=== PATIENT | male | born 1940 | race Caucasian/White ===

== ENCOUNTER 2018-01-04 17:25 | Inpatient (IN) ==
--- NOTE | 2018-01-04 18:41 | ED ---
HPI General Chief complaint: Weakness Stated complaint: failure to thrive Time Seen by Provider: 01/04/18 18:01 Source: patient, EMS and RN notes reviewed Mode of arrival: EMS Limitations: no limitations History of Present Illness HPI Narrative: Patient is a 77-year-old male that presents for the evaluation of progressive leg weakness over the past 2 months. The patient states that over the past 2 months his left leg feels like it gets weak after standing and walking. The patient reports that he wakes up in the morning and can walk as usual but as the day progresses his left leg in particular begins to feel weak and he can no longer walk. The patient denies any past medical history at this time. He denies any pain. He denies fever, chill, chest pain, nausea, or vomiting. He does report shortness of breath that he states is normal for him. Upon further evaluation the patient also states that for the past couple days his left eye has had purulent discharge that has caused his eyelid to swell and causes it to stay shut. Related Data Home Medications Medication Instructions Recorded Confirmed aspirin 325 mg PO DAILY 01/04/18 01/04/18 Allergies Allergy/AdvReac Type Severity Reaction Status Date / Time Penicillins Allergy Unknown unknown Verified 01/04/18 18:45 Review of Systems ROS: all other systems reviewed are negative PMFSH History History Provided By: Patient and Unit Control Clerk / EMT Medical History Medical History Medical history unknown (Acute) Surgical History Surgical History No history of previous surgery (Acute) Social History Social History Substance History: No History of Abuse Second Hand Smoke Exposure: Yes Smoking Status: Current every day smoker Tobacco Type: Cigarettes How Often Do You Have a Drink Containing Alcohol: Never Recent Travel in [facility] within the Last 8 Weeks: No Recent Out of Country Travel within the Last 8 Weeks: No Exam Narrative Exam Narrative: GENERAL: Dishoveled. Not well groomed SKIN: Focused skin assessment warm/dry. Has hardening of the skin on the lower legs noted. Hard to assess for pulses with palpation but able to hear them with a Doppler. 2+. HEAD: Atraumatic. Normocephalic. EYES: Pupils equal and round. No scleral icterus. No injection or drainage. ENT: No nasal bleeding or discharge. Mucous membranes pink and moist. Tongue is midline. No blood deviation. EOM intact bilaterally. Patient does have swelling of the eyelids bilaterally on the left eye. Patient does have discharge coming from the eye itself. Patient has erythema on the left upper eyelid as well. NECK: Trachea midline. No JVD. CARDIOVASCULAR: Regular rate and rhythm. No murmur appreciated. RESPIRATORY: No accessory muscle use. Clear to auscultation. Breath sounds equal bilaterally. GASTROINTESTINAL: Abdomen soft, non-tender, nondistended. Hepatic and splenic margins not palpable. MUSCULOSKELETAL: No obvious deformities. No clubbing. No cyanosis. No edema. Full range of motion of the upper and lower extremities bilaterally. 2+ pulses bilaterally. NEUROLOGICAL: Awake and alert. No obvious cranial nerve deficits. Motor grossly within normal limits. Normal speech. PSYCHIATRIC: Appropriate mood and affect; insight and judgment normal. Course Initial Documented Vital Signs Temperature 97.5 F L 01/04/18 18:15 Pulse Rate 102 H 01/04/18 18:15 Respiratory Rate 29 H 01/04/18 18:15 Blood Pressure 127/58 L 01/04/18 18:15 Pulse Oximetry 56 L 01/04/18 18:15 Last Documented Vital Signs Temperature 98.2 F 01/05/18 16:00 Pulse Rate 90 01/05/18 19:00 Respiratory Rate 23 01/05/18 19:00 Blood Pressure 97/66 L 01/05/18 19:00 Pulse Oximetry 100 01/05/18 19:00 Medical Decision Making MARCUS Attestation MARCUS supervised visit: Yes Attestation: I, Dr. Sheets, have reviewed the advance practice practitioner's documentation and am in agreement, met with the patient face to face, made the diagnosis, and the medical decision making was done by me. The patient was initially evaluated by Ebenezer, the MARCUS. Please see their complete history and physical. *My assessment and Findings: The patient presents with history of being found disheveled appearing after his neighbors went to check on him earlier today. The patient denies having any acute complaints, however the patient has been frequently falling recently according to the history obtained from the nurse. The patient on arrival has a sallow appearing complexion. The patient's examination is remarkable for abrasions on his toes. The patient is also noted to have swelling most prominent in the left upper extremity. He also has some swelling that is periorbital. Patient was noted upon ambulance services arrival to have O2 saturations reportedly on room air of the 50s. The patient was placed on nasal cannula O2 and O2 saturations improved. During the course of the patient's emergency department visit, the patient's history, examination, and differential diagnosis were reviewed with the patient. The patient was placed on a radiographer cardiac catheterization with oximetry and frequent blood pressure monitoring. The patient had IV access obtained and blood work sent for analysis. The patient's studies were reviewed and remarkable for A white count of 6.9, hemoglobin 6.6, the patient was typed and crossmatched for blood administration. MCV is 72.9 suggestive of iron deficiency anemia, rectal examination was done that revealed Hemoccult positive stools. Platelet count 201, neutrophils 71.3 PT 16.4, INR is 1.6, PTT 32.4 suggestive of a coagulopathy of undetermined cause. Chemistry is remarkable for a BUN of 23, creatinine 2.00, calcium 7.5, total bilirubin 2.3, AST 46, possibly related to an alcohol related hepatitis, CPK 466, MB percent 2.0, troponin I elevated at 0.68 which could be related to his renal insufficiency, versus demand related ischemia from anemia as the patient denies having any chest pain. Albumin 2.6, TSH 4.19 urinalysis shows large occult blood and 100 protein hazy urine 2 urobilinogen, 51 RBCs, few sediment, rare bacteria. Chest x-ray shows pleural effusions, CT scan of the head and facial bones shows no acute abnormality, CT scan of the lumbar spine shows degenerative changes, no other acute abnormality , ultrasound of bilateral lower extremities reveals no DVT, however there is superficial venous thrombosis involving bilateral greater saphenous veins. The patient will be admitted to the hospital under the care of the cae engineer. The patient's results were discussed with the patient, including the plan of care. I explained that further testing and/ or monitoring is indicated based on the patient's history, examination, and/ or laboratory findings. Therefore, I recommended admission for additional evaluation. The patient expressed understanding and was agreeable with this plan. The patient was admitted to the hospital in critical condition and sent to a bed under the care of the cae engineer's service. MDM Narrative Medical decision making narrative: 77-year-old male the presents to the ED for evaluation of weakness. Patient was properly examined and was found to have signs and symptoms of unclear etiology with deafly concerning for weakness. Patient does not really follow up with and takes no medications. He seems like he does not really take good care of himself. Per nurse report apparently patient has fallen multiple times today and was on the floor for some time and they continue to call 911 and apparently the EVAC stated that he did not want to come until the last time when they told him that he needed to come. Labs and imaging will be ordered. Labs and imaging showed what appears to be anemia with GI bleed, pleural effusions bilaterally with left worse than right, what appears to be CHF exacerbation with a very high BNP, elevated troponin, tachycardia on EKG as well as injury and lactic acidosis. Unclear etiology of the symptoms at this time but likely from patient not taking care of himself. At this time blood was ordered. Patient was started on vancomycin IV, given a 500 bolus of fluid as well as Lasix given. Case discussed with my attending Dr. Sheets who evaluated the patient herself and recommends admission to the cae engineer. Patient was admitted to Dr. Carpenter who agreed to admission to his service. Medical Screen Exam Complete: Yes Emergency Medical Condition: Yes Differential Diagnosis Differential Diagnosis: Failure to thrive versus weakness versus peripheral artery disease versus DVT versus cellulitis versus orbital cellulitis versus weakness versus altered mental status Medical Records Medical records reviewed: Yes I reviewed the patient's medical records. Lab Data Lab results reviewed: Yes I reviewed the patient's lab results. Lab results narrative: lactic acid elevated Troponin elevated BNP in the 3000 Result diagrams: 01/05/18 13:03 01/05/18 04:07 Lab Results 01/04/18 01/04/18 01/04/18 Range/Units 18:59 19:00 19:00 WBC 6.9 (4.0-11.0) th/mm3 RBC 3.37 L (4.50-5.90) mil/mm3 Hgb 6.6 L* (13.0-17.0) gm/dL Hct 24.6 L (39.0-51.0) % MCV 72.9 L (80.0-100.0) fL MCH 19.7 L (27.0-34.0) pg MCHC 27.0 L (32.0-36.0) % RDW 25.6 H (11.6-17.2) % Plt Count 201 (150-450) th/mm3 MPV 8.4 (7.0-11.0) fL Prelim Diff (Auto) Slide review pending Neut % (Auto) 71.3 H (16.0-70.0) % Lymph % (Auto) 17.3 (9.0-44.0) % [place] % (Auto) 10.6 H (0.0-8.0) % Eos % (Auto) 0.1 (0.0-4.0) % Baso % (Auto) 0.7 (0.0-2.0) % Neut # (Auto) 4.9 (1.8-7.7) th/mm3 Lymph # (Auto) 1.2 (1.0-4.8) th/mm3 [place] # (Auto) 0.7 (0.0-0.9) th/mm3 Eos # (Auto) 0.0 (0.0-0.4) th/mm3 Baso # (Auto) 0.0 (0.0-0.2) th/mm3 WBC Differential . Diff Scan Auto diff confirmed Differential Comment . Dimorphic RBCs Present H (None) PT (9.8-11.6) sec INR Ratio APTT (24.3-30.1) sec Puncture Site Patient Temperature O2 Saturation (90-100) % ABG pH (7.380-7.420) ABG pCO2 (38-42) mmHg ABG pO2 (61-120) mmHG ABG HCO3 (22-26) mmol/L ABG O2 Content (12.0-20.0) Vol % ABG Base Excess (-2-2) mmol/L ABG Methemoglobin (0-2) % Eh Test Hemoglobin (12.0-16.0) G/DL Carboxyhemoglobin (0-4) % O2 Delivery Device Liter Flow L/M Vent Setting Inspired O2 % Critical Value Sodium 143 (136-145) meq/L Potassium 3.9 (3.5-5.1) meq/L Chloride 106 (98-107) meq/L Carbon Dioxide 21.8 (21.0-32.0) meq/L Anion Gap 15 (5-15) meq/L BUN 22 H (7-18) mg/dL Creatinine 2.04 H (0.60-1.30) mg/dL Estimated GFR 32 L (>89) mL/min POC Glucose 95 (68-110) mg/dl Random Glucose 81 (74-106) mg/dL Lactic Acid (0.4-2.0) mmol/L Calcium 8.1 L (8.5-10.1) mg/dL Magnesium 1.9 (1.5-2.5) mg/dL Total Bilirubin 1.8 H (0.2-1.0) mg/dL AST 43 H (15-37) U/L ALT 19 (12-78) U/L Alkaline Phosphatase 68 (45-117) U/L Total Creatine Kinase 561 H (39-308) U/L CK-MB (CK-2) 9.8 H (0.5-3.6) ng/mL CK-MB (CK-2) % 1.7 (0.0-4.0) % Troponin I 0.64 H* (0.02-0.05) ng/mL B-Natriuretic Peptide (0-100) pg/mL Total Protein 6.9 (6.4-8.2) g/dL Albumin 2.4 L (3.4-5.0) g/dL TSH 4.250 H (0.358-3.740) uIU/mL Free T4 (0.76-1.46) ng/dL Free T3 (2.18-3.98) pg/mL Urine Color (Yellw/Straw) Urine Clarity (Clear) Urine pH (5.0-8.5) Ur Specific [place] (1.002-1.035) Urine Protein (Neg-Trace) mg/dL Urine Glucose (UA) (Negative) mg/dL Urine Ketones (Negative) mg/dL Urine Occult Blood (Negative) Urine Nitrate (Negative) Urine Bilirubin (Negative) Urine Urobilinogen (Less than 2) mg/dL Ur Leukocyte Esterase (Negative) Urine RBC (0-3) /hpf Urine WBC (0-5) /hpf Amorphous Sediment (None) /hpf Urine Bacteria (None) /hpf Micro UA Comment Ur Microscopic Review Urine Culture Comments Pleural pH Pleural RBC (0-0) /mm3 Pleural Nuc Cells (0-10) /mm3 Pleural Neutrophils % Pleural Lymphocytes % Pleural Monocytes % Pleural Plasma Cells % Pleural Histocytes % Pleural Mesothelial % Pleural Total Protein gm/dL Pleural Albumin g/dL Pleural LDH U/L Pleural Glucose mg/dL Pleural Amylase U/L Nasal Screen MRSA (PCR) (Negative) Blood Type Antibody Screen MTS Gel Crossmatch 01/04/18 01/04/18 01/04/18 Range/Units 19:00 19:05 20:45 WBC (4.0-11.0) th/mm3 RBC (4.50-5.90) mil/mm3 Hgb (13.0-17.0) gm/dL Hct (39.0-51.0) % MCV (80.0-100.0) fL MCH (27.0-34.0) pg MCHC (32.0-36.0) % RDW (11.6-17.2) % Plt Count (150-450) th/mm3 MPV (7.0-11.0) fL Prelim Diff (Auto) Neut % (Auto) (16.0-70.0) % Lymph % (Auto) (9.0-44.0) % [place] % (Auto) (0.0-8.0) % Eos % (Auto) (0.0-4.0) % Baso % (Auto) (0.0-2.0) % Neut # (Auto) (1.8-7.7) th/mm3 Lymph # (Auto) (1.0-4.8) th/mm3 [place] # (Auto) (0.0-0.9) th/mm3 Eos # (Auto) (0.0-0.4) th/mm3 Baso # (Auto) (0.0-0.2) th/mm3 WBC Differential Diff Scan Differential Comment Dimorphic RBCs (None) PT (9.8-11.6) sec INR Ratio APTT (24.3-30.1) sec Puncture Site Patient Temperature O2 Saturation (90-100) % ABG pH (7.380-7.420) ABG pCO2 (38-42) mmHg ABG pO2 (61-120) mmHG ABG HCO3 (22-26) mmol/L ABG O2 Content (12.0-20.0) Vol % ABG Base Excess (-2-2) mmol/L ABG Methemoglobin (0-2) % Eh Test Hemoglobin (12.0-16.0) G/DL Carboxyhemoglobin (0-4) % O2 Delivery Device Liter Flow L/M Vent Setting Inspired O2 % Critical Value Sodium (136-145) meq/L Potassium (3.5-5.1) meq/L Chloride (98-107) meq/L Carbon Dioxide (21.0-32.0) meq/L Anion Gap (5-15) meq/L BUN (7-18) mg/dL Creatinine (0.60-1.30) mg/dL Estimated GFR (>89) mL/min POC Glucose (68-110) mg/dl Random Glucose (74-106) mg/dL Lactic Acid 6.8 H* (0.4-2.0) mmol/L Calcium (8.5-10.1) mg/dL Magnesium (1.5-2.5) mg/dL Total Bilirubin (0.2-1.0) mg/dL AST (15-37) U/L ALT (12-78) U/L Alkaline Phosphatase (45-117) U/L Total Creatine Kinase (39-308) U/L CK-MB (CK-2) (0.5-3.6) ng/mL CK-MB (CK-2) % (0.0-4.0) % Troponin I (0.02-0.05) ng/mL B-Natriuretic Peptide 3405 H (0-100) pg/mL Total Protein (6.4-8.2) g/dL Albumin (3.4-5.0) g/dL TSH (0.358-3.740) uIU/mL Free T4 (0.76-1.46) ng/dL Free T3 (2.18-3.98) pg/mL Urine Color (Yellw/Straw) Urine Clarity (Clear) Urine pH (5.0-8.5) Ur Specific [place] (1.002-1.035) Urine Protein (Neg-Trace) mg/dL Urine Glucose (UA) (Negative) mg/dL Urine Ketones (Negative) mg/dL Urine Occult Blood (Negative) Urine Nitrate (Negative) Urine Bilirubin (Negative) Urine Urobilinogen (Less than 2) mg/dL Ur Leukocyte Esterase (Negative) Urine RBC (0-3) /hpf Urine WBC (0-5) /hpf Amorphous Sediment (None) /hpf Urine Bacteria (None) /hpf Micro UA Comment Ur Microscopic Review Urine Culture Comments Pleural pH Pleural RBC (0-0) /mm3 Pleural Nuc Cells (0-10) /mm3 Pleural Neutrophils % Pleural Lymphocytes % Pleural Monocytes % Pleural Plasma Cells % Pleural Histocytes % Pleural Mesothelial % Pleural Total Protein gm/dL Pleural Albumin g/dL Pleural LDH U/L Pleural Glucose mg/dL Pleural Amylase U/L Nasal Screen MRSA (PCR) (Negative) Blood Type O Positive Antibody Screen Negative MTS Gel Crossmatch 01/04/18 01/04/18 01/04/18 Range/Units 20:45 20:45 21:55 WBC (4.0-11.0) th/mm3 RBC (4.50-5.90) mil/mm3 Hgb (13.0-17.0) gm/dL Hct (39.0-51.0) % MCV (80.0-100.0) fL MCH (27.0-34.0) pg MCHC (32.0-36.0) % RDW (11.6-17.2) % Plt Count (150-450) th/mm3 MPV (7.0-11.0) fL Prelim Diff (Auto) Neut % (Auto) (16.0-70.0) % Lymph % (Auto) (9.0-44.0) % [place] % (Auto) (0.0-8.0) % Eos % (Auto) (0.0-4.0) % Baso % (Auto) (0.0-2.0) % Neut # (Auto) (1.8-7.7) th/mm3 Lymph # (Auto) (1.0-4.8) th/mm3 [place] # (Auto) (0.0-0.9) th/mm3 Eos # (Auto) (0.0-0.4) th/mm3 Baso # (Auto) (0.0-0.2) th/mm3 WBC Differential Diff Scan Differential Comment Dimorphic RBCs (None) PT 16.4 H (9.8-11.6) sec INR 1.6 Ratio APTT 32.4 H (24.3-30.1) sec Puncture Site Patient Temperature O2 Saturation (90-100) % ABG pH (7.380-7.420) ABG pCO2 (38-42) mmHg ABG pO2 (61-120) mmHG ABG HCO3 (22-26) mmol/L ABG O2 Content (12.0-20.0) Vol % ABG Base Excess (-2-2) mmol/L ABG Methemoglobin (0-2) % Eh Test Hemoglobin (12.0-16.0) G/DL Carboxyhemoglobin (0-4) % O2 Delivery Device Liter Flow L/M Vent Setting Inspired O2 % Critical Value Sodium (136-145) meq/L Potassium (3.5-5.1) meq/L Chloride (98-107) meq/L Carbon Dioxide (21.0-32.0) meq/L Anion Gap (5-15) meq/L BUN (7-18) mg/dL Creatinine (0.60-1.30) mg/dL Estimated GFR (>89) mL/min POC Glucose (68-110) mg/dl Random Glucose (74-106) mg/dL Lactic Acid 4.9 H* (0.4-2.0) mmol/L Calcium (8.5-10.1) mg/dL Magnesium (1.5-2.5) mg/dL Total Bilirubin (0.2-1.0) mg/dL AST (15-37) U/L ALT (12-78) U/L Alkaline Phosphatase (45-117) U/L Total Creatine Kinase (39-308) U/L CK-MB (CK-2) (0.5-3.6) ng/mL CK-MB (CK-2) % (0.0-4.0) % Troponin I (0.02-0.05) ng/mL B-Natriuretic Peptide (0-100) pg/mL Total Protein (6.4-8.2) g/dL Albumin (3.4-5.0) g/dL TSH (0.358-3.740) uIU/mL Free T4 (0.76-1.46) ng/dL Free T3 (2.18-3.98) pg/mL Urine Color (Yellw/Straw) Urine Clarity (Clear) Urine pH (5.0-8.5) Ur Specific [place] (1.002-1.035) Urine Protein (Neg-Trace) mg/dL Urine Glucose (UA) (Negative) mg/dL Urine Ketones (Negative) mg/dL Urine Occult Blood (Negative) Urine Nitrate (Negative) Urine Bilirubin (Negative) Urine Urobilinogen (Less than 2) mg/dL Ur Leukocyte Esterase (Negative) Urine RBC (0-3) /hpf Urine WBC (0-5) /hpf Amorphous Sediment (None) /hpf Urine Bacteria (None) /hpf Micro UA Comment Ur Microscopic Review Urine Culture Comments Pleural pH Pleural RBC (0-0) /mm3 Pleural Nuc Cells (0-10) /mm3 Pleural Neutrophils % Pleural Lymphocytes % Pleural Monocytes % Pleural Plasma Cells % Pleural Histocytes % Pleural Mesothelial % Pleural Total Protein gm/dL Pleural Albumin g/dL Pleural LDH U/L Pleural Glucose mg/dL Pleural Amylase U/L Nasal Screen MRSA (PCR) (Negative) Blood Type Antibody Screen MTS Gel Crossmatch See Detail 01/04/18 01/04/18 01/05/18 Range/Units 22:15 22:20 00:30 WBC (4.0-11.0) th/mm3 RBC (4.50-5.90) mil/mm3 Hgb 6.1 L* (13.0-17.0) gm/dL Hct 23.1 L (39.0-51.0) % MCV (80.0-100.0) fL MCH (27.0-34.0) pg MCHC (32.0-36.0) % RDW (11.6-17.2) % Plt Count (150-450) th/mm3 MPV (7.0-11.0) fL Prelim Diff (Auto) Neut % (Auto) (16.0-70.0) % Lymph % (Auto) (9.0-44.0) % [place] % (Auto) (0.0-8.0) % Eos % (Auto) (0.0-4.0) % Baso % (Auto) (0.0-2.0) % Neut # (Auto) (1.8-7.7) th/mm3 Lymph # (Auto) (1.0-4.8) th/mm3 [place] # (Auto) (0.0-0.9) th/mm3 Eos # (Auto) (0.0-0.4) th/mm3 Baso # (Auto) (0.0-0.2) th/mm3 WBC Differential Diff Scan Differential Comment Dimorphic RBCs (None) PT (9.8-11.6) sec INR Ratio APTT (24.3-30.1) sec Puncture Site Patient Temperature O2 Saturation (90-100) % ABG pH (7.380-7.420) ABG pCO2 (38-42) mmHg ABG pO2 (61-120) mmHG ABG HCO3 (22-26) mmol/L ABG O2 Content (12.0-20.0) Vol % ABG Base Excess (-2-2) mmol/L ABG Methemoglobin (0-2) % Eh Test Hemoglobin (12.0-16.0) G/DL Carboxyhemoglobin (0-4) % O2 Delivery Device Liter Flow L/M Vent Setting Inspired O2 % Critical Value Sodium (136-145) meq/L Potassium (3.5-5.1) meq/L Chloride (98-107) meq/L Carbon Dioxide (21.0-32.0) meq/L Anion Gap (5-15) meq/L BUN (7-18) mg/dL Creatinine (0.60-1.30) mg/dL Estimated GFR (>89) mL/min POC Glucose (68-110) mg/dl Random Glucose (74-106) mg/dL Lactic Acid (0.4-2.0) mmol/L Calcium (8.5-10.1) mg/dL Magnesium (1.5-2.5) mg/dL Total Bilirubin (0.2-1.0) mg/dL AST (15-37) U/L ALT (12-78) U/L Alkaline Phosphatase (45-117) U/L Total Creatine Kinase (39-308) U/L CK-MB (CK-2) (0.5-3.6) ng/mL CK-MB (CK-2) % (0.0-4.0) % Troponin I (0.02-0.05) ng/mL B-Natriuretic Peptide (0-100) pg/mL Total Protein (6.4-8.2) g/dL Albumin (3.4-5.0) g/dL TSH (0.358-3.740) uIU/mL Free T4 (0.76-1.46) ng/dL Free T3 (2.18-3.98) pg/mL Urine Color [place] (Yellw/Straw) Urine Clarity Hazy H (Clear) Urine pH 5.0 (5.0-8.5) Ur Specific [place] 1.014 (1.002-1.035) Urine Protein 100 H (Neg-Trace) mg/dL Urine Glucose (UA) Negative (Negative) mg/dL Urine Ketones Negative (Negative) mg/dL Urine Occult Blood Large H (Negative) Urine Nitrate Negative (Negative) Urine Bilirubin Negative (Negative) Urine Urobilinogen 2.0 H (Less than 2) mg/dL Ur Leukocyte Esterase Negative (Negative) Urine RBC 51 H (0-3) /hpf Urine WBC 5 (0-5) /hpf Amorphous Sediment Few H (None) /hpf Urine Bacteria Rare H (None) /hpf Micro UA Comment Cath-culture ind Ur Microscopic Review Not Reportable Urine Culture Comments Cath-cult indicated Pleural pH Pleural RBC (0-0) /mm3 Pleural Nuc Cells (0-10) /mm3 Pleural Neutrophils % Pleural Lymphocytes % Pleural Monocytes % Pleural Plasma Cells % Pleural Histocytes % Pleural Mesothelial % Pleural Total Protein gm/dL Pleural Albumin g/dL Pleural LDH U/L Pleural Glucose mg/dL Pleural Amylase U/L Nasal Screen MRSA (PCR) Not detected (Negative) Blood Type Antibody Screen MTS Gel Crossmatch 01/05/18 01/05/18 01/05/18 Range/Units 01:27 01:36 03:39 WBC (4.0-11.0) th/mm3 RBC (4.50-5.90) mil/mm3 Hgb (13.0-17.0) gm/dL Hct (39.0-51.0) % MCV (80.0-100.0) fL MCH (27.0-34.0) pg MCHC (32.0-36.0) % RDW (11.6-17.2) % Plt Count (150-450) th/mm3 MPV (7.0-11.0) fL Prelim Diff (Auto) Neut % (Auto) (16.0-70.0) % Lymph % (Auto) (9.0-44.0) % [place] % (Auto) (0.0-8.0) % Eos % (Auto) (0.0-4.0) % Baso % (Auto) (0.0-2.0) % Neut # (Auto) (1.8-7.7) th/mm3 Lymph # (Auto) (1.0-4.8) th/mm3 [place] # (Auto) (0.0-0.9) th/mm3 Eos # (Auto) (0.0-0.4) th/mm3 Baso # (Auto) (0.0-0.2) th/mm3 WBC Differential Diff Scan Differential Comment Dimorphic RBCs (None) PT (9.8-11.6) sec INR Ratio APTT (24.3-30.1) sec Puncture Site Right radial Patient Temperature 98.6 O2 Saturation 85 L* (90-100) % ABG pH 7.27 L* (7.380-7.420) ABG pCO2 58 H* (38-42) mmHg ABG pO2 65 (61-120) mmHG ABG HCO3 26 (22-26) mmol/L ABG O2 Content 8.8 L (12.0-20.0) Vol % ABG Base Excess -0.1 (-2-2) mmol/L ABG Methemoglobin 1.7 (0-2) % Eh Test Present Hemoglobin 7.3 L* (12.0-16.0) G/DL Carboxyhemoglobin 2.3 (0-4) % O2 Delivery Device Nasal cannula Liter Flow 4.00 L/M Vent Setting Inspired O2 36 % Critical Value Yes Sodium (136-145) meq/L Potassium (3.5-5.1) meq/L Chloride (98-107) meq/L Carbon Dioxide (21.0-32.0) meq/L Anion Gap (5-15) meq/L BUN (7-18) mg/dL Creatinine (0.60-1.30) mg/dL Estimated GFR (>89) mL/min POC Glucose 126 H 96 (68-110) mg/dl Random Glucose (74-106) mg/dL Lactic Acid (0.4-2.0) mmol/L Calcium (8.5-10.1) mg/dL Magnesium (1.5-2.5) mg/dL Total Bilirubin (0.2-1.0) mg/dL AST (15-37) U/L ALT (12-78) U/L Alkaline Phosphatase (45-117) U/L Total Creatine Kinase (39-308) U/L CK-MB (CK-2) (0.5-3.6) ng/mL CK-MB (CK-2) % (0.0-4.0) % Troponin I (0.02-0.05) ng/mL B-Natriuretic Peptide (0-100) pg/mL Total Protein (6.4-8.2) g/dL Albumin (3.4-5.0) g/dL TSH (0.358-3.740) uIU/mL Free T4 (0.76-1.46) ng/dL Free T3 (2.18-3.98) pg/mL Urine Color (Yellw/Straw) Urine Clarity (Clear) Urine pH (5.0-8.5) Ur Specific [place] (1.002-1.035) Urine Protein (Neg-Trace) mg/dL Urine Glucose (UA) (Negative) mg/dL Urine Ketones (Negative) mg/dL Urine Occult Blood (Negative) Urine Nitrate (Negative) Urine Bilirubin (Negative) Urine Urobilinogen (Less than 2) mg/dL Ur Leukocyte Esterase (Negative) Urine RBC (0-3) /hpf Urine WBC (0-5) /hpf Amorphous Sediment (None) /hpf Urine Bacteria (None) /hpf Micro UA Comment Ur Microscopic Review Urine Culture Comments Pleural pH Pleural RBC (0-0) /mm3 Pleural Nuc Cells (0-10) /mm3 Pleural Neutrophils % Pleural Lymphocytes % Pleural Monocytes % Pleural Plasma Cells % Pleural Histocytes % Pleural Mesothelial % Pleural Total Protein gm/dL Pleural Albumin g/dL Pleural LDH U/L Pleural Glucose mg/dL Pleural Amylase U/L Nasal Screen MRSA (PCR) (Negative) Blood Type Antibody Screen MTS Gel Crossmatch 01/05/18 01/05/18 01/05/18 Range/Units 04:07 04:07 05:55 WBC (4.0-11.0) th/mm3 RBC (4.50-5.90) mil/mm3 Hgb (13.0-17.0) gm/dL Hct (39.0-51.0) % MCV (80.0-100.0) fL MCH (27.0-34.0) pg MCHC (32.0-36.0) % RDW (11.6-17.2) % Plt Count (150-450) th/mm3 MPV (7.0-11.0) fL Prelim Diff (Auto) Neut % (Auto) (16.0-70.0) % Lymph % (Auto) (9.0-44.0) % [place] % (Auto) (0.0-8.0) % Eos % (Auto) (0.0-4.0) % Baso % (Auto) (0.0-2.0) % Neut # (Auto) (1.8-7.7) th/mm3 Lymph # (Auto) (1.0-4.8) th/mm3 [place] # (Auto) (0.0-0.9) th/mm3 Eos # (Auto) (0.0-0.4) th/mm3 Baso # (Auto) (0.0-0.2) th/mm3 WBC Differential Diff Scan Differential Comment Dimorphic RBCs (None) PT (9.8-11.6) sec INR Ratio APTT (24.3-30.1) sec Puncture Site Right radial Patient Temperature 98.6 O2 Saturation 94 (90-100) % ABG pH 7.27 L* (7.380-7.420) ABG pCO2 61 H* (38-42) mmHg ABG pO2 99 (61-120) mmHG ABG HCO3 27 H (22-26) mmol/L ABG O2 Content 10.9 L (12.0-20.0) Vol % ABG Base Excess 1.0 (-2-2) mmol/L ABG Methemoglobin 1.6 (0-2) % Eh Test Present Hemoglobin 8.2 L (12.0-16.0) G/DL Carboxyhemoglobin 2.4 (0-4) % O2 Delivery Device Bipap 10/+5 Liter Flow L/M Vent Setting Inspired O2 40 % Critical Value Yes Sodium 145 (136-145) meq/L Potassium 4.1 (3.5-5.1) meq/L Chloride 106 (98-107) meq/L Carbon Dioxide 28.7 (21.0-32.0) meq/L Anion Gap 10 (5-15) meq/L BUN 23 H (7-18) mg/dL Creatinine 2.00 H (0.60-1.30) mg/dL Estimated GFR 33 L (>89) mL/min POC Glucose (68-110) mg/dl Random Glucose 97 (74-106) mg/dL Lactic Acid 2.6 H (0.4-2.0) mmol/L Calcium 7.5 L (8.5-10.1) mg/dL Magnesium (1.5-2.5) mg/dL Total Bilirubin 2.3 H (0.2-1.0) mg/dL AST 46 H (15-37) U/L ALT 23 (12-78) U/L Alkaline Phosphatase 72 (45-117) U/L Total Creatine Kinase 466 H (39-308) U/L CK-MB (CK-2) 9.2 H (0.5-3.6) ng/mL CK-MB (CK-2) % 2.0 (0.0-4.0) % Troponin I 0.68 H* (0.02-0.05) ng/mL B-Natriuretic Peptide (0-100) pg/mL Total Protein 7.0 (6.4-8.2) g/dL Albumin 2.6 L (3.4-5.0) g/dL TSH 4.190 H (0.358-3.740) uIU/mL Free T4 0.83 (0.76-1.46) ng/dL Free T3 0.97 L (2.18-3.98) pg/mL Urine Color (Yellw/Straw) Urine Clarity (Clear) Urine pH (5.0-8.5) Ur Specific [place] (1.002-1.035) Urine Protein (Neg-Trace) mg/dL Urine Glucose (UA) (Negative) mg/dL Urine Ketones (Negative) mg/dL Urine Occult Blood (Negative) Urine Nitrate (Negative) Urine Bilirubin (Negative) Urine Urobilinogen (Less than 2) mg/dL Ur Leukocyte Esterase (Negative) Urine RBC (0-3) /hpf Urine WBC (0-5) /hpf Amorphous Sediment (None) /hpf Urine Bacteria (None) /hpf Micro UA Comment Ur Microscopic Review Urine Culture Comments Pleural pH Pleural RBC (0-0) /mm3 Pleural Nuc Cells (0-10) /mm3 Pleural Neutrophils % Pleural Lymphocytes % Pleural Monocytes % Pleural Plasma Cells % Pleural Histocytes % Pleural Mesothelial % Pleural Total Protein gm/dL Pleural Albumin g/dL Pleural LDH U/L Pleural Glucose mg/dL Pleural Amylase U/L Nasal Screen MRSA (PCR) (Negative) Blood Type Antibody Screen MTS Gel Crossmatch 10/03/18 10/03/18 10/03/18 Range/Units 07:28 08:00 08:00 WBC (4.0-11.0) th/mm3 RBC (4.50-5.90) mil/mm3 Hgb (13.0-17.0) gm/dL Hct (39.0-51.0) % MCV (80.0-100.0) fL MCH (27.0-34.0) pg MCHC (32.0-36.0) % RDW (11.6-17.2) % Plt Count (150-450) th/mm3 MPV (7.0-11.0) fL Prelim Diff (Auto) Neut % (Auto) (16.0-70.0) % Lymph % (Auto) (9.0-44.0) % [place] % (Auto) (0.0-8.0) % Eos % (Auto) (0.0-4.0) % Baso % (Auto) (0.0-2.0) % Neut # (Auto) (1.8-7.7) th/mm3 Lymph # (Auto) (1.0-4.8) th/mm3 [place] # (Auto) (0.0-0.9) th/mm3 Eos # (Auto) (0.0-0.4) th/mm3 Baso # (Auto) (0.0-0.2) th/mm3 WBC Differential Diff Scan Differential Comment Dimorphic RBCs (None) PT (9.8-11.6) sec INR Ratio APTT (24.3-30.1) sec Puncture Site Patient Temperature O2 Saturation (90-100) % ABG pH (7.380-7.420) ABG pCO2 (38-42) mmHg ABG pO2 (61-120) mmHG ABG HCO3 (22-26) mmol/L ABG O2 Content (12.0-20.0) Vol % ABG Base Excess (-2-2) mmol/L ABG Methemoglobin (0-2) % Eh Test Hemoglobin (12.0-16.0) G/DL Carboxyhemoglobin (0-4) % O2 Delivery Device Liter Flow L/M Vent Setting Inspired O2 % Critical Value Sodium (136-145) meq/L Potassium (3.5-5.1) meq/L Chloride (98-107) meq/L Carbon Dioxide (21.0-32.0) meq/L Anion Gap (5-15) meq/L BUN (7-18) mg/dL Creatinine (0.60-1.30) mg/dL Estimated GFR (>89) mL/min POC Glucose (68-110) mg/dl Random Glucose (74-106) mg/dL Lactic Acid (0.4-2.0) mmol/L Calcium (8.5-10.1) mg/dL Magnesium (1.5-2.5) mg/dL Total Bilirubin (0.2-1.0) mg/dL AST (15-37) U/L ALT (12-78) U/L Alkaline Phosphatase (45-117) U/L Total Creatine Kinase (39-308) U/L CK-MB (CK-2) (0.5-3.6) ng/mL CK-MB (CK-2) % (0.0-4.0) % Troponin I 0.46 H (0.02-0.05) ng/mL B-Natriuretic Peptide (0-100) pg/mL Total Protein (6.4-8.2) g/dL Albumin (3.4-5.0) g/dL TSH (0.358-3.740) uIU/mL Free T4 (0.76-1.46) ng/dL Free T3 (2.18-3.98) pg/mL Urine Color (Yellw/Straw) Urine Clarity (Clear) Urine pH (5.0-8.5) Ur Specific [place] (1.002-1.035) Urine Protein (Neg-Trace) mg/dL Urine Glucose (UA) (Negative) mg/dL Urine Ketones (Negative) mg/dL Urine Occult Blood (Negative) Urine Nitrate (Negative) Urine Bilirubin (Negative) Urine Urobilinogen (Less than 2) mg/dL Ur Leukocyte Esterase (Negative) Urine RBC (0-3) /hpf Urine WBC (0-5) /hpf Amorphous Sediment (None) /hpf Urine Bacteria (None) /hpf Micro UA Comment Ur Microscopic Review Urine Culture Comments Pleural pH 8.5 Pleural RBC 267 H (0-0) /mm3 Pleural Nuc Cells 74 H (0-10) /mm3 Pleural Neutrophils 21 % Pleural Lymphocytes 47 % Pleural Monocytes 17 % Pleural Plasma Cells 1 % Pleural Histocytes 9 % Pleural Mesothelial 5 % Pleural Total Protein 1.7 gm/dL Pleural Albumin g/dL Pleural LDH 57 U/L Pleural Glucose 96 mg/dL Pleural Amylase 14 U/L Nasal Screen MRSA (PCR) (Negative) Blood Type Antibody Screen MTS Gel Crossmatch 01/05/18 01/05/18 01/05/18 Range/Units 08:50 08:50 09:56 WBC 7.7 (4.0-11.0) th/mm3 RBC 3.55 L (4.50-5.90) mil/mm3 Hgb 7.8 L (13.0-17.0) gm/dL Hct 26.2 L (39.0-51.0) % MCV 73.9 L (80.0-100.0) fL MCH 21.9 L (27.0-34.0) pg MCHC 29.6 L (32.0-36.0) % RDW 23.4 H (11.6-17.2) % Plt Count 137 L D (150-450) th/mm3 MPV 8.4 (7.0-11.0) fL Prelim Diff (Auto) Neut % (Auto) 88.8 H (16.0-70.0) % Lymph % (Auto) 7.1 L (9.0-44.0) % [place] % (Auto) 3.3 (0.0-8.0) % Eos % (Auto) 0.5 (0.0-4.0) % Baso % (Auto) 0.3 (0.0-2.0) % Neut # (Auto) 6.8 (1.8-7.7) th/mm3 Lymph # (Auto) 0.5 L (1.0-4.8) th/mm3 [place] # (Auto) 0.3 (0.0-0.9) th/mm3 Eos # (Auto) 0.0 (0.0-0.4) th/mm3 Baso # (Auto) 0.0 (0.0-0.2) th/mm3 WBC Differential . Diff Scan Differential Comment Auto diff final Dimorphic RBCs (None) PT (9.8-11.6) sec INR Ratio APTT (24.3-30.1) sec Puncture Site Patient Temperature O2 Saturation (90-100) % ABG pH (7.380-7.420) ABG pCO2 (38-42) mmHg ABG pO2 (61-120) mmHG ABG HCO3 (22-26) mmol/L ABG O2 Content (12.0-20.0) Vol % ABG Base Excess (-2-2) mmol/L ABG Methemoglobin (0-2) % Eh Test Hemoglobin (12.0-16.0) G/DL Carboxyhemoglobin (0-4) % O2 Delivery Device Liter Flow L/M Vent Setting Inspired O2 % Critical Value Sodium (136-145) meq/L Potassium (3.5-5.1) meq/L Chloride (98-107) meq/L Carbon Dioxide (21.0-32.0) meq/L Anion Gap (5-15) meq/L BUN (7-18) mg/dL Creatinine (0.60-1.30) mg/dL Estimated GFR (>89) mL/min POC Glucose 77 (68-110) mg/dl Random Glucose (74-106) mg/dL Lactic Acid 1.1 (0.4-2.0) mmol/L Calcium (8.5-10.1) mg/dL Magnesium (1.5-2.5) mg/dL Total Bilirubin (0.2-1.0) mg/dL AST (15-37) U/L ALT (12-78) U/L Alkaline Phosphatase (45-117) U/L Total Creatine Kinase (39-308) U/L CK-MB (CK-2) (0.5-3.6) ng/mL CK-MB (CK-2) % (0.0-4.0) % Troponin I (0.02-0.05) ng/mL B-Natriuretic Peptide (0-100) pg/mL Total Protein (6.4-8.2) g/dL Albumin (3.4-5.0) g/dL TSH (0.358-3.740) uIU/mL Free T4 (0.76-1.46) ng/dL Free T3 (2.18-3.98) pg/mL Urine Color (Yellw/Straw) Urine Clarity (Clear) Urine pH (5.0-8.5) Ur Specific [place] (1.002-1.035) Urine Protein (Neg-Trace) mg/dL Urine Glucose (UA) (Negative) mg/dL Urine Ketones (Negative) mg/dL Urine Occult Blood (Negative) Urine Nitrate (Negative) Urine Bilirubin (Negative) Urine Urobilinogen (Less than 2) mg/dL Ur Leukocyte Esterase (Negative) Urine RBC (0-3) /hpf Urine WBC (0-5) /hpf Amorphous Sediment (None) /hpf Urine Bacteria (None) /hpf Micro UA Comment Ur Microscopic Review Urine Culture Comments Pleural pH Pleural RBC (0-0) /mm3 Pleural Nuc Cells (0-10) /mm3 Pleural Neutrophils % Pleural Lymphocytes % Pleural Monocytes % Pleural Plasma Cells % Pleural Histocytes % Pleural Mesothelial % Pleural Total Protein gm/dL Pleural Albumin g/dL Pleural LDH U/L Pleural Glucose mg/dL Pleural Amylase U/L Nasal Screen MRSA (PCR) (Negative) Blood Type Antibody Screen MTS Gel Crossmatch 01/05/18 01/05/18 01/05/18 Range/Units 11:52 12:50 13:03 WBC (4.0-11.0) th/mm3 RBC (4.50-5.90) mil/mm3 Hgb (13.0-17.0) gm/dL Hct (39.0-51.0) % MCV (80.0-100.0) fL MCH (27.0-34.0) pg MCHC (32.0-36.0) % RDW (11.6-17.2) % Plt Count (150-450) th/mm3 MPV (7.0-11.0) fL Prelim Diff (Auto) Neut % (Auto) (16.0-70.0) % Lymph % (Auto) (9.0-44.0) % [place] % (Auto) (0.0-8.0) % Eos % (Auto) (0.0-4.0) % Baso % (Auto) (0.0-2.0) % Neut # (Auto) (1.8-7.7) th/mm3 Lymph # (Auto) (1.0-4.8) th/mm3 [place] # (Auto) (0.0-0.9) th/mm3 Eos # (Auto) (0.0-0.4) th/mm3 Baso # (Auto) (0.0-0.2) th/mm3 WBC Differential Diff Scan Differential Comment Dimorphic RBCs (None) PT (9.8-11.6) sec INR Ratio APTT (24.3-30.1) sec Puncture Site Right radial Patient Temperature 98.6 O2 Saturation 96 (90-100) % ABG pH 7.41 (7.380-7.420) ABG pCO2 42 (38-42) mmHg ABG pO2 132 H (61-120) mmHG ABG HCO3 26 (22-26) mmol/L ABG O2 Content 11.4 L (12.0-20.0) Vol % ABG Base Excess 2.2 H (-2-2) mmol/L ABG Methemoglobin 1.4 (0-2) % Eh Test Present Hemoglobin 8.2 L (12.0-16.0) G/DL Carboxyhemoglobin 2.4 (0-4) % O2 Delivery Device Ventilator Liter Flow L/M Vent Setting Inspired O2 40 % Critical Value No Sodium (136-145) meq/L Potassium (3.5-5.1) meq/L Chloride (98-107) meq/L Carbon Dioxide (21.0-32.0) meq/L Anion Gap (5-15) meq/L BUN (7-18) mg/dL Creatinine (0.60-1.30) mg/dL Estimated GFR (>89) mL/min POC Glucose (68-110) mg/dl Random Glucose (74-106) mg/dL Lactic Acid (0.4-2.0) mmol/L Calcium (8.5-10.1) mg/dL Magnesium (1.5-2.5) mg/dL Total Bilirubin (0.2-1.0) mg/dL AST (15-37) U/L ALT (12-78) U/L Alkaline Phosphatase (45-117) U/L Total Creatine Kinase (39-308) U/L CK-MB (CK-2) (0.5-3.6) ng/mL CK-MB (CK-2) % (0.0-4.0) % Troponin I 0.53 H (0.02-0.05) ng/mL B-Natriuretic Peptide (0-100) pg/mL Total Protein (6.4-8.2) g/dL Albumin (3.4-5.0) g/dL TSH (0.358-3.740) uIU/mL Free T4 (0.76-1.46) ng/dL Free T3 (2.18-3.98) pg/mL Urine Color (Yellw/Straw) Urine Clarity (Clear) Urine pH (5.0-8.5) Ur Specific [place] (1.002-1.035) Urine Protein (Neg-Trace) mg/dL Urine Glucose (UA) (Negative) mg/dL Urine Ketones (Negative) mg/dL Urine Occult Blood (Negative) Urine Nitrate (Negative) Urine Bilirubin (Negative) Urine Urobilinogen (Less than 2) mg/dL Ur Leukocyte Esterase (Negative) Urine RBC (0-3) /hpf Urine WBC (0-5) /hpf Amorphous Sediment (None) /hpf Urine Bacteria (None) /hpf Micro UA Comment Ur Microscopic Review Urine Culture Comments Pleural pH Pleural RBC (0-0) /mm3 Pleural Nuc Cells (0-10) /mm3 Pleural Neutrophils % Pleural Lymphocytes % Pleural Monocytes % Pleural Plasma Cells % Pleural Histocytes % Pleural Mesothelial % Pleural Total Protein gm/dL Pleural Albumin 0.8 g/dL Pleural LDH U/L Pleural Glucose mg/dL Pleural Amylase U/L Nasal Screen MRSA (PCR) (Negative) Blood Type Antibody Screen MTS Gel Crossmatch 01/05/18 01/05/18 01/05/18 Range/Units 13:03 13:04 13:40 WBC 8.9 (4.0-11.0) th/mm3 RBC 3.76 L (4.50-5.90) mil/mm3 Hgb 8.2 L (13.0-17.0) gm/dL Hct 27.4 L (39.0-51.0) % MCV 72.8 L (80.0-100.0) fL MCH 21.8 L (27.0-34.0) pg MCHC 29.9 L (32.0-36.0) % RDW 23.6 H (11.6-17.2) % Plt Count 141 L (150-450) th/mm3 MPV 8.4 (7.0-11.0) fL Prelim Diff (Auto) Neut % (Auto) 85.7 H (16.0-70.0) % Lymph % (Auto) 9.1 (9.0-44.0) % [place] % (Auto) 4.2 (0.0-8.0) % Eos % (Auto) 0.7 (0.0-4.0) % Baso % (Auto) 0.3 (0.0-2.0) % Neut # (Auto) 7.6 (1.8-7.7) th/mm3 Lymph # (Auto) 0.8 L (1.0-4.8) th/mm3 [place] # (Auto) 0.4 (0.0-0.9) th/mm3 Eos # (Auto) 0.1 (0.0-0.4) th/mm3 Baso # (Auto) 0.0 (0.0-0.2) th/mm3 WBC Differential . Diff Scan Differential Comment Auto diff final Dimorphic RBCs (None) PT (9.8-11.6) sec INR Ratio APTT (24.3-30.1) sec Puncture Site Patient Temperature O2 Saturation (90-100) % ABG pH (7.380-7.420) ABG pCO2 (38-42) mmHg ABG pO2 (61-120) mmHG ABG HCO3 (22-26) mmol/L ABG O2 Content (12.0-20.0) Vol % ABG Base Excess (-2-2) mmol/L ABG Methemoglobin (0-2) % Eh Test Hemoglobin (12.0-16.0) G/DL Carboxyhemoglobin (0-4) % O2 Delivery Device Liter Flow L/M Vent Setting Inspired O2 % Critical Value Sodium (136-145) meq/L Potassium (3.5-5.1) meq/L Chloride (98-107) meq/L Carbon Dioxide (21.0-32.0) meq/L Anion Gap (5-15) meq/L BUN (7-18) mg/dL Creatinine (0.60-1.30) mg/dL Estimated GFR (>89) mL/min POC Glucose 64 L 98 (68-110) mg/dl Random Glucose (74-106) mg/dL Lactic Acid (0.4-2.0) mmol/L Calcium (8.5-10.1) mg/dL Magnesium (1.5-2.5) mg/dL Total Bilirubin (0.2-1.0) mg/dL AST (15-37) U/L ALT (12-78) U/L Alkaline Phosphatase (45-117) U/L Total Creatine Kinase (39-308) U/L CK-MB (CK-2) (0.5-3.6) ng/mL CK-MB (CK-2) % (0.0-4.0) % Troponin I (0.02-0.05) ng/mL B-Natriuretic Peptide (0-100) pg/mL Total Protein (6.4-8.2) g/dL Albumin (3.4-5.0) g/dL TSH (0.358-3.740) uIU/mL Free T4 (0.76-1.46) ng/dL Free T3 (2.18-3.98) pg/mL Urine Color (Yellw/Straw) Urine Clarity (Clear) Urine pH (5.0-8.5) Ur Specific [place] (1.002-1.035) Urine Protein (Neg-Trace) mg/dL Urine Glucose (UA) (Negative) mg/dL Urine Ketones (Negative) mg/dL Urine Occult Blood (Negative) Urine Nitrate (Negative) Urine Bilirubin (Negative) Urine Urobilinogen (Less than 2) mg/dL Ur Leukocyte Esterase (Negative) Urine RBC (0-3) /hpf Urine WBC (0-5) /hpf Amorphous Sediment (None) /hpf Urine Bacteria (None) /hpf Micro UA Comment Ur Microscopic Review Urine Culture Comments Pleural pH Pleural RBC (0-0) /mm3 Pleural Nuc Cells (0-10) /mm3 Pleural Neutrophils % Pleural Lymphocytes % Pleural Monocytes % Pleural Plasma Cells % Pleural Histocytes % Pleural Mesothelial % Pleural Total Protein gm/dL Pleural Albumin g/dL Pleural LDH U/L Pleural Glucose mg/dL Pleural Amylase U/L Nasal Screen MRSA (PCR) (Negative) Blood Type Antibody Screen MTS Gel Crossmatch 01/05/18 01/05/18 Range/Units 14:29 16:22 WBC (4.0-11.0) th/mm3 RBC (4.50-5.90) mil/mm3 Hgb (13.0-17.0) gm/dL Hct (39.0-51.0) % MCV (80.0-100.0) fL MCH (27.0-34.0) pg MCHC (32.0-36.0) % RDW (11.6-17.2) % Plt Count (150-450) th/mm3 MPV (7.0-11.0) fL Prelim Diff (Auto) Neut % (Auto) (16.0-70.0) % Lymph % (Auto) (9.0-44.0) % [place] % (Auto) (0.0-8.0) % Eos % (Auto) (0.0-4.0) % Baso % (Auto) (0.0-2.0) % Neut # (Auto) (1.8-7.7) th/mm3 Lymph # (Auto) (1.0-4.8) th/mm3 [place] # (Auto) (0.0-0.9) th/mm3 Eos # (Auto) (0.0-0.4) th/mm3 Baso # (Auto) (0.0-0.2) th/mm3 WBC Differential Diff Scan Differential Comment Dimorphic RBCs (None) PT (9.8-11.6) sec INR Ratio APTT (24.3-30.1) sec Puncture Site Patient Temperature O2 Saturation (90-100) % ABG pH (7.380-7.420) ABG pCO2 (38-42) mmHg ABG pO2 (61-120) mmHG ABG HCO3 (22-26) mmol/L ABG O2 Content (12.0-20.0) Vol % ABG Base Excess (-2-2) mmol/L ABG Methemoglobin (0-2) % Eh Test Hemoglobin (12.0-16.0) G/DL Carboxyhemoglobin (0-4) % O2 Delivery Device Liter Flow L/M Vent Setting Inspired O2 % Critical Value Sodium (136-145) meq/L Potassium (3.5-5.1) meq/L Chloride (98-107) meq/L Carbon Dioxide (21.0-32.0) meq/L Anion Gap (5-15) meq/L BUN (7-18) mg/dL Creatinine (0.60-1.30) mg/dL Estimated GFR (>89) mL/min POC Glucose 137 H 145 H (68-110) mg/dl Random Glucose (74-106) mg/dL Lactic Acid (0.4-2.0) mmol/L Calcium (8.5-10.1) mg/dL Magnesium (1.5-2.5) mg/dL Total Bilirubin (0.2-1.0) mg/dL AST (15-37) U/L ALT (12-78) U/L Alkaline Phosphatase (45-117) U/L Total Creatine Kinase (39-308) U/L CK-MB (CK-2) (0.5-3.6) ng/mL CK-MB (CK-2) % (0.0-4.0) % Troponin I (0.02-0.05) ng/mL B-Natriuretic Peptide (0-100) pg/mL Total Protein (6.4-8.2) g/dL Albumin (3.4-5.0) g/dL TSH (0.358-3.740) uIU/mL Free T4 (0.76-1.46) ng/dL Free T3 (2.18-3.98) pg/mL Urine Color (Yellw/Straw) Urine Clarity (Clear) Urine pH (5.0-8.5) Ur Specific [place] (1.002-1.035) Urine Protein (Neg-Trace) mg/dL Urine Glucose (UA) (Negative) mg/dL Urine Ketones (Negative) mg/dL Urine Occult Blood (Negative) Urine Nitrate (Negative) Urine Bilirubin (Negative) Urine Urobilinogen (Less than 2) mg/dL Ur Leukocyte Esterase (Negative) Urine RBC (0-3) /hpf Urine WBC (0-5) /hpf Amorphous Sediment (None) /hpf Urine Bacteria (None) /hpf Micro UA Comment Ur Microscopic Review Urine Culture Comments Pleural pH Pleural RBC (0-0) /mm3 Pleural Nuc Cells (0-10) /mm3 Pleural Neutrophils % Pleural Lymphocytes % Pleural Monocytes % Pleural Plasma Cells % Pleural Histocytes % Pleural Mesothelial % Pleural Total Protein gm/dL Pleural Albumin g/dL Pleural LDH U/L Pleural Glucose mg/dL Pleural Amylase U/L Nasal Screen MRSA (PCR) (Negative) Blood Type Antibody Screen MTS Gel Crossmatch Imaging Data Attestation: I personally reviewed and interpreted this imaging study as follows : Radiologist's impression: Abdomen/Bladder Ultrasound 01/04/18 00:00 CONCLUSION: 1. Chronic parenchymal disease. 2. Bilateral cysts, left more so than right. 3. No obstructive uropathy or other acute abnormality. Chest X-Ray 01/04/18 18:15 CONCLUSION: Left greater than right pleural effusions with basilar consolidation. Head CT 01/04/18 18:15 CONCLUSION: Motion degraded study without evidence of bleed or other acute intracranial abnormality. . Venous Doppler Study 01/04/18 18:15 CONCLUSION: No deep venous thrombosis of either lower extremity but there is superficial venous thrombosis involving the bilateral greater saphenous veins as described. Lumbar Spine CT 01/04/18 18:18 CONCLUSION: 1. No subluxation or acute fracture of the lumbar spine. 2. There is an old, mild compression deformity of L3. 3. Multilevel degenerative changes and diffuse idiopathic skeletal hyperostosis. 4. Pleural effusions and parenchymal consolidation partly seen of the visualized lung bases. 5. Atrophy and apparent hydronephrosis of the left knee. Face CT 01/04/18 20:14 CONCLUSION: 1. Focal minimally displaced fracture of the tip of the nasion. 2. Preseptal soft tissue contusion of the left orbit. 3. Acute on chronic appearing left maxillary sinusitis. Abdomen/Pelvis CT 01/05/18 00:00 CONCLUSION: 1. Bilateral moderate to large pleural effusions, left greater than right with associated lower lobe airspace disease. 2. Abnormal appearance of the left kidney with numerous cortical cysts. Apparent prominence of the renal collecting system does not have a corresponding finding on today's ultrasound exam. However, it remains concerning for mild to moderate hydronephrosis. 3. 7 mm calyceal calculus in the inferior pole of the left kidney. 4. Diffuse anasarca with small amount ascites. 5. Mild sigmoid diverticulosis. 6. Normal appendix. Chest X-Ray 01/05/18 00:00 CONCLUSION: Interval improvement following small bore chest tube on the left. Persistent effusion and consolidation on the right. Chest X-Ray 01/05/18 00:00 CONCLUSION: 1. Bibasilar small chest tubes are in good positions. 2. Left basilar consolidation consistent with atelectasis and/or infiltrate. 3. No evidence of pleural effusion. ECG Data Attestation: I personally reviewed and interpreted this ECG as follows: Interpretation: EKG shows sinus tachycardia but no sign of acute ischemia and arrhythmia read by me and attending. Ventricular rate of 100 bpm, AL interval of 211 ms Discharge Plan Discharge Disposition Patient Disposition: 30 Still Patient Discharge Condition Condition: Serious Discharge Details Diagnosis: Acute GI bleeding, Sepsis, Symptomatic anemia, Pleural effusion, Acute exacerbation of congestive heart failure, RICHARD (acute kidney injury), Conjunctivitis Physicians Team ED Provider: Thais Sheets ED Midlevel Provider: Ebenezer Tobin Primary Care Provider: UNKNOWN, Attending Provider: Eleno Gray Other Providers: Fantasma Ball ; Feliciano Gabriel Discharge Interventions Interventions: ED Discharge Assessment Last Done: 01/05/18 00:03 Status ED Status: Left Department Discharge Information Discharge Date/Time: 01/05/18 00:03
--- NOTE | 2018-01-04 18:44 | XR ---
EXAM DATE: 01/04/2018 6:15 PM EDT AGE/SEX: 77 years / Male INDICATIONS: Failure to thrive. CLINICAL DATA: This is the patient's initial encounter. Patient reports that signs and symptoms have been present for 1 day and indicates a pain score of 5/10. MEDICAL/SURGICAL HISTORY: None. None. COMPARISON: No prior exams available for comparison. FINDINGS: There are small right and moderate left pleural effusion associated basilar consolidation. No pneumot horax demonstrated. Obscured cardiac silhouette, probably normal size. Thoracic aorta appears mildly tortuous. CONCLUSION: Left greater than right pleural effusions with basilar consolidation. Electronically signed by: Edgar Hardy MD 01/04/2018 6:43 PM EDT
[2018-01-04] MEDS ORDERED: Sodium Chlor 0.9% Inj 500 ML IV.SIG SCH ×2 (19:00→21:00)
[2018-01-04 19:41] LABS: Baso % (Auto) 0.7 % (0.0-2.0); Eos % (Auto) 0.1 % (0.0-4.0); Hematocrit 24.6 % (39.0-51.0); Lymph # (Auto) 1.2 th/mm3 (1.0-4.8); Lymph % (Auto) 17.3 % (9.0-44.0); Mean Corpuscular Hemoglobin 19.7 pg (27.0-34.0); Mean Corpuscular Volume 72.9 fL (80.0-100.0); Mean Platelet Volume 8.4 fL (7.0-11.0); Mono # (Auto) 0.7 th/mm3 (0.0-0.9); Mono % (Auto) 10.6 % (0.0-8.0); Neut # (Auto) 4.9 th/mm3 (1.8-7.7); Neut % (Auto) 71.3 % (16.0-70.0); Platelet Count 201 th/mm3 (150-450); Red Blood Count 3.37 mil/mm3 (4.50-5.90); Red Cell Distribution Width 25.6 % (11.6-17.2); White Blood Count 6.9 th/mm3 (4.0-11.0)
[2018-01-04 19:46] LABS: Hemoglobin 6.6 gm/dL (13.0-17.0)
--- NOTE | 2018-01-04 19:46 | US ---
EXAM DATE: 01/04/2018 6:15 PM EDT AGE/SEX: 77 years / Male INDICATIONS: Bilateral leg swelling. CLINICAL DATA: This is the patient's initial encounter. Patient reports that signs and symptoms have been present for 7 - 11 months and indicates a pain score of 0/10. MEDICAL/SURGICAL HISTORY: . Bilateral leg swelling. None. COMPARISON: No prior exams available for comparison. TECHNIQUE: Venous ultrasound of both lower extremities was performed from the inguinal ligament to t he proximal calf. Real-time, color Doppler and spectral tracing, compression and augmentation techni ques were used. FINDINGS: Right Leg: There is thrombus in the greater saphenous vein at the level of the mid thigh. Deep venou s tributaries of the right lower extremity are patent. Left Leg: There is thrombus in the greater saphenous vein at the level of the calf. Deep venous trib utaries of the left lower extremity are patent. Other: None. CONCLUSION: No deep venous thrombosis of either lower extremity but there is superficial venous throm bosis involving the bilateral greater saphenous veins as described. Electronically signed by: Edgar Hardy MD 01/04/2018 7:45 PM EDT
[2018-01-04 19:51] LABS: Albumin 2.4 g/dL (3.4-5.0); Anion Gap 15 meq/L (5-15); Aspartate Aminotransferase 43 U/L (15-37); Blood Urea Nitrogen 22 mg/dL (7-18); Calcium 8.1 mg/dL (8.5-10.1); Carbon Dioxide 21.8 meq/L (21.0-32.0); Chloride 106 meq/L (98-107); Glomerular Filtration Rate 32 mL/min (>89); Glucose,Random 81 mg/dL (74-106); Magnesium 1.9 mg/dL (1.5-2.5); Potassium 3.9 meq/L (3.5-5.1); Sodium 143 meq/L (136-145)
[2018-01-04 19:53] LABS: Alanine Aminotransferase 19 U/L (12-78)
[2018-01-04] MEDS ORDERED: Pantoprazole Inj 80 MG in Sodium Chlor 0.9% Inj 100 ML IV.CONT SCH (20:00)
[2018-01-04] MEDS ORDERED: Pantoprazole Inj 80 MG in Sodium Chlor 0.9% Inj 35 ML IV.SIG ONE (20:00)
[2018-01-04 20:03] LABS: Alkaline Phosphatase 68 U/L (45-117); Creatine Kinase 561 U/L (39-308); Total Protein 6.9 g/dL (6.4-8.2)
[2018-01-04] MEDS ORDERED: Vancomycin Inj 1 GM/200 ML PIGGYBACK IV.SIG ONE (20:12)
[2018-01-04 20:13] LABS: Troponin I 0.64 ng/mL (0.02-0.05)
[2018-01-04 20:22] LABS: Dimorphic RBC Present
[2018-01-04 20:25] LABS: CKMB Percent 1.7 % (0.0-4.0); Creatine Kinase MB 9.8 ng/mL (0.5-3.6)
[2018-01-04] MEDS ORDERED: Vancomycin Inj 1,000 MG in Sodium Chlor 0.9% Inj 250 ML IV.SIG ONE (20:30)
--- NOTE | 2018-01-04 20:48 | CT ---
EXAM DATE: 01/04/2018 8:15 PM EDT AGE/SEX: 77 years / Male INDICATIONS: Trauma; multiple falls. CLINICAL DATA: This is the patient's initial encounter. Patient reports that signs and symptoms have been present for 1 day and indicates a pain score of Nonresponsive. MEDICAL/SURGICAL HISTORY: Non-responsive. Non-responsive. RADIATION DOSE: 52.13 CTDI (mGy) COMPARISON: [facility], CHEST 1V SINGLE AP, 01/04/2018. . TECHNIQUE: Contiguous axial images were acquired with a multirow detector CT scanner without contras t. Multiplanar reconstructions in the sagittal and coronal plane were also performed. Using automate d exposure control and adjustment of the mA and/or kV according to patient size, radiation dose was k ept as low as reasonably achievable to obtain optimal diagnostic quality images. DICOM format image data is available electronically for review and comparison. FINDINGS: Mild loss of height with superior endplate and cavity seen of the L3 vertebral body that appears [facility]. Other lumbar vertebral bodies have normal height. No acute cortical break or trabecular disrupti on demonstrated. There is moderate to severe bilateral facet osteoarthritis at essentially throughout. There is modera te disc space narrowing and ankylosis at L4/L5 and L5/S1. Mild disc space narrowing at the other leve ls. There is anterior and lateral osseous ridging throughout the visualized lower thoracic spinal gle noid to L1/L2 with features most typical of diffuse idiopathic skeletal hyperostosis. There are no subluxations. Pleural effusions and consolidation seen of the visualized lung bases. Thoracic aorta is tortuous and atherosclerotic. No aneurysm. Apparent hydronephrosis and atrophy of the left kidney partly seen as well. CONCLUSION: 1. No subluxation or acute fracture of the lumbar spine. 2. There is an old, mild compression deformity of L3. 3. Multilevel degenerative changes and diffuse idiopathic skeletal hyperostosis. 4. Pleural effusions and parenchymal consolidation partly seen of the visualized lung bases. 5. Atrophy and apparent hydronephrosis of the left knee. Electronically signed by: Edgar Hardy MD 01/04/2018 8:47 PM EDT
[2018-01-04] MEDS ORDERED: Bisacodyl 10 MG Supp RECTAL PRN (21:42)
--- NOTE | 2018-01-04 21:50 | ECG ---
Date Performed: 01/04/2018 Time Performed: 18:49:27 PTAGE: 77 years EKG: SINUS TACHYCARDIA WITH FIRST DEGREE AV BLOCK LOW QRS VOLTAGE POSSIBLE INFERIOR MYOCARDIAL I NFARCTION ABNORMAL ECG NO PREVIOUS TRACING DOCTOR: Yonatan Jaime Interpretating Date/Time 01/04/2018 21:48:48
[2018-01-04] MEDS ORDERED: Diatrizoate Meglum/Diatrizoate Sod Liq 9 ML UDC PO ONE (21:53)
--- NOTE | 2018-01-04 21:56 | CT ---
EXAM DATE: 01/04/2018 8:18 PM EDT AGE/SEX: 77 years / Male INDICATIONS: Trauma; left facial injury. CLINICAL DATA: This is the patient's initial encounter. Patient reports that signs and symptoms have been present for 1 day and indicates a pain score of Nonresponsive. MEDICAL/SURGICAL HISTORY: Non-responsive. Non-responsive. RADIATION DOSE: 24.16 CTDI (mGy) COMPARISON: No prior exams available for comparison. TECHNIQUE: Contiguous images in the axial and coronal planes were obtained using helical multirow de tector technique. Using automated exposure control and adjustment of the mA and/or kV according to p atient size, radiation dose was kept as low as reasonably achievable to obtain optimal diagnostic abhay lity images. DICOM format image data is available electronically for review and comparison. FINDINGS: Orbits: The orbital and infraorbital osseous structures are intact. The retroconal structures have a normal configuration. No radiopaque foreign bodies are seen. Nasal Bone: Minimally displaced fracture of the tip of the nasion, left of midline. Zygomatic Arches: Symmetric without evidence of fracture. Sinuses: No blood seen. There is mucoperiosteal thickening and small low-attenuation fluid of the le ft maxillary air cell. Nasal Cavity: The nasal septum is intact and midline. The lacrimal ducts are intact. Soft Tissues: There is left periorbital preseptal soft tissue swelling. Post septal soft tissues are normal. Intracranial: No intracranial air seen. Cribriform Plate: Grossly intact. CONCLUSION: 1. Focal minimally displaced fracture of the tip of the nasion. 2. Preseptal soft tissue contusion of the left orbit. 3. Acute on chronic appearing left maxillary sinusitis. Electronically signed by: Edgar Hardy MD 01/04/2018 9:55 PM EDT
--- NOTE | 2018-01-04 21:57 | CT ---
EXAM DATE: 01/04/2018 8:14 PM EDT AGE/SEX: 77 years / Male INDICATIONS: Trauma; head injury, altered mental status. CLINICAL DATA: This is the patient's initial encounter. Patient reports that signs and symptoms have been present for 1 day and indicates a pain score of Nonresponsive. MEDICAL/SURGICAL HISTORY: Non-responsive. Non-responsive. RADIATION DOSE: 45.79 CTDI (mGy) COMPARISON: No prior exams available for comparison. TECHNIQUE: CT of the head without contrast. Using automated exposure control and adjustment of the mA and/or kV according to patient size, radiation dose was kept as low as reasonably achievable to ob tain optimal diagnostic quality images. DICOM format image data is available electronically for revi ew and comparison. FINDINGS: Motion degraded study. Cerebrum: The ventricles are normal for age. No evidence of midline shift, mass lesion, hemorrhage or acute infarction. No extraaxial fluid collections are seen. Posterior Fossa: The cerebellum and brainstem are intact. The 4th ventricle is midline. The cerebe llopontine angle is unremarkable. Extracranial: The visualized portion of the orbits is intact. Skull: The calvaria is intact. No evidence of skull fracture. CONCLUSION: Motion degraded study without evidence of bleed or other acute intracranial abnormality. . Electronically signed by: Edgar Hardy MD 01/04/2018 9:56 PM EDT
[2018-01-04 22:02] LABS: Activated Partial Thrombo Time 32.4 sec (24.3-30.1); INR 1.6 Ratio; Prothrombin Time 16.4 sec (9.8-11.6)
[2018-01-04] MEDS ORDERED: Vancomycin Consult Pharmacy OTHER PRN (22:13)
--- NOTE | 2018-01-04 22:28 | US ---
EXAM DATE: 01/04/2018 12:00 AM EDT AGE/SEX: 77 years / Male INDICATIONS: Elevated lab values. CLINICAL DATA: This is the patient's initial encounter. Patient reports that signs and symptoms have been present for 1 day and indicates a pain score of 0/10. MEDICAL/SURGICAL HISTORY: . Bilateral leg swelling. None. COMPARISON: No prior exams available for comparison. MEASUREMENTS: Right Kidney:__10.2 x 4.1 x 4.0 cm Left Kidney:__14.5 x 7.2 x 8.3 cm FINDINGS: Right Kidney: Echogenic parenchyma and a few scattered cysts measuring up to 2.8 cm in size. No hydro nephrosis. Left Kidney: Echogenic parenchyma and numerous cortical cysts measuring up to 3.6 cm in size. No hydr onephrosis. Bladder: Within normal limits given the degree of distension. Other: None. CONCLUSION: 1. Chronic parenchymal disease. 2. Bilateral cysts, left more so than right. 3. No obstructive uropathy or other acute abnormality. Electronically signed by: Edgar Hardy MD 01/04/2018 10:26 PM EDT
[2018-01-04 22:43] LABS: Hematocrit 23.1 % (39.0-51.0)
[2018-01-04 23:04] LABS: Hemoglobin 6.1 gm/dL (13.0-17.0)
[2018-01-04 23:09] LABS: Amorphous Sediment,Urine Few /hpf; Bacteria,Urine Rare /hpf; Bilirubin,Urine Negative (Negative); Clarity,Urine Hazy (Clear); Color,Urine Amber (Yellw/Straw); Glucose,Urine (UA) Negative (Negative); Leukocyte Esterase,Urine Negative (Negative); Nitrite,Urine Negative (Negative); Specific Gravity,Urine 1.014 (1.002-1.035)
--- NOTE | 2018-01-04 23:18 | MH ---
cc: Eleno Gray MD DATE OF ADMISSION: 01/04/2018 HISTORY OF PRESENT ILLNESS: The patient is a 77-year-old male with an unknown past medical history, who presented to [facility] ED for generalized weakness. The patient does not really follow up with a physician and takes no medications at home. Per ED nurse, he had fallen multiple times today and was on the floor for some time. Paramedics called 911 and apparently the evac stated that he did not want to come however, he was told that he needed to come in for further evaluation and management. On arrival, he was tachycardic with heart rate of 102 and a blood pressure of 127/58. His initial laboratory data showed anemia with hemoglobin 6.6 and acute renal failure with a creatinine level of 2.0. Also, he was found to have elevated lactic acid level at 6.8 and elevated troponin at 0.64. His BNP was 3405. The patient underwent a CT scan of the brain in EGD, which showed no acute intracranial abnormalities. He also had a lumbar spine CT, which showed no subluxation or acute fracture of the lumbar spine. CT of the facial bones showed preseptal soft tissue contusion of the left orbit and a chest x-ray showed bilateral pleural effusions with basilar consolidation, left greater than the right. Most of the history was obtained from reviewing medical records as the patient is a poor historian. In the ED, he was given normal saline 250, Lasix 40 mg IV push, and placed on a Protonix drip. He also received 1 dose of vancomycin. Per records, he also had purulent discharge from his left eye that caused his eyelid to swell. The patient also had a venous Doppler ultrasound, which showed no deep vein thrombosis; however, there is superficial venous thrombosis involving the bilateral great saphenous veins. PAST MEDICAL HISTORY: Unknown. PAST SURGICAL HISTORY: Unobtainable. SOCIAL HISTORY: Smoker. Nondrinker. MEDICATIONS AT HOME: None. FAMILY HISTORY: Noncontributing to present illness. REVIEW OF SYSTEMS: As per HPI. The rest of review of systems is limited as the patient is a poor historian. PHYSICAL EXAMINATION: GENERAL: A 77-year-old male lying in bed, in no acute distress. VITAL SIGNS: Temperature 97.5, pulse of 97-100, respiratory rate of 24, blood pressure 134/58, saturation of 95% on 4 liter oxygen. HEENT: Atraumatic, normocephalic. Pupils are equal, round, and reactive to light and accommodation. Nonicteric sclerae. Swelling of the eyelids bilaterally, mainly on the left eye with some discharge and erythema of the left upper eyelid. Mucous membranes dry. NECK: Supple. No JVD, adenopathy, or thyromegaly. Trachea midline. CARDIOVASCULAR: Regular rate and rhythm. Normal S1, S2. No murmurs, rubs or gallops. PULMONARY: Bilateral equal air entry. Diminished breath sounds at the bases. ABDOMEN: Soft, nontender. No distention. Positive bowel sounds. EXTREMITIES: No cyanosis or clubbing, 1-2+ edema. NEUROLOGIC: Awake. No focal sensory deficit. LABORATORY DATA: WBC 6.9, hemoglobin 6.6, hematocrit 24, platelet count of 201. PT 16.4, INR 1.6, PTT 32.4. Sodium 143, potassium 3.9, chloride 106, CO2 21, BUN 22, creatinine 2, glucose of 81. Lactic acid 6.8. AST 43, total bilirubin 1.8, ALT 19. Total CK 561, troponin 0.64, BNP 3405. TSH 4.25. RADIOGRAPHIC STUDIES: CT scan of the brain showed no acute intracranial findings. CT of the lumbar spine showed no acute fracture or subluxation. Chest x-ray showed bilateral pleural effusions, left greater than right, with bibasilar consolidation. A venous Doppler ultrasound showed superficial venous thrombosis involving the bilateral greater saphenous vein, no DVT of either lower extremity. EKG showed sinus tachycardia with a rate of 100 beats per minute. IMPRESSION: 1. Respiratory insufficiency. 2. Altered mental status. 3. Severe anemia. 4. Acute renal failure. 5. Lactic acidemia. 6. Elevated troponin, multifactorial. 7. Bilateral pleural effusions, left greater than right, with bibasilar consolidation. 8. Superficial venous thrombosis bilaterally, great saphenous vein. 9. Conjunctivitis of the left eye. RECOMMENDATIONS: 1. Monitor neuro status closely and avoid any sedatives. CT scan of the brain in the ED showed no acute intracranial findings. 2. Continue with oxygen and maintain sats above 92%. 3. Bronchodilators in the form of DuoNeb every 4 hours plus every 2 hours p.r.n. for shortness of breath. 4. Will need ultrasound-guided left thoracentesis when stable and will send the pleural fluid for analysis and culture. 5. Monitor heart rate and blood pressure closely and maintain MAP greater than 65 mmHg. 6. Serial lactic acid monitoring until clear. 7. Monitor cardiac enzymes with troponins 6 hours and will obtain a 2-D echo to evaluate LV function. 8. The patient was given Lasix 40 mg IV push x1 in the ED. 9. The patient is not a candidate for any aspirin or anticoagulation due to underlying severe anemia. 10. Monitor renal function, I's and O's and avoid nephrotoxins. Will obtain a renal ultrasound to rule out hydronephrosis. 11. Keep n.p.o. for now and continue with Protonix drip. 12. The patient is for transfusion 2 units of packed red blood cells. Will monitor H and H every 6 hours and will consult GI service. 13. Will proceed with CT abdomen and pelvis without contrast. 14. Will place on vancomycin and aztreonam and monitor for signs of infection, which include fever and WBC. Of note, the patient is ALLERGIC TO PENICILLINS. Follow up blood cultures. In addition, will obtain a sputum culture, strep pneumonia, Legionella urinary antigen, and a urinalysis with culture if indicated. 15. Monitor CBC and coags. 16. Sliding scale insulin with Accu-Cheks to maintain euglycemia. His TSH measured at 4.2 this evening. Will repeat TSH level in the morning along with free T4 and free T3 level. 17. GI prophylaxis with Protonix drip and DVT prophylaxis with SCDs. Chemical anticoagulation prophylaxis contraindicated in the setting of anemia and probable GI bleed. Critical care time 50 minutes, excluding procedures. MD YUMI Diaz/giulia , 10:36 PM , 10:50 PM
--- NOTE | 2018-01-05 00:30 | CT ---
EXAM DATE: 01/05/2018 12:00 AM EDT AGE/SEX: 77 years / Male INDICATIONS: Abdominal pain, anemia. CLINICAL DATA: This is the patient's initial encounter. Patient reports that signs and symptoms have been present for 1 day and indicates a pain score of 4/10. MEDICAL/SURGICAL HISTORY: Anemia. Congestive heart failure. Sepsis. None. RADIATION DOSE: 16.07 CTDI (mGy) COMPARISON: [facility] [place]RENAL/BLADDER, 01/04/2018. . TECHNIQUE: Multiple contiguous axial images were obtained through the abdomen. Images were obtained using multiple row detector helical technique. Using automated exposure control and adjustment of the mA and/or kV according to patient size, radiation dose was kept as low as reasonably achievable to o btain optimal diagnostic quality images. DICOM format image data is available electronically for rev iew and comparison. FINDINGS: LOWER LUNGS: Moderate to large bilateral pleural effusions, left greater than right. Associated airs pace disease in the lower lobes. LIVER: Diffusely homogeneous density without intrahepatic ductal dilatation or volume loss. SPLEEN: Numerous splenic calcifications. PANCREAS: Grossly unremarkable. KIDNEYS: Diffuse cortical thinning with numerous cortical cysts as described on ultrasound exam. Jean arent prominence of the central collecting system does not have a corresponding finding on ultrasound exam. 7 mm calyceal calculus in the inferior pole the left kidney. 2.3 cm cyst in the superior pole the right kidney which otherwise appears unremarkable. ADRENAL GLANDS: Unremarkable. AORTA: Juliana-aneurysmal. BOWEL/MESENTERY: The bowel loops are grossly unremarkable. The cecum and sigmoid colon have a madina l configuration. Mild sigmoid diverticulosis. Appendix is visualized and normal in appearance. Small amount of ascites. No free air. ABDOMINAL WALL: Diffuse anasarca. BLADDER: Decompressed secondary to Mcfarland catheter. REPRODUCTIVE: Grossly unremarkable. BONY STRUCTURES: Degenerative spondylosis of the lower lumbar spine. CONCLUSION: 1. Bilateral moderate to large pleural effusions, left greater than right with associated lower lobe airspace disease. 2. Abnormal appearance of the left kidney with numerous cortical cysts. Apparent prominence of the r enal collecting system does not have a corresponding finding on today's ultrasound exam. However, it remains concerning for mild to moderate hydronephrosis. 3. 7 mm calyceal calculus in the inferior pole of the left kidney. 4. Diffuse anasarca with small amount ascites. 5. Mild sigmoid diverticulosis. 6. Normal appendix. Electronically signed by: Yovanny Martinez MD 01/05/2018 12:29 AM EDT
[2018-01-05] MEDS: Insulin NovoLIN Regular Correctional Sugar Inj SQ SCH ×7 (01:37→23:43)
[2018-01-05 01:43] LABS: ABG Base Excess -0.1 mmol/L (-2-2); ABG PCO2 58 mmHg (38-42); ABG PO2 65 mmHG (61-120)
[2018-01-05] MEDS: Chlorhexidine Gluconate 2% 1 Pack (2 Cloths) TOPICAL SCH (03:27)
[2018-01-05] MEDS ORDERED: Chlorhexidine Gluconate 2% 1 Pack (2 Cloths) TOPICAL PRN (04:00)
[2018-01-05 04:40] LABS: Albumin 2.6 g/dL (3.4-5.0); Anion Gap 10 meq/L (5-15); Aspartate Aminotransferase 46 U/L (15-37); Blood Urea Nitrogen 23 mg/dL (7-18); Calcium 7.5 mg/dL (8.5-10.1); Carbon Dioxide 28.7 meq/L (21.0-32.0); Chloride 106 meq/L (98-107); Glomerular Filtration Rate 33 mL/min (>89); Glucose,Random 97 mg/dL (74-106); Potassium 4.1 meq/L (3.5-5.1); Sodium 145 meq/L (136-145)
[2018-01-05 04:49] LABS: Alanine Aminotransferase 23 U/L (12-78); Alkaline Phosphatase 72 U/L (45-117); Creatine Kinase 466 U/L (39-308); Free T4 (Free Thyroxine) 0.83 ng/dL (0.76-1.46); Triiodothyronine (T3) Free 0.97 pg/mL (2.18-3.98)
[2018-01-05 04:51] LABS: Troponin I 0.68 ng/mL (0.02-0.05)
[2018-01-05 05:04] LABS: Creatine Kinase MB 9.2 ng/mL (0.5-3.6)
[2018-01-05 06:11] LABS: ABG PCO2 61 mmHg (38-42); ABG PO2 99 mmHG (61-120)
[2018-01-05] MEDS: Pantoprazole Inj 80 MG in Sodium Chlor 0.9% Inj 100 ML IV.CONT SCH ×2 (06:28→17:24)
[2018-01-05] MEDS ORDERED: Midazolam Inj 5 MG/ML 1 ML Vial ONE (06:56)
[2018-01-05] MEDS ORDERED: Midazolam Inj 5 MG/ML 1 ML Vial IV.PUSH ONE (06:56)
[2018-01-05] MEDS ORDERED: Etomidate Inj 40 MG/20 ML Vial IV.PUSH ONE (06:56)
[2018-01-05] MEDS ORDERED: Etomidate Inj 40 MG/20 ML Vial IV.PUSH SCH (06:56)
--- NOTE | 2018-01-05 08:02 | P.PCN ---
Date of procedure: 01/05/18 Pre-op diagnosis: Acute hypercapniec resp failure Post-op diagnosis: same Procedure: PROCEDURE: Endotracheal intubation DETAILS OF PROCEDURE: The patient was appropriately positioned, hypoxemic, on BiPAP. RSI with 5 mg IV Versed, 20 mg IV Etomidate, 50 mg IV Rocuronium. Direct laryngoscopy was performed with a 4 Mckenzie laryngoscope blade and a grade I Cormack-Lehane view was obtained. On single attempt a size 8.0 endotracheal tube was visualized passing through the cords. Correct placement was confirmed with direct visualization of ET tube passing through the vocal cords, and CO2 detector. Breath sounds were equal bilaterally. No sounds auscultated over the stomach. The endotracheal tube was secured at 24 cm at the lips. CXR is pending Anesthesia: RAKESH Surgeon: Mary Hernández Estimated blood loss (mL): 0 Pathology: other (sputum culture) Condition: critical Disposition: ICU
--- NOTE | 2018-01-05 08:09 | P.PCN ---
Date of procedure: 01/05/18 Pre-op diagnosis: Resp failure, large L pleural effusion Post-op diagnosis: same Procedure: Ultrasound-guided left pigtail chest tube placement A time-out was completed verifying correct patient, procedure, site, positioning , and special equipment if applicable. The patient was positioned appropriately for chest tube placement. The patients left chest was prepped and draped in sterile fashion. 1% Lidocaine was used to anesthetize the surrounding skin area. A 0.25 CM skin incision was made posterolateral let thorax, at the site marked with ultrasound. 18-gauge introducer needle was inserted into the pleural space and clear straw-colored pleural fluid was removed. Syringe was removed and a guidewire was placed followed by removal of the needle. Track dilated and using Seldinger technique a 10 Bengali pigtail catheter was advanced in the pleural space and connected to Pleur-evac. Pigtail was secured with a suture and stay fix. Initial output was 2 L (2000 ml) of straw-colored pleural fluid pleural fluid. Await further fluid studies. Chest x-ray is pending at this time. Anesthesia: local Surgeon: Mary Hernández Estimated blood loss (mL): 1 Pathology: other (fluid studies sent) Condition: critical Disposition: ICU
[2018-01-05] MEDS ORDERED: Albumin Human 25% Inj 100 ML IV.SIG ONE ×2 (08:12)
--- NOTE | 2018-01-05 08:16 | P.CONCA ---
History of Present Illness Primary Care Provider: UNKNOWN Family Provider: UNKNOWN History of Present Illness: 77-year-old male who presented with generalized weakness. The patient had worsening mental status and labored breathing on BiPAP and has been intubated. History obtained from the medical record and staff communication. Reportedly the patient does not follow with any doctors and does not take any medications at home. Past medical history is unknown. Reportedly the patient has been having weakness in his legs for the past 2 months and has been having frequent falls which is what prompted his presentation to the ED. he was found to have several gross lab abnormalities including hemoglobin 6, creatinine 2, BNP 3500, lactic acid 6.8, troponin 0.6 x 2, bilirubin 2.3, CPK 500. Chest imaging did show large left-sided pleural effusion, and a chest tube has been placed. EKG with low voltage, lateral T wave inversion noted; no prior EKG for comparison. Review of Systems unobtainable due to endotracheal tube PMFSH - History History Provided By: Patient, Medical Record - Medical / Surgical Hx Neg / Unobtainable Medical Problems Denied: Unable to Obtain Surgical History: Unable to Obtain - Medical History Medical History: Medical History (Last Updated 01/04/18 @ 18:44 by [employer]) Medical history unknown - Surgical History Surgical History: Surgical History (Last Updated 01/04/18 @ 18:44 by [employer]) No history of previous surgery - Tobacco History Second Hand Smoke Exposure: Yes Tobacco Use In Past 30 Days: Yes Smoking Status: Current every day smoker Tobacco Type: Cigarettes - Alcohol History How Often Do You Have a Drink Containing Alcohol: Never - Substance Use History Substance History: No History of Abuse - Travel History Recent Travel in the [facility] Within the Last 8 Weeks: No Recent Travel Out of the Country Within the Last 8 Weeks: No - Immunization History Tetanus Immunization: Unsure Hx Influenza Vaccine This Season: Unable to Assess Medications and Allergies Allergies Allergy/AdvReac Type Severity Reaction Status Date / Time Penicillins Allergy Unknown unknown Verified 01/04/18 18:45 Home Medications Medication Instructions Recorded Confirmed Type aspirin 325 mg PO DAILY 01/04/18 01/04/18 History Active Medications: Active Medications Albuterol (Duoneb Neb (Prn)) 1 ampul NEB Q2HR NEB PRN PRN Reason: DYSPNEA Albuterol (Duoneb Neb (Nakia)) 1 ampul NEB Q4HR NEB NAKIA Last Admin: 10/03/18 03:57 Dose: 1 ampul Bisacodyl (Dulcolax Supp) 10 mg RECTAL DAILY PRN PRN Reason: SEVERE CONSITIPATION Chlorhexidine Gluconate (Chlorhexidine 2% Cloth) 3 pack TOPICAL DAILY@0400 NAKIA Stop: 01/10/18 03:59 Last Admin: 01/05/18 03:27 Dose: 3 pack Chlorhexidine Gluconate (Chlorhexidine 2% Cloth) 3 pack TOPICAL DAILY@0400 PRN PRN Reason: Extra cloth needed Stop: 01/10/18 03:59 Dextrose (D50w Vial) 50 ml IV.PUSH UNSCH PRN PRN Reason: PER HYPOGLYCEMIA PROTOCOL Glucagon (Glucagon Inj) 1 mg OTHER PRN PRN PRN Reason: for Hypoglycemia Protocol Sodium Chloride (Ns Inj) 500 mls @ 0 mls/hr IV.SIG BOLUS [facility] Last Admin: 01/04/18 21:22 Dose: 50 mls/hr Pantoprazole Sodium 80 mg/ (Sodium Chloride) 100 mls @ 10 mls/hr IV.CONT Q10H [facility] Last Admin: 01/05/18 06:28 Dose: 10 mls/hr Aztreonam 1,000 mg/ Sodium (Chloride) 100 mls @ 200 mls/hr IV.SIG Q8H NAKIA Last Admin: 01/05/18 06:28 Dose: 200 mls/hr Vancomycin HCl 1,000 mg/ (Sodium Chloride) 250 mls @ 250 mls/hr IV.SIG Q24H NAKIA Insulin Human Regular (Novolin R Correctional Sugar Inj) 0 units SQ Q4HR NAKIA; Protocol Last Admin: 01/05/18 04:21 Dose: Not Given Lactulose (Lactulose Liq) 30 ml PO DAILY PRN PRN Reason: SEVERE CONSITIPATION Miscellaneous Information ([facility] Ordered Lab Info) 0 each OTHER ONCE ONE Stop: 01/07/18 20:46 Pharmacy Profile Note (Vancomycin Consult Pharmacy) 1 each OTHER UNSCH PRN PRN Reason: Pharmacy to dose Senna/Docusate Sodium (Jessica-Colace) 1 tab PO BID NAKIA Sennosides (Senokot) 17.2 mg PO Q12H PRN PRN Reason: Moderate Constipation Exam Vital signs: Vital Signs 01/04/18 18:15 01/04/18 18:40 01/04/18 18:45 Temperature 97.5 F L Pulse Rate 102 H 104 H Respiratory Rate 29 H 18 Blood Pressure 127/58 L 127/58 L Pulse Oximetry 56 L 98 95 01/04/18 18:54 01/04/18 19:40 01/04/18 20:55 Temperature Pulse Rate 104 H 97 H Respiratory Rate 24 24 Blood Pressure 148/64 H 139/76 Pulse Oximetry 98 97 91 L 01/04/18 21:00 01/04/18 22:36 01/04/18 22:51 Temperature 97.7 F 97.5 F L Pulse Rate 100 H 97 H 96 H Respiratory Rate 24 24 22 Blood Pressure 134/58 L 142/62 H 155/68 H Pulse Oximetry 95 97 99 01/05/18 00:30 01/05/18 00:37 01/05/18 02:00 Temperature 98.2 F Pulse Rate 96 H 97 H 99 H Respiratory Rate 24 24 18 Blood Pressure 120/59 L 120/58 L Pulse Oximetry 98 99 01/05/18 02:08 01/05/18 02:25 01/05/18 03:00 Temperature 98.2 F 98.4 F Pulse Rate 97 H 93 H 92 H Respiratory Rate 18 19 20 Blood Pressure 120/58 L 118/58 L 109/55 L Pulse Oximetry 96 100 95 01/05/18 03:57 01/05/18 04:00 01/05/18 05:00 Temperature 98.7 F Pulse Rate 94 H 64 89 Respiratory Rate 19 16 21 Blood Pressure 108/72 115/56 L Pulse Oximetry 99 98 01/05/18 06:00 Temperature Pulse Rate 91 H Respiratory Rate 17 Blood Pressure 124/58 L Pulse Oximetry 100 Intake & Output 01/04/18 01/05/18 01/05/18 18:59 06:59 18:59 Intake Total 1185 / 1185 Output Total 1075 / 1075 Balance 110 / 110 Weight 180 lb 209 lb 7.026 oz Intake: IV 385 / 385 Azactam Inj 1,000 MG In NS Inj 100 / 100 100 ML @ 200 mls/hr IV.SIG Q8H NAKIA Rx#:[id number] Protonix Inj 80 MG In NS Inj 35 35 / 35 ML @ 420 mls/hr IV.SIG BOLUS ONE Rx#:[id number] Vancomycin Inj 1,000 MG In NS 250 / 250 Inj 250 ML @ 250 mls/hr IV.SIG ONCE ONE Rx#:[id number] Oral 0 / 0 Intake (Blood Product) Amt 800 / 800 Rbc As-3 Leukoreduced Unit 400 / 400 [id number] Rbc As-3 Leukoreduced Unit 400 / 400 [id number] Output: Urine 700 / 700 Urine Amount (Catheter) 375 / 375 Indwelling Urethral Catheter 375 / 375 Other: # Bowel Movements 0 Weight On Admission 209 lb 7.026 oz Narrative: GENERAL: Well-developed well-nourished. Poor hygiene. NECK: No carotid bruits. No JVD. CARDIOVASCULAR: Regular rate and rhythm. No murmur appreciated. RESPIRATORY: Intubated and mechanically ventilated. Chest tube in place on left chest wall. MUSCULOSKELETAL: No clubbing or cyanosis. No edema. NEUROLOGICAL: Sedated. Results 01/04/18 22:15 01/05/18 04:07 Cardiac Enzymes 01/04/18 01/04/18 01/05/18 Range/Units 19:00 19:00 04:07 AST 43 H 46 H (15-37) U/L CK-MB (CK-2) 9.8 H 9.2 H (0.5-3.6) ng/mL Troponin I 0.64 H* 0.68 H* (0.02-0.05) ng/mL B-Natriuretic Peptide 3405 H (0-100) pg/mL Coagulation 01/04/18 01/04/18 Range/Units 19:00 20:45 PT 16.4 H (9.8-11.6) sec APTT 32.4 H (24.3-30.1) sec B-Natriuretic Peptide 3405 H (0-100) pg/mL CBC 01/04/18 01/04/18 Range/Units 19:00 22:15 WBC 6.9 (4.0-11.0) th/mm3 RBC 3.37 L (4.50-5.90) mil/mm3 Hgb 6.6 L* 6.1 L* (13.0-17.0) gm/dL Hct 24.6 L 23.1 L (39.0-51.0) % Plt Count 201 (150-450) th/mm3 Neut # (Auto) 4.9 (1.8-7.7) th/mm3 Lymph # (Auto) 1.2 (1.0-4.8) th/mm3 Ripley # (Auto) 0.7 (0.0-0.9) th/mm3 Eos # (Auto) 0.0 (0.0-0.4) th/mm3 Baso # (Auto) 0.0 (0.0-0.2) th/mm3 Comprehensive Metabolic Panel 01/04/18 01/05/18 Range/Units 19:00 04:07 Sodium 143 145 (136-145) meq/L Potassium 3.9 4.1 (3.5-5.1) meq/L Chloride 106 106 (98-107) meq/L Carbon Dioxide 21.8 28.7 (21.0-32.0) meq/L BUN 22 H 23 H (7-18) mg/dL Creatinine 2.04 H 2.00 H (0.60-1.30) mg/dL Calcium 8.1 L 7.5 L (8.5-10.1) mg/dL AST 43 H 46 H (15-37) U/L ALT 19 23 (12-78) U/L Alkaline Phosphatase 68 72 (45-117) U/L Total Protein 6.9 7.0 (6.4-8.2) g/dL Albumin 2.4 L 2.6 L (3.4-5.0) g/dL Intake and Output 01/04/18 01/05/18 01/05/18 22:59 06:59 14:59 Intake Total 285 / 285 900 / 900 Output Total 700 / 700 375 / 375 Balance -415 / -415 525 / 525 Intake: IV 285 / 285 100 / 100 Azactam Inj 1,000 MG In NS Inj 100 / 100 100 ML @ 200 mls/hr IV.SIG Q8H NAKIA Rx#:[id number] Protonix Inj 80 MG In NS Inj 35 35 / 35 ML @ 420 mls/hr IV.SIG BOLUS ONE Rx#:[id number] Vancomycin Inj 1,000 MG In NS 250 / 250 Inj 250 ML @ 250 mls/hr IV.SIG ONCE ONE Rx#:[id number] Oral 0 / 0 Intake (Blood Product) Amt 0 / 0 800 / 800 Rbc As-3 Leukoreduced Unit 0 / 0 400 / 400 [id number] Rbc As-3 Leukoreduced Unit 400 / 400 [id number] Output: Urine 700 / 700 Urine Amount (Catheter) 375 / 375 Indwelling Urethral Catheter 375 / 375 Other: # Bowel Movements 0 Weight 180 lb 209 lb 7.026 oz Weight On Admission 209 lb 7.026 oz - Imaging and Cardiology Imaging: Impressions Abdomen/Bladder Ultrasound 01/04/18 00:00 CONCLUSION: 1. Chronic parenchymal disease. 2. Bilateral cysts, left more so than right. 3. No obstructive uropathy or other acute abnormality. Chest X-Ray 01/04/18 18:15 CONCLUSION: Left greater than right pleural effusions with basilar consolidation. Head CT 01/04/18 18:15 CONCLUSION: Motion degraded study without evidence of bleed or other acute intracranial abnormality. . Venous Doppler Study 01/04/18 18:15 CONCLUSION: No deep venous thrombosis of either lower extremity but there is superficial venous thrombosis involving the bilateral greater saphenous veins as described. Lumbar Spine CT 01/04/18 18:18 CONCLUSION: 1. No subluxation or acute fracture of the lumbar spine. 2. There is an old, mild compression deformity of L3. 3. Multilevel degenerative changes and diffuse idiopathic skeletal hyperostosis. 4. Pleural effusions and parenchymal consolidation partly seen of the visualized lung bases. 5. Atrophy and apparent hydronephrosis of the left knee. Face CT 01/04/18 20:14 CONCLUSION: 1. Focal minimally displaced fracture of the tip of the nasion. 2. Preseptal soft tissue contusion of the left orbit. 3. Acute on chronic appearing left maxillary sinusitis. Abdomen/Pelvis CT 01/05/18 00:00 CONCLUSION: 1. Bilateral moderate to large pleural effusions, left greater than right with associated lower lobe airspace disease. 2. Abnormal appearance of the left kidney with numerous cortical cysts. Apparent prominence of the renal collecting system does not have a corresponding finding on today's ultrasound exam. However, it remains concerning for mild to moderate hydronephrosis. 3. 7 mm calyceal calculus in the inferior pole of the left kidney. 4. Diffuse anasarca with small amount ascites. 5. Mild sigmoid diverticulosis. 6. Normal appendix. Assessment and Plan - Plan 77-year-old male with no known past medical history who presented with generalized weakness. Troponin elevation: In setting of symptomatic anemia. Could consider ischemic evaluation upon recovery, call when improved. Volume overload: Chest tube for pleural effusion. Echo ordered. Renal function appears chronic, would give IV Lasix 40 mg twice a day and reassess volume status tomorrow. Discussed Condition With: RNDr. Ball - Attending Attestation patient seen and examined. Agree with above.
--- NOTE | 2018-01-05 08:18 | P.PNCC ---
Subjective Subjective Remarks/Hospital Course: The patient is a 77-year-old male with an unknown past medical history, who presented to [facility] ED for generalized weakness. The patient does not really follow up with a physician and takes no medications at home. Per ED nurse, he had fallen multiple times today and was on the floor for some time. Apparently the evac stated that he did not want to come however, he was told that he needed to come in for further evaluation and management. On arrival, he was tachycardic with heart rate of 102 and a blood pressure of 127/ 58. His initial laboratory data showed anemia with hemoglobin 6.6 and acute renal failure with a creatinine level of 2.0. Also, he was found to have elevated lactic acid level at 6.8 and elevated troponin at 0.64. His BNP was 3405. The patient underwent a CT scan of the brain in EGD, which showed no acute intracranial abnormalities. He also had a lumbar spine CT, which showed no subluxation or acute fracture of the lumbar spine. CT of the facial bones showed preseptal soft tissue contusion of the left orbit and a chest x-ray showed bilateral pleural effusions with basilar consolidation, left greater than the right. Most of the history was obtained from reviewing medical records as the patient is a poor historian. In the ED, he was given normal saline 250, Lasix 40 mg IV push, and placed on a Protonix drip. He also received 1 dose of vancomycin. Per records, he also had purulent discharge from his left eye that caused his eyelid to swell. The patient also had a venous Doppler ultrasound, which showed no deep vein thrombosis; however, there is superficial venous thrombosis involving the bilateral great saphenous veins. SUBJ 01/05/18: Patient currently on BiPAP remains very lethargic not following commands not opening eyes to command. PH remains at 7.27 despite several hours on BiPAP PCO2 60. Ultrasound shows large bilateral effusions left larger than right. Because of respiratory acidosis, altered mental status and large pleural effusion patient was intubated and placed on mechanical ventilation. Following this I placed a left pigtail chest tube, initial output was 2 L clear straw colored fluid Objective Vital Signs / I&O: Vital Signs 01/04/18 18:15 01/04/18 18:40 01/04/18 18:45 Temperature 97.5 F L Pulse Rate 102 H 104 H Respiratory Rate 29 H 18 Blood Pressure 127/58 L 127/58 L Pulse Oximetry 56 L 98 95 01/04/18 18:54 01/04/18 19:40 01/04/18 20:55 Temperature Pulse Rate 104 H 97 H Respiratory Rate 24 24 Blood Pressure 148/64 H 139/76 Pulse Oximetry 98 97 91 L 01/04/18 21:00 01/04/18 22:36 01/04/18 22:51 Temperature 97.7 F 97.5 F L Pulse Rate 100 H 97 H 96 H Respiratory Rate 24 24 22 Blood Pressure 134/58 L 142/62 H 155/68 H Pulse Oximetry 95 97 99 01/05/18 00:30 01/05/18 00:37 01/05/18 02:00 Temperature 98.2 F Pulse Rate 96 H 97 H 99 H Respiratory Rate 24 24 18 Blood Pressure 120/59 L 120/58 L Pulse Oximetry 98 99 01/05/18 02:08 01/05/18 02:25 01/05/18 03:00 Temperature 98.2 F 98.4 F Pulse Rate 97 H 93 H 92 H Respiratory Rate 18 19 20 Blood Pressure 120/58 L 118/58 L 109/55 L Pulse Oximetry 96 100 95 01/05/18 03:57 01/05/18 04:00 01/05/18 05:00 Temperature 98.7 F Pulse Rate 94 H 64 89 Respiratory Rate 19 16 21 Blood Pressure 108/72 115/56 L Pulse Oximetry 99 98 01/05/18 06:00 Temperature Pulse Rate 91 H Respiratory Rate 17 Blood Pressure 124/58 L Pulse Oximetry 100 Intake & Output 01/04/18 01/05/18 01/05/18 18:59 06:59 18:59 Intake Total 1185 / 1185 Output Total 1075 / 1075 Balance 110 / 110 Weight 81.647 kg 95 kg Intake: IV 385 / 385 Azactam Inj 1,000 MG In NS Inj 100 / 100 100 ML @ 200 mls/hr IV.SIG Q8H RENA Rx#:[id number] Protonix Inj 80 MG In NS Inj 35 35 / 35 ML @ 420 mls/hr IV.SIG BOLUS ONE Rx#:[id number] Vancomycin Inj 1,000 MG In NS 250 / 250 Inj 250 ML @ 250 mls/hr IV.SIG ONCE ONE Rx#:[id number] Oral 0 / 0 Intake (Blood Product) Amt 800 / 800 Rbc As-3 Leukoreduced Unit 400 / 400 [id number] Rbc As-3 Leukoreduced Unit 400 / 400 [id number] Output: Urine 700 / 700 Urine Amount (Catheter) 375 / 375 Indwelling Urethral Catheter 375 / 375 Other: # Bowel Movements 0 Weight On Admission 95 kg Result Diagrams: 01/04/18 22:15 01/05/18 04:07 Objective Remarks: GENERAL: Patient is on BiPAP currently lethargic hardly responsive. HEENT: Atraumatic, normocephalic. Pupils are equal, round. Swelling of the eyelids bilaterally, mainly on the left eye with some discharge and erythema of the left upper eyelid. Mucous membranes dry. NECK: Supple. No JVD, adenopathy, or thyromegaly. Trachea midline. CARDIOVASCULAR: Regular rate and rhythm. Normal S1, S2. No murmurs, rubs or gallops. PULMONARY: Bilateral equal air entry. Diminished breath sounds at the bases. Large pleural effusions on ultrasound ABDOMEN: Soft, nontender. No distention. Positive bowel sounds. EXTREMITIES: No cyanosis or clubbing, 1-2+ edema. NEUROLOGIC: Patient is lethargic on the BiPAP. No spontaneous eye opening, moves extremities not following commands for me Assessment and Plan - Assessment and Plan Plan: IMPRESSION: Acute hypercapnic respiratory failure Altered mental status/metabolic encephalopathy Severe anemia. Acute renal failure. Lactic acidemia. Severe sepsis Probable pneumonia Elevated troponin, multifactorial. Bilateral pleural effusions, left greater than right, with bibasilar consolidation. Superficial venous thrombosis bilaterally, great saphenous vein. Conjunctivitis of the left eye. RECOMMENDATIONS: 1. Encephalopathy worsening patient intubated for airway protection.. CT scan of the brain in the ED showed no acute intracranial findings. Encephalopathy most likely CO2 narcosis and sepsis 2. Patient was intubated and placed on mechanical ventilation for worsening CO2 narcosis encephalopathy and hypercapnic respiratory failure 3. Bronchodilators in the form of DuoNeb every 4 hours plus every 2 hours p.r.n. for shortness of breath. 4. Left pigtail chest tube placed with 2.1 L initial output. Fluid studies pending 5. Monitor heart rate and blood pressure closely and maintain MAP greater than 65 mmHg. 6. Serial lactic acid monitoring until clear. 7. Monitor cardiac enzymes with troponins 6 hours and will obtain a 2-D echo to evaluate LV function. Not a candidate for invasive procedures or anticoagulation/antiplatelet therapy at this time due to severe anemia from probable GI bleed 8. The patient was given Lasix 40 mg IV push x1 in the ED. hold further diuresis at this time 9. The patient is not a candidate for any aspirin or anticoagulation due to underlying severe anemia. Cardiology consulted 10. Monitor renal function, I's and O's and avoid nephrotoxins. Will obtain a renal ultrasound to rule out hydronephrosis. 11. Keep n.p.o. for now and continue with Protonix drip. GI consulted 12. s/p transfusion 2 units of packed red blood cells. Will monitor H and H every 6 hours and consulted GI service. 13. CT abdomen and pelvis without contrast-no acute findings 14. Continue vancomycin and aztreonam. Follow up blood cultures sputum and urine culture, follow-up strep pneumonia, Legionella urinary antigen, 15. Monitor CBC and coags. 16. Sliding scale insulin with Accu-Cheks to maintain euglycemia. His TSH measured at 4.2 17. GI prophylaxis with Protonix drip and DVT prophylaxis with SCDs. Chemical anticoagulation prophylaxis contraindicated in the setting of anemia and probable GI bleed. CCT 45 min excluding procedures Code Status: Full
--- NOTE | 2018-01-05 08:49 | XR ---
EXAM DATE: 01/05/2018 12:00 AM EDT AGE/SEX: 77 years / Male INDICATIONS: Endotracheal tube placement. Left chest tube placement. CLINICAL DATA: This is the patient's subsequent encounter. Patient reports that signs and symptoms h ave been present for 2 days and indicates a pain score of Nonresponsive. MEDICAL/SURGICAL HISTORY: Non-responsive. Non-responsive. COMPARISON: [facility], CHEST 1V SINGLE AP, 01/04/2018. . FINDINGS: Support apparatus in good position. Small bore chest tube in place on the left. The left lung is now clear. Persistent moderate effusion and consolidative changes on the right. The heart and pulmonary vascularity are normal. The portion of the bony skeleton visualized is unremarkable. CONCLUSION: Interval improvement following small bore chest tube on the left. Persistent effusion and consolidati on on the right. Electronically signed by: Keagan Schilling MD 01/05/2018 8:48 AM EDT
[2018-01-05 09:15] LABS: Baso % (Auto) 0.3 % (0.0-2.0); Eos % (Auto) 0.5 % (0.0-4.0); Hematocrit 26.2 % (39.0-51.0); Hemoglobin 7.8 gm/dL (13.0-17.0); Lymph # (Auto) 0.5 th/mm3 (1.0-4.8); Lymph % (Auto) 7.1 % (9.0-44.0); Mean Corpuscular HGB Conc 29.6 % (32.0-36.0); Mean Corpuscular Hemoglobin 21.9 pg (27.0-34.0); Mean Corpuscular Volume 73.9 fL (80.0-100.0); Mean Platelet Volume 8.4 fL (7.0-11.0); Mono # (Auto) 0.3 th/mm3 (0.0-0.9); Mono % (Auto) 3.3 % (0.0-8.0); Neut # (Auto) 6.8 th/mm3 (1.8-7.7); Neut % (Auto) 88.8 % (16.0-70.0); Platelet Count 137 th/mm3 (150-450); Red Blood Count 3.55 mil/mm3 (4.50-5.90); Red Cell Distribution Width 23.4 % (11.6-17.2); White Blood Count 7.7 th/mm3 (4.0-11.0)
[2018-01-05] MEDS: Senna/Docusate Sodium 8.6/50 MG Tablet PO SCH ×2 (09:57→20:02)
[2018-01-05] MEDS ORDERED: Vancomycin Inj 1,000 MG in Sodium Chlor 0.9% Inj 250 ML IV.SIG ONE (10:00)
--- NOTE | 2018-01-05 11:37 | P.PCN ---
Date of procedure: 01/05/18 Pre-op diagnosis: resp failure, right peural effusion Post-op diagnosis: same Procedure: Ultrasound-guided right pigtail chest tube placement A time-out was completed verifying correct patient, procedure, site, positioning , and special equipment if applicable. The patient was positioned appropriately for chest tube placement. The patients right chest was prepped and draped in sterile fashion. 1% Lidocaine was used to anesthetize the surrounding skin area. A 0.25 CM skin incision was made lateral right thorax, at the site marked with ultrasound. 18-gauge introducer needle was inserted into the pleural space and clear straw-colored pleural fluid was removed. Syringe was removed and a guidewire was placed followed by removal of the needle. Track dilated and using Seldinger technique a 10 Malay pigtail catheter was advanced in the pleural space and connected to Pleur-evac. Pigtail was secured with a suture and stay fix. Initial output was 1.6 L (1600 ml) of straw-colored pleural fluid pleural fluid. Await further fluid studies. Chest x-ray is pending at this time. Anesthesia: local Surgeon: Mary Hernández Estimated blood loss (mL): 1 Pathology: other Condition: critical Disposition: ICU (fluid studies sent)
[2018-01-05 12:11] LABS: Total Protein,Pleural Fluid 1.7 gm/dL
--- NOTE | 2018-01-05 12:28 | XR ---
EXAM DATE: 01/05/2018 12:00 AM EDT AGE/SEX: 77 years / Male INDICATIONS: Right chest tube placement. CLINICAL DATA: This is the patient's subsequent encounter. Patient reports that signs and symptoms h ave been present for 4 - 6 days and indicates a pain score of Nonresponsive. MEDICAL/SURGICAL HISTORY: . Anemia. Congestive heart failure. Sepsis. None. [place] [facility] [place]. . FINDINGS: Small left-sided chest tube is stable in appearance within the left lateral lung base. Small right ch est tube is noted in good position within the right lateral lung base. No pneumothorax is noted. Left basilar patchiness is noted consistent with atelectasis and/or infiltrate. No significant pleural ef fusion is noted. The endotracheal tube has its tip approximately 1 cm above the karla. A nasogastric tube has tip below diaphragm. CONCLUSION: 1. Bibasilar small chest tubes are in good positions. 2. Left basilar consolidation consistent with atelectasis and/or infiltrate. 3. No evidence of pleural effusion. Electronically signed by: Kurtis Croft MD 01/05/2018 12:27 PM EDT
--- NOTE | 2018-01-05 12:49 | P.CONGI ---
History of Present Illness Consult date: 01/05/18 Consult reason: Anemia, possible GI bleed Chief complaint: GI Bleed/Sympt Anemia/CHF Exac w Effusions/Sepsis History of Present Illness: This is a obese unfortunate male who was found down per his landlady according to the nursing staff and has no family present. Patient had initial symptoms of generalized weakness and multiple falls. Patient had positive troponin per labs and cardiology has been consulted initial lowest hemoglobin was 6.1 and patient was transfused with 2 units follow-up hemoglobin 7.8. Patient's current INR is 1.6, bilirubin 2.3, AST 46 ALT 23, noted positive Hemoccult in the emergency room patient was admitted to the intensive care setting and was intubated within 24 hours of admission also has received right chest tube and left chest tube is pending for large pleural effusions seen on CT scan. Patient also has diffuse anasarca small amount of ascites and mild sigmoid diverticulosis per CT. Patient has been placed on Protonix drip and is currently unavailable to give any symptoms most of the information is being gathered from the record. Patient does have generalized edema as well as some abdominal distention and tautness, soft minimal bowel sounds. During exam patient's eyes are closed but he does have some vague movement to tactile and/ or painful stimuli. Gastroenterology has been consulted to assist with his care anemia, possible GI bleed. <Sejal Felipe - Last Filed: 01/05/18 12:34> Review of Systems All other systems reviewed negative except as stated in HPI, unobtainable due to endotracheal tube Gastrointestinal: Reports other (Mild abdominal distention and tautness soft minimal bowel sounds) <Sejal Felipe - Last Filed: 01/05/18 12:34> [facility] - History History Provided By: Patient, Medical Record - Medical / Surgical Hx Neg / Unobtainable Medical Problems Denied: Unable to Obtain - Medical History Medical History: Medical History (Last Updated 01/04/18 @ 18:44 by JumpLinc) Medical history unknown - Surgical History Surgical History: Surgical History (Last Updated 01/04/18 @ 18:44 by JumpLinc) No history of previous surgery - Tobacco History Second Hand Smoke Exposure: Yes Tobacco Use In Past 30 Days: Yes Smoking Status: Current every day smoker Tobacco Type: Cigarettes - Alcohol History How Often Do You Have a Drink Containing Alcohol: Never - Substance Use History Substance History: No History of Abuse - Travel History Recent Travel in the [place] Within the Last 8 Weeks: No Recent Travel Out of the Country Within the Last 8 Weeks: No - Immunization History Tetanus Immunization: Unsure Hx Influenza Vaccine This Season: Unable to Assess <Sejal Felipe - Last Filed: 01/05/18 12:34> - Medical History Medical History: Medical History (Last Updated 01/04/18 @ 18:44 by JumpLinc) Medical history unknown - Surgical History Surgical History: Surgical History (Last Updated 01/04/18 @ 18:44 by JumpLinc) No history of previous surgery <Feliciano Gabriel - Last Filed: 01/05/18 14:36> Medications and Allergies Active Medications: Active Medications Albuterol (Duoneb Neb (Prn)) 1 ampul NEB Q2HR NEB PRN PRN Reason: DYSPNEA Albuterol (Duoneb Neb (Nakia)) 1 ampul NEB Q4HR NEB NAKIA Last Admin: 01/05/18 08:37 Dose: 1 ampul Bisacodyl (Dulcolax Supp) 10 mg RECTAL DAILY PRN PRN Reason: SEVERE CONSITIPATION Chlorhexidine Gluconate (Chlorhexidine 2% Cloth) 3 pack TOPICAL DAILY@0400 NAKIA Stop: 01/10/18 03:59 Last Admin: 01/05/18 03:27 Dose: 3 pack Chlorhexidine Gluconate (Chlorhexidine 2% Cloth) 3 pack TOPICAL DAILY@0400 PRN PRN Reason: Extra cloth needed Stop: 01/10/18 03:59 Dextrose (D50w Vial) 50 ml IV.PUSH UNSCH PRN PRN Reason: PER HYPOGLYCEMIA PROTOCOL Erythromycin (Erythromycin 0.5% Opth Oint) 1 gm EACH EYE Q4H [facility] Last Admin: 01/05/18 09:57 Dose: 1 gm Furosemide (Lasix Inj) 40 mg IV.PUSH BID@0900,1800 [facility] Stop: 01/05/18 23:59 Last Admin: 01/05/18 09:57 Dose: 40 mg Glucagon (Glucagon Inj) 1 mg OTHER PRN PRN PRN Reason: for Hypoglycemia Protocol Sodium Chloride (Ns Inj) 500 mls @ 0 mls/hr IV.SIG BOLUS [facility] Last Admin: 01/04/18 21:22 Dose: 50 mls/hr Pantoprazole Sodium 80 mg/ (Sodium Chloride) 100 mls @ 10 mls/hr IV.CONT Q10H [facility] Last Admin: 01/05/18 06:28 Dose: 10 mls/hr Aztreonam 1,000 mg/ Sodium (Chloride) 100 mls @ 200 mls/hr IV.SIG Q8H [facility] Last Infusion: 01/05/18 09:43 Dose: Infused Insulin Human Regular (Novolin R Correctional Sugar Inj) 0 units SQ Q4HR [facility]; Protocol Last Admin: 01/05/18 09:56 Dose: Not Given Lactulose (Lactulose Liq) 30 ml PO DAILY PRN PRN Reason: SEVERE CONSITIPATION Pharmacy Profile Note (Vancomycin Consult Pharmacy) 1 each OTHER UNSCH PRN PRN Reason: Pharmacy to dose Senna/Docusate Sodium (Jessica-Colace) 1 tab PO BID [facility] Last Admin: 01/05/18 09:57 Dose: 1 tab Sennosides (Senokot) 17.2 mg PO Q12H PRN PRN Reason: Moderate Constipation <Sejal Felipe M - Last Filed: 01/05/18 12:34> Active Medications: Active Medications Albuterol (Duoneb Neb (Prn)) 1 ampul NEB Q2HR NEB PRN PRN Reason: DYSPNEA Albuterol (Duoneb Neb (Nakia)) 1 ampul NEB Q4HR NEB [facility] Last Admin: 01/05/18 12:46 Dose: 1 ampul Bisacodyl (Dulcolax Supp) 10 mg RECTAL DAILY PRN PRN Reason: SEVERE CONSITIPATION Chlorhexidine Gluconate (Chlorhexidine 2% Cloth) 3 pack TOPICAL DAILY@0400 [facility] Stop: 01/10/18 03:59 Last Admin: 01/05/18 03:27 Dose: 3 pack Chlorhexidine Gluconate (Chlorhexidine 2% Cloth) 3 pack TOPICAL DAILY@0400 PRN PRN Reason: Extra cloth needed Stop: 01/10/18 03:59 Dextrose (D50w Vial) 50 ml IV.PUSH UNSCH PRN PRN Reason: PER HYPOGLYCEMIA PROTOCOL Last Admin: 01/05/18 13:48 Dose: 50 ml Erythromycin (Erythromycin 0.5% Opth Oint) 1 gm EACH EYE Q4H [facility] Last Admin: 01/05/18 09:57 Dose: 1 gm Furosemide (Lasix Inj) 40 mg IV.PUSH BID@0900,1800 [facility] Stop: 01/05/18 23:59 Last Admin: 01/05/18 09:57 Dose: 40 mg Glucagon (Glucagon Inj) 1 mg OTHER PRN PRN PRN Reason: for Hypoglycemia Protocol Sodium Chloride (Ns Inj) 500 mls @ 0 mls/hr IV.SIG BOLUS [place]AK[place] Last Admin: 01/04/18 21:22 Dose: 50 mls/hr Pantoprazole Sodium 80 mg/ (Sodium Chloride) 100 mls @ 10 mls/hr IV.CONT Q10H [facility] Last Admin: 01/05/18 06:28 Dose: 10 mls/hr Aztreonam 1,000 mg/ Sodium (Chloride) 100 mls @ 200 mls/hr IV.SIG Q8H [facility] Last Infusion: 01/05/18 09:43 Dose: Infused Insulin Human Regular (Novolin R Correctional Sugar Inj) 0 units SQ Q4HR [facility]; Protocol Last Admin: 01/05/18 13:09 Dose: Not Given Lactulose (Lactulose Liq) 30 ml PO DAILY PRN PRN Reason: SEVERE CONSITIPATION Pharmacy Profile Note (Vancomycin Consult Pharmacy) 1 each OTHER UNSCH PRN PRN Reason: Pharmacy to dose Senna/Docusate Sodium (Jessica-Colace) 1 tab PO BID [facility] Last Admin: 01/05/18 09:57 Dose: 1 tab Sennosides (Senokot) 17.2 mg PO Q12H PRN PRN Reason: Moderate Constipation <Feliciano Gabriel E - Last Filed: 01/05/18 14:36> Allergies Allergy/AdvReac Type Severity Reaction Status Date / Time Penicillins Allergy Unknown unknown Verified 01/04/18 18:45 Home Medications Medication Instructions Recorded Confirmed Type aspirin 325 mg PO DAILY 01/04/18 01/04/18 History Exam Vital signs: Vital Signs 01/04/18 18:15 01/04/18 18:40 01/04/18 18:45 Temperature 97.5 F L Pulse Rate 102 H 104 H Respiratory Rate 29 H 18 Blood Pressure 127/58 L 127/58 L Pulse Oximetry 56 L 98 95 01/04/18 18:54 01/04/18 19:40 01/04/18 20:55 Temperature Pulse Rate 104 H 97 H Respiratory Rate 24 24 Blood Pressure 148/64 H 139/76 Pulse Oximetry 98 97 91 L 01/04/18 21:00 01/04/18 22:36 01/04/18 22:51 Temperature 97.7 F 97.5 F L Pulse Rate 100 H 97 H 96 H Respiratory Rate 24 24 22 Blood Pressure 134/58 L 142/62 H 155/68 H Pulse Oximetry 95 97 99 01/05/18 00:30 01/05/18 00:37 01/05/18 02:00 Temperature 98.2 F Pulse Rate 96 H 97 H 99 H Respiratory Rate 24 24 18 Blood Pressure 120/59 L 120/58 L Pulse Oximetry 98 99 01/05/18 02:08 01/05/18 02:25 01/05/18 03:00 Temperature 98.2 F 98.4 F Pulse Rate 97 H 93 H 92 H Respiratory Rate 18 19 20 Blood Pressure 120/58 L 118/58 L 109/55 L Pulse Oximetry 96 100 95 01/05/18 03:57 01/05/18 04:00 01/05/18 05:00 Temperature 98.7 F Pulse Rate 94 H 64 89 Respiratory Rate 19 16 21 Blood Pressure 108/72 115/56 L Pulse Oximetry 99 98 01/05/18 05:45 01/05/18 06:00 01/05/18 06:15 Temperature Pulse Rate 91 H 91 H 92 H Respiratory Rate 19 17 15 Blood Pressure 117/58 L 124/58 L 128/60 Pulse Oximetry 99 100 100 01/05/18 06:30 01/05/18 06:45 01/05/18 07:00 Temperature Pulse Rate 91 H 89 89 Respiratory Rate 15 14 19 Blood Pressure 129/63 124/58 L 125/58 L Pulse Oximetry 100 97 93 L 01/05/18 07:15 01/05/18 07:30 01/05/18 07:40 Temperature Pulse Rate 91 H 89 Respiratory Rate 17 18 16 Blood Pressure 123/60 126/60 Pulse Oximetry 96 98 100 01/05/18 07:45 01/05/18 07:49 01/05/18 08:00 Temperature 98 F Pulse Rate 90 82 87 Respiratory Rate 16 17 16 Blood Pressure 98/53 L 84/47 L 80/49 L Pulse Oximetry 100 100 100 01/05/18 08:05 01/05/18 08:08 10/03/18 08:12 Temperature Pulse Rate 84 84 83 Respiratory Rate 16 15 13 Blood Pressure 63/33 L 70/36 L 102/45 L Pulse Oximetry 100 100 100 01/05/18 08:16 01/05/18 08:20 01/05/18 08:24 Temperature Pulse Rate 87 91 H 86 Respiratory Rate 17 19 14 Blood Pressure 98/47 L 106/52 L 110/57 L Pulse Oximetry 100 100 100 01/05/18 08:30 01/05/18 09:00 01/05/18 09:15 Temperature Pulse Rate 90 92 H 91 H Respiratory Rate 16 22 19 Blood Pressure 116/56 L 122/90 121/86 Pulse Oximetry 100 100 100 01/05/18 09:30 01/05/18 09:45 01/05/18 10:00 Temperature Pulse Rate 90 90 90 Respiratory Rate 16 10 L 12 Blood Pressure 128/61 136/68 140/63 Pulse Oximetry 100 100 100 01/05/18 10:15 01/05/18 10:31 01/05/18 10:45 Temperature Pulse Rate 88 86 86 Respiratory Rate 9 L 10 L 8 L Blood Pressure 144/63 H 132/65 124/61 Pulse Oximetry 100 100 100 01/05/18 11:00 01/05/18 11:15 01/05/18 11:20 Temperature Pulse Rate 87 83 84 Respiratory Rate 13 16 16 Blood Pressure 122/57 L 128/58 L 112/55 L Pulse Oximetry 100 100 100 01/05/18 11:25 01/05/18 11:31 01/05/18 11:35 Temperature Pulse Rate 81 81 81 Respiratory Rate 16 11 L 12 Blood Pressure 113/59 L 136/88 95/53 L Pulse Oximetry 100 100 100 01/05/18 11:40 01/05/18 11:45 01/05/18 11:50 Temperature Pulse Rate 82 82 83 Respiratory Rate 6 L 9 L 8 L Blood Pressure 96/53 L 100/55 L 102/52 L Pulse Oximetry 100 100 100 Intake & Output 01/04/18 01/05/18 01/05/18 18:59 06:59 18:59 Intake Total 1185 / 1185 100 / 100 Output Total 1075 / 1075 Balance 110 / 110 100 / 100 Weight 81.647 kg 95 kg Intake: IV 385 / 385 100 / 100 Azactam Inj 1,000 MG In NS Inj 100 / 100 100 / 100 100 ML @ 200 mls/hr IV.SIG Q8H NAKIA Rx#:[id number] Protonix Inj 80 MG In NS Inj 35 35 / 35 ML @ 420 mls/hr IV.SIG BOLUS ONE Rx#:[id number] Vancomycin Inj 1,000 MG In NS 250 / 250 Inj 250 ML @ 250 mls/hr IV.SIG ONCE ONE Rx#:[id number] Oral 0 / 0 Intake (Blood Product) Amt 800 / 800 Rbc As-3 Leukoreduced Unit 400 / 400 [id number] Rbc As-3 Leukoreduced Unit 400 / 400 [id number] Output: Urine 700 / 700 Urine Amount (Catheter) 375 / 375 Indwelling Urethral Catheter 375 / 375 Other: # Bowel Movements 0 Weight On Admission 95 kg - Constitutional mild distress, obese, obtunded - Routine HEENT Exam ENT: Present: mucous membranes dry (Generalized facial edema, pale, ET tube in place with ventilator management) - Routine Respiratory Exam Present: patient mechanically ventilated, decreased breath sounds (Rub) - Routine Cardiovascular Exam Present: S1, S2, murmur, rubs - Routine Abdominal Exam Present: distended, firm (Semifirm with tautness, soft minimal bowel sounds with distention) - Routine Skin Exam Present: pallor (Generalized extremity edema, pale) <Sejal Felipe - Last Filed: 01/05/18 12:34> Vital signs: Vital Signs 01/04/18 18:15 01/04/18 18:40 01/04/18 18:45 Temperature 97.5 F L Pulse Rate 102 H 104 H Respiratory Rate 29 H 18 Blood Pressure 127/58 L 127/58 L Pulse Oximetry 56 L 98 95 01/04/18 18:54 01/04/18 19:40 01/04/18 20:55 Temperature Pulse Rate 104 H 97 H Respiratory Rate 24 24 Blood Pressure 148/64 H 139/76 Pulse Oximetry 98 97 91 L 01/04/18 21:00 01/04/18 22:36 01/04/18 22:51 Temperature 97.7 F 97.5 F L Pulse Rate 100 H 97 H 96 H Respiratory Rate 24 24 22 Blood Pressure 134/58 L 142/62 H 155/68 H Pulse Oximetry 95 97 99 01/05/18 00:30 01/05/18 00:37 01/05/18 02:00 Temperature 98.2 F Pulse Rate 96 H 97 H 99 H Respiratory Rate 24 24 18 Blood Pressure 120/59 L 120/58 L Pulse Oximetry 98 99 01/05/18 02:08 01/05/18 02:25 01/05/18 03:00 Temperature 98.2 F 98.4 F Pulse Rate 97 H 93 H 92 H Respiratory Rate 18 19 20 Blood Pressure 120/58 L 118/58 L 109/55 L Pulse Oximetry 96 100 95 01/05/18 03:57 01/05/18 04:00 01/05/18 05:00 Temperature 98.7 F Pulse Rate 94 H 64 89 Respiratory Rate 19 16 21 Blood Pressure 108/72 115/56 L Pulse Oximetry 99 98 01/05/18 05:45 01/05/18 06:00 01/05/18 06:15 Temperature Pulse Rate 91 H 91 H 92 H Respiratory Rate 19 17 15 Blood Pressure 117/58 L 124/58 L 128/60 Pulse Oximetry 99 100 100 01/05/18 06:30 01/05/18 06:45 01/05/18 07:00 Temperature Pulse Rate 91 H 89 89 Respiratory Rate 15 14 19 Blood Pressure 129/63 124/58 L 125/58 L Pulse Oximetry 100 97 93 L 01/05/18 07:15 01/05/18 07:30 01/05/18 07:40 Temperature Pulse Rate 91 H 89 Respiratory Rate 17 18 16 Blood Pressure 123/60 126/60 Pulse Oximetry 96 98 100 01/05/18 07:45 01/05/18 07:49 01/05/18 08:00 Temperature 98 F Pulse Rate 90 82 87 Respiratory Rate 16 17 16 Blood Pressure 98/53 L 84/47 L 80/49 L Pulse Oximetry 100 100 100 01/05/18 08:05 01/05/18 08:08 01/05/18 08:12 Temperature Pulse Rate 84 84 83 Respiratory Rate 16 15 13 Blood Pressure 63/33 L 70/36 L 102/45 L Pulse Oximetry 100 100 100 01/05/18 08:16 01/05/18 08:20 01/05/18 08:24 Temperature Pulse Rate 87 91 H 86 Respiratory Rate 17 19 14 Blood Pressure 98/47 L 106/52 L 110/57 L Pulse Oximetry 100 100 100 01/05/18 08:30 01/05/18 09:00 01/05/18 09:15 Temperature Pulse Rate 90 92 H 91 H Respiratory Rate 16 22 19 Blood Pressure 116/56 L 122/90 121/86 Pulse Oximetry 100 100 100 01/05/18 09:30 01/05/18 09:45 01/05/18 10:00 Temperature Pulse Rate 90 90 90 Respiratory Rate 16 10 L 12 Blood Pressure 128/61 136/68 140/63 Pulse Oximetry 100 100 100 01/05/18 10:15 01/05/18 10:31 01/05/18 10:45 Temperature Pulse Rate 88 86 86 Respiratory Rate 9 L 10 L 8 L Blood Pressure 144/63 H 132/65 124/61 Pulse Oximetry 100 100 100 01/05/18 11:00 01/05/18 11:15 01/05/18 11:20 Temperature Pulse Rate 83 83 84 Respiratory Rate 16 16 16 Blood Pressure 122/57 L 128/58 L 112/55 L Pulse Oximetry 100 100 100 01/05/18 11:25 01/05/18 11:31 01/05/18 11:35 Temperature Pulse Rate 81 81 81 Respiratory Rate 16 11 L 12 Blood Pressure 113/59 L 136/88 95/53 L Pulse Oximetry 100 100 100 01/05/18 11:40 01/05/18 11:45 01/05/18 11:50 Temperature Pulse Rate 82 82 83 Respiratory Rate 6 L 9 L 8 L Blood Pressure 96/53 L 100/55 L 102/52 L Pulse Oximetry 100 100 100 01/05/18 11:55 01/05/18 12:00 01/05/18 12:05 Temperature 98.3 F Pulse Rate 85 82 82 Respiratory Rate 17 16 16 Blood Pressure 110/53 L 116/54 L 124/59 L Pulse Oximetry 100 100 100 01/05/18 12:10 01/05/18 12:15 01/05/18 12:20 Temperature Pulse Rate 82 83 83 Respiratory Rate 17 16 16 Blood Pressure 123/57 L 96/52 L 113/56 L Pulse Oximetry 100 100 100 01/05/18 12:25 01/05/18 12:30 01/05/18 12:35 Temperature Pulse Rate 81 82 82 Respiratory Rate 16 17 16 Blood Pressure 123/58 L 123/61 126/58 L Pulse Oximetry 100 100 100 01/05/18 12:40 01/05/18 12:45 01/05/18 12:47 Temperature Pulse Rate 82 82 Respiratory Rate 16 16 17 Blood Pressure 130/60 128/59 L Pulse Oximetry 100 100 01/05/18 12:50 01/05/18 12:55 01/05/18 13:00 Temperature Pulse Rate 81 90 82 Respiratory Rate 16 17 16 Blood Pressure 129/58 L 135/51 L 113/56 L Pulse Oximetry 100 100 100 01/05/18 13:05 01/05/18 13:10 01/05/18 13:15 Temperature Pulse Rate 83 85 87 Respiratory Rate 17 17 16 Blood Pressure 114/58 L 121/58 L 125/59 L Pulse Oximetry 100 100 100 01/05/18 13:20 01/05/18 13:25 01/05/18 13:30 Temperature Pulse Rate 87 85 85 Respiratory Rate 18 16 17 Blood Pressure 119/57 L 116/61 120/58 L Pulse Oximetry 100 100 100 01/05/18 13:35 01/05/18 13:40 01/05/18 13:45 Temperature Pulse Rate 83 84 86 Respiratory Rate 16 16 17 Blood Pressure 116/59 L 119/56 L 130/60 Pulse Oximetry 100 100 100 01/05/18 13:50 01/05/18 13:55 01/05/18 14:00 Temperature Pulse Rate 90 88 88 Respiratory Rate 19 16 16 Blood Pressure 131/60 125/59 L 123/59 L Pulse Oximetry 100 100 100 01/05/18 14:05 01/05/18 14:10 01/05/18 14:15 Temperature Pulse Rate 86 86 87 Respiratory Rate 16 16 17 Blood Pressure 129/60 136/63 119/59 L Pulse Oximetry 100 100 100 01/05/18 14:20 01/05/18 14:25 01/05/18 14:30 Temperature Pulse Rate 88 85 90 Respiratory Rate 17 16 17 Blood Pressure 129/58 L 125/60 118/53 L Pulse Oximetry 100 100 100 Intake & Output 01/04/18 01/05/18 01/05/18 18:59 06:59 18:59 Intake Total 1185 / 1185 100 / 100 Output Total 1075 / 1075 Balance 110 / 110 100 / 100 Weight 81.647 kg 95 kg Intake: IV 385 / 385 100 / 100 Azactam Inj 1,000 MG In NS Inj 100 / 100 100 / 100 100 ML @ 200 mls/hr IV.SIG Q8H [facility]AK[facility] Rx#:[id number] Protonix Inj 80 MG In NS Inj 35 35 / 35 ML @ 420 mls/hr IV.SIG BOLUS ONE Rx#:[id number] Vancomycin Inj 1,000 MG In NS 250 / 250 Inj 250 ML @ 250 mls/hr IV.SIG ONCE ONE Rx#:[id number] Oral 0 / 0 Intake (Blood Product) Amt 800 / 800 Rbc As-3 Leukoreduced Unit 400 / 400 [id number] Rbc As-3 Leukoreduced Unit 400 / 400 [id number] Output: Urine 700 / 700 Urine Amount (Catheter) 375 / 375 Indwelling Urethral Catheter 375 / 375 Other: # Bowel Movements 0 Weight On Admission 95 kg <Feliciano Gabriel E - Last Filed: 01/05/18 14:36> Results - Labs CBC & Chem 7: 01/05/18 08:50 01/05/18 04:07 Labs: Laboratory Results - last 24 hr 01/04/18 01/04/18 01/04/18 18:59 19:00 19:00 WBC 6.9 RBC 3.37 L Hgb 6.6 L* Hct 24.6 L MCV 72.9 L MCH 19.7 L MCHC 27.0 L RDW 25.6 H Plt Count 201 MPV 8.4 Prelim Diff (Auto) Slide review pending Neut % (Auto) 71.3 H Lymph % (Auto) 17.3 Gregory % (Auto) 10.6 H Eos % (Auto) 0.1 Baso % (Auto) 0.7 Neut # (Auto) 4.9 Lymph # (Auto) 1.2 Gregory # (Auto) 0.7 Eos # (Auto) 0.0 Baso # (Auto) 0.0 WBC Differential . Diff Scan Auto diff confirmed Differential Comment . Dimorphic RBCs Present H PT INR APTT Puncture Site Patient Temperature O2 Saturation ABG pH ABG pCO2 ABG pO2 ABG HCO3 ABG O2 Content ABG Base Excess ABG Methemoglobin Eh Test Hemoglobin Carboxyhemoglobin O2 Delivery Device Liter Flow Inspired O2 Critical Value Sodium 143 Potassium 3.9 Chloride 106 Carbon Dioxide 21.8 Anion Gap 15 BUN 22 H Creatinine 2.04 H Estimated GFR 32 L POC Glucose 95 Random Glucose 81 Lactic Acid Calcium 8.1 L Magnesium 1.9 Total Bilirubin 1.8 H AST 43 H ALT 19 Alkaline Phosphatase 68 Total Creatine Kinase 561 H CK-MB (CK-2) 9.8 H CK-MB (CK-2) % 1.7 Troponin I 0.64 H* B-Natriuretic Peptide Total Protein 6.9 Albumin 2.4 L TSH 4.250 H Free T4 Free T3 Urine Color Urine Clarity Urine pH Ur Specific [place] Urine Protein Urine Glucose (UA) Urine Ketones Urine Occult Blood Urine Nitrate Urine Bilirubin Urine Urobilinogen Ur Leukocyte Esterase Urine RBC Urine WBC Amorphous Sediment Urine Bacteria Micro UA Comment Ur Microscopic Review Urine Culture Comments Pleural pH Pleural Total Protein Pleural LDH Pleural Glucose Pleural Amylase Nasal Screen MRSA (PCR) Blood Type Antibody Screen MTS Gel Crossmatch 01/04/18 01/04/18 01/04/18 19:00 19:05 20:45 WBC RBC Hgb Hct MCV MCH MCHC RDW Plt Count MPV Prelim Diff (Auto) Neut % (Auto) Lymph % (Auto) Gregory % (Auto) Eos % (Auto) Baso % (Auto) Neut # (Auto) Lymph # (Auto) Gregory # (Auto) Eos # (Auto) Baso # (Auto) WBC Differential Diff Scan Differential Comment Dimorphic RBCs PT INR APTT Puncture Site Patient Temperature O2 Saturation ABG pH ABG pCO2 ABG pO2 ABG HCO3 ABG O2 Content ABG Base Excess ABG Methemoglobin Eh Test Hemoglobin Carboxyhemoglobin O2 Delivery Device Liter Flow Inspired O2 Critical Value Sodium Potassium Chloride Carbon Dioxide Anion Gap BUN Creatinine Estimated GFR POC Glucose Random Glucose Lactic Acid 6.8 H* Calcium Magnesium Total Bilirubin AST ALT Alkaline Phosphatase Total Creatine Kinase CK-MB (CK-2) CK-MB (CK-2) % Troponin I B-Natriuretic Peptide 3405 H Total Protein Albumin TSH Free T4 Free T3 Urine Color Urine Clarity Urine pH Ur Specific [place] Urine Protein Urine Glucose (UA) Urine Ketones Urine Occult Blood Urine Nitrate Urine Bilirubin Urine Urobilinogen Ur Leukocyte Esterase Urine RBC Urine WBC Amorphous Sediment Urine Bacteria Micro UA Comment Ur Microscopic Review Urine Culture Comments Pleural pH Pleural Total Protein Pleural LDH Pleural Glucose Pleural Amylase Nasal Screen MRSA (PCR) Blood Type O Positive Antibody Screen Negative MTS Gel Crossmatch 01/04/18 01/04/18 01/04/18 20:45 20:45 21:55 WBC RBC Hgb Hct MCV MCH MCHC RDW Plt Count MPV Prelim Diff (Auto) Neut % (Auto) Lymph % (Auto) Gregory % (Auto) Eos % (Auto) Baso % (Auto) Neut # (Auto) Lymph # (Auto) Gregory # (Auto) Eos # (Auto) Baso # (Auto) WBC Differential Diff Scan Differential Comment Dimorphic RBCs PT 16.4 H INR 1.6 APTT 32.4 H Puncture Site Patient Temperature O2 Saturation ABG pH ABG pCO2 ABG pO2 ABG HCO3 ABG O2 Content ABG Base Excess ABG Methemoglobin Eh Test Hemoglobin Carboxyhemoglobin O2 Delivery Device Liter Flow Inspired O2 Critical Value Sodium Potassium Chloride Carbon Dioxide Anion Gap BUN Creatinine Estimated GFR POC Glucose Random Glucose Lactic Acid 4.9 H* Calcium Magnesium Total Bilirubin AST ALT Alkaline Phosphatase Total Creatine Kinase CK-MB (CK-2) CK-MB (CK-2) % Troponin I B-Natriuretic Peptide Total Protein Albumin TSH Free T4 Free T3 Urine Color Urine Clarity Urine pH Ur Specific [place] Urine Protein Urine Glucose (UA) Urine Ketones Urine Occult Blood Urine Nitrate Urine Bilirubin Urine Urobilinogen Ur Leukocyte Esterase Urine RBC Urine WBC Amorphous Sediment Urine Bacteria Micro UA Comment Ur Microscopic Review Urine Culture Comments Pleural pH Pleural Total Protein Pleural LDH Pleural Glucose Pleural Amylase Nasal Screen MRSA (PCR) Blood Type Antibody Screen MTS Gel Crossmatch See Detail 01/04/18 01/04/18 01/05/18 22:15 22:20 00:30 WBC RBC Hgb 6.1 L* Hct 23.1 L MCV MCH MCHC RDW Plt Count MPV Prelim Diff (Auto) Neut % (Auto) Lymph % (Auto) Gregory % (Auto) Eos % (Auto) Baso % (Auto) Neut # (Auto) Lymph # (Auto) Gregory # (Auto) Eos # (Auto) Baso # (Auto) WBC Differential Diff Scan Differential Comment Dimorphic RBCs PT INR APTT Puncture Site Patient Temperature O2 Saturation ABG pH ABG pCO2 ABG pO2 ABG HCO3 ABG O2 Content ABG Base Excess ABG Methemoglobin Eh Test Hemoglobin Carboxyhemoglobin O2 Delivery Device Liter Flow Inspired O2 Critical Value Sodium Potassium Chloride Carbon Dioxide Anion Gap BUN Creatinine Estimated GFR POC Glucose Random Glucose Lactic Acid Calcium Magnesium Total Bilirubin AST ALT Alkaline Phosphatase Total Creatine Kinase CK-MB (CK-2) CK-MB (CK-2) % Troponin I B-Natriuretic Peptide Total Protein Albumin TSH Free T4 Free T3 Urine Color Roxanne Urine Clarity Hazy H Urine pH 5.0 Ur Specific [place] 1.014 Urine Protein 100 H Urine Glucose (UA) Negative Urine Ketones Negative Urine Occult Blood Large H Urine Nitrate Negative Urine Bilirubin Negative Urine Urobilinogen 2.0 H Ur Leukocyte Esterase Negative Urine RBC 51 H Urine WBC 5 Amorphous Sediment Few H Urine Bacteria Rare H Micro UA Comment Cath-culture ind Ur Microscopic Review Not Reportable Urine Culture Comments Cath-cult indicated Pleural pH Pleural Total Protein Pleural LDH Pleural Glucose Pleural Amylase Nasal Screen MRSA (PCR) Not detected Blood Type Antibody Screen MTS Gel Crossmatch 01/05/18 01/05/18 01/05/18 01:27 01:36 03:39 WBC RBC Hgb Hct MCV MCH MCHC RDW Plt Count MPV Prelim Diff (Auto) Neut % (Auto) Lymph % (Auto) Gregory % (Auto) Eos % (Auto) Baso % (Auto) Neut # (Auto) Lymph # (Auto) Gregory # (Auto) Eos # (Auto) Baso # (Auto) WBC Differential Diff Scan Differential Comment Dimorphic RBCs PT INR APTT Puncture Site Right radial Patient Temperature 98.6 O2 Saturation 85 L* ABG pH 7.27 L* ABG pCO2 58 H* ABG pO2 65 ABG HCO3 26 ABG O2 Content 8.8 L ABG Base Excess -0.1 ABG Methemoglobin 1.7 Eh Test Present Hemoglobin 7.3 L* Carboxyhemoglobin 2.3 O2 Delivery Device Nasal cannula Liter Flow 4.00 Inspired O2 36 Critical Value Yes Sodium Potassium Chloride Carbon Dioxide Anion Gap BUN Creatinine Estimated GFR POC Glucose 126 H 96 Random Glucose Lactic Acid Calcium Magnesium Total Bilirubin AST ALT Alkaline Phosphatase Total Creatine Kinase CK-MB (CK-2) CK-MB (CK-2) % Troponin I B-Natriuretic Peptide Total Protein Albumin TSH Free T4 Free T3 Urine Color Urine Clarity Urine pH Ur Specific [place] Urine Protein Urine Glucose (UA) Urine Ketones Urine Occult Blood Urine Nitrate Urine Bilirubin Urine Urobilinogen Ur Leukocyte Esterase Urine RBC Urine WBC Amorphous Sediment Urine Bacteria Micro UA Comment Ur Microscopic Review Urine Culture Comments Pleural pH Pleural Total Protein Pleural LDH Pleural Glucose Pleural Amylase Nasal Screen MRSA (PCR) Blood Type Antibody Screen MTS Gel Crossmatch 01/05/18 01/05/18 01/05/18 04:07 04:07 05:55 WBC RBC Hgb Hct MCV MCH MCHC RDW Plt Count MPV Prelim Diff (Auto) Neut % (Auto) Lymph % (Auto) Gregory % (Auto) Eos % (Auto) Baso % (Auto) Neut # (Auto) Lymph # (Auto) Gregory # (Auto) Eos # (Auto) Baso # (Auto) WBC Differential Diff Scan Differential Comment Dimorphic RBCs PT INR APTT Puncture Site Right radial Patient Temperature 98.6 O2 Saturation 94 ABG pH 7.27 L* ABG pCO2 61 H* ABG pO2 99 ABG HCO3 27 H ABG O2 Content 10.9 L ABG Base Excess 1.0 ABG Methemoglobin 1.6 Eh Test Present Hemoglobin 8.2 L Carboxyhemoglobin 2.4 O2 Delivery Device Bipap 10/+5 Liter Flow Inspired O2 40 Critical Value Yes Sodium 145 Potassium 4.1 Chloride 106 Carbon Dioxide 28.7 Anion Gap 10 BUN 23 H Creatinine 2.00 H Estimated GFR 33 L POC Glucose Random Glucose 97 Lactic Acid 2.6 H Calcium 7.5 L Magnesium Total Bilirubin 2.3 H AST 46 H ALT 23 Alkaline Phosphatase 72 Total Creatine Kinase 466 H CK-MB (CK-2) 9.2 H CK-MB (CK-2) % 2.0 Troponin I 0.68 H* B-Natriuretic Peptide Total Protein 7.0 Albumin 2.6 L TSH 4.190 H Free T4 0.83 Free T3 0.97 L Urine Color Urine Clarity Urine pH Ur Specific [place] Urine Protein Urine Glucose (UA) Urine Ketones Urine Occult Blood Urine Nitrate Urine Bilirubin Urine Urobilinogen Ur Leukocyte Esterase Urine RBC Urine WBC Amorphous Sediment Urine Bacteria Micro UA Comment Ur Microscopic Review Urine Culture Comments Pleural pH Pleural Total Protein Pleural LDH Pleural Glucose Pleural Amylase Nasal Screen MRSA (PCR) Blood Type Antibody Screen MTS Gel Crossmatch 01/05/18 01/05/18 01/05/18 07:28 08:00 08:50 WBC 7.7 RBC 3.55 L Hgb 7.8 L Hct 26.2 L MCV 73.9 L MCH 21.9 L MCHC 29.6 L RDW 23.4 H Plt Count 137 L D MPV 8.4 Prelim Diff (Auto) Neut % (Auto) 88.8 H Lymph % (Auto) 7.1 L Gregory % (Auto) 3.3 Eos % (Auto) 0.5 Baso % (Auto) 0.3 Neut # (Auto) 6.8 Lymph # (Auto) 0.5 L Gregory # (Auto) 0.3 Eos # (Auto) 0.0 Baso # (Auto) 0.0 WBC Differential . Diff Scan Differential Comment Auto diff final Dimorphic RBCs PT INR APTT Puncture Site Patient Temperature O2 Saturation ABG pH ABG pCO2 ABG pO2 ABG HCO3 ABG O2 Content ABG Base Excess ABG Methemoglobin Eh Test Hemoglobin Carboxyhemoglobin O2 Delivery Device Liter Flow Inspired O2 Critical Value Sodium Potassium Chloride Carbon Dioxide Anion Gap BUN Creatinine Estimated GFR POC Glucose Random Glucose Lactic Acid Calcium Magnesium Total Bilirubin AST ALT Alkaline Phosphatase Total Creatine Kinase CK-MB (CK-2) CK-MB (CK-2) % Troponin I 0.46 H B-Natriuretic Peptide Total Protein Albumin TSH Free T4 Free T3 Urine Color Urine Clarity Urine pH Ur Specific [place] Urine Protein Urine Glucose (UA) Urine Ketones Urine Occult Blood Urine Nitrate Urine Bilirubin Urine Urobilinogen Ur Leukocyte Esterase Urine RBC Urine WBC Amorphous Sediment Urine Bacteria Micro UA Comment Ur Microscopic Review Urine Culture Comments Pleural pH 8.5 Pleural Total Protein 1.7 Pleural LDH 57 Pleural Glucose 96 Pleural Amylase 14 Nasal Screen MRSA (PCR) Blood Type Antibody Screen MTS Gel Crossmatch 01/05/18 01/05/18 08:50 09:56 WBC RBC Hgb Hct MCV MCH MCHC RDW Plt Count MPV Prelim Diff (Auto) Neut % (Auto) Lymph % (Auto) Gregory % (Auto) Eos % (Auto) Baso % (Auto) Neut # (Auto) Lymph # (Auto) Gregory # (Auto) Eos # (Auto) Baso # (Auto) WBC Differential Diff Scan Differential Comment Dimorphic RBCs PT INR APTT Puncture Site Patient Temperature O2 Saturation ABG pH ABG pCO2 ABG pO2 ABG HCO3 ABG O2 Content ABG Base Excess ABG Methemoglobin Eh Test Hemoglobin Carboxyhemoglobin O2 Delivery Device Liter Flow Inspired O2 Critical Value Sodium Potassium Chloride Carbon Dioxide Anion Gap BUN Creatinine Estimated GFR POC Glucose 77 Random Glucose Lactic Acid 1.1 Calcium Magnesium Total Bilirubin AST ALT Alkaline Phosphatase Total Creatine Kinase CK-MB (CK-2) CK-MB (CK-2) % Troponin I B-Natriuretic Peptide Total Protein Albumin TSH Free T4 Free T3 Urine Color Urine Clarity Urine pH Ur Specific [place] Urine Protein Urine Glucose (UA) Urine Ketones Urine Occult Blood Urine Nitrate Urine Bilirubin Urine Urobilinogen Ur Leukocyte Esterase Urine RBC Urine WBC Amorphous Sediment Urine Bacteria Micro UA Comment Ur Microscopic Review Urine Culture Comments Pleural pH Pleural Total Protein Pleural LDH Pleural Glucose Pleural Amylase Nasal Screen MRSA (PCR) Blood Type Antibody Screen MTS Gel Crossmatch - Imaging Impressions Abdomen/Bladder Ultrasound 01/04/18 00:00 CONCLUSION: 1. Chronic parenchymal disease. 2. Bilateral cysts, left more so than right. 3. No obstructive uropathy or other acute abnormality. Chest X-Ray 01/04/18 18:15 CONCLUSION: Left greater than right pleural effusions with basilar consolidation. Head CT 01/04/18 18:15 CONCLUSION: Motion degraded study without evidence of bleed or other acute intracranial abnormality. . Venous Doppler Study 01/04/18 18:15 CONCLUSION: No deep venous thrombosis of either lower extremity but there is superficial venous thrombosis involving the bilateral greater saphenous veins as described. Lumbar Spine CT 01/04/18 18:18 CONCLUSION: 1. No subluxation or acute fracture of the lumbar spine. 2. There is an old, mild compression deformity of L3. 3. Multilevel degenerative changes and diffuse idiopathic skeletal hyperostosis. 4. Pleural effusions and parenchymal consolidation partly seen of the visualized lung bases. 5. Atrophy and apparent hydronephrosis of the left knee. Face CT 01/04/18 20:14 CONCLUSION: 1. Focal minimally displaced fracture of the tip of the nasion. 2. Preseptal soft tissue contusion of the left orbit. 3. Acute on chronic appearing left maxillary sinusitis. Abdomen/Pelvis CT 01/05/18 00:00 CONCLUSION: 1. Bilateral moderate to large pleural effusions, left greater than right with associated lower lobe airspace disease. 2. Abnormal appearance of the left kidney with numerous cortical cysts. Apparent prominence of the renal collecting system does not have a corresponding finding on today's ultrasound exam. However, it remains concerning for mild to moderate hydronephrosis. 3. 7 mm calyceal calculus in the inferior pole of the left kidney. 4. Diffuse anasarca with small amount ascites. 5. Mild sigmoid diverticulosis. 6. Normal appendix. Chest X-Ray 01/05/18 00:00 CONCLUSION: Interval improvement following small bore chest tube on the left. Persistent effusion and consolidation on the right. Chest X-Ray 01/05/18 00:00 CONCLUSION: 1. Bibasilar small chest tubes are in good positions. 2. Left basilar consolidation consistent with atelectasis and/or infiltrate. 3. No evidence of pleural effusion. <Sejal Felipe - Last Filed: 01/05/18 12:34> - Labs CBC & Chem 7: 01/05/18 13:03 01/05/18 04:07 Labs: Laboratory Results - last 24 hr 01/04/18 01/04/18 01/04/18 18:59 19:00 19:00 WBC 6.9 RBC 3.37 L Hgb 6.6 L* Hct 24.6 L MCV 72.9 L MCH 19.7 L MCHC 27.0 L RDW 25.6 H Plt Count 201 MPV 8.4 Prelim Diff (Auto) Slide review pending Neut % (Auto) 71.3 H Lymph % (Auto) 17.3 Gregory % (Auto) 10.6 H Eos % (Auto) 0.1 Baso % (Auto) 0.7 Neut # (Auto) 4.9 Lymph # (Auto) 1.2 Gregory # (Auto) 0.7 Eos # (Auto) 0.0 Baso # (Auto) 0.0 WBC Differential . Diff Scan Auto diff confirmed Differential Comment . Dimorphic RBCs Present H PT INR APTT Puncture Site Patient Temperature O2 Saturation ABG pH ABG pCO2 ABG pO2 ABG HCO3 ABG O2 Content ABG Base Excess ABG Methemoglobin Eh Test Hemoglobin Carboxyhemoglobin O2 Delivery Device Liter Flow Vent Setting Inspired O2 Critical Value Sodium 143 Potassium 3.9 Chloride 106 Carbon Dioxide 21.8 Anion Gap 15 BUN 22 H Creatinine 2.04 H Estimated GFR 32 L POC Glucose 95 Random Glucose 81 Lactic Acid Calcium 8.1 L Magnesium 1.9 Total Bilirubin 1.8 H AST 43 H ALT 19 Alkaline Phosphatase 68 Total Creatine Kinase 561 H CK-MB (CK-2) 9.8 H CK-MB (CK-2) % 1.7 Troponin I 0.64 H* B-Natriuretic Peptide Total Protein 6.9 Albumin 2.4 L TSH 4.250 H Free T4 Free T3 Urine Color Urine Clarity Urine pH Ur Specific [place] Urine Protein Urine Glucose (UA) Urine Ketones Urine Occult Blood Urine Nitrate Urine Bilirubin Urine Urobilinogen Ur Leukocyte Esterase Urine RBC Urine WBC Amorphous Sediment Urine Bacteria Micro UA Comment Ur Microscopic Review Urine Culture Comments Pleural pH Pleural RBC Pleural Nuc Cells Pleural Neutrophils Pleural Lymphocytes Pleural Monocytes Pleural Plasma Cells Pleural Histocytes Pleural Mesothelial Pleural Total Protein Pleural LDH Pleural Glucose Pleural Amylase Nasal Screen MRSA (PCR) Blood Type Antibody Screen MTS Gel Crossmatch 01/04/18 01/04/18 01/04/18 19:00 19:05 20:45 WBC RBC Hgb Hct MCV MCH MCHC RDW Plt Count MPV Prelim Diff (Auto) Neut % (Auto) Lymph % (Auto) Gregory % (Auto) Eos % (Auto) Baso % (Auto) Neut # (Auto) Lymph # (Auto) Gregory # (Auto) Eos # (Auto) Baso # (Auto) WBC Differential Diff Scan Differential Comment Dimorphic RBCs PT INR APTT Puncture Site Patient Temperature O2 Saturation ABG pH ABG pCO2 ABG pO2 ABG HCO3 ABG O2 Content ABG Base Excess ABG Methemoglobin Eh Test Hemoglobin Carboxyhemoglobin O2 Delivery Device Liter Flow Vent Setting Inspired O2 Critical Value Sodium Potassium Chloride Carbon Dioxide Anion Gap BUN Creatinine Estimated GFR POC Glucose Random Glucose Lactic Acid 6.8 H* Calcium Magnesium Total Bilirubin AST ALT Alkaline Phosphatase Total Creatine Kinase CK-MB (CK-2) CK-MB (CK-2) % Troponin I B-Natriuretic Peptide 3405 H Total Protein Albumin TSH Free T4 Free T3 Urine Color Urine Clarity Urine pH Ur Specific [place] Urine Protein Urine Glucose (UA) Urine Ketones Urine Occult Blood Urine Nitrate Urine Bilirubin Urine Urobilinogen Ur Leukocyte Esterase Urine RBC Urine WBC Amorphous Sediment Urine Bacteria Micro UA Comment Ur Microscopic Review Urine Culture Comments Pleural pH Pleural RBC Pleural Nuc Cells Pleural Neutrophils Pleural Lymphocytes Pleural Monocytes Pleural Plasma Cells Pleural Histocytes Pleural Mesothelial Pleural Total Protein Pleural LDH Pleural Glucose Pleural Amylase Nasal Screen MRSA (PCR) Blood Type O Positive Antibody Screen Negative MTS Gel Crossmatch 01/04/18 01/04/18 01/04/18 20:45 20:45 21:55 WBC RBC Hgb Hct MCV MCH MCHC RDW Plt Count MPV Prelim Diff (Auto) Neut % (Auto) Lymph % (Auto) Gregory % (Auto) Eos % (Auto) Baso % (Auto) Neut # (Auto) Lymph # (Auto) Gregory # (Auto) Eos # (Auto) Baso # (Auto) WBC Differential Diff Scan Differential Comment Dimorphic RBCs PT 16.4 H INR 1.6 APTT 32.4 H Puncture Site Patient Temperature O2 Saturation ABG pH ABG pCO2 ABG pO2 ABG HCO3 ABG O2 Content ABG Base Excess ABG Methemoglobin Eh Test Hemoglobin Carboxyhemoglobin O2 Delivery Device Liter Flow Vent Setting Inspired O2 Critical Value Sodium Potassium Chloride Carbon Dioxide Anion Gap BUN Creatinine Estimated GFR POC Glucose Random Glucose Lactic Acid 4.9 H* Calcium Magnesium Total Bilirubin AST ALT Alkaline Phosphatase Total Creatine Kinase CK-MB (CK-2) CK-MB (CK-2) % Troponin I B-Natriuretic Peptide Total Protein Albumin TSH Free T4 Free T3 Urine Color Urine Clarity Urine pH Ur Specific [place] Urine Protein Urine Glucose (UA) Urine Ketones Urine Occult Blood Urine Nitrate Urine Bilirubin Urine Urobilinogen Ur Leukocyte Esterase Urine RBC Urine WBC Amorphous Sediment Urine Bacteria Micro UA Comment Ur Microscopic Review Urine Culture Comments Pleural pH Pleural RBC Pleural Nuc Cells Pleural Neutrophils Pleural Lymphocytes Pleural Monocytes Pleural Plasma Cells Pleural Histocytes Pleural Mesothelial Pleural Total Protein Pleural LDH Pleural Glucose Pleural Amylase Nasal Screen MRSA (PCR) Blood Type Antibody Screen MTS Gel Crossmatch See Detail 01/04/18 01/04/18 01/05/18 22:15 22:20 00:30 WBC RBC Hgb 6.1 L* Hct 23.1 L MCV MCH MCHC RDW Plt Count MPV Prelim Diff (Auto) Neut % (Auto) Lymph % (Auto) Gregory % (Auto) Eos % (Auto) Baso % (Auto) Neut # (Auto) Lymph # (Auto) Gregory # (Auto) Eos # (Auto) Baso # (Auto) WBC Differential Diff Scan Differential Comment Dimorphic RBCs PT INR APTT Puncture Site Patient Temperature O2 Saturation ABG pH ABG pCO2 ABG pO2 ABG HCO3 ABG O2 Content ABG Base Excess ABG Methemoglobin Eh Test Hemoglobin Carboxyhemoglobin O2 Delivery Device Liter Flow Vent Setting Inspired O2 Critical Value Sodium Potassium Chloride Carbon Dioxide Anion Gap BUN Creatinine Estimated GFR POC Glucose Random Glucose Lactic Acid Calcium Magnesium Total Bilirubin AST ALT Alkaline Phosphatase Total Creatine Kinase CK-MB (CK-2) CK-MB (CK-2) % Troponin I B-Natriuretic Peptide Total Protein Albumin TSH Free T4 Free T3 Urine Color Rox[place] Urine Clarity Hazy H Urine pH 5.0 Ur Specific [place] 1.014 Urine Protein 100 H Urine Glucose (UA) Negative Urine Ketones Negative Urine Occult Blood Large H Urine Nitrate Negative Urine Bilirubin Negative Urine Urobilinogen 2.0 H Ur Leukocyte Esterase Negative Urine RBC 51 H Urine WBC 5 Amorphous Sediment Few H Urine Bacteria Rare H Micro UA Comment Cath-culture ind Ur Microscopic Review Not Reportable Urine Culture Comments Cath-cult indicated Pleural pH Pleural RBC Pleural Nuc Cells Pleural Neutrophils Pleural Lymphocytes Pleural Monocytes Pleural Plasma Cells Pleural Histocytes Pleural Mesothelial Pleural Total Protein Pleural LDH Pleural Glucose Pleural Amylase Nasal Screen MRSA (PCR) Not detected Blood Type Antibody Screen MTS Gel Crossmatch 01/05/18 01/05/18 01/05/18 01:27 01:36 03:39 WBC RBC Hgb Hct MCV MCH MCHC RDW Plt Count MPV Prelim Diff (Auto) Neut % (Auto) Lymph % (Auto) Gregory % (Auto) Eos % (Auto) Baso % (Auto) Neut # (Auto) Lymph # (Auto) Gregory # (Auto) Eos # (Auto) Baso # (Auto) WBC Differential Diff Scan Differential Comment Dimorphic RBCs PT INR APTT Puncture Site Right radial Patient Temperature 98.6 O2 Saturation 85 L* ABG pH 7.27 L* ABG pCO2 58 H* ABG pO2 65 ABG HCO3 26 ABG O2 Content 8.8 L ABG Base Excess -0.1 ABG Methemoglobin 1.7 Eh Test Present Hemoglobin 7.3 L* Carboxyhemoglobin 2.3 O2 Delivery Device Nasal cannula Liter Flow 4.00 Vent Setting Inspired O2 36 Critical Value Yes Sodium Potassium Chloride Carbon Dioxide Anion Gap BUN Creatinine Estimated GFR POC Glucose 126 H 96 Random Glucose Lactic Acid Calcium Magnesium Total Bilirubin AST ALT Alkaline Phosphatase Total Creatine Kinase CK-MB (CK-2) CK-MB (CK-2) % Troponin I B-Natriuretic Peptide Total Protein Albumin TSH Free T4 Free T3 Urine Color Urine Clarity Urine pH Ur Specific [place] Urine Protein Urine Glucose (UA) Urine Ketones Urine Occult Blood Urine Nitrate Urine Bilirubin Urine Urobilinogen Ur Leukocyte Esterase Urine RBC Urine WBC Amorphous Sediment Urine Bacteria Micro UA Comment Ur Microscopic Review Urine Culture Comments Pleural pH Pleural RBC Pleural Nuc Cells Pleural Neutrophils Pleural Lymphocytes Pleural Monocytes Pleural Plasma Cells Pleural Histocytes Pleural Mesothelial Pleural Total Protein Pleural LDH Pleural Glucose Pleural Amylase Nasal Screen MRSA (PCR) Blood Type Antibody Screen MTS Gel Crossmatch 01/05/18 01/05/18 01/05/18 04:07 04:07 05:55 WBC RBC Hgb Hct MCV MCH MCHC RDW Plt Count MPV Prelim Diff (Auto) Neut % (Auto) Lymph % (Auto) Gregory % (Auto) Eos % (Auto) Baso % (Auto) Neut # (Auto) Lymph # (Auto) Gregory # (Auto) Eos # (Auto) Baso # (Auto) WBC Differential Diff Scan Differential Comment Dimorphic RBCs PT INR APTT Puncture Site Right radial Patient Temperature 98.6 O2 Saturation 94 ABG pH 7.27 L* ABG pCO2 61 H* ABG pO2 99 ABG HCO3 27 H ABG O2 Content 10.9 L ABG Base Excess 1.0 ABG Methemoglobin 1.6 Eh Test Present Hemoglobin 8.2 L Carboxyhemoglobin 2.4 O2 Delivery Device Bipap 10/+5 Liter Flow Vent Setting Inspired O2 40 Critical Value Yes Sodium 145 Potassium 4.1 Chloride 106 Carbon Dioxide 28.7 Anion Gap 10 BUN 23 H Creatinine 2.00 H Estimated GFR 33 L POC Glucose Random Glucose 97 Lactic Acid 2.6 H Calcium 7.5 L Magnesium Total Bilirubin 2.3 H AST 46 H ALT 23 Alkaline Phosphatase 72 Total Creatine Kinase 466 H CK-MB (CK-2) 9.2 H CK-MB (CK-2) % 2.0 Troponin I 0.68 H* B-Natriuretic Peptide Total Protein 7.0 Albumin 2.6 L TSH 4.190 H Free T4 0.83 Free T3 0.97 L Urine Color Urine Clarity Urine pH Ur Specific [place] Urine Protein Urine Glucose (UA) Urine Ketones Urine Occult Blood Urine Nitrate Urine Bilirubin Urine Urobilinogen Ur Leukocyte Esterase Urine RBC Urine WBC Amorphous Sediment Urine Bacteria Micro UA Comment Ur Microscopic Review Urine Culture Comments Pleural pH Pleural RBC Pleural Nuc Cells Pleural Neutrophils Pleural Lymphocytes Pleural Monocytes Pleural Plasma Cells Pleural Histocytes Pleural Mesothelial Pleural Total Protein Pleural LDH Pleural Glucose Pleural Amylase Nasal Screen MRSA (PCR) Blood Type Antibody Screen MTS Gel Crossmatch 01/05/18 01/05/18 01/05/18 07:28 08:00 08:00 WBC RBC Hgb Hct MCV MCH MCHC RDW Plt Count MPV Prelim Diff (Auto) Neut % (Auto) Lymph % (Auto) Gregory % (Auto) Eos % (Auto) Baso % (Auto) Neut # (Auto) Lymph # (Auto) Gregory # (Auto) Eos # (Auto) Baso # (Auto) WBC Differential Diff Scan Differential Comment Dimorphic RBCs PT INR APTT Puncture Site Patient Temperature O2 Saturation ABG pH ABG pCO2 ABG pO2 ABG HCO3 ABG O2 Content ABG Base Excess ABG Methemoglobin Eh Test Hemoglobin Carboxyhemoglobin O2 Delivery Device Liter Flow Vent Setting Inspired O2 Critical Value Sodium Potassium Chloride Carbon Dioxide Anion Gap BUN Creatinine Estimated GFR POC Glucose Random Glucose Lactic Acid Calcium Magnesium Total Bilirubin AST ALT Alkaline Phosphatase Total Creatine Kinase CK-MB (CK-2) CK-MB (CK-2) % Troponin I 0.46 H B-Natriuretic Peptide Total Protein Albumin TSH Free T4 Free T3 Urine Color Urine Clarity Urine pH Ur Specific [place] Urine Protein Urine Glucose (UA) Urine Ketones Urine Occult Blood Urine Nitrate Urine Bilirubin Urine Urobilinogen Ur Leukocyte Esterase Urine RBC Urine WBC Amorphous Sediment Urine Bacteria Micro UA Comment Ur Microscopic Review Urine Culture Comments Pleural pH 8.5 Pleural RBC 267 H Pleural Nuc Cells 74 H Pleural Neutrophils 21 Pleural Lymphocytes 47 Pleural Monocytes 17 Pleural Plasma Cells 1 Pleural Histocytes 9 Pleural Mesothelial 5 Pleural Total Protein 1.7 Pleural LDH 57 Pleural Glucose 96 Pleural Amylase 14 Nasal Screen MRSA (PCR) Blood Type Antibody Screen MTS Gel Crossmatch 01/05/18 01/05/18 01/05/18 08:50 08:50 09:56 WBC 7.7 RBC 3.55 L Hgb 7.8 L Hct 26.2 L MCV 73.9 L MCH 21.9 L MCHC 29.6 L RDW 23.4 H Plt Count 137 L D MPV 8.4 Prelim Diff (Auto) Neut % (Auto) 88.8 H Lymph % (Auto) 7.1 L Gregory % (Auto) 3.3 Eos % (Auto) 0.5 Baso % (Auto) 0.3 Neut # (Auto) 6.8 Lymph # (Auto) 0.5 L Gregory # (Auto) 0.3 Eos # (Auto) 0.0 Baso # (Auto) 0.0 WBC Differential . Diff Scan Differential Comment Auto diff final Dimorphic RBCs PT INR APTT Puncture Site Patient Temperature O2 Saturation ABG pH ABG pCO2 ABG pO2 ABG HCO3 ABG O2 Content ABG Base Excess ABG Methemoglobin Eh Test Hemoglobin Carboxyhemoglobin O2 Delivery Device Liter Flow Vent Setting Inspired O2 Critical Value Sodium Potassium Chloride Carbon Dioxide Anion Gap BUN Creatinine Estimated GFR POC Glucose 77 Random Glucose Lactic Acid 1.1 Calcium Magnesium Total Bilirubin AST ALT Alkaline Phosphatase Total Creatine Kinase CK-MB (CK-2) CK-MB (CK-2) % Troponin I B-Natriuretic Peptide Total Protein Albumin TSH Free T4 Free T3 Urine Color Urine Clarity Urine pH Ur Specific [place] Urine Protein Urine Glucose (UA) Urine Ketones Urine Occult Blood Urine Nitrate Urine Bilirubin Urine Urobilinogen Ur Leukocyte Esterase Urine RBC Urine WBC Amorphous Sediment Urine Bacteria Micro UA Comment Ur Microscopic Review Urine Culture Comments Pleural pH Pleural RBC Pleural Nuc Cells Pleural Neutrophils Pleural Lymphocytes Pleural Monocytes Pleural Plasma Cells Pleural Histocytes Pleural Mesothelial Pleural Total Protein Pleural LDH Pleural Glucose Pleural Amylase Nasal Screen MRSA (PCR) Blood Type Antibody Screen MTS Gel Crossmatch 01/05/18 01/05/18 01/05/18 12:50 13:03 13:03 WBC 8.9 RBC 3.76 L Hgb 8.2 L Hct 27.4 L MCV 72.8 L MCH 21.8 L MCHC 29.9 L RDW 23.6 H Plt Count 141 L MPV 8.4 Prelim Diff (Auto) Neut % (Auto) 85.7 H Lymph % (Auto) 9.1 Gregory % (Auto) 4.2 Eos % (Auto) 0.7 Baso % (Auto) 0.3 Neut # (Auto) 7.6 Lymph # (Auto) 0.8 L Gregory # (Auto) 0.4 Eos # (Auto) 0.1 Baso # (Auto) 0.0 WBC Differential . Diff Scan Differential Comment Auto diff final Dimorphic RBCs PT INR APTT Puncture Site Right radial Patient Temperature 98.6 O2 Saturation 96 ABG pH 7.41 ABG pCO2 42 ABG pO2 132 H ABG HCO3 26 ABG O2 Content 11.4 L ABG Base Excess 2.2 H ABG Methemoglobin 1.4 Eh Test Present Hemoglobin 8.2 L Carboxyhemoglobin 2.4 O2 Delivery Device Ventilator Liter Flow Vent Setting Inspired O2 40 Critical Value No Sodium Potassium Chloride Carbon Dioxide Anion Gap BUN Creatinine Estimated GFR POC Glucose Random Glucose Lactic Acid Calcium Magnesium Total Bilirubin AST ALT Alkaline Phosphatase Total Creatine Kinase CK-MB (CK-2) CK-MB (CK-2) % Troponin I 0.53 H B-Natriuretic Peptide Total Protein Albumin TSH Free T4 Free T3 Urine Color Urine Clarity Urine pH Ur Specific [place] Urine Protein Urine Glucose (UA) Urine Ketones Urine Occult Blood Urine Nitrate Urine Bilirubin Urine Urobilinogen Ur Leukocyte Esterase Urine RBC Urine WBC Amorphous Sediment Urine Bacteria Micro UA Comment Ur Microscopic Review Urine Culture Comments Pleural pH Pleural RBC Pleural Nuc Cells Pleural Neutrophils Pleural Lymphocytes Pleural Monocytes Pleural Plasma Cells Pleural Histocytes Pleural Mesothelial Pleural Total Protein Pleural LDH Pleural Glucose Pleural Amylase Nasal Screen MRSA (PCR) Blood Type Antibody Screen MTS Gel Crossmatch 01/05/18 01/05/18 13:04 13:40 WBC RBC Hgb Hct MCV MCH MCHC RDW Plt Count MPV Prelim Diff (Auto) Neut % (Auto) Lymph % (Auto) Gregory % (Auto) Eos % (Auto) Baso % (Auto) Neut # (Auto) Lymph # (Auto) Gregory # (Auto) Eos # (Auto) Baso # (Auto) WBC Differential Diff Scan Differential Comment Dimorphic RBCs PT INR APTT Puncture Site Patient Temperature O2 Saturation ABG pH ABG pCO2 ABG pO2 ABG HCO3 ABG O2 Content ABG Base Excess ABG Methemoglobin Eh Test Hemoglobin Carboxyhemoglobin O2 Delivery Device Liter Flow Vent Setting Inspired O2 Critical Value Sodium Potassium Chloride Carbon Dioxide Anion Gap BUN Creatinine Estimated GFR POC Glucose 64 L 98 Random Glucose Lactic Acid Calcium Magnesium Total Bilirubin AST ALT Alkaline Phosphatase Total Creatine Kinase CK-MB (CK-2) CK-MB (CK-2) % Troponin I B-Natriuretic Peptide Total Protein Albumin TSH Free T4 Free T3 Urine Color Urine Clarity Urine pH Ur Specific [place] Urine Protein Urine Glucose (UA) Urine Ketones Urine Occult Blood Urine Nitrate Urine Bilirubin Urine Urobilinogen Ur Leukocyte Esterase Urine RBC Urine WBC Amorphous Sediment Urine Bacteria Micro UA Comment Ur Microscopic Review Urine Culture Comments Pleural pH Pleural RBC Pleural Nuc Cells Pleural Neutrophils Pleural Lymphocytes Pleural Monocytes Pleural Plasma Cells Pleural Histocytes Pleural Mesothelial Pleural Total Protein Pleural LDH Pleural Glucose Pleural Amylase Nasal Screen MRSA (PCR) Blood Type Antibody Screen MTS Gel Crossmatch - Imaging Impressions Abdomen/Bladder Ultrasound 01/04/18 00:00 CONCLUSION: 1. Chronic parenchymal disease. 2. Bilateral cysts, left more so than right. 3. No obstructive uropathy or other acute abnormality. Chest X-Ray 01/04/18 18:15 CONCLUSION: Left greater than right pleural effusions with basilar consolidation. Head CT 01/04/18 18:15 CONCLUSION: Motion degraded study without evidence of bleed or other acute intracranial abnormality. . Venous Doppler Study 01/04/18 18:15 CONCLUSION: No deep venous thrombosis of either lower extremity but there is superficial venous thrombosis involving the bilateral greater saphenous veins as described. Lumbar Spine CT 01/04/18 18:18 CONCLUSION: 1. No subluxation or acute fracture of the lumbar spine. 2. There is an old, mild compression deformity of L3. 3. Multilevel degenerative changes and diffuse idiopathic skeletal hyperostosis. 4. Pleural effusions and parenchymal consolidation partly seen of the visualized lung bases. 5. Atrophy and apparent hydronephrosis of the left knee. Face CT 01/04/18 20:14 CONCLUSION: 1. Focal minimally displaced fracture of the tip of the nasion. 2. Preseptal soft tissue contusion of the left orbit. 3. Acute on chronic appearing left maxillary sinusitis. Abdomen/Pelvis CT 01/05/18 00:00 CONCLUSION: 1. Bilateral moderate to large pleural effusions, left greater than right with associated lower lobe airspace disease. 2. Abnormal appearance of the left kidney with numerous cortical cysts. Apparent prominence of the renal collecting system does not have a corresponding finding on today's ultrasound exam. However, it remains concerning for mild to moderate hydronephrosis. 3. 7 mm calyceal calculus in the inferior pole of the left kidney. 4. Diffuse anasarca with small amount ascites. 5. Mild sigmoid diverticulosis. 6. Normal appendix. Chest X-Ray 01/05/18 00:00 CONCLUSION: Interval improvement following small bore chest tube on the left. Persistent effusion and consolidation on the right. Chest X-Ray 01/05/18 00:00 CONCLUSION: 1. Bibasilar small chest tubes are in good positions. 2. Left basilar consolidation consistent with atelectasis and/or infiltrate. 3. No evidence of pleural effusion. <Feliciano Gabriel E - Last Filed: 01/05/18 14:36> Assessment and Plan - Plan This is a obese unfortunate male who was found down per his landlady according to the nursing staff and has no family present. Patient had initial symptoms of generalized weakness and multiple falls. Patient had positive troponin per labs and cardiology has been consulted initial lowest hemoglobin was 6.1 and patient was transfused with 2 units follow-up hemoglobin 7.8. Patient's current INR is 1.6, bilirubin 2.3, AST 46 ALT 23, noted positive Hemoccult in the emergency room patient was admitted to the intensive care setting and was intubated within 24 hours of admission also has received right chest tube and left chest tube is pending for large pleural effusions seen on CT scan. Patient also has diffuse anasarca small amount of ascites and mild sigmoid diverticulosis per CT. Patient has been placed on Protonix drip and is currently unavailable to give any symptoms most of the information is being gathered from the record. Patient does have generalized edema as well as some abdominal distention and tautness, soft minimal bowel sounds. During exam patient's eyes are closed but he does have some vague movement to tactile and/ or painful stimuli. Gastroenterology has been consulted to assist with his care anemia, possible GI bleed. Possible GI bleed symptomatic anemia initial hemoglobin 6.1 with 2 units transfusion now 7.8. No obvious rectal bleeding or hematemesis Coagulopathy with PT/INR 1.6 , no known blood thinners, could be related to liver disease hyperbilirubinemia with elevated AST, this could be related to shock liver versus EtOH versus medications versus cirrhosis versus hepatocellular disease. Patient has diffuse anasarca and small amount of ascites. Sigmoid diverticulosis per CT scan Positive troponins that will be evaluated per cardiology, initially had tachycardic rhythm Large pleural effusions with right chest tube left tube chest tube pending Ventilator management with minimal response except for painful stimuli Plan Diet n.p.o., NG tube Monitor labs with special attention to hemoglobin and transfuse as needed We will monitor liver enzymes as well as bilirubin. Patient is critically ill and is not stable for any further GI procedures for now we will follow. Once patient is stable will probably need EGD and colonoscopy Further recommendations to follow Patient was seen per myself and Dr. Gabriel, note was written on his behalf <Sejal Felipe - Last Filed: 01/05/18 12:34> - Plan Patient seen and examined Agree with above Continue current supportive care Monitor labs Patient presenting after being found down by his landlady is found to have anemia and guaiac positive stools he has bilateral large pleural effusion of unclear etiology he is also coagulopathic his LFTs appear to be elevated specifically we see total bilirubin and AST elevation he is currently intubated and his troponins are positive No evidence of any active or acute GI bleed at this point We will monitor and transfuse as needed Patient will need an EGD and a colonoscopy once deemed clinically stable or if actively bleeding <Feliciano Gabriel - Last Filed: 01/05/18 14:36>
[2018-01-05 13:08] LABS: ABG Base Excess 2.2 mmol/L (-2-2); ABG PCO2 42 mmHg (38-42); ABG PO2 132 mmHG (61-120)
[2018-01-05] MEDS: Dextrose 50% in Water 50 ML Vial IV.PUSH PRN ×2 (13:09→13:48)
[2018-01-05 13:23] LABS: Lymphocytes,Pleural Fluid 47 %; Mesothelial,Pleural Fluid 5 %; Monocytes,Pleural Fluid 17 %; Neutrophils,Pleural Fluid 21 %; RBC,Pleural Fluid 267 /mm3 (0-0)
[2018-01-05 13:40] LABS: Baso % (Auto) 0.3 % (0.0-2.0); Eos # (Auto) 0.1 th/mm3 (0.0-0.4); Eos % (Auto) 0.7 % (0.0-4.0); Hematocrit 27.4 % (39.0-51.0); Hemoglobin 8.2 gm/dL (13.0-17.0); Lymph # (Auto) 0.8 th/mm3 (1.0-4.8); Lymph % (Auto) 9.1 % (9.0-44.0); Mean Corpuscular Hemoglobin 21.8 pg (27.0-34.0); Mean Corpuscular Volume 72.8 fL (80.0-100.0); Mean Platelet Volume 8.4 fL (7.0-11.0); Mono # (Auto) 0.4 th/mm3 (0.0-0.9); Mono % (Auto) 4.2 % (0.0-8.0); Neut # (Auto) 7.6 th/mm3 (1.8-7.7); Neut % (Auto) 85.7 % (16.0-70.0); Platelet Count 141 th/mm3 (150-450); Red Blood Count 3.76 mil/mm3 (4.50-5.90); Red Cell Distribution Width 23.6 % (11.6-17.2); White Blood Count 8.9 th/mm3 (4.0-11.0)
[2018-01-05 13:41] LABS: Mean Corpuscular HGB Conc 29.9 % (32.0-36.0)
--- NOTE | 2018-01-05 15:35 | ECHRPT ---
Indication: SHORTNESS OF BREATH CONCLUSIONS The left ventricular systolic function is low normal with an estimated ejection fraction in the rang e of 50- 55%. Normal left ventricular size. Wall thickness is normal. No regional wall motion abnormalities are present. Mild thickening of the mitral valve leaflets. Mild mitral valve regurgitation. Aortic valve sclerosis is present. Mild aortic valve regurgitation. There is mild tricuspid valve regurgitation. The estimated pulmonary arterial pressure is 51.2 mmHg. The inferior vena cava is dilated. BP: / HR: Rhythm: Sinus MEASUREMENTS (Male / Female) Normal Values Technical Quality:Excellent 2D ECHO LV Diastolic Diameter PLAX 5.5 cm 4.2 - 5.9 / 3.9 - 5.3 cm LV Systolic Diameter PLAX 4.3 cm IVS Diastolic Thickness 1.1 cm 0.6 - 1.0 / 0.6 - 0.9 cm LVPW Diastolic Thickness 1.1 cm 0.6 - 1.0 / 0.6 - 0.9 cm LV Relative Wall Thickness 0.4 RV Internal Dim ED PLAX 3.6 cm LVOT Diameter 1.9 cm LA Systolic Diameter LX 3.6 cm 3.0 - 4.0 / 2.7 - 3.8 cm LV Ejection Fraction MOD 4C 49.4 % LV Ejection Fraction 4C AL 49.4 % M-MODE Aortic Root Diameter MM 2.6 cm LA Systolic Diameter MM 3.2 cm LA Ao Ratio MM 1.2 AV Cusp Separation MM 1.7 cm DOPPLER AV Peak Velocity 147.0 cm/s AV Peak Gradient 8.6 mmHg AI Peak Velocity 312.5 cm/s AI Peak Gradient 39.1 mmHg AI Pressure Half Time 513.0 ms LVOT Peak Velocity 107.0 cm/s LVOT Peak Gradient 4.6 mmHg AV Area Cont Eq pk 2.1 cm MV Area PHT 6.5 cm Mitral E Point Velocity 106.0 cm/s Mitral A Point Velocity 92.8 cm/s Mitral E to A Ratio 1.1 LV E' Lateral Velocity 9.0 cm/s Mitral E to LV E' Lateral Ratio 11.8 LV E' Septal Velocity 7.5 cm/s Mitral E to LV E' Septal Ratio 14.1 TR Peak Velocity 321.0 cm/s TR Peak Gradient 41.2 mmHg Right Atrial Pressure 10.0 mmHg Pulmonary Artery Systolic Pressu 51.2 mmHg Right Ventricular Systolic Press 51.2 mmHg PV Peak Velocity 93.7 cm/s PV Peak Gradient 3.5 mmHg FINDINGS LEFT VENTRICLE The left ventricular systolic function is low normal with an estimated ejection fraction in the rang e of 50- 55%. Normal left ventricular size. Wall thickness is normal. No regional wall motion abnormalities are present. RIGHT VENTRICLE Normal right ventricular size and systolic function. LEFT ATRIUM The left atrial size is normal. RIGHT ATRIUM The right atrial size is normal. ATRIAL SEPTUM Normal atrial septal thickness without atrial level shunting by limited color doppler interrogation. AORTA The aortic root and proximal ascending aorta are normal in size on limited imaging. MITRAL VALVE Mild thickening of the mitral valve leaflets. Mild mitral valve regurgitation. AORTIC VALVE Trileaflet aortic valve. Aortic valve sclerosis is present. Mild aortic valve regurgitation. TRICUSPID VALVE Structurally normal tricuspid valve. There is mild tricuspid valve regurgitation. The estimated pulmonary arterial pressure is 51.2 mmHg. PULMONARY VALVE No pulmonary valve regurgitation or stenosis. VESSELS The inferior vena cava is dilated. PERICARDIUM No pericardial effusion. Julio Whitaker MD, FACC, [facility] [place] (Electronically Signed) Final Date:05 January 2018 15:34
[2018-01-05] MEDS ORDERED: Midazolam 50 MG/50 ML Inj 50 MG/50 ML BAG IV.CONT PRN (19:26)
[2018-01-05] MEDS ORDERED: Vancomycin Inj 1,000 MG in Sodium Chlor 0.9% Inj 250 ML IV.SIG SCH (21:00)
[2018-01-06] MEDS: Pantoprazole Inj 80 MG in Sodium Chlor 0.9% Inj 100 ML IV.CONT SCH ×3 (03:06→22:10)
[2018-01-06] MEDS: Insulin NovoLIN Regular Correctional Sugar Inj SQ SCH ×5 (03:50→20:24)
[2018-01-06] MEDS: Chlorhexidine Gluconate 2% 1 Pack (2 Cloths) TOPICAL SCH (03:50)
[2018-01-06] MEDS: Dextrose 50% in Water 50 ML Vial IV.PUSH PRN ×2 (03:50→12:24)
--- NOTE | 2018-01-06 04:40 | XR ---
EXAM DATE: 01/06/2018 6:00 AM EDT AGE/SEX: 77 years / Male INDICATIONS: Shortness of breath, possible pulmonary disease, CLINICAL DATA: This is the patient's subsequent encounter. Patient reports that signs and symptoms h ave been present for 4 - 6 days and indicates a pain score of Nonresponsive. MEDICAL/SURGICAL HISTORY: Anemia. Congestive heart failure. Sepsis. None. COMPARISON: C, CHEST 1V SINGLE AP, 01/05/2018. . FINDINGS: Stable ETT and NGT. Stable left sided chest tube with persistent patchy airspace disease. Stable righ t-sided chest tube in place. Mild right lung base airspace disease medially. Right paratracheal fulln ess. No pneumothorax. Cardiomediastinal contours are stable. Remainder of exam is unchanged. CONCLUSION: 1. Stable ETT and NGT. 2. Stable bilateral inferior chest tubes without pneumothorax. 3. Stable patchy airspace disease in the left lower lung zone. 4. Stable medial right lower lung zone airspace disease. 5. Persistent right paratracheal prominence. Electronically signed by: Yovanny Martinez MD 01/06/2018 4:38 AM EDT
[2018-01-06 06:33] LABS: Hematocrit 28.1 % (39.0-51.0); Hemoglobin 8.3 gm/dL (13.0-17.0); Mean Corpuscular Hemoglobin 21.8 pg (27.0-34.0); Mean Corpuscular Volume 73.3 fL (80.0-100.0); Mean Platelet Volume 8.6 fL (7.0-11.0); Platelet Count 124 th/mm3 (150-450); Red Blood Count 3.83 mil/mm3 (4.50-5.90); Red Cell Distribution Width 24.5 % (11.6-17.2); White Blood Count 5.2 th/mm3 (4.0-11.0)
[2018-01-06 06:34] LABS: Mean Corpuscular HGB Conc 29.8 % (32.0-36.0)
[2018-01-06 07:02] LABS: Albumin 1.7 g/dL (3.4-5.0); Calcium 7.2 mg/dL (8.5-10.1); Carbon Dioxide 28.1 meq/L (21.0-32.0); Magnesium 1.5 mg/dL (1.5-2.5); Potassium 3.1 meq/L (3.5-5.1); Total Protein 5.3 g/dL (6.4-8.2); Vancomycin,Random 12.4 Comment
--- NOTE | 2018-01-06 07:41 | P.PNCA ---
Subjective Interval history: RN at bedside. Breathing is improving, although patient remains mechanically ventilated. Currently awake, alert, and following commands. Chest tube outputs 3100 and 2,000. Urine output 2000 with diuresis, creatinine unchanged. Received transfusions yesterday with improvement in hemoglobin, GI plans for workup when patient more stable. Fevers noted overnight, on antibiotics per primary team. Medications and Allergies Allergies Allergy/AdvReac Type Severity Reaction Status Date / Time Penicillins Allergy Unknown unknown Verified 01/04/18 18:45 Home Medications Medication Instructions Recorded Confirmed Type aspirin 325 mg PO DAILY 01/04/18 01/04/18 History Active Medications: Active Medications Acetaminophen (Tylenol Liq) 650 mg PO Q4H PRN PRN Reason: temp >101 Last Admin: 01/06/18 00:48 Dose: 650 mg Albuterol (Duoneb Neb (Prn)) 1 ampul NEB Q2HR NEB PRN PRN Reason: DYSPNEA Albuterol (Duoneb Neb (Nakia)) 1 ampul NEB Q4HR NEB [facility] Last Admin: 01/06/18 04:01 Dose: 1 ampul Bisacodyl (Dulcolax Supp) 10 mg RECTAL DAILY PRN PRN Reason: SEVERE CONSITIPATION Chlorhexidine Gluconate (Chlorhexidine 2% Cloth) 3 pack TOPICAL DAILY@0400 [place] Stop: 01/10/18 03:59 Last Admin: 01/06/18 03:50 Dose: 3 pack Chlorhexidine Gluconate (Chlorhexidine 2% Cloth) 3 pack TOPICAL DAILY@0400 PRN PRN Reason: Extra cloth needed Stop: 01/10/18 03:59 Dextrose (D50w Vial) 50 ml IV.PUSH UNSCH PRN PRN Reason: PER HYPOGLYCEMIA PROTOCOL Last Admin: 01/06/18 03:50 Dose: 50 ml Erythromycin (Erythromycin 0.5% Opth Oint) 1 gm EACH EYE Q4H [facility] Last Admin: 01/06/18 06:05 Dose: 1 gm Glucagon (Glucagon Inj) 1 mg OTHER PRN PRN PRN Reason: for Hypoglycemia Protocol Sodium Chloride (Ns Inj) 500 mls @ 0 mls/hr IV.SIG BOLUS [facility] Last Infusion: 01/05/18 17:29 Dose: Infused Pantoprazole Sodium 80 mg/ (Sodium Chloride) 100 mls @ 10 mls/hr IV.CONT Q10H [facility] Last Admin: 01/06/18 03:06 Dose: 10 mls/hr Aztreonam 1,000 mg/ Sodium (Chloride) 100 mls @ 200 mls/hr IV.SIG Q8H [facility] Last Infusion: 01/06/18 06:43 Dose: Infused Midazolam HCl (Versed Inj) 50 mg in 50 mls @ 2 mls/hr IV.CONT TITRATE PRN; Protocol PRN Reason: Per Protocol Insulin Human Regular (Novolin R Correctional Sugar Inj) 0 units SQ Q4HR [facility]; Protocol Last Admin: 01/06/18 03:50 Dose: Not Given Lactulose (Lactulose Liq) 30 ml PO DAILY PRN PRN Reason: SEVERE CONSITIPATION Pharmacy Profile Note (Vancomycin Consult Pharmacy) 1 each OTHER UNSCH PRN PRN Reason: Pharmacy to dose Senna/Docusate Sodium (Jessica-Colace) 1 tab PO BID [facility] Last Admin: 01/05/18 20:02 Dose: 1 tab Sennosides (Senokot) 17.2 mg PO Q12H PRN PRN Reason: Moderate Constipation Physical Exam Vital signs: Vital Signs 01/05/18 07:40 01/05/18 07:45 01/05/18 07:49 Temperature Pulse Rate 90 82 Respiratory Rate 16 16 17 Blood Pressure 98/53 L 84/47 L Pulse Oximetry 100 100 100 01/05/18 08:00 01/05/18 08:05 01/05/18 08:08 Temperature 98 F Pulse Rate 87 84 84 Respiratory Rate 16 16 15 Blood Pressure 80/49 L 63/33 L 70/36 L Pulse Oximetry 100 100 100 01/05/18 08:12 01/05/18 08:16 01/05/18 08:20 Temperature Pulse Rate 83 87 91 H Respiratory Rate 13 17 19 Blood Pressure 102/45 L 98/47 L 106/52 L Pulse Oximetry 100 100 100 01/05/18 08:24 01/05/18 08:30 01/05/18 09:00 Temperature Pulse Rate 86 90 92 H Respiratory Rate 14 16 22 Blood Pressure 110/57 L 116/56 L 122/90 Pulse Oximetry 100 100 100 01/05/18 09:15 01/05/18 09:30 01/05/18 09:45 Temperature Pulse Rate 91 H 90 90 Respiratory Rate 19 16 10 L Blood Pressure 121/86 128/61 136/68 Pulse Oximetry 100 100 100 01/05/18 10:00 01/05/18 10:15 01/05/18 10:31 Temperature Pulse Rate 90 88 86 Respiratory Rate 12 9 L 10 L Blood Pressure 140/63 144/63 H 132/65 Pulse Oximetry 100 100 100 01/05/18 10:45 01/05/18 11:00 01/05/18 11:15 Temperature Pulse Rate 86 83 83 Respiratory Rate 8 L 16 16 Blood Pressure 124/61 122/57 L 128/58 L Pulse Oximetry 100 100 100 01/05/18 11:20 01/05/18 11:25 01/05/18 11:31 Temperature Pulse Rate 84 81 81 Respiratory Rate 16 16 11 L Blood Pressure 112/55 L 113/59 L 136/88 Pulse Oximetry 100 100 100 01/05/18 11:35 01/05/18 11:40 01/05/18 11:45 Temperature Pulse Rate 81 82 82 Respiratory Rate 12 6 L 9 L Blood Pressure 95/53 L 96/53 L 100/55 L Pulse Oximetry 100 100 100 01/05/18 11:50 01/05/18 11:55 01/05/18 12:00 Temperature 98.3 F Pulse Rate 83 85 82 Respiratory Rate 8 L 17 16 Blood Pressure 102/52 L 110/53 L 116/54 L Pulse Oximetry 100 100 100 01/05/18 12:05 01/05/18 12:10 01/05/18 12:15 Temperature Pulse Rate 82 82 83 Respiratory Rate 16 17 16 Blood Pressure 124/59 L 123/57 L 96/52 L Pulse Oximetry 100 100 100 01/05/18 12:20 01/05/18 12:25 01/05/18 12:30 Temperature Pulse Rate 83 81 82 Respiratory Rate 16 16 17 Blood Pressure 113/56 L 123/58 L 123/61 Pulse Oximetry 100 100 100 01/05/18 12:35 01/05/18 12:40 01/05/18 12:45 Temperature Pulse Rate 82 82 82 Respiratory Rate 16 16 16 Blood Pressure 126/58 L 130/60 128/59 L Pulse Oximetry 100 100 100 01/05/18 12:47 01/05/18 12:50 01/05/18 12:55 Temperature Pulse Rate 81 90 Respiratory Rate 17 16 17 Blood Pressure 129/58 L 135/51 L Pulse Oximetry 100 100 01/05/18 13:00 01/05/18 13:05 01/05/18 13:10 Temperature Pulse Rate 82 83 85 Respiratory Rate 16 17 17 Blood Pressure 113/56 L 114/58 L 121/58 L Pulse Oximetry 100 100 100 01/05/18 13:15 01/05/18 13:20 01/05/18 13:25 Temperature Pulse Rate 87 87 85 Respiratory Rate 16 18 16 Blood Pressure 125/59 L 119/57 L 116/61 Pulse Oximetry 100 100 100 01/05/18 13:30 01/05/18 13:35 01/05/18 13:40 Temperature Pulse Rate 85 83 84 Respiratory Rate 17 16 16 Blood Pressure 120/58 L 116/59 L 119/56 L Pulse Oximetry 100 100 100 01/05/18 13:45 01/05/18 13:50 01/05/18 13:55 Temperature Pulse Rate 86 90 88 Respiratory Rate 17 19 16 Blood Pressure 130/60 131/60 125/59 L Pulse Oximetry 100 100 100 01/05/18 14:00 01/05/18 14:05 01/05/18 14:10 Temperature Pulse Rate 88 86 86 Respiratory Rate 16 16 16 Blood Pressure 123/59 L 129/60 136/63 Pulse Oximetry 100 100 100 01/05/18 14:15 01/05/18 14:20 01/05/18 14:25 Temperature Pulse Rate 87 88 85 Respiratory Rate 17 17 16 Blood Pressure 119/59 L 129/58 L 125/60 Pulse Oximetry 100 100 100 01/05/18 14:30 01/05/18 15:00 01/05/18 15:23 Temperature Pulse Rate 90 89 Respiratory Rate 17 16 16 Blood Pressure 118/53 L 122/57 L Pulse Oximetry 100 100 01/05/18 15:30 01/05/18 16:00 01/05/18 16:30 Temperature 98.2 F Pulse Rate 85 91 H 90 Respiratory Rate 16 20 16 Blood Pressure 117/55 L 127/58 L 112/53 L Pulse Oximetry 100 98 100 01/05/18 17:00 01/05/18 17:30 01/05/18 18:00 Temperature Pulse Rate 87 88 92 H Respiratory Rate 16 17 18 Blood Pressure 116/56 L 107/55 L Pulse Oximetry 100 100 100 01/05/18 18:01 01/05/18 19:00 10/03/18 20:00 Temperature 99.0 F Pulse Rate 91 H 90 101 H Respiratory Rate 16 23 19 Blood Pressure 140/56 L 97/66 L 97/66 L Pulse Oximetry 100 100 100 01/05/18 20:35 01/05/18 21:00 01/05/18 22:00 Temperature Pulse Rate 102 H 108 H 111 H Respiratory Rate 16 18 19 Blood Pressure 97/55 L 113/56 L Pulse Oximetry 100 98 100 01/05/18 23:00 01/05/18 23:47 01/06/18 00:00 Temperature 101.7 F H Pulse Rate 113 H 112 H 113 H Respiratory Rate 19 17 19 Blood Pressure 106/53 L 110/50 L Pulse Oximetry 96 96 01/06/18 01:00 01/06/18 01:32 01/06/18 02:00 Temperature Pulse Rate 114 H 114 H Respiratory Rate 19 18 22 Blood Pressure 101/51 L 98/53 L Pulse Oximetry 99 98 99 01/06/18 04:00 01/06/18 04:01 Temperature 100.7 F H Pulse Rate 109 H 109 H Respiratory Rate 21 17 Blood Pressure 112/53 L Pulse Oximetry 99 98 Intake & Output 01/05/18 01/06/18 01/06/18 18:59 06:59 18:59 Intake Total 1320 / 1320 300 / 300 Output Total 5695 / 5695 1600 / 1600 Balance -4375 / -4375 -1300 / -1300 Weight 191 lb 12.835 oz Intake: IV 1200 / 1200 300 / 300 Protonix Inj 80 MG In NS Inj 200 / 200 100 / 100 100 ML @ 10 mls/hr IV.CONT Q10H [facility] Rx#:[id number] Flexbumin 25% Inj 100 ML @ 60 50 / 50 mls/hr IV.SIG ONCE ONE Rx#: [id number] Azactam Inj 1,000 MG In NS Inj 200 / 200 200 / 200 100 ML @ 200 mls/hr IV.SIG Q8H [facility] Rx#:[id number] NS Inj 500 ML @ Wide Open IV. 500 / 500 SIG BOLUS [facility] Rx#:[id number] Vancomycin Inj 1,000 MG In NS 250 / 250 Inj 250 ML @ 250 mls/hr IV.SIG ONCE ONE Rx#:[id number] Oral 0 / 0 Tube Irrigant 120 / 120 Output: Urine Amount (Catheter) 1075 / 1075 1000 / 1000 Indwelling Urethral Catheter 1075 / 1075 1000 / 1000 Chest Tube Drainage 4620 / 4620 600 / 600 Left Upper Pleural 2730 / 2730 400 / 400 Right Upper Pleural 1890 / 1890 200 / 200 Other: # Bowel Movements 0 0 Narrative: GENERAL: Well-developed well-nourished. NECK: No carotid bruits. No JVD. CARDIOVASCULAR: Regular rate and rhythm. No murmur appreciated. RESPIRATORY: Intubated and mechanically ventilated. Chest tube in place on left chest wall. Improved aeration. MUSCULOSKELETAL: No clubbing or cyanosis. No edema. NEUROLOGICAL: Awake, alert, following commands. - Urinary Catheter Management Indwelling Urethral Catheter Cath placed during this visit: yes Reason for continuing: Other continuation reason Insertion date: 01/04/18 Insertion time: 22:20 Results 01/06/18 05:18 01/06/18 05:18 Cardiac Enzymes 01/04/18 01/04/18 01/05/18 Range/Units 19:00 19:00 04:07 AST 43 H 46 H (15-37) U/L CK-MB (CK-2) 9.8 H 9.2 H (0.5-3.6) ng/mL Troponin I 0.64 H* 0.68 H* (0.02-0.05) ng/mL B-Natriuretic Peptide 3405 H (0-100) pg/mL 01/05/18 01/05/18 01/06/18 Range/Units 07:28 13:03 05:18 AST 34 (15-37) U/L CK-MB (CK-2) (0.5-3.6) ng/mL Troponin I 0.46 H 0.53 H (0.02-0.05) ng/mL B-Natriuretic Peptide (0-100) pg/mL Coagulation 01/04/18 01/04/18 Range/Units 19:00 20:45 PT 16.4 H (9.8-11.6) sec APTT 32.4 H (24.3-30.1) sec B-Natriuretic Peptide 3405 H (0-100) pg/mL CBC 01/04/18 01/04/18 01/05/18 Range/Units 19:00 22:15 08:50 WBC 6.9 7.7 (4.0-11.0) th/mm3 RBC 3.37 L 3.55 L (4.50-5.90) mil/mm3 Hgb 6.6 L* 6.1 L* 7.8 L (13.0-17.0) gm/dL Hct 24.6 L 23.1 L 26.2 L (39.0-51.0) % Plt Count 201 137 L D (150-450) th/mm3 Neut # (Auto) 4.9 6.8 (1.8-7.7) th/mm3 Lymph # (Auto) 1.2 0.5 L (1.0-4.8) th/mm3 [place] # (Auto) 0.7 0.3 (0.0-0.9) th/mm3 Eos # (Auto) 0.0 0.0 (0.0-0.4) th/mm3 Baso # (Auto) 0.0 0.0 (0.0-0.2) th/mm3 01/05/18 01/06/18 Range/Units 13:03 05:18 WBC 8.9 5.2 (4.0-11.0) th/mm3 RBC 3.76 L 3.83 L (4.50-5.90) mil/mm3 Hgb 8.2 L 8.3 L (13.0-17.0) gm/dL Hct 27.4 L 28.1 L (39.0-51.0) % Plt Count 141 L 124 L (150-450) th/mm3 Neut # (Auto) 7.6 (1.8-7.7) th/mm3 Lymph # (Auto) 0.8 L (1.0-4.8) th/mm3 [place] # (Auto) 0.4 (0.0-0.9) th/mm3 Eos # (Auto) 0.1 (0.0-0.4) th/mm3 Baso # (Auto) 0.0 (0.0-0.2) th/mm3 Comprehensive Metabolic Panel 01/04/18 01/05/18 01/06/18 Range/Units 19:00 04:07 05:18 Sodium 143 145 148 H (136-145) meq/L Potassium 3.9 4.1 3.1 L D (3.5-5.1) meq/L Chloride 106 106 110 H (98-107) meq/L Carbon Dioxide 21.8 28.7 28.1 (21.0-32.0) meq/L BUN 22 H 23 H 28 H (7-18) mg/dL Creatinine 2.04 H 2.00 H 2.09 H (0.60-1.30) mg/dL Calcium 8.1 L 7.5 L 7.2 L* (8.5-10.1) mg/dL AST 43 H 46 H 34 (15-37) U/L ALT 19 23 16 (12-78) U/L Alkaline Phosphatase 68 72 51 (45-117) U/L Total Protein 6.9 7.0 5.3 L D (6.4-8.2) g/dL Albumin 2.4 L 2.6 L 1.7 L D (3.4-5.0) g/dL Intake and Output 01/05/18 01/06/18 01/06/18 22:59 06:59 14:59 Intake Total 1220 / 1220 300 / 300 Output Total 5695 / 5695 1600 / 1600 Balance -4475 / -4475 -1300 / -1300 Intake: IV 1100 / 1100 300 / 300 Protonix Inj 80 MG In NS Inj 200 / 200 100 / 100 100 ML @ 10 mls/hr IV.CONT Q10H [facility] Rx#:[id number] Flexbumin 25% Inj 100 ML @ 60 50 / 50 mls/hr IV.SIG ONCE ONE Rx#: [id number] Azactam Inj 1,000 MG In NS Inj 100 / 100 200 / 200 100 ML @ 200 mls/hr IV.SIG Q8H [facility] Rx#:[id number] NS Inj 500 ML @ Wide Open IV. 500 / 500 SIG BOLUS [facility] Rx#:[id number] Vancomycin Inj 1,000 MG In NS 250 / 250 Inj 250 ML @ 250 mls/hr IV.SIG ONCE ONE Rx#:[id number] Oral 0 / 0 Tube Irrigant 120 / 120 Output: Urine Amount (Catheter) 1075 / 1075 1000 / 1000 Indwelling Urethral Catheter 1075 / 1075 1000 / 1000 Chest Tube Drainage 4620 / 4620 600 / 600 Left Upper Pleural 2730 / 2730 400 / 400 Right Upper Pleural 1890 / 1890 200 / 200 Other: # Bowel Movements 0 0 Weight 191 lb 12.835 oz - Imaging and Cardiology Imaging: Impressions Abdomen/Bladder Ultrasound 01/04/18 00:00 CONCLUSION: 1. Chronic parenchymal disease. 2. Bilateral cysts, left more so than right. 3. No obstructive uropathy or other acute abnormality. Chest X-Ray 01/04/18 18:15 CONCLUSION: Left greater than right pleural effusions with basilar consolidation. Head CT 01/04/18 18:15 CONCLUSION: Motion degraded study without evidence of bleed or other acute intracranial abnormality. . Venous Doppler Study 01/04/18 18:15 CONCLUSION: No deep venous thrombosis of either lower extremity but there is superficial venous thrombosis involving the bilateral greater saphenous veins as described. Lumbar Spine CT 01/04/18 18:18 CONCLUSION: 1. No subluxation or acute fracture of the lumbar spine. 2. There is an old, mild compression deformity of L3. 3. Multilevel degenerative changes and diffuse idiopathic skeletal hyperostosis. 4. Pleural effusions and parenchymal consolidation partly seen of the visualized lung bases. 5. Atrophy and apparent hydronephrosis of the left knee. Face CT 01/04/18 20:14 CONCLUSION: 1. Focal minimally displaced fracture of the tip of the nasion. 2. Preseptal soft tissue contusion of the left orbit. 3. Acute on chronic appearing left maxillary sinusitis. Abdomen/Pelvis CT 01/05/18 00:00 CONCLUSION: 1. Bilateral moderate to large pleural effusions, left greater than right with associated lower lobe airspace disease. 2. Abnormal appearance of the left kidney with numerous cortical cysts. Apparent prominence of the renal collecting system does not have a corresponding finding on today's ultrasound exam. However, it remains concerning for mild to moderate hydronephrosis. 3. 7 mm calyceal calculus in the inferior pole of the left kidney. 4. Diffuse anasarca with small amount ascites. 5. Mild sigmoid diverticulosis. 6. Normal appendix. Chest X-Ray 01/05/18 00:00 CONCLUSION: Interval improvement following small bore chest tube on the left. Persistent effusion and consolidation on the right. Chest X-Ray 01/05/18 00:00 CONCLUSION: 1. Bibasilar small chest tubes are in good positions. 2. Left basilar consolidation consistent with atelectasis and/or infiltrate. 3. No evidence of pleural effusion. Chest X-Ray 01/06/18 06:00 CONCLUSION: 1. Stable ETT and NGT. 2. Stable bilateral inferior chest tubes without pneumothorax. 3. Stable patchy airspace disease in the left lower lung zone. 4. Stable medial right lower lung zone airspace disease. 5. Persistent right paratracheal prominence. Assessment and Plan - Plan 77-year-old male with no known past medical history who presented with generalized weakness. Troponin elevation: In setting of symptomatic anemia. Would recommend Lexiscan prior to DC after recovery. Volume overload: Improving. Echo with normal EF. Chest tubes for pleural effusions. Renal function appears chronic and stable, would continue IV Lasix 40 mg twice a day until creatinine bumps and then transition to oral Lasix. Few short runs of SVT: start metoprolol tartrate 25mg bid with holding parameters. Nothing further to add at this time from a cardiovascular perspective. Please feel free to call with any questions. Discussed Condition With: Dr. Ball - Attending Attestation Patient seen and examined. Agree with above
[2018-01-06] MEDS: Senna/Docusate Sodium 8.6/50 MG Tablet PO SCH ×2 (08:40→20:25)
[2018-01-06] MEDS: Potassium Chloride 25 MEQ Effervescent Tablet PO SCH ×2 (10:20→20:24)
[2018-01-06] MEDS: Metoprolol Tartrate 25 MG Tablet PO SCH ×2 (10:27→20:25)
--- NOTE | 2018-01-06 10:56 | P.PNGI ---
Subjective Interval history: Pt is intubated, per nurse, plans for extubation today, no signs of active bleed , hh stable. <Jimenez Mata - Last Filed: 01/06/18 10:43> Physical Exam Vital signs: Vital Signs 01/05/18 10:45 01/05/18 11:00 01/05/18 11:15 Temperature Pulse Rate 86 83 83 Respiratory Rate 8 L 16 16 Blood Pressure 124/61 122/57 L 128/58 L Pulse Oximetry 100 100 100 01/05/18 11:20 01/05/18 11:25 01/05/18 11:31 Temperature Pulse Rate 84 81 81 Respiratory Rate 16 16 11 L Blood Pressure 112/55 L 113/59 L 136/88 Pulse Oximetry 100 100 100 01/05/18 11:35 01/05/18 11:40 01/05/18 11:45 Temperature Pulse Rate 81 82 82 Respiratory Rate 12 6 L 9 L Blood Pressure 95/53 L 96/53 L 100/55 L Pulse Oximetry 100 100 100 01/05/18 11:50 01/05/18 11:55 01/05/18 12:00 Temperature 98.3 F Pulse Rate 83 85 82 Respiratory Rate 8 L 17 16 Blood Pressure 102/52 L 110/53 L 116/54 L Pulse Oximetry 100 100 100 01/05/18 12:05 01/05/18 12:10 01/05/18 12:15 Temperature Pulse Rate 82 82 83 Respiratory Rate 16 17 16 Blood Pressure 124/59 L 123/57 L 96/52 L Pulse Oximetry 100 100 100 01/05/18 12:20 01/05/18 12:25 01/05/18 12:30 Temperature Pulse Rate 83 81 82 Respiratory Rate 16 16 17 Blood Pressure 113/56 L 123/58 L 123/61 Pulse Oximetry 100 100 100 01/05/18 12:35 01/05/18 12:40 01/05/18 12:45 Temperature Pulse Rate 82 82 82 Respiratory Rate 16 16 16 Blood Pressure 126/58 L 130/60 128/59 L Pulse Oximetry 100 100 100 01/05/18 12:47 01/05/18 12:50 01/05/18 12:55 Temperature Pulse Rate 81 90 Respiratory Rate 17 16 17 Blood Pressure 129/58 L 135/51 L Pulse Oximetry 100 100 01/05/18 13:00 01/05/18 13:05 01/05/18 13:10 Temperature Pulse Rate 82 83 85 Respiratory Rate 16 17 17 Blood Pressure 113/56 L 114/58 L 121/58 L Pulse Oximetry 100 100 100 01/05/18 13:15 01/05/18 13:20 01/05/18 13:25 Temperature Pulse Rate 87 87 85 Respiratory Rate 16 18 16 Blood Pressure 125/59 L 119/57 L 116/61 Pulse Oximetry 100 100 100 01/05/18 13:30 01/05/18 13:35 01/05/18 13:40 Temperature Pulse Rate 85 83 84 Respiratory Rate 17 16 16 Blood Pressure 120/58 L 116/59 L 119/56 L Pulse Oximetry 100 100 100 01/05/18 13:45 01/05/18 13:50 01/05/18 13:55 Temperature Pulse Rate 86 90 88 Respiratory Rate 17 19 16 Blood Pressure 130/60 131/60 125/59 L Pulse Oximetry 100 100 100 01/05/18 14:00 01/05/18 14:05 01/05/18 14:10 Temperature Pulse Rate 88 86 86 Respiratory Rate 16 16 16 Blood Pressure 123/59 L 129/60 136/63 Pulse Oximetry 100 100 100 01/05/18 14:15 01/05/18 14:20 01/05/18 14:25 Temperature Pulse Rate 87 88 85 Respiratory Rate 17 17 16 Blood Pressure 119/59 L 129/58 L 125/60 Pulse Oximetry 100 100 100 01/05/18 14:30 01/05/18 15:00 01/05/18 15:23 Temperature Pulse Rate 90 89 Respiratory Rate 17 16 16 Blood Pressure 118/53 L 122/57 L Pulse Oximetry 100 100 01/05/18 15:30 01/05/18 16:00 01/05/18 16:30 Temperature 98.2 F Pulse Rate 85 91 H 90 Respiratory Rate 16 20 16 Blood Pressure 117/55 L 127/58 L 112/53 L Pulse Oximetry 100 98 100 01/05/18 17:00 01/05/18 17:30 01/05/18 18:00 Temperature Pulse Rate 87 88 92 H Respiratory Rate 16 17 18 Blood Pressure 116/56 L 107/55 L Pulse Oximetry 100 100 100 01/05/18 18:01 01/05/18 19:00 10/03/18 20:00 Temperature 99.0 F Pulse Rate 91 H 90 101 H Respiratory Rate 16 23 19 Blood Pressure 140/56 L 97/66 L 97/66 L Pulse Oximetry 100 100 100 01/05/18 20:35 01/05/18 21:00 01/05/18 21:33 Temperature Pulse Rate 102 H 108 H 111 H Respiratory Rate 16 18 20 Blood Pressure 97/55 L 118/55 L Pulse Oximetry 100 98 100 01/05/18 22:00 01/05/18 22:30 01/05/18 23:00 Temperature Pulse Rate 113 H 111 H 113 H Respiratory Rate 23 19 19 Blood Pressure 113/56 L 106/51 L 106/53 L Pulse Oximetry 93 L 95 96 01/05/18 23:30 01/05/18 23:47 01/06/18 00:00 Temperature 101.7 F H Pulse Rate 113 H 112 H 113 H Respiratory Rate 18 17 19 Blood Pressure 109/51 L 110/50 L Pulse Oximetry 98 99 01/06/18 00:30 01/06/18 01:00 01/06/18 01:30 Temperature Pulse Rate 114 H 114 H 114 H Respiratory Rate 20 28 H 27 H Blood Pressure 101/54 L 101/51 L 99/53 L Pulse Oximetry 100 99 99 01/06/18 01:32 01/06/18 02:00 01/06/18 02:30 Temperature Pulse Rate 114 H 113 H Respiratory Rate 18 22 27 H Blood Pressure 98/53 L 91/52 L Pulse Oximetry 98 99 99 01/06/18 03:00 01/06/18 03:30 01/06/18 04:00 Temperature 100.7 F H Pulse Rate 111 H 109 H 109 H Respiratory Rate 21 25 H 31 H Blood Pressure 97/50 L 101/49 L 112/53 L Pulse Oximetry 98 99 99 01/06/18 04:01 01/06/18 04:30 01/06/18 05:00 Temperature Pulse Rate 109 H 106 H 108 H Respiratory Rate 17 24 26 H Blood Pressure 100/49 L 96/48 L Pulse Oximetry 98 97 97 01/06/18 05:30 01/06/18 06:00 01/06/18 06:30 Temperature Pulse Rate 108 H 106 H 103 H Respiratory Rate 26 H 24 24 Blood Pressure 89/52 L 87/61 L 96/46 L Pulse Oximetry 98 97 96 01/06/18 07:00 01/06/18 07:30 01/06/18 08:00 Temperature 99.8 F H Pulse Rate 104 H 104 H 103 H Respiratory Rate 24 30 H 27 H Blood Pressure 92/57 L 96/51 L 86/49 L Pulse Oximetry 97 98 97 01/06/18 08:31 01/06/18 09:00 01/06/18 09:31 Temperature Pulse Rate 102 H 101 H 101 H Respiratory Rate 29 H 26 H 31 H Blood Pressure 111/52 L 102/50 L 123/58 L Pulse Oximetry 98 100 100 Intake & Output 01/05/18 01/06/18 01/06/18 18:59 06:59 18:59 Intake Total 1320 / 1320 300 / 300 Output Total 5695 / 5695 1600 / 1600 Balance -4375 / -4375 -1300 / -1300 Weight 87 kg Intake: IV 1200 / 1200 300 / 300 Protonix Inj 80 MG In NS Inj 200 / 200 100 / 100 100 ML @ 10 mls/hr IV.CONT Q10H [facility] Rx#:[id number] Flexbumin 25% Inj 100 ML @ 60 50 / 50 mls/hr IV.SIG ONCE ONE Rx#: [id number] Azactam Inj 1,000 MG In NS Inj 200 / 200 200 / 200 100 ML @ 200 mls/hr IV.SIG Q8H [facility] Rx#:[id number] NS Inj 500 ML @ Wide Open IV. 500 / 500 SIG BOLUS [facility] Rx#:[id number] Vancomycin Inj 1,000 MG In NS 250 / 250 Inj 250 ML @ 250 mls/hr IV.SIG ONCE ONE Rx#:[id number] Oral 0 / 0 Tube Irrigant 120 / 120 Output: Urine Amount (Catheter) 1075 / 1075 1000 / 1000 Indwelling Urethral Catheter 1075 / 1075 1000 / 1000 Chest Tube Drainage 4620 / 4620 600 / 600 Left Upper Pleural 2730 / 2730 400 / 400 Right Upper Pleural 1890 / 1890 200 / 200 Other: # Bowel Movements 0 0 Narrative: GENERAL: Well-developed well-nourished. CARDIOVASCULAR: Regular rate and rhythm. No murmur appreciated. RESPIRATORY: Intubated and mechanically ventilated. Chest tubes in place Abdomen: soft, nondistended, normo bowel sounds MUSCULOSKELETAL: No clubbing or cyanosis. No edema. NEUROLOGICAL: Awake, intubated - Urinary Catheter Management Indwelling Urethral Catheter Cath placed during this visit: yes Reason for continuing: Other continuation reason Insertion date: 01/04/18 Insertion time: 22:20 <Jimenez Mata - Last Filed: 01/06/18 10:43> Vital signs: Vital Signs 01/05/18 17:00 01/05/18 17:30 01/05/18 18:00 Temperature Pulse Rate 87 88 92 H Respiratory Rate 16 17 18 Blood Pressure 116/56 L 107/55 L Pulse Oximetry 100 100 100 01/05/18 18:01 01/05/18 19:00 01/05/18 20:00 Temperature 99.0 F Pulse Rate 91 H 90 101 H Respiratory Rate 16 23 19 Blood Pressure 140/56 L 97/66 L 97/66 L Pulse Oximetry 100 100 100 01/05/18 20:35 01/05/18 21:00 01/05/18 21:33 Temperature Pulse Rate 102 H 108 H 111 H Respiratory Rate 16 18 20 Blood Pressure 97/55 L 118/55 L Pulse Oximetry 100 98 100 01/05/18 22:00 01/05/18 22:30 01/05/18 23:00 Temperature Pulse Rate 113 H 111 H 113 H Respiratory Rate 23 19 19 Blood Pressure 113/56 L 106/51 L 106/53 L Pulse Oximetry 93 L 95 96 01/05/18 23:30 01/05/18 23:47 01/06/18 00:00 Temperature 101.7 F H Pulse Rate 113 H 112 H 113 H Respiratory Rate 18 17 19 Blood Pressure 109/51 L 110/50 L Pulse Oximetry 98 99 01/06/18 00:30 01/06/18 01:00 01/06/18 01:30 Temperature Pulse Rate 114 H 114 H 114 H Respiratory Rate 20 28 H 27 H Blood Pressure 101/54 L 101/51 L 99/53 L Pulse Oximetry 100 99 99 01/06/18 01:32 01/06/18 02:00 01/06/18 02:30 Temperature Pulse Rate 114 H 113 H Respiratory Rate 18 22 27 H Blood Pressure 98/53 L 91/52 L Pulse Oximetry 98 99 99 01/06/18 03:00 01/06/18 03:30 01/06/18 04:00 Temperature 100.7 F H Pulse Rate 111 H 109 H 109 H Respiratory Rate 21 25 H 31 H Blood Pressure 97/50 L 101/49 L 112/53 L Pulse Oximetry 98 99 99 01/06/18 04:01 01/06/18 04:30 01/06/18 05:00 Temperature Pulse Rate 109 H 106 H 108 H Respiratory Rate 17 24 26 H Blood Pressure 100/49 L 96/48 L Pulse Oximetry 98 97 97 01/06/18 05:30 01/06/18 06:00 01/06/18 06:30 Temperature Pulse Rate 108 H 106 H 103 H Respiratory Rate 26 H 24 24 Blood Pressure 89/52 L 87/61 L 96/46 L Pulse Oximetry 98 97 96 01/06/18 07:00 01/06/18 07:30 01/06/18 08:00 Temperature 99.8 F H Pulse Rate 104 H 104 H 103 H Respiratory Rate 24 30 H 27 H Blood Pressure 92/57 L 96/51 L 86/49 L Pulse Oximetry 97 98 97 01/06/18 08:31 01/06/18 09:00 01/06/18 09:31 Temperature Pulse Rate 102 H 101 H 101 H Respiratory Rate 29 H 26 H 31 H Blood Pressure 111/52 L 102/50 L 123/58 L Pulse Oximetry 98 100 100 01/06/18 10:00 01/06/18 10:01 01/06/18 10:30 Temperature Pulse Rate 101 H 101 H 101 H Respiratory Rate 29 H 26 H 22 Blood Pressure 95/49 L 112/53 L Pulse Oximetry 99 99 99 01/06/18 11:00 01/06/18 11:30 01/06/18 12:00 Temperature 98.6 F Pulse Rate 84 77 79 Respiratory Rate 22 35 H 36 H Blood Pressure 93/54 L 91/50 L Pulse Oximetry 100 100 100 01/06/18 12:01 01/06/18 12:30 01/06/18 12:59 Temperature Pulse Rate 81 79 78 Respiratory Rate 42 H 41 H 24 Blood Pressure 105/46 L 99/50 L Pulse Oximetry 100 100 100 01/06/18 13:00 01/06/18 13:30 01/06/18 14:00 Temperature Pulse Rate 78 79 79 Respiratory Rate 40 H 30 H 29 H Blood Pressure 90/45 L 93/55 L Pulse Oximetry 100 100 100 01/06/18 14:01 01/06/18 14:30 01/06/18 15:00 Temperature Pulse Rate 80 80 107 H Respiratory Rate 25 H 27 H 42 H Blood Pressure 95/65 L 111/53 L Pulse Oximetry 100 100 98 01/06/18 15:01 01/06/18 15:30 01/06/18 16:00 Temperature 97.5 F L Pulse Rate 108 H 105 H 89 Respiratory Rate 40 H 27 H 50 H Blood Pressure 94/50 L 99/60 L Pulse Oximetry 98 100 99 01/06/18 16:01 01/06/18 16:30 Temperature Pulse Rate 85 83 Respiratory Rate 70 H 28 H Blood Pressure 90/47 L 98/49 L Pulse Oximetry 97 100 Intake & Output 01/05/18 01/06/18 01/06/18 18:59 06:59 18:59 Intake Total 1320 / 1320 300 / 300 350 / 350 Output Total 5695 / 5695 1600 / 1600 Balance -4375 / -4375 -1300 / -1300 350 / 350 Weight 87 kg Intake: IV 1200 / 1200 300 / 300 350 / 350 Protonix Inj 80 MG In NS Inj 200 / 200 100 / 100 100 / 100 100 ML @ 10 mls/hr IV.CONT Q10H [facility] Rx#:[id number] Flexbumin 25% Inj 100 ML @ 60 50 / 50 mls/hr IV.SIG ONCE ONE Rx#: [id number] Azactam Inj 1,000 MG In NS Inj 200 / 200 200 / 200 100 ML @ 200 mls/hr IV.SIG Q8H [facility] Rx#:[id number] NS Inj 500 ML @ Wide Open IV. 500 / 500 SIG BOLUS [facility] Rx#:[id number] Vancomycin Inj 1,000 MG In NS 250 / 250 250 / 250 Inj 250 ML @ 250 mls/hr IV.SIG ONCE ONE Rx#:[id number] Oral 0 / 0 Tube Irrigant 120 / 120 Output: Urine Amount (Catheter) 1075 / 1075 1000 / 1000 Indwelling Urethral Catheter 1075 / 1075 1000 / 1000 Chest Tube Drainage 4620 / 4620 600 / 600 Left Upper Pleural 2730 / 2730 400 / 400 Right Upper Pleural 1890 / 1890 200 / 200 Other: # Bowel Movements 0 0 - Urinary Catheter Management Indwelling Urethral Catheter Cath placed during this visit: no <Feliciano Gabriel E - Last Filed: 01/06/18 17:01> Results - Labs CBC & Chem 7: 01/06/18 05:18 01/06/18 05:18 Laboratory Results - last 24 hr 01/05/18 01/05/18 01/05/18 08:00 08:00 11:52 WBC RBC Hgb Hct MCV MCH MCHC RDW Plt Count MPV Neut % (Auto) Lymph % (Auto) [place] % (Auto) Eos % (Auto) Baso % (Auto) Neut # (Auto) Lymph # (Auto) [place] # (Auto) Eos # (Auto) Baso # (Auto) WBC Differential Differential Comment Puncture Site Patient Temperature O2 Saturation ABG pH ABG pCO2 ABG pO2 ABG HCO3 ABG O2 Content ABG Base Excess ABG Methemoglobin Eh Test Hemoglobin Carboxyhemoglobin O2 Delivery Device Vent Setting Inspired O2 Critical Value Sodium Potassium Chloride Carbon Dioxide Anion Gap BUN Creatinine Estimated GFR POC Glucose Random Glucose Calcium Prot Corrected Calcium Magnesium Total Bilirubin AST ALT Alkaline Phosphatase Troponin I Total Protein Albumin Pleural pH 8.5 Pleural RBC 267 H Pleural Nuc Cells 74 H Pleural Neutrophils 21 Pleural Lymphocytes 47 Pleural Monocytes 17 Pleural Plasma Cells 1 Pleural Histocytes 9 Pleural Mesothelial 5 Pleural Total Protein 1.7 Pleural Albumin 0.8 Pleural LDH 57 Pleural Glucose 96 Pleural Amylase 14 Random Vancomycin 01/05/18 01/05/18 01/05/18 12:50 13:03 13:03 WBC 8.9 RBC 3.76 L Hgb 8.2 L Hct 27.4 L MCV 72.8 L MCH 21.8 L MCHC 29.9 L RDW 23.6 H Plt Count 141 L MPV 8.4 Neut % (Auto) 85.7 H Lymph % (Auto) 9.1 [place] % (Auto) 4.2 Eos % (Auto) 0.7 Baso % (Auto) 0.3 Neut # (Auto) 7.6 Lymph # (Auto) 0.8 L [place] # (Auto) 0.4 Eos # (Auto) 0.1 Baso # (Auto) 0.0 WBC Differential . Differential Comment Auto diff final Puncture Site Right radial Patient Temperature 98.6 O2 Saturation 96 ABG pH 7.41 ABG pCO2 42 ABG pO2 132 H ABG HCO3 26 ABG O2 Content 11.4 L ABG Base Excess 2.2 H ABG Methemoglobin 1.4 Eh Test Present Hemoglobin 8.2 L Carboxyhemoglobin 2.4 O2 Delivery Device Ventilator Vent Setting Inspired O2 40 Critical Value No Sodium Potassium Chloride Carbon Dioxide Anion Gap BUN Creatinine Estimated GFR POC Glucose Random Glucose Calcium Prot Corrected Calcium Magnesium Total Bilirubin AST ALT Alkaline Phosphatase Troponin I 0.53 H Total Protein Albumin Pleural pH Pleural RBC Pleural Nuc Cells Pleural Neutrophils Pleural Lymphocytes Pleural Monocytes Pleural Plasma Cells Pleural Histocytes Pleural Mesothelial Pleural Total Protein Pleural Albumin Pleural LDH Pleural Glucose Pleural Amylase Random Vancomycin 01/05/18 01/05/18 01/05/18 13:04 13:40 14:29 WBC RBC Hgb Hct MCV MCH MCHC RDW Plt Count MPV Neut % (Auto) Lymph % (Auto) [place] % (Auto) Eos % (Auto) Baso % (Auto) Neut # (Auto) Lymph # (Auto) [place] # (Auto) Eos # (Auto) Baso # (Auto) WBC Differential Differential Comment Puncture Site Patient Temperature O2 Saturation ABG pH ABG pCO2 ABG pO2 ABG HCO3 ABG O2 Content ABG Base Excess ABG Methemoglobin Eh Test Hemoglobin Carboxyhemoglobin O2 Delivery Device Vent Setting Inspired O2 Critical Value Sodium Potassium Chloride Carbon Dioxide Anion Gap BUN Creatinine Estimated GFR POC Glucose 64 L 98 137 H Random Glucose Calcium Prot Corrected Calcium Magnesium Total Bilirubin AST ALT Alkaline Phosphatase Troponin I Total Protein Albumin Pleural pH Pleural RBC Pleural Nuc Cells Pleural Neutrophils Pleural Lymphocytes Pleural Monocytes Pleural Plasma Cells Pleural Histocytes Pleural Mesothelial Pleural Total Protein Pleural Albumin Pleural LDH Pleural Glucose Pleural Amylase Random Vancomycin 01/05/18 01/05/18 01/05/18 16:22 19:55 23:41 WBC RBC Hgb Hct MCV MCH MCHC RDW Plt Count MPV Neut % (Auto) Lymph % (Auto) [place] % (Auto) Eos % (Auto) Baso % (Auto) Neut # (Auto) Lymph # (Auto) [place] # (Auto) Eos # (Auto) Baso # (Auto) WBC Differential Differential Comment Puncture Site Patient Temperature O2 Saturation ABG pH ABG pCO2 ABG pO2 ABG HCO3 ABG O2 Content ABG Base Excess ABG Methemoglobin Eh Test Hemoglobin Carboxyhemoglobin O2 Delivery Device Vent Setting Inspired O2 Critical Value Sodium Potassium Chloride Carbon Dioxide Anion Gap BUN Creatinine Estimated GFR POC Glucose 145 H 94 81 Random Glucose Calcium Prot Corrected Calcium Magnesium Total Bilirubin AST ALT Alkaline Phosphatase Troponin I Total Protein Albumin Pleural pH Pleural RBC Pleural Nuc Cells Pleural Neutrophils Pleural Lymphocytes Pleural Monocytes Pleural Plasma Cells Pleural Histocytes Pleural Mesothelial Pleural Total Protein Pleural Albumin Pleural LDH Pleural Glucose Pleural Amylase Random Vancomycin 01/06/18 01/06/18 01/06/18 03:45 04:17 05:18 WBC RBC Hgb Hct MCV MCH MCHC RDW Plt Count MPV Neut % (Auto) Lymph % (Auto) [place] % (Auto) Eos % (Auto) Baso % (Auto) Neut # (Auto) Lymph # (Auto) [place] # (Auto) Eos # (Auto) Baso # (Auto) WBC Differential Differential Comment Puncture Site Patient Temperature O2 Saturation ABG pH ABG pCO2 ABG pO2 ABG HCO3 ABG O2 Content ABG Base Excess ABG Methemoglobin Eh Test Hemoglobin Carboxyhemoglobin O2 Delivery Device Vent Setting Inspired O2 Critical Value Sodium 148 H Potassium 3.1 L D Chloride 110 H Carbon Dioxide 28.1 Anion Gap 10 BUN 28 H Creatinine 2.09 H Estimated GFR 31 L POC Glucose 60 L 99 Random Glucose 74 Calcium 7.2 L* Prot Corrected Calcium 8.2 L Magnesium 1.5 Total Bilirubin 1.6 H AST 34 ALT 16 Alkaline Phosphatase 51 Troponin I Total Protein 5.3 L D Albumin 1.7 L D Pleural pH Pleural RBC Pleural Nuc Cells Pleural Neutrophils Pleural Lymphocytes Pleural Monocytes Pleural Plasma Cells Pleural Histocytes Pleural Mesothelial Pleural Total Protein Pleural Albumin Pleural LDH Pleural Glucose Pleural Amylase Random Vancomycin 12.4 01/06/18 01/06/18 05:18 08:39 WBC 5.2 RBC 3.83 L Hgb 8.3 L Hct 28.1 L MCV 73.3 L MCH 21.8 L MCHC 29.8 L RDW 24.5 H Plt Count 124 L MPV 8.6 Neut % (Auto) Lymph % (Auto) [place] % (Auto) Eos % (Auto) Baso % (Auto) Neut # (Auto) Lymph # (Auto) [place] # (Auto) Eos # (Auto) Baso # (Auto) WBC Differential Differential Comment Puncture Site Patient Temperature O2 Saturation ABG pH ABG pCO2 ABG pO2 ABG HCO3 ABG O2 Content ABG Base Excess ABG Methemoglobin Eh Test Hemoglobin Carboxyhemoglobin O2 Delivery Device Vent Setting Inspired O2 Critical Value Sodium Potassium Chloride Carbon Dioxide Anion Gap BUN Creatinine Estimated GFR POC Glucose 78 Random Glucose Calcium Prot Corrected Calcium Magnesium Total Bilirubin AST ALT Alkaline Phosphatase Troponin I Total Protein Albumin Pleural pH Pleural RBC Pleural Nuc Cells Pleural Neutrophils Pleural Lymphocytes Pleural Monocytes Pleural Plasma Cells Pleural Histocytes Pleural Mesothelial Pleural Total Protein Pleural Albumin Pleural LDH Pleural Glucose Pleural Amylase Random Vancomycin Microbiology 10/04/18 00:45 Blood - Peripheral Anaerobic Blood Culture - Final QNS - See aerobic report. 01/06/18 00:40 Blood - Peripheral Anaerobic Blood Culture - Final QNS - See aerobic report. 01/05/18 08:25 Sputum - Endotracheal Gram Stain - Final 01/05/18 08:00 Fluid - Pleural fluid Gram Stain - Final 01/04/18 22:20 Catheterized Urine Urine Culture - Preliminary No growth. 01/04/18 22:20 Urine - Catheterized Urine Streptococcus pneumoniae Antigen ( M - Final Presumptive negative for streptococcus pneumoniae antigen, suggesting no current or recent infection. Infection due to Streptococcus pneumoniae cannot be ruled out since the antigen present in the sample may be below the detection limit of the test. 01/04/18 22:20 Urine - Catheterized Urine Legionella Antigen - Final Presumptive negative for Legionella pneumophila serogroup 1 antigen in urine, suggesting no recent or recurrent infection. Infection due to Legionella cannot be ruled out since other serogroups and species may cause disease, antigen may not be present in urine in early infection, and the level of antigen present in the urine may be below the detection limit of the test. 01/04/18 18:55 Blood - Peripheral Aerobic Blood Culture - Preliminary No growth in 1 day 01/04/18 18:55 Blood - Peripheral Anaerobic Blood Culture - Preliminary No growth in 1 day 01/04/18 19:04 Blood - Peripheral Aerobic Blood Culture - Preliminary No growth in 1 day 01/04/18 19:04 Blood - Peripheral Anaerobic Blood Culture - Preliminary No growth in 1 day - Imaging Impressions Chest X-Ray 01/05/18 00:00 CONCLUSION: 1. Bibasilar small chest tubes are in good positions. 2. Left basilar consolidation consistent with atelectasis and/or infiltrate. 3. No evidence of pleural effusion. Chest X-Ray 01/06/18 06:00 CONCLUSION: 1. Stable ETT and NGT. 2. Stable bilateral inferior chest tubes without pneumothorax. 3. Stable patchy airspace disease in the left lower lung zone. 4. Stable medial right lower lung zone airspace disease. 5. Persistent right paratracheal prominence. Abdomen/Bladder Ultrasound 01/04/18 00:00 CONCLUSION: 1. Chronic parenchymal disease. 2. Bilateral cysts, left more so than right. 3. No obstructive uropathy or other acute abnormality. Chest X-Ray 01/04/18 18:15 CONCLUSION: Left greater than right pleural effusions with basilar consolidation. Head CT 01/04/18 18:15 CONCLUSION: Motion degraded study without evidence of bleed or other acute intracranial abnormality. . Venous Doppler Study 01/04/18 18:15 CONCLUSION: No deep venous thrombosis of either lower extremity but there is superficial venous thrombosis involving the bilateral greater saphenous veins as described. Lumbar Spine CT 01/04/18 18:18 CONCLUSION: 1. No subluxation or acute fracture of the lumbar spine. 2. There is an old, mild compression deformity of L3. 3. Multilevel degenerative changes and diffuse idiopathic skeletal hyperostosis. 4. Pleural effusions and parenchymal consolidation partly seen of the visualized lung bases. 5. Atrophy and apparent hydronephrosis of the left knee. Face CT 01/04/18 20:14 CONCLUSION: 1. Focal minimally displaced fracture of the tip of the nasion. 2. Preseptal soft tissue contusion of the left orbit. 3. Acute on chronic appearing left maxillary sinusitis. Abdomen/Pelvis CT 01/05/18 00:00 CONCLUSION: 1. Bilateral moderate to large pleural effusions, left greater than right with associated lower lobe airspace disease. 2. Abnormal appearance of the left kidney with numerous cortical cysts. Apparent prominence of the renal collecting system does not have a corresponding finding on today's ultrasound exam. However, it remains concerning for mild to moderate hydronephrosis. 3. 7 mm calyceal calculus in the inferior pole of the left kidney. 4. Diffuse anasarca with small amount ascites. 5. Mild sigmoid diverticulosis. 6. Normal appendix. Chest X-Ray 01/05/18 00:00 CONCLUSION: Interval improvement following small bore chest tube on the left. Persistent effusion and consolidation on the right. Chest X-Ray 01/05/18 00:00 CONCLUSION: 1. Bibasilar small chest tubes are in good positions. 2. Left basilar consolidation consistent with atelectasis and/or infiltrate. 3. No evidence of pleural effusion. Chest X-Ray 01/06/18 06:00 CONCLUSION: 1. Stable ETT and NGT. 2. Stable bilateral inferior chest tubes without pneumothorax. 3. Stable patchy airspace disease in the left lower lung zone. 4. Stable medial right lower lung zone airspace disease. 5. Persistent right paratracheal prominence. <Amawi,Khawla - Last Filed: 01/06/18 10:43> - Labs CBC & Chem 7: 01/06/18 05:18 01/06/18 05:18 Laboratory Results - last 24 hr 01/05/18 01/05/18 01/05/18 11:52 19:55 23:41 WBC RBC Hgb Hct MCV MCH MCHC RDW Plt Count MPV Puncture Site Patient Temperature O2 Saturation ABG pH ABG pCO2 ABG pO2 ABG HCO3 ABG O2 Content ABG Base Excess ABG Methemoglobin Eh Test Hemoglobin Carboxyhemoglobin O2 Delivery Device Vent Setting Inspired O2 Critical Value Sodium Potassium Chloride Carbon Dioxide Anion Gap BUN Creatinine Estimated GFR POC Glucose 94 81 Random Glucose Calcium Prot Corrected Calcium Magnesium Total Bilirubin AST ALT Alkaline Phosphatase Total Protein Albumin Pleural Albumin 0.8 Random Vancomycin 01/06/18 01/06/18 01/06/18 03:45 04:17 05:18 WBC RBC Hgb Hct MCV MCH MCHC RDW Plt Count MPV Puncture Site Patient Temperature O2 Saturation ABG pH ABG pCO2 ABG pO2 ABG HCO3 ABG O2 Content ABG Base Excess ABG Methemoglobin Eh Test Hemoglobin Carboxyhemoglobin O2 Delivery Device Vent Setting Inspired O2 Critical Value Sodium 148 H Potassium 3.1 L D Chloride 110 H Carbon Dioxide 28.1 Anion Gap 10 BUN 28 H Creatinine 2.09 H Estimated GFR 31 L POC Glucose 60 L 99 Random Glucose 74 Calcium 7.2 L* Prot Corrected Calcium 8.2 L Magnesium 1.5 Total Bilirubin 1.6 H AST 34 ALT 16 Alkaline Phosphatase 51 Total Protein 5.3 L D Albumin 1.7 L D Pleural Albumin Random Vancomycin 12.4 01/06/18 01/06/18 01/06/18 05:18 08:39 12:19 WBC 5.2 RBC 3.83 L Hgb 8.3 L Hct 28.1 L MCV 73.3 L MCH 21.8 L MCHC 29.8 L RDW 24.5 H Plt Count 124 L MPV 8.6 Puncture Site Patient Temperature O2 Saturation ABG pH ABG pCO2 ABG pO2 ABG HCO3 ABG O2 Content ABG Base Excess ABG Methemoglobin Eh Test Hemoglobin Carboxyhemoglobin O2 Delivery Device Vent Setting Inspired O2 Critical Value Sodium Potassium Chloride Carbon Dioxide Anion Gap BUN Creatinine Estimated GFR POC Glucose 78 66 L Random Glucose Calcium Prot Corrected Calcium Magnesium Total Bilirubin AST ALT Alkaline Phosphatase Total Protein Albumin Pleural Albumin Random Vancomycin 01/06/18 01/06/18 01/06/18 12:41 14:50 16:30 WBC RBC Hgb Hct MCV MCH MCHC RDW Plt Count MPV Puncture Site Right radial Patient Temperature 98.6 O2 Saturation 93 ABG pH 7.35 L ABG pCO2 50 H ABG pO2 88 ABG HCO3 27 H ABG O2 Content 10.7 L ABG Base Excess 1.7 ABG Methemoglobin 1.4 Eh Test Present Hemoglobin 8.1 L Carboxyhemoglobin 2.1 O2 Delivery Device Ventilator Vent Setting 5/+5 Inspired O2 35 Critical Value No Sodium Potassium Chloride Carbon Dioxide Anion Gap BUN Creatinine Estimated GFR POC Glucose 118 H 72 Random Glucose Calcium Prot Corrected Calcium Magnesium Total Bilirubin AST ALT Alkaline Phosphatase Total Protein Albumin Pleural Albumin Random Vancomycin Microbiology 01/05/18 08:25 Sputum - Endotracheal Gram Stain - Final 01/05/18 08:25 Sputum - Endotracheal Sputum Culture - Preliminary Rare growth normal respiratory mechelle at 24 hours 01/05/18 08:00 Other Acid Fast Bacilli Smear - Final No acid fast bacilli seen 01/05/18 08:00 Fluid - Pleural fluid Gram Stain - Final 01/05/18 08:00 Fluid - Pleural fluid Body Fluid Culture - Preliminary No growth in 24 hours 01/04/18 18:55 Blood - Peripheral Aerobic Blood Culture - Preliminary No growth in 2 days 01/04/18 18:55 Blood - Peripheral Anaerobic Blood Culture - Preliminary No growth in 2 days 01/04/18 19:04 Blood - Peripheral Aerobic Blood Culture - Preliminary No growth in 2 days 01/04/18 19:04 Blood - Peripheral Anaerobic Blood Culture - Preliminary No growth in 2 days 01/04/18 22:20 Catheterized Urine Urine Culture - Preliminary No growth in 24 hours 01/06/18 00:45 Blood - Peripheral Anaerobic Blood Culture - Final QNS - See aerobic report. 01/06/18 00:40 Blood - Peripheral Anaerobic Blood Culture - Final QNS - See aerobic report. - Imaging Impressions Chest X-Ray 01/06/18 06:00 CONCLUSION: 1. Stable ETT and NGT. 2. Stable bilateral inferior chest tubes without pneumothorax. 3. Stable patchy airspace disease in the left lower lung zone. 4. Stable medial right lower lung zone airspace disease. 5. Persistent right paratracheal prominence. <Feliciano Gabriel E - Last Filed: 01/06/18 17:01> Assessment and Plan - Plan - Anemia/heme (+) stools- NO signs of active bleed. initial hemoglobin 6.1 with 2 units transfusion with good response hh stable, hgb today 8.3 Abdomen/Pelvis CT 01/05/18 1. Bilateral moderate to large pleural effusions, left greater than right with associated lower lobe airspace disease. 2. Abnormal appearance of the left kidney with numerous cortical cysts. Apparent prominence of the renal collecting system does not have a corresponding finding on today's ultrasound exam. However, it remains concerning for mild to moderate hydronephrosis. 3. 7 mm calyceal calculus in the inferior pole of the left kidney. 4. Diffuse anasarca with small amount ascites. 5. Mild sigmoid diverticulosis. 6. Normal appendix. - Coagulopathy with PT/INR 1.6 , no known blood thinners, could be related to liver disease - hyperbilirubinemia with elevated AST, improving, could be secondary to EtOH versus medications versus cirrhosis versus hepatocellular disease. Patient has diffuse anasarca and small amount of ascites. - Positive troponin cardiology on the case - Large pleural effusions chest tubes in place - Respiratory failure, intubated per [facility], plans for extubation today Plan Diet per [facility] Monitor labs Transfuse as needed consider EGD and colonoscopy once medically stable Further recommendations to follow Patient was seen per myself and Dr. Gabriel, note was written on his behalf <Jimenez Mata - Last Filed: 01/06/18 10:43> - Plan Patient seen and examined Agree with above Continue with current supportive care Monitor labs Anemia probably multifactorial with underlying chronic kidney disease in addition to other issues Pleural effusion of unclear etiology but possibly portal hypertension is an underlying cause if confirmed. The SAAG> 1.1 suggestive of portal hypertension Consideration should be for diuretics such as furosemide 20-40 mg and spironolactone 100 mg but will defer to intensive care team Consideration should be made to give more albumin <Feliciano Gabriel - Last Filed: 01/06/18 17:01>
[2018-01-06] MEDS ORDERED: Vancomycin Inj 1,000 MG in Sodium Chlor 0.9% Inj 250 ML IV.SIG ONE (11:00)
--- NOTE | 2018-01-06 13:33 | P.PNCC ---
Subjective Subjective Remarks/Hospital Course: The patient is a 77-year-old male with an unknown past medical history, who presented to [facility] ED for generalized weakness. The patient does not really follow up with a physician and takes no medications at home. Per ED nurse, he had fallen multiple times today and was on the floor for some time. Apparently the evac stated that he did not want to come however, he was told that he needed to come in for further evaluation and management. On arrival, he was tachycardic with heart rate of 102 and a blood pressure of 127/ 58. His initial laboratory data showed anemia with hemoglobin 6.6 and acute renal failure with a creatinine level of 2.0. Also, he was found to have elevated lactic acid level at 6.8 and elevated troponin at 0.64. His BNP was 3405. The patient underwent a CT scan of the brain in EGD, which showed no acute intracranial abnormalities. He also had a lumbar spine CT, which showed no subluxation or acute fracture of the lumbar spine. CT of the facial bones showed preseptal soft tissue contusion of the left orbit and a chest x-ray showed bilateral pleural effusions with basilar consolidation, left greater than the right. Most of the history was obtained from reviewing medical records as the patient is a poor historian. In the ED, he was given normal saline 250, Lasix 40 mg IV push, and placed on a Protonix drip. He also received 1 dose of vancomycin. Per records, he also had purulent discharge from his left eye that caused his eyelid to swell. The patient also had a venous Doppler ultrasound, which showed no deep vein thrombosis; however, there is superficial venous thrombosis involving the bilateral great saphenous veins. SUBJ 01/05/18: Patient currently on BiPAP remains very lethargic not following commands not opening eyes to command. PH remains at 7.27 despite several hours on BiPAP PCO2 60. Ultrasound shows large bilateral effusions left larger than right. Because of respiratory acidosis, altered mental status and large pleural effusion patient was intubated and placed on mechanical ventilation. Following this I placed a left pigtail chest tube, initial output was 2 L clear straw colored fluid 01/06: Remains intubated sedated on sedation hold intermittently following commands. Bilateral large pleural effusions drained yesterday. Since placement yesterday left side has drained more than 3 L, right side has drained more than 2 L. Hemoglobin remained stable no obvious bleeding. Fluid studies consistent with transudative effusion. IV Lasix started by cardiology with urine output more than 2 L Objective Vital Signs / I&O: Vital Signs 01/05/18 13:35 01/05/18 13:40 01/05/18 13:45 Temperature Pulse Rate 83 84 86 Respiratory Rate 16 16 17 Blood Pressure 116/59 L 119/56 L 130/60 Pulse Oximetry 100 100 100 01/05/18 13:50 01/05/18 13:55 01/05/18 14:00 Temperature Pulse Rate 90 88 88 Respiratory Rate 19 16 16 Blood Pressure 131/60 125/59 L 123/59 L Pulse Oximetry 100 100 100 01/05/18 14:05 01/05/18 14:10 01/05/18 14:15 Temperature Pulse Rate 86 86 87 Respiratory Rate 16 16 17 Blood Pressure 129/60 136/63 119/59 L Pulse Oximetry 100 100 100 01/05/18 14:20 01/05/18 14:25 01/05/18 14:30 Temperature Pulse Rate 88 85 90 Respiratory Rate 17 16 17 Blood Pressure 129/58 L 125/60 118/53 L Pulse Oximetry 100 100 100 01/05/18 15:00 01/05/18 15:23 01/05/18 15:30 Temperature Pulse Rate 89 85 Respiratory Rate 16 16 16 Blood Pressure 122/57 L 117/55 L Pulse Oximetry 100 100 01/05/18 16:00 01/05/18 16:30 01/05/18 17:00 Temperature 98.2 F Pulse Rate 91 H 90 87 Respiratory Rate 20 16 16 Blood Pressure 127/58 L 112/53 L 116/56 L Pulse Oximetry 98 100 100 01/05/18 17:30 01/05/18 18:00 01/05/18 18:01 Temperature Pulse Rate 88 92 H 91 H Respiratory Rate 17 18 16 Blood Pressure 107/55 L 140/56 L Pulse Oximetry 100 100 100 01/05/18 19:00 01/05/18 20:00 01/05/18 20:35 Temperature 99.0 F Pulse Rate 90 101 H 102 H Respiratory Rate 23 19 16 Blood Pressure 97/66 L 97/66 L Pulse Oximetry 100 100 100 01/05/18 21:00 01/05/18 21:33 01/05/18 22:00 Temperature Pulse Rate 108 H 111 H 113 H Respiratory Rate 18 20 23 Blood Pressure 97/55 L 118/55 L 113/56 L Pulse Oximetry 98 100 93 L 01/05/18 22:30 01/05/18 23:00 01/05/18 23:30 Temperature Pulse Rate 111 H 113 H 113 H Respiratory Rate 19 19 18 Blood Pressure 106/51 L 106/53 L 109/51 L Pulse Oximetry 95 96 98 01/05/18 23:47 01/06/18 00:00 01/06/18 00:30 Temperature 101.7 F H Pulse Rate 112 H 113 H 114 H Respiratory Rate 17 19 20 Blood Pressure 110/50 L 101/54 L Pulse Oximetry 99 100 01/06/18 01:00 01/06/18 01:30 01/06/18 01:32 Temperature Pulse Rate 114 H 114 H Respiratory Rate 28 H 27 H 18 Blood Pressure 101/51 L 99/53 L Pulse Oximetry 99 99 98 01/06/18 02:00 01/06/18 02:30 01/06/18 03:00 Temperature Pulse Rate 114 H 113 H 111 H Respiratory Rate 22 27 H 21 Blood Pressure 98/53 L 91/52 L 97/50 L Pulse Oximetry 99 99 98 01/06/18 03:30 01/06/18 04:00 01/06/18 04:01 Temperature 100.7 F H Pulse Rate 109 H 109 H 109 H Respiratory Rate 25 H 31 H 17 Blood Pressure 101/49 L 112/53 L Pulse Oximetry 99 99 98 01/06/18 04:30 01/06/18 05:00 01/06/18 05:30 Temperature Pulse Rate 106 H 108 H 108 H Respiratory Rate 24 26 H 26 H Blood Pressure 100/49 L 96/48 L 89/52 L Pulse Oximetry 97 97 98 01/06/18 06:00 01/06/18 06:30 01/06/18 07:00 Temperature Pulse Rate 106 H 103 H 104 H Respiratory Rate 24 24 24 Blood Pressure 87/61 L 96/46 L 92/57 L Pulse Oximetry 97 96 97 01/06/18 07:30 01/06/18 08:00 01/06/18 08:31 Temperature 99.8 F H Pulse Rate 104 H 103 H 102 H Respiratory Rate 30 H 27 H 29 H Blood Pressure 96/51 L 86/49 L 111/52 L Pulse Oximetry 98 97 98 01/06/18 09:00 01/06/18 09:31 01/06/18 12:59 Temperature Pulse Rate 101 H 101 H 78 Respiratory Rate 26 H 31 H 24 Blood Pressure 102/50 L 123/58 L Pulse Oximetry 100 100 100 Intake & Output 01/05/18 01/06/18 01/06/18 18:59 06:59 18:59 Intake Total 1320 / 1320 300 / 300 Output Total 5695 / 5695 1600 / 1600 Balance -4375 / -4375 -1300 / -1300 Weight 87 kg Intake: IV 1200 / 1200 300 / 300 Protonix Inj 80 MG In NS Inj 200 / 200 100 / 100 100 ML @ 10 mls/hr IV.CONT Q10H RENA Rx#:[id number] Flexbumin 25% Inj 100 ML @ 60 50 / 50 mls/hr IV.SIG ONCE ONE Rx#: [id number] Azactam Inj 1,000 MG In NS Inj 200 / 200 200 / 200 100 ML @ 200 mls/hr IV.SIG Q8H RENA Rx#:[id number] NS Inj 500 ML @ Wide Open IV. 500 / 500 SIG BOLUS RENA Rx#:[id number] Vancomycin Inj 1,000 MG In NS 250 / 250 Inj 250 ML @ 250 mls/hr IV.SIG ONCE ONE Rx#:[id number] Oral 0 / 0 Tube Irrigant 120 / 120 Output: Urine Amount (Catheter) 1075 / 1075 1000 / 1000 Indwelling Urethral Catheter 1075 / 1075 1000 / 1000 Chest Tube Drainage 4620 / 4620 600 / 600 Left Upper Pleural 2730 / 2730 400 / 400 Right Upper Pleural 1890 / 1890 200 / 200 Other: # Bowel Movements 0 0 Result Diagrams: 01/06/18 05:18 01/06/18 05:18 Objective Remarks: GENERAL: Remains intubated not on sedation now HEENT: Atraumatic, normocephalic. Pupils are equal, round. Swelling of the eyelids bilaterally, mainly on the left eye with some discharge and erythema of the left upper eyelid. Mucous membranes dry. NECK: Supple. No JVD, adenopathy, or thyromegaly. Trachea midline. Orotracheally intubated CARDIOVASCULAR: Regular rate and rhythm. Normal S1, S2. No murmurs, rubs or gallops. PULMONARY: Bilateral equal air entry. Diminished breath sounds at the bases. Bilateral pigtail chest tubes in place with large amount of output ABDOMEN: Soft, nontender. No distention. Positive bowel sounds. EXTREMITIES: No cyanosis or clubbing, 1-2+ edema. NEUROLOGIC: Remains intubated not on sedation. Intermittently opens eyes follows commands. No obvious focal deficits Assessment and Plan - Assessment and Plan Plan: IMPRESSION: Acute hypercapnic respiratory failure Altered mental status/metabolic encephalopathy Severe anemia. Acute renal failure. Lactic acidemia. Severe sepsis Probable pneumonia Elevated troponin, multifactorial. Bilateral large pleural effusions, status post chest tube Superficial venous thrombosis bilaterally, great saphenous vein. Conjunctivitis of the left eye. RECOMMENDATIONS: 1. Patient intubated yesterday and not requiring any sedation. CT scan of the brain in the ED showed no acute intracranial findings. Encephalopathy most likely CO2 narcosis and sepsis. 2. Patient was intubated and placed on mechanical ventilation for worsening CO2 narcosis encephalopathy and hypercapnic respiratory failure. Attempt ventilator wean if mental status permits 3. Bronchodilators in the form of DuoNeb every 4 hours plus every 2 hours p.r.n. for shortness of breath. 4. Bilateral pigtail chest tubes placed 01/05/2018. Left chest tube with 3 L output in 24 hours, right chest tube with 2 L output in 24 hours 5. IV Lasix started by cardiology, 2 L urine output in 24 hours 6. Serial lactic acid monitoring until clear. 7. Monitor cardiac enzymes with troponins 6 hours and 2D echo with EF 50-55%. Not a candidate for invasive procedures or anticoagulation/antiplatelet therapy at this time due to severe anemia from probable GI bleed 8. Cardiology Dr. Ball following 9. The patient is not a candidate for any aspirin or anticoagulation due to underlying severe anemia. 10. Continue with Protonix drip. GI consulted 11. Patient may have chronic liver disease, further history is not obtainable due to altered mentation and intubation 12. s/p transfusion 2 units of packed red blood cells. Will monitor H and H every 6 hours and consulted GI service. 13. CT abdomen and pelvis without contrast-no acute findings 14. On vancomycin and aztreonam. Follow up blood cultures sputum and urine culture, follow-up strep pneumonia, Legionella urinary antigen, 15. Monitor CBC and coags. 16. Sliding scale insulin with Accu-Cheks to maintain euglycemia. His TSH measured at 4.2 17. GI prophylaxis with Protonix drip and DVT prophylaxis with SCDs. Chemical anticoagulation prophylaxis contraindicated due to anemia and probable GI bleed. CCT 35 min excluding procedures Code Status: Full
[2018-01-06 15:10] LABS: ABG Base Excess 1.7 mmol/L (-2-2); ABG PCO2 50 mmHg (38-42); ABG PO2 88 mmHG (61-120)
[2018-01-06] MEDS ORDERED: Albumin Human 25% Inj 100 ML IV.SIG ONE (21:57)
[2018-01-06 23:28] LABS: Hematocrit 26.7 % (39.0-51.0); Hemoglobin 7.8 gm/dL (13.0-17.0); Mean Corpuscular Hemoglobin 21.6 pg (27.0-34.0); Mean Corpuscular Volume 73.9 fL (80.0-100.0); Mean Platelet Volume 8.5 fL (7.0-11.0); Platelet Count 98 th/mm3 (150-450); Red Blood Count 3.62 mil/mm3 (4.50-5.90); Red Cell Distribution Width 24.1 % (11.6-17.2); White Blood Count 7.9 th/mm3 (4.0-11.0)
[2018-01-06 23:35] LABS: Mean Corpuscular HGB Conc 29.2 % (32.0-36.0)
[2018-01-06 23:44] LABS: Calcium 7.1 mg/dL (8.5-10.1); Carbon Dioxide 29.7 meq/L (21.0-32.0); Potassium 3.9 meq/L (3.5-5.1)
[2018-01-06 23:58] LABS: Total Protein 5.4 g/dL (6.4-8.2); Troponin I 0.27 ng/mL (0.02-0.05)
[2018-01-07] MEDS: Insulin NovoLIN Regular Correctional Sugar Inj SQ SCH ×6 (00:08→22:05)
[2018-01-07] MEDS: Chlorhexidine Gluconate 2% 1 Pack (2 Cloths) TOPICAL SCH (03:55)
--- NOTE | 2018-01-07 05:48 | XR ---
EXAM DATE: 01/07/2018 6:00 AM EDT AGE/SEX: 77 years / Male INDICATIONS: Shortness of breath CLINICAL DATA: This is the patient's subsequent encounter. Patient reports that signs and symptoms h ave been present for 4 - 6 days and indicates a pain score of Nonresponsive. MEDICAL/SURGICAL HISTORY: . Anemia. Congestive heart failure. Sepsis. None. COMPARISON: C, CHEST 1V SINGLE AP, 01/06/2018. . FINDINGS: The cardiac silhouette is enlarged in transverse diameter. There is left lower lobe atelectasis versu s pneumonia. A small left sided effusion is present. A right chest tube is in place. There is no evid ence of pneumothorax. CONCLUSION: Left lower lobe atelectasis versus pneumonia. There has been no significant change when compared to t he prior exam. Electronically signed by: Noble Sam MD 01/07/2018 5:46 AM EDT
[2018-01-07 06:04] LABS: Hematocrit 28.4 % (39.0-51.0); Hemoglobin 8.2 gm/dL (13.0-17.0); Mean Corpuscular Hemoglobin 21.8 pg (27.0-34.0); Mean Corpuscular Volume 75.4 fL (80.0-100.0); Mean Platelet Volume 9.1 fL (7.0-11.0); Platelet Count 93 th/mm3 (150-450); Red Blood Count 3.77 mil/mm3 (4.50-5.90); Red Cell Distribution Width 24.6 % (11.6-17.2); White Blood Count 9.1 th/mm3 (4.0-11.0)
[2018-01-07 06:09] LABS: Mean Corpuscular HGB Conc 28.9 % (32.0-36.0)
[2018-01-07 06:26] LABS: Albumin 2.1 g/dL (3.4-5.0); Calcium 7.3 mg/dL (8.5-10.1); Carbon Dioxide 27.6 meq/L (21.0-32.0); Magnesium 1.6 mg/dL (1.5-2.5); Potassium 4.1 meq/L (3.5-5.1)
[2018-01-07 06:28] LABS: Total Protein 5.8 g/dL (6.4-8.2); Vancomycin,Random 17.2 Comment
--- NOTE | 2018-01-07 07:43 | P.PNCC ---
Subjective Subjective Remarks/Hospital Course: The patient is a 77-year-old male with an unknown past medical history, who presented to [facility] ED for generalized weakness. The patient does not really follow up with a physician and takes no medications at home. Per ED nurse, he had fallen multiple times today and was on the floor for some time. Apparently the evac stated that he did not want to come however, he was told that he needed to come in for further evaluation and management. On arrival, he was tachycardic with heart rate of 102 and a blood pressure of 127/ 58. His initial laboratory data showed anemia with hemoglobin 6.6 and acute renal failure with a creatinine level of 2.0. Also, he was found to have elevated lactic acid level at 6.8 and elevated troponin at 0.64. His BNP was 3405. The patient underwent a CT scan of the brain in EGD, which showed no acute intracranial abnormalities. He also had a lumbar spine CT, which showed no subluxation or acute fracture of the lumbar spine. CT of the facial bones showed preseptal soft tissue contusion of the left orbit and a chest x-ray showed bilateral pleural effusions with basilar consolidation, left greater than the right. Most of the history was obtained from reviewing medical records as the patient is a poor historian. In the ED, he was given normal saline 250, Lasix 40 mg IV push, and placed on a Protonix drip. He also received 1 dose of vancomycin. Per records, he also had purulent discharge from his left eye that caused his eyelid to swell. The patient also had a venous Doppler ultrasound, which showed no deep vein thrombosis; however, there is superficial venous thrombosis involving the bilateral great saphenous veins. SUBJ 01/05/18: Patient currently on BiPAP remains very lethargic not following commands not opening eyes to command. PH remains at 7.27 despite several hours on BiPAP PCO2 60. Ultrasound shows large bilateral effusions left larger than right. Because of respiratory acidosis, altered mental status and large pleural effusion patient was intubated and placed on mechanical ventilation. Following this I placed a left pigtail chest tube, initial output was 2 L clear straw colored fluid 01/06: Remains intubated sedated on sedation hold intermittently following commands. Bilateral large pleural effusions drained yesterday. Since placement yesterday left side has drained more than 3 L, right side has drained more than 2 L. Hemoglobin remained stable no obvious bleeding. Fluid studies consistent with transudative effusion. IV Lasix started by cardiology with urine output more than 2 L 01/07 Patient is extubated and on 4L oxygen with good sats, Afebrile. Had episode of hypotension overnight given Albumin, Lopressor held BP now 103/54 with MAP 77mmHg. Objective Vital Signs / I&O: Vital Signs 01/06/18 07:30 01/06/18 08:00 01/06/18 08:31 Temperature 99.8 F H Pulse Rate 104 H 103 H 102 H Respiratory Rate 30 H 27 H 29 H Blood Pressure 96/51 L 86/49 L 111/52 L Pulse Oximetry 98 97 98 01/06/18 09:00 01/06/18 09:31 01/06/18 10:00 Temperature Pulse Rate 101 H 101 H 101 H Respiratory Rate 26 H 31 H 29 H Blood Pressure 102/50 L 123/58 L Pulse Oximetry 100 100 99 01/06/18 10:01 01/06/18 10:30 01/06/18 11:00 Temperature Pulse Rate 101 H 101 H 84 Respiratory Rate 26 H 22 22 Blood Pressure 95/49 L 112/53 L 93/54 L Pulse Oximetry 99 99 100 01/06/18 11:30 01/06/18 12:00 01/06/18 12:01 Temperature 98.6 F Pulse Rate 77 79 81 Respiratory Rate 35 H 36 H 42 H Blood Pressure 91/50 L 105/46 L Pulse Oximetry 100 100 100 01/06/18 12:30 01/06/18 12:59 01/06/18 13:00 Temperature Pulse Rate 79 78 78 Respiratory Rate 41 H 24 40 H Blood Pressure 99/50 L 90/45 L Pulse Oximetry 100 100 100 01/06/18 13:30 01/06/18 14:00 01/06/18 14:01 Temperature Pulse Rate 79 79 80 Respiratory Rate 30 H 29 H 25 H Blood Pressure 93/55 L 95/65 L Pulse Oximetry 100 100 100 01/06/18 14:30 01/06/18 15:00 01/06/18 15:01 Temperature Pulse Rate 80 107 H 108 H Respiratory Rate 27 H 42 H 40 H Blood Pressure 111/53 L 94/50 L Pulse Oximetry 100 98 98 01/06/18 15:30 01/06/18 16:00 01/06/18 16:01 Temperature 97.5 F L Pulse Rate 105 H 89 85 Respiratory Rate 27 H 50 H 70 H Blood Pressure 99/60 L 90/47 L Pulse Oximetry 100 99 97 01/06/18 16:30 01/06/18 17:29 01/06/18 20:00 Temperature 98.7 F Pulse Rate 83 86 89 Respiratory Rate 28 H 26 H 22 Blood Pressure 98/49 L 105/50 L Pulse Oximetry 100 90 L 01/06/18 20:10 01/06/18 23:38 01/07/18 00:00 Temperature 98.9 F Pulse Rate 88 96 H 85 Respiratory Rate 16 16 23 Blood Pressure 84/43 L Pulse Oximetry 97 88 L 01/07/18 03:54 01/07/18 04:00 Temperature 98.6 F Pulse Rate 105 H 106 H Respiratory Rate 16 18 Blood Pressure 109/55 L Pulse Oximetry 100 Intake & Output 01/06/18 01/07/18 01/07/18 18:59 06:59 18:59 Intake Total 530 / 530 500 / 500 Output Total 605 / 605 1010 / 1010 Balance -75 / -75 -510 / -510 Weight 85 kg Intake: IV 350 / 350 500 / 500 Protonix Inj 80 MG In NS Inj 100 / 100 100 / 100 100 ML @ 10 mls/hr IV.CONT Q10H [facility] Rx#:[id number] Flexbumin 25% Inj 100 ML @ 60 100 / 100 mls/hr IV.SIG ONCE ONE Rx#: [id number] Azactam Inj 1,000 MG In NS Inj 300 / 300 100 ML @ 200 mls/hr IV.SIG Q8H [facility] Rx#:[id number] Vancomycin Inj 1,000 MG In NS 250 / 250 Inj 250 ML @ 250 mls/hr IV.SIG ONCE ONE Rx#:[id number] Oral 0 / 0 Tube Irrigant 180 / 180 Output: Urine Amount (Catheter) 175 / 175 400 / 400 Indwelling Urethral Catheter 175 / 175 400 / 400 Chest Tube Drainage 430 / 430 610 / 610 Left Upper Pleural 200 / 200 320 / 320 Right Upper Pleural 230 / 230 290 / 290 Other: # Bowel Movements 0 0 Result Diagrams: 01/07/18 04:44 01/07/18 04:44 Other Results: Laboratory Results - last 12 hr 01/06/18 01/06/18 01/06/18 20:02 23:18 23:18 WBC 7.9 D RBC 3.62 L Hgb 7.8 L Hct 26.7 L MCV 73.9 L MCH 21.6 L MCHC 29.2 L RDW 24.1 H Plt Count 98 L MPV 8.5 Sodium 149 H Potassium 3.9 D Chloride 111 H Carbon Dioxide 29.7 Anion Gap 8 BUN 34 H Creatinine 2.23 H Estimated GFR 29 L POC Glucose 73 Random Glucose 81 Lactic Acid Calcium 7.1 L* Prot Corrected Calcium 8.0 L Magnesium Total Bilirubin AST ALT Alkaline Phosphatase Troponin I 0.27 H Total Protein 5.4 L Albumin Random Vancomycin 01/06/18 01/07/18 01/07/18 23:18 00:06 03:51 WBC RBC Hgb Hct MCV MCH MCHC RDW Plt Count MPV Sodium Potassium Chloride Carbon Dioxide Anion Gap BUN Creatinine Estimated GFR POC Glucose 79 79 Random Glucose Lactic Acid 1.6 Calcium Prot Corrected Calcium Magnesium Total Bilirubin AST ALT Alkaline Phosphatase Troponin I Total Protein Albumin Random Vancomycin 01/07/18 01/07/18 04:44 04:44 WBC 9.1 RBC 3.77 L Hgb 8.2 L Hct 28.4 L MCV 75.4 L MCH 21.8 L MCHC 28.9 L RDW 24.6 H Plt Count 93 L MPV 9.1 Sodium 149 H Potassium 4.1 Chloride 111 H Carbon Dioxide 27.6 Anion Gap 10 BUN 33 H Creatinine 2.30 H Estimated GFR 28 L POC Glucose Random Glucose 68 L Lactic Acid Calcium 7.3 L* Prot Corrected Calcium 8.0 L Magnesium 1.6 Total Bilirubin 1.7 H AST 36 ALT 20 Alkaline Phosphatase 48 Troponin I Total Protein 5.8 L Albumin 2.1 L Random Vancomycin 17.2 Imaging: Abdomen/Bladder Ultrasound 01/04/18 00:00 CONCLUSION: 1. Chronic parenchymal disease. 2. Bilateral cysts, left more so than right. 3. No obstructive uropathy or other acute abnormality. Head CT 01/04/18 18:15 CONCLUSION: Motion degraded study without evidence of bleed or other acute intracranial abnormality. . Venous Doppler Study 01/04/18 18:15 CONCLUSION: No deep venous thrombosis of either lower extremity but there is superficial venous thrombosis involving the bilateral greater saphenous veins as described. Lumbar Spine CT 01/04/18 18:18 CONCLUSION: 1. No subluxation or acute fracture of the lumbar spine. 2. There is an old, mild compression deformity of L3. 3. Multilevel degenerative changes and diffuse idiopathic skeletal hyperostosis. 4. Pleural effusions and parenchymal consolidation partly seen of the visualized lung bases. 5. Atrophy and apparent hydronephrosis of the left knee. Face CT 01/04/18 20:14 CONCLUSION: 1. Focal minimally displaced fracture of the tip of the nasion. 2. Preseptal soft tissue contusion of the left orbit. 3. Acute on chronic appearing left maxillary sinusitis. Abdomen/Pelvis CT 01/05/18 00:00 CONCLUSION: 1. Bilateral moderate to large pleural effusions, left greater than right with associated lower lobe airspace disease. 2. Abnormal appearance of the left kidney with numerous cortical cysts. Apparent prominence of the renal collecting system does not have a corresponding finding on today's ultrasound exam. However, it remains concerning for mild to moderate hydronephrosis. 3. 7 mm calyceal calculus in the inferior pole of the left kidney. 4. Diffuse anasarca with small amount ascites. 5. Mild sigmoid diverticulosis. 6. Normal appendix. Chest X-Ray 01/07/18 06:00 CONCLUSION: Left lower lobe atelectasis versus pneumonia. There has been no significant change when compared to the prior exam. Objective Remarks: GENERAL: Patient is 77 yo lying in bed in [facility]. HEENT: Atraumatic, normocephalic. Pupils are equal, round. Swelling of the eyelids bilaterally, mainly on the left eye with some discharge and erythema of the left upper eyelid. Mucous membranes dry. NECK: Supple. No JVD, adenopathy, or thyromegaly. Trachea midline. Orotracheally intubated CARDIOVASCULAR: Regular rate and rhythm. Normal S1, S2. No murmurs, rubs or gallops. PULMONARY: Bilateral equal air entry. Diminished breath sounds at the bases. Bilateral pigtail chest tubes in place. ABDOMEN: Soft, nontender. No distention. Positive bowel sounds. EXTREMITIES: No cyanosis or clubbing, 1-2+ edema. NEUROLOGIC: Awake, alert. No obvious focal deficits Assessment and Plan - Assessment and Plan Plan: IMPRESSION: Acute hypercapnic respiratory failure Altered mental status/metabolic encephalopathy Severe anemia. Acute renal failure. Lactic acidemia. Severe sepsis Probable pneumonia Elevated troponin, multifactorial. Bilateral large pleural effusions, status post chest tube Superficial venous thrombosis bilaterally, great saphenous vein. Conjunctivitis of the left eye. Plan Neuro: Awake and alert, avoid sedatives CT scan of the brain in the ED showed no acute intracranial findings. Pulm: Continue with oxygen keep sats >92% Bronchodilators Bilateral pigtail chest tubes placed 01/05/2018. Left chest tube with 1040mL output in 24 hours, right chest tube with 520 mL output in 24 hours Transudative fluid. CV: Monitor HR and BP keep MAP>65mmHg Lactic acid cleared 1.6. On Lasix 40mg BID Echo showed EF 50-55%. Not a candidate for invasive procedures or anticoagulation/antiplatelet therapy at this time due to severe anemia from probable GI bleed Cardiology Dr. Ball following GI: Continue with Protonix drip. GI is following. EGD/colonoscopy when stable per GI Speech eval today, diet per speech CT abdomen and pelvis without contrast-no acute findings Heme: s/p transfusion 2 units PRBC, Hgb stable since admission Monitor CBC and coags ID: Continue abx(vancomycin and aztreonam). strep pneumonia, Legionella urinary antigen negative, Sputum cx: normal resp mechelle. BC: NGTD Endo: Sliding scale insulin with Accu-Cheks to maintain euglycemia. His TSH measured at 4.2 GI prophylaxis with Protonix drip and DVT prophylaxis with SCDs. Chemical anticoagulation prophylaxis contraindicated due to anemia and probable GI bleed. Level 3
--- NOTE | 2018-01-07 12:18 | P.PNGI ---
Subjective Interval history: Eyes closed but does arouse to verbal stimuli appears comfortable O2 per 5 L, current hemoglobin 8.2 no obvious GI bleeding for now <Sejal Felipe M - Last Filed: 01/07/18 12:10> Physical Exam Vital signs: Vital Signs 01/06/18 12:30 01/06/18 12:59 01/06/18 13:00 Temperature Pulse Rate 79 78 78 Respiratory Rate 41 H 24 40 H Blood Pressure 99/50 L 90/45 L Pulse Oximetry 100 100 100 01/06/18 13:30 01/06/18 14:00 01/06/18 14:01 Temperature Pulse Rate 79 79 80 Respiratory Rate 30 H 29 H 25 H Blood Pressure 93/55 L 95/65 L Pulse Oximetry 100 100 100 01/06/18 14:30 01/06/18 15:00 01/06/18 15:01 Temperature Pulse Rate 80 107 H 108 H Respiratory Rate 27 H 42 H 40 H Blood Pressure 111/53 L 94/50 L Pulse Oximetry 100 98 98 01/06/18 15:30 01/06/18 16:00 01/06/18 16:01 Temperature 97.5 F L Pulse Rate 105 H 89 85 Respiratory Rate 27 H 50 H 70 H Blood Pressure 99/60 L 90/47 L Pulse Oximetry 100 99 97 01/06/18 16:30 01/06/18 17:29 01/06/18 20:00 Temperature 98.7 F Pulse Rate 83 86 89 Respiratory Rate 28 H 26 H 22 Blood Pressure 98/49 L 105/50 L Pulse Oximetry 100 90 L 01/06/18 20:10 01/06/18 23:38 01/07/18 00:00 Temperature 98.9 F Pulse Rate 88 96 H 85 Respiratory Rate 16 16 23 Blood Pressure 84/43 L Pulse Oximetry 97 88 L 01/07/18 03:54 01/07/18 04:00 01/07/18 08:00 Temperature 98.6 F Pulse Rate 105 H 106 H 120 H Respiratory Rate 16 18 Blood Pressure 109/55 L Pulse Oximetry 100 01/07/18 11:12 Temperature Pulse Rate 123 H Respiratory Rate 22 Blood Pressure Pulse Oximetry 93 L Intake & Output 01/06/18 01/07/18 01/07/18 18:59 06:59 18:59 Intake Total 530 / 530 500 / 500 Output Total 605 / 605 1010 / 1010 Balance -75 / -75 -510 / -510 Weight 85 kg Intake: IV 350 / 350 500 / 500 Protonix Inj 80 MG In NS Inj 100 / 100 100 / 100 100 ML @ 10 mls/hr IV.CONT Q10H [facility] Rx#:[id number] Flexbumin 25% Inj 100 ML @ 60 100 / 100 mls/hr IV.SIG ONCE ONE Rx#: [id number] Azactam Inj 1,000 MG In NS Inj 300 / 300 100 ML @ 200 mls/hr IV.SIG Q8H [facility] Rx#:[id number] Vancomycin Inj 1,000 MG In NS 250 / 250 Inj 250 ML @ 250 mls/hr IV.SIG ONCE ONE Rx#:[id number] Oral 0 / 0 Tube Irrigant 180 / 180 Output: Urine Amount (Catheter) 175 / 175 400 / 400 Indwelling Urethral Catheter 175 / 175 400 / 400 Chest Tube Drainage 430 / 430 610 / 610 Left Upper Pleural 200 / 200 320 / 320 Right Upper Pleural 230 / 230 290 / 290 Other: # Bowel Movements 0 0 - Constitutional mild distress, obese (Round abdomen) - Routine HEENT Exam Head: Present: normocephalic, facial swelling (Orbital and generalized) ENT: Present: mucous membranes moist - Routine Neck Exam Present: supple - Routine Respiratory Exam Present: decreased breath sounds (No obvious wheezing or rhonchi) - Routine Cardiovascular Exam Present: S1, S2 - Routine Abdominal Exam Present: soft (Round, mild distention but no obvious abdominal pain bowel sounds are soft) - Routine Skin Exam Present: intact, pallor - Urinary Catheter Management Indwelling Urethral Catheter Cath placed during this visit: yes Reason for continuing: Other continuation reason Insertion date: 01/04/18 Insertion time: 22:20 <Sejal Felipe - Last Filed: 01/07/18 12:10> Vital signs: Vital Signs 01/06/18 17:29 01/06/18 20:00 01/06/18 20:10 Temperature 98.7 F Pulse Rate 86 89 88 Respiratory Rate 26 H 22 16 Blood Pressure 105/50 L Pulse Oximetry 90 L 97 01/06/18 23:38 01/07/18 00:00 01/07/18 03:54 Temperature 98.9 F Pulse Rate 96 H 85 105 H Respiratory Rate 16 23 16 Blood Pressure 84/43 L Pulse Oximetry 88 L 10/05/18 04:00 01/07/18 08:00 01/07/18 11:12 Temperature 98.6 F 98.2 F Pulse Rate 106 H 121 H 123 H Respiratory Rate 18 21 22 Blood Pressure 109/55 L 93/53 L Pulse Oximetry 100 93 L 01/07/18 12:00 01/07/18 16:00 Temperature 98.5 F 98.1 F Pulse Rate 123 H 125 H Respiratory Rate 21 16 Blood Pressure 98/54 L 96/55 L Pulse Oximetry Intake & Output 01/06/18 01/07/18 01/07/18 18:59 06:59 18:59 Intake Total 530 / 530 500 / 500 Output Total 605 / 605 1010 / 1010 Balance -75 / -75 -510 / -510 Weight 85 kg Intake: IV 350 / 350 500 / 500 Protonix Inj 80 MG In NS Inj 100 / 100 100 / 100 100 ML @ 10 mls/hr IV.CONT Q10H [facility] Rx#:[id number] Flexbumin 25% Inj 100 ML @ 60 100 / 100 mls/hr IV.SIG ONCE ONE Rx#: [id number] Azactam Inj 1,000 MG In NS Inj 300 / 300 100 ML @ 200 mls/hr IV.SIG Q8H [facility] Rx#:[id number] Vancomycin Inj 1,000 MG In NS 250 / 250 Inj 250 ML @ 250 mls/hr IV.SIG ONCE ONE Rx#:[id number] Oral 0 / 0 Tube Irrigant 180 / 180 Output: Urine Amount (Catheter) 175 / 175 400 / 400 Indwelling Urethral Catheter 175 / 175 400 / 400 Chest Tube Drainage 430 / 430 610 / 610 Left Upper Pleural 200 / 200 320 / 320 Right Upper Pleural 230 / 230 290 / 290 Other: # Bowel Movements 0 0 - Urinary Catheter Management Indwelling Urethral Catheter Cath placed during this visit: no <Feliciano Gabriel E - Last Filed: 01/07/18 17:01> Results - Labs CBC & Chem 7: 01/07/18 04:44 01/07/18 04:44 Laboratory Results - last 24 hr 01/06/18 01/06/18 01/06/18 12:19 12:41 14:50 WBC RBC Hgb Hct MCV MCH MCHC RDW Plt Count MPV Puncture Site Right radial Patient Temperature 98.6 O2 Saturation 93 ABG pH 7.35 L ABG pCO2 50 H ABG pO2 88 ABG HCO3 27 H ABG O2 Content 10.7 L ABG Base Excess 1.7 ABG Methemoglobin 1.4 Eh Test Present Hemoglobin 8.1 L Carboxyhemoglobin 2.1 O2 Delivery Device Ventilator Vent Setting 5/+5 Inspired O2 35 Critical Value No Sodium Potassium Chloride Carbon Dioxide Anion Gap BUN Creatinine Estimated GFR POC Glucose 66 L 118 H Random Glucose Lactic Acid Calcium Prot Corrected Calcium Magnesium Total Bilirubin AST ALT Alkaline Phosphatase Troponin I Total Protein Albumin Random Vancomycin 01/06/18 01/06/18 01/06/18 16:30 20:02 23:18 WBC 7.9 D RBC 3.62 L Hgb 7.8 L Hct 26.7 L MCV 73.9 L MCH 21.6 L MCHC 29.2 L RDW 24.1 H Plt Count 98 L MPV 8.5 Puncture Site Patient Temperature O2 Saturation ABG pH ABG pCO2 ABG pO2 ABG HCO3 ABG O2 Content ABG Base Excess ABG Methemoglobin Eh Test Hemoglobin Carboxyhemoglobin O2 Delivery Device Vent Setting Inspired O2 Critical Value Sodium Potassium Chloride Carbon Dioxide Anion Gap BUN Creatinine Estimated GFR POC Glucose 72 73 Random Glucose Lactic Acid Calcium Prot Corrected Calcium Magnesium Total Bilirubin AST ALT Alkaline Phosphatase Troponin I Total Protein Albumin Random Vancomycin 01/06/18 01/06/18 01/07/18 23:18 23:18 00:06 WBC RBC Hgb Hct MCV MCH MCHC RDW Plt Count MPV Puncture Site Patient Temperature O2 Saturation ABG pH ABG pCO2 ABG pO2 ABG HCO3 ABG O2 Content ABG Base Excess ABG Methemoglobin Eh Test Hemoglobin Carboxyhemoglobin O2 Delivery Device Vent Setting Inspired O2 Critical Value Sodium 149 H Potassium 3.9 D Chloride 111 H Carbon Dioxide 29.7 Anion Gap 8 BUN 34 H Creatinine 2.23 H Estimated GFR 29 L POC Glucose 79 Random Glucose 81 Lactic Acid 1.6 Calcium 7.1 L* Prot Corrected Calcium 8.0 L Magnesium Total Bilirubin AST ALT Alkaline Phosphatase Troponin I 0.27 H Total Protein 5.4 L Albumin Random Vancomycin 01/07/18 01/07/18 01/07/18 03:51 04:44 04:44 WBC 9.1 RBC 3.77 L Hgb 8.2 L Hct 28.4 L MCV 75.4 L MCH 21.8 L MCHC 28.9 L RDW 24.6 H Plt Count 93 L MPV 9.1 Puncture Site Patient Temperature O2 Saturation ABG pH ABG pCO2 ABG pO2 ABG HCO3 ABG O2 Content ABG Base Excess ABG Methemoglobin Eh Test Hemoglobin Carboxyhemoglobin O2 Delivery Device Vent Setting Inspired O2 Critical Value Sodium 149 H Potassium 4.1 Chloride 111 H Carbon Dioxide 27.6 Anion Gap 10 BUN 33 H Creatinine 2.30 H Estimated GFR 28 L POC Glucose 79 Random Glucose 68 L Lactic Acid Calcium 7.3 L* Prot Corrected Calcium 8.0 L Magnesium 1.6 Total Bilirubin 1.7 H AST 36 ALT 20 Alkaline Phosphatase 48 Troponin I Total Protein 5.8 L Albumin 2.1 L Random Vancomycin 17.2 01/07/18 12:06 WBC RBC Hgb Hct MCV MCH MCHC RDW Plt Count MPV Puncture Site Patient Temperature O2 Saturation ABG pH ABG pCO2 ABG pO2 ABG HCO3 ABG O2 Content ABG Base Excess ABG Methemoglobin Eh Test Hemoglobin Carboxyhemoglobin O2 Delivery Device Vent Setting Inspired O2 Critical Value Sodium Potassium Chloride Carbon Dioxide Anion Gap BUN Creatinine Estimated GFR POC Glucose 78 Random Glucose Lactic Acid Calcium Prot Corrected Calcium Magnesium Total Bilirubin AST ALT Alkaline Phosphatase Troponin I Total Protein Albumin Random Vancomycin Microbiology 01/06/18 00:40 Blood - Peripheral Aerobic Blood Culture - Preliminary No growth in 1 day 01/06/18 00:40 Blood - Peripheral Anaerobic Blood Culture - Final QNS - See aerobic report. 01/06/18 00:45 Blood - Peripheral Aerobic Blood Culture - Preliminary No growth in 1 day 01/06/18 00:45 Blood - Peripheral Anaerobic Blood Culture - Final QNS - See aerobic report. 01/04/18 18:55 Blood - Peripheral Aerobic Blood Culture - Preliminary No growth in 3 days 01/04/18 18:55 Blood - Peripheral Anaerobic Blood Culture - Preliminary No growth in 3 days 01/04/18 19:04 Blood - Peripheral Aerobic Blood Culture - Preliminary No growth in 3 days 01/04/18 19:04 Blood - Peripheral Anaerobic Blood Culture - Preliminary No growth in 3 days 01/05/18 08:25 Sputum - Endotracheal Gram Stain - Final 01/05/18 08:25 Sputum - Endotracheal Sputum Culture - Final Rare growth normal respiratory mechelle 01/05/18 08:00 Fluid - Pleural fluid Gram Stain - Final 01/05/18 08:00 Fluid - Pleural fluid Body Fluid Culture - Preliminary No growth in 48 hours 01/04/18 22:20 Catheterized Urine Urine Culture - Final No growth in 48 hours 01/05/18 08:00 Other Acid Fast Bacilli Smear - Final No acid fast bacilli seen - Imaging Impressions Chest X-Ray 01/07/18 06:00 CONCLUSION: Left lower lobe atelectasis versus pneumonia. There has been no significant change when compared to the prior exam. <Sejal Felipe - Last Filed: 01/07/18 12:10> - Labs CBC & Chem 7: 01/07/18 04:44 01/07/18 04:44 Laboratory Results - last 24 hr 01/06/18 01/06/18 01/06/18 20:02 23:18 23:18 WBC 7.9 D RBC 3.62 L Hgb 7.8 L Hct 26.7 L MCV 73.9 L MCH 21.6 L MCHC 29.2 L RDW 24.1 H Plt Count 98 L MPV 8.5 Sodium 149 H Potassium 3.9 D Chloride 111 H Carbon Dioxide 29.7 Anion Gap 8 BUN 34 H Creatinine 2.23 H Estimated GFR 29 L POC Glucose 73 Random Glucose 81 Lactic Acid Calcium 7.1 L* Prot Corrected Calcium 8.0 L Magnesium Total Bilirubin AST ALT Alkaline Phosphatase Troponin I 0.27 H Total Protein 5.4 L Albumin Random Vancomycin 01/06/18 01/07/18 01/07/18 23:18 00:06 03:51 WBC RBC Hgb Hct MCV MCH MCHC RDW Plt Count MPV Sodium Potassium Chloride Carbon Dioxide Anion Gap BUN Creatinine Estimated GFR POC Glucose 79 79 Random Glucose Lactic Acid 1.6 Calcium Prot Corrected Calcium Magnesium Total Bilirubin AST ALT Alkaline Phosphatase Troponin I Total Protein Albumin Random Vancomycin 01/07/18 01/07/18 01/07/18 04:44 04:44 12:06 WBC 9.1 RBC 3.77 L Hgb 8.2 L Hct 28.4 L MCV 75.4 L MCH 21.8 L MCHC 28.9 L RDW 24.6 H Plt Count 93 L MPV 9.1 Sodium 149 H Potassium 4.1 Chloride 111 H Carbon Dioxide 27.6 Anion Gap 10 BUN 33 H Creatinine 2.30 H Estimated GFR 28 L POC Glucose 78 Random Glucose 68 L Lactic Acid Calcium 7.3 L* Prot Corrected Calcium 8.0 L Magnesium 1.6 Total Bilirubin 1.7 H AST 36 ALT 20 Alkaline Phosphatase 48 Troponin I Total Protein 5.8 L Albumin 2.1 L Random Vancomycin 17.2 01/07/18 16:34 WBC RBC Hgb Hct MCV MCH MCHC RDW Plt Count MPV Sodium Potassium Chloride Carbon Dioxide Anion Gap BUN Creatinine Estimated GFR POC Glucose 85 Random Glucose Lactic Acid Calcium Prot Corrected Calcium Magnesium Total Bilirubin AST ALT Alkaline Phosphatase Troponin I Total Protein Albumin Random Vancomycin Microbiology 01/06/18 00:40 Blood - Peripheral Aerobic Blood Culture - Preliminary No growth in 1 day 01/06/18 00:40 Blood - Peripheral Anaerobic Blood Culture - Final QNS - See aerobic report. 01/06/18 00:45 Blood - Peripheral Aerobic Blood Culture - Preliminary No growth in 1 day 01/06/18 00:45 Blood - Peripheral Anaerobic Blood Culture - Final QNS - See aerobic report. 01/04/18 18:55 Blood - Peripheral Aerobic Blood Culture - Preliminary No growth in 3 days 01/04/18 18:55 Blood - Peripheral Anaerobic Blood Culture - Preliminary No growth in 3 days 01/04/18 19:04 Blood - Peripheral Aerobic Blood Culture - Preliminary No growth in 3 days 01/04/18 19:04 Blood - Peripheral Anaerobic Blood Culture - Preliminary No growth in 3 days 01/05/18 08:25 Sputum - Endotracheal Gram Stain - Final 01/05/18 08:25 Sputum - Endotracheal Sputum Culture - Final Rare growth normal respiratory mechelle 01/05/18 08:00 Fluid - Pleural fluid Gram Stain - Final 01/05/18 08:00 Fluid - Pleural fluid Body Fluid Culture - Preliminary No growth in 48 hours 01/04/18 22:20 Catheterized Urine Urine Culture - Final No growth in 48 hours - Imaging Impressions Chest X-Ray 01/07/18 06:00 CONCLUSION: Left lower lobe atelectasis versus pneumonia. There has been no significant change when compared to the prior exam. <Feliciano Gabriel - Last Filed: 01/07/18 17:01> Assessment and Plan - Plan - Anemia/heme (+) stools- NO signs of active bleed. initial hemoglobin 6.1 with 2 units transfusion with good response hh stable, hgb today 8.3 Abdomen/Pelvis CT 01/05/18 1. Bilateral moderate to large pleural effusions, left greater than right with associated lower lobe airspace disease. 2. Abnormal appearance of the left kidney with numerous cortical cysts. Apparent prominence of the renal collecting system does not have a corresponding finding on today's ultrasound exam. However, it remains concerning for mild to moderate hydronephrosis. 3. 7 mm calyceal calculus in the inferior pole of the left kidney. 4. Diffuse anasarca with small amount ascites. 5. Mild sigmoid diverticulosis. 6. Normal appendix. - Coagulopathy with PT/INR 1.6 , no known blood thinners, could be related to liver disease - hyperbilirubinemia with elevated AST, improving, could be secondary to EtOH versus medications versus cirrhosis versus hepatocellular disease. Patient has diffuse anasarca and small amount of ascites. - Positive troponin cardiology on the case - Large pleural effusions chest tubes in place - Respiratory failure, intubated per [facility], plans for extubation today 01/07/2018 patient continues in the intensive care setting eyes closed but does respond and arouse to verbal stimuli. Currently being managed with oxygen per nasal cannula 5 L. No obvious shortness of breath anemia remains present without obvious bleeding current hemoglobin 8.2 PT/INR 1.6 on 01/04/2018, bilirubin 1.7 AST 36, ALT 20, alkaline phosphatase 48. Continues with chest tubes, noted tachycardic heart rate this a.m. approximately 123, probable atrial tach. Anemia, probable acute on chronic disease History of EtOH abuse, mild elevated bilirubin, coagulopathy Portal hypertension, probable, probably secondary to EtOH, albumin dose given on 01/06/2018 Plan Diet per attending Monitor labs, especially for any change in hemoglobin or obvious bleeding Transfuse as needed PPI drip Consider spironolactone IV Lasix consider EGD and colonoscopy once medically stable Further recommendations to follow Patient was seen per myself and Dr. Gabriel, note was written on his behalf <Sejal Felipe - Last Filed: 01/07/18 12:10> - Plan Patient seen and examined Agree with above Continue with current supportive care Monitor labs We will give the patient more albumin as he continues to drain through the chest tubes <Feliciano Gabriel - Last Filed: 01/07/18 17:01>
--- NOTE | 2018-01-07 14:53 | P.DIET ---
Nutritional Evaluation Type of nutrition evaluation: initial Nutrition consult regarding: Diet Evaluation Nutrition screening: MDC (Tubefeeding) Objective - Diagnosis Weakness. PMH see H&P - Objective [place] body weight: 70 kg % IBW: 121 Energy Needs - Lower Range (kCal/kg): 28 Energy Needs - Upper Range (kCal/kg): 32 Lower Limit kCal/kg (kCals): 2,380 Upper Limit kCal/kg (kCals): 2,720 Lower Limit Protein Factor (Grams per Kg): 0.8 Upper Limit Protein Factor (Grams per Kg): 1.2 Lower Protein Needs (Protein): 68 Upper Protein Needs (Protein): 102 Dietitian Reviewed in Medical Record: Current diet, Curent medications, Intake & Output, Labs, Medical history Diet Order: NPO Assessment Assessment: Pt. is at nutritional risk due to dx. Pt. was came to the ED for weakness and + blood in stool, hemoglobin was 6.1. Pt. was then intubated and sedated, now extubated. BUN and Cr. are elevated and trending up slowly, +UOP. Abdominal/ Pelvis CT was done and found abnormal appearance of the left kidney with numerous cortical cysts. Apparent prominence of the renal collecting system does not have a corresponding finding on today's ultrasound exam. However, it remains concerning for mild to moderate hydronephrosis. A 7 mm calyceal calculus in the inferior pole of the left kidney was also found. MD also noted pt. has mild ascites which could explain the wt. loss since admission. Pt. has a PMH of ETOH abuse. Recommend starting Thiamin, Theragran M QD and Folic acide. Also recommend and regular diet with the addition of speech's consistency recommendation. Record % of PO intake in EMR. Monitor PO intake, renal labs, UOP and wt. Recommendations: 1. Recommend starting Thiamin, Theragran M QD and Folic acide. 2. Also recommend and regular diet with the addition of speech's consistency recommendation. 3. Record % of PO intake in EMR. Monitor PO intake, renal labs, UOP and wt. Dietitian to Monitor: Lab values, Renal labs, Intake & Output, Diet tolerance, Weight change, PO Intake, Diet advancement, Medical course
[2018-01-07] MEDS ORDERED: Vancomycin Inj 1,250 MG in Sodium Chlor 0.9% Inj 250 ML IV.SIG ONE (18:00)
[2018-01-07] MEDS: Senna/Docusate Sodium 8.6/50 MG Tablet PO SCH ×2 (19:41→22:06)
[2018-01-07] MEDS: Pantoprazole Inj 80 MG in Sodium Chlor 0.9% Inj 100 ML IV.CONT SCH ×2 (19:42→22:04)
[2018-01-07] MEDS: Albumin Human 25% Inj 100 ML IV.SIG SCH ×2 (19:44→23:21)
[2018-01-07] MEDS: Dextrose 50% in Water 50 ML Vial IV.PUSH PRN (20:00)
[2018-01-07] MEDS ORDERED: Pharmacy Ordered Lab Info OTHER ONE (20:45)
[2018-01-07] MEDS: Dextrose 10% in Water Inj 1,000 ML IV.CONT SCH (21:40)
[2018-01-08] MEDS: Insulin NovoLIN Regular Correctional Sugar Inj SQ SCH ×6 (01:36→20:02)
--- NOTE | 2018-01-08 03:38 | XR ---
EXAM DATE: 01/08/2018 12:00 AM EDT AGE/SEX: 77 years / Male INDICATIONS: Shortness of breath, possible pulmonary disease. CLINICAL DATA: This is the patient's subsequent encounter. Patient reports that signs and symptoms h ave been present for 1 week and indicates a pain score of Nonresponsive. MEDICAL/SURGICAL HISTORY: Anemia. Congestive heart failure. Sepsis. None. COMPARISON: [facility] [place], CHEST 1V SINGLE AP, 01/07/2018. . FINDINGS: There is persistent moderate consolidative change in the left lung base and mild consolidative change in the right lung base. Visualized cardiac contours are grossly unchanged. CONCLUSION: No significant change Electronically signed by: Edgar Orellana MD 01/08/2018 3:36 AM EDT
[2018-01-08 04:06] LABS: Baso % (Auto) 0.5 % (0.0-2.0); Eos % (Auto) 0.4 % (0.0-4.0); Hematocrit 25.8 % (39.0-51.0); Hemoglobin 7.3 gm/dL (13.0-17.0); Lymph # (Auto) 0.6 th/mm3 (1.0-4.8); Lymph % (Auto) 6.2 % (9.0-44.0); Mean Corpuscular Hemoglobin 21.6 pg (27.0-34.0); Mean Platelet Volume 8.7 fL (7.0-11.0); Mono # (Auto) 0.9 th/mm3 (0.0-0.9); Mono % (Auto) 8.7 % (0.0-8.0); Neut # (Auto) 8.7 th/mm3 (1.8-7.7); Neut % (Auto) 84.2 % (16.0-70.0); Platelet Count 59 th/mm3 (150-450); Red Blood Count 3.39 mil/mm3 (4.50-5.90); Red Cell Distribution Width 24.6 % (11.6-17.2); White Blood Count 10.4 th/mm3 (4.0-11.0)
[2018-01-08] MEDS: Chlorhexidine Gluconate 2% 1 Pack (2 Cloths) TOPICAL SCH (04:08)
[2018-01-08 04:22] LABS: Mean Corpuscular HGB Conc 28.5 % (32.0-36.0)
[2018-01-08 04:40] LABS: Albumin 1.8 g/dL (3.4-5.0); Calcium 7.3 mg/dL (8.5-10.1); Carbon Dioxide 30.3 meq/L (21.0-32.0); Magnesium 1.6 mg/dL (1.5-2.5); Phosphorus 2.5 mg/dL (2.5-4.9); Potassium 3.7 meq/L (3.5-5.1)
[2018-01-08 05:00] LABS: Platelet Morphology Normal (Normal); Spherocytes Occ
[2018-01-08 05:02] LABS: Target Cells 1+
[2018-01-08 05:03] LABS: Ovalocytes 1+
[2018-01-08] MEDS: Pantoprazole Inj 80 MG in Sodium Chlor 0.9% Inj 100 ML IV.CONT SCH ×2 (06:00→14:54)
[2018-01-08] MEDS: Albumin Human 25% Inj 100 ML IV.SIG SCH ×2 (06:00→14:54)
[2018-01-08] MEDS: Senna/Docusate Sodium 8.6/50 MG Tablet PO SCH ×2 (08:32→20:02)
[2018-01-08] MEDS ORDERED: Sodium Chlor 0.9% Inj 250 ML IV.SIG SCH (09:00)
--- NOTE | 2018-01-08 09:16 | P.PNCC ---
Subjective Subjective Remarks/Hospital Course: The patient is a 77-year-old male with an unknown past medical history, who presented to [facility] ED for generalized weakness. The patient does not really follow up with a physician and takes no medications at home. Per ED nurse, he had fallen multiple times today and was on the floor for some time. Apparently the evac stated that he did not want to come however, he was told that he needed to come in for further evaluation and management. On arrival, he was tachycardic with heart rate of 102 and a blood pressure of 127/ 58. His initial laboratory data showed anemia with hemoglobin 6.6 and acute renal failure with a creatinine level of 2.0. Also, he was found to have elevated lactic acid level at 6.8 and elevated troponin at 0.64. His BNP was 3405. The patient underwent a CT scan of the brain in EGD, which showed no acute intracranial abnormalities. He also had a lumbar spine CT, which showed no subluxation or acute fracture of the lumbar spine. CT of the facial bones showed preseptal soft tissue contusion of the left orbit and a chest x-ray showed bilateral pleural effusions with basilar consolidation, left greater than the right. Most of the history was obtained from reviewing medical records as the patient is a poor historian. In the ED, he was given normal saline 250, Lasix 40 mg IV push, and placed on a Protonix drip. He also received 1 dose of vancomycin. Per records, he also had purulent discharge from his left eye that caused his eyelid to swell. The patient also had a venous Doppler ultrasound, which showed no deep vein thrombosis; however, there is superficial venous thrombosis involving the bilateral great saphenous veins. SUBJ 01/05/18: Patient currently on BiPAP remains very lethargic not following commands not opening eyes to command. PH remains at 7.27 despite several hours on BiPAP PCO2 60. Ultrasound shows large bilateral effusions left larger than right. Because of respiratory acidosis, altered mental status and large pleural effusion patient was intubated and placed on mechanical ventilation. Following this I placed a left pigtail chest tube, initial output was 2 L clear straw colored fluid 01/06: Remains intubated sedated on sedation hold intermittently following commands. Bilateral large pleural effusions drained yesterday. Since placement yesterday left side has drained more than 3 L, right side has drained more than 2 L. Hemoglobin remained stable no obvious bleeding. Fluid studies consistent with transudative effusion. IV Lasix started by cardiology with urine output more than 2 L 01/07 Patient is extubated and on 4L oxygen with good sats, Afebrile. Had episode of hypotension overnight given Albumin, Lopressor held BP now 103/54 with MAP 77mmHg. 01/05: Breathing comfortably tachycardic though sinus. Heart rate 120 bpm. Metoprolol is being held I will resume metoprolol 25 mg twice daily. Hemoglobin 7.3 transfuse 1 unit PRBC. Chest tubes with high output right side 3 3 mL on left side for 3 mL in 24 hours. Objective Vital Signs / I&O: Vital Signs 01/07/18 11:12 01/07/18 12:00 01/07/18 16:00 Temperature 98.5 F 98.1 F Pulse Rate 123 H 123 H 125 H Respiratory Rate 22 21 16 Blood Pressure 98/54 L 96/55 L Pulse Oximetry 93 L 01/07/18 17:31 01/07/18 20:00 01/07/18 20:11 Temperature 97.8 F Pulse Rate 127 H 129 H 118 H Respiratory Rate 23 24 16 Blood Pressure 113/53 L Pulse Oximetry 97 100 01/08/18 00:00 01/08/18 00:05 01/08/18 03:07 Temperature 97.7 F Pulse Rate 130 H 128 H 119 H Respiratory Rate 22 18 16 Blood Pressure 107/56 L Pulse Oximetry 99 01/08/18 04:00 01/08/18 08:47 Temperature 98.1 F Pulse Rate 130 H 125 H Respiratory Rate 22 21 Blood Pressure 115/57 L Pulse Oximetry 100 97 Intake & Output 01/07/18 01/08/18 01/08/18 18:59 06:59 18:59 Intake Total 200 / 200 1342.5 / 1342.5 Output Total 1000 / 1000 1150 / 1150 Balance -800 / -800 192.5 / 192.5 Weight 85 kg Intake: IV 200 / 200 862.5 / 862.5 Protonix Inj 80 MG In NS Inj 100 / 100 200 / 200 100 ML @ 10 mls/hr IV.CONT Q10H [facility] Rx#:[id number] Flexbumin 25% Inj 100 ML @ 60 200 / 200 mls/hr IV.SIG Q8HR [facility] Rx#: [id number] Azactam Inj 1,000 MG In NS Inj 100 / 100 200 / 200 100 ML @ 200 mls/hr IV.SIG Q8H [facility] Rx#:[id number] Vancomycin Inj 1,250 MG In NS 262.5 / 262.5 Inj 250 ML @ 262.5 mls/hr IV. SIG ONCE ONE Rx#:[id number] Oral 0 / 0 480 / 480 Output: Urine 350 / 350 Pleural Fluid 850 / 850 Urine Amount (Catheter) 150 / 150 Indwelling Urethral Catheter 150 / 150 Chest Tube Drainage 800 / 800 Left Upper Pleural 450 / 450 Right Upper Pleural 350 / 350 Other: # Bowel Movements 0 Result Diagrams: 01/08/18 03:20 01/08/18 03:20 Objective Remarks: GENERAL: Patient is 77 yo lying in bed in [facility]. HEENT: Atraumatic, normocephalic. Pupils are equal, round. Swelling of the eyelids bilaterally, left eye conjunctivitis improving NECK: Supple. No JVD, adenopathy, or thyromegaly. Trachea midline. CARDIOVASCULAR: Tachycardic rate and sinus rhythm. Normal S1, S2. No murmurs, rubs or gallops. PULMONARY: Bilateral equal air entry. Diminished breath sounds at the bases. Bilateral pigtail chest tubes in place 350 mL output from right side in 24 hours , 450 mL from left side in 24 hours ABDOMEN: Soft, nontender. No distention. Positive bowel sounds. EXTREMITIES: No cyanosis or clubbing, 1-2+ edema. NEUROLOGIC: Awake, alert. No obvious focal deficits. Following commands Assessment and Plan - Assessment and Plan Plan: IMPRESSION: Acute hypercapnic respiratory failure Altered mental status/metabolic encephalopathy Severe anemia. Acute renal failure. Lactic acidemia. Severe sepsis Probable pneumonia Elevated troponin, multifactorial. Bilateral large pleural effusions, status post chest tube Superficial venous thrombosis bilaterally, great saphenous vein. Conjunctivitis of the left eye. Plan Neuro: Awake and alert, avoid sedatives CT scan of the brain in the ED showed no acute intracranial findings. Pulm: Continue with oxygen keep sats >90%. Bronchodilators Bilateral pigtail chest tubes placed 01/05/2018. Left chest tube with 450 L output in 24 hours, right chest tube with 350 mL output in 24 hours Transudative fluid. CV: Monitor HR and BP keep MAP>65mmHg Lactic acid cleared 1.6. On Lasix 40mg BID iv-reduce dose due to 20 mg IV twice daily, due to worsening renal function\ Echo showed EF 50-55%. Not a candidate for invasive procedures or anticoagulation/antiplatelet therapy at this time due to severe anemia Cardiology Dr. Ball following Restart metoprolol due to tachycardia GI: Continue with Protonix drip. GI is following. EGD/colonoscopy when stable per GI Speech eval today, diet per speech. CT abdomen and pelvis without contrast -no acute findings Heme: s/p transfusion 2 units PRBC, Hgb stable since admission. Transfuse 1 unit PRBC today due to hemoglobin of 7.3 Monitor CBC and coags ID: Continue abx(vancomycin and aztreonam).vancomycin today. Strep pneumonia, Legionella urinary antigen negative, Sputum cx: normal resp mechelle. BC: NGTD Endo: Sliding scale insulin with Accu-Cheks to maintain euglycemia. His TSH measured at 4.2 GI prophylaxis with Protonix drip and DVT prophylaxis with SCDs. Chemical anticoagulation prophylaxis contraindicated due to anemia and probable GI bleed. Level 3 Code Status: FULL
[2018-01-08] MEDS: Metoprolol Tartrate 25 MG Tablet PO SCH ×2 (10:00→20:02)
--- NOTE | 2018-01-08 12:48 | P.PNGI ---
Subjective Interval history: Awake and alert nodding to questions. No apparent discomfort, no obvious bleeding reported. <Jaqueline Lovelace - Last Filed: 01/08/18 12:37> Physical Exam Vital signs: Vital Signs 01/07/18 16:00 01/07/18 17:31 01/07/18 20:00 Temperature 98.1 F 97.8 F Pulse Rate 125 H 127 H 129 H Respiratory Rate 16 23 24 Blood Pressure 96/55 L 113/53 L Pulse Oximetry 97 01/07/18 20:11 01/08/18 00:00 01/08/18 00:05 Temperature 97.7 F Pulse Rate 118 H 130 H 128 H Respiratory Rate 16 22 18 Blood Pressure 107/56 L Pulse Oximetry 100 99 01/08/18 03:07 01/08/18 04:00 01/08/18 08:00 Temperature 98.1 F 98.0 F Pulse Rate 119 H 130 H 125 H Respiratory Rate 16 22 18 Blood Pressure 115/57 L 108/57 L Pulse Oximetry 100 98 01/08/18 08:47 01/08/18 10:00 01/08/18 11:24 Temperature 98 F Pulse Rate 125 H 127 H 124 H Respiratory Rate 21 28 H Blood Pressure 103/59 L Pulse Oximetry 97 92 L 01/08/18 11:41 Temperature 98.3 F Pulse Rate 124 H Respiratory Rate 24 Blood Pressure 112/56 L Pulse Oximetry 99 Intake & Output 01/07/18 01/08/18 01/08/18 18:59 06:59 18:59 Intake Total 200 / 200 1342.5 / 1342.5 0 / 0 Output Total 1000 / 1000 1150 / 1150 Balance -800 / -800 192.5 / 192.5 0 / 0 Weight 85 kg Intake: IV 200 / 200 862.5 / 862.5 Protonix Inj 80 MG In NS Inj 100 / 100 200 / 200 100 ML @ 10 mls/hr IV.CONT Q10H RENA Rx#:[id number] Flexbumin 25% Inj 100 ML @ 60 200 / 200 mls/hr IV.SIG Q8HR RENA Rx#: [id number] Azactam Inj 1,000 MG In NS Inj 100 / 100 200 / 200 100 ML @ 200 mls/hr IV.SIG Q8H RENA Rx#:[id number] Vancomycin Inj 1,250 MG In NS 262.5 / 262.5 Inj 250 ML @ 262.5 mls/hr IV. SIG ONCE ONE Rx#:[id number] Oral 0 / 0 480 / 480 Intake (Blood Product) Amt 0 / 0 Rbc As-3 Leukoreduced Unit 0 / 0 [id number] Output: Urine 350 / 350 Pleural Fluid 850 / 850 Urine Amount (Catheter) 150 / 150 Indwelling Urethral Catheter 150 / 150 Chest Tube Drainage 800 / 800 Left Upper Pleural 450 / 450 Right Upper Pleural 350 / 350 Other: # Bowel Movements 0 - Constitutional no acute distress - Routine HEENT Exam Head: Present: normocephalic - Routine Respiratory Exam Present: decreased breath sounds - Routine Cardiovascular Exam Present: RRR - Routine Abdominal Exam Present: soft, normoactive bowel sounds, distended. Absent: tenderness - Routine Extremities Exam Present: pulses intact. Absent: edema - Routine Skin Exam Present: dry, warm - Routine Neurological Exam Present: alert - Detailed Neurological Exam: Coma Scale Eye Opening: Spontaneous - Urinary Catheter Management Indwelling Urethral Catheter Cath placed during this visit: yes, but has since been removed by the nurse Reason for continuing: Other continuation reason Insertion date: 01/04/18 Insertion time: 22:20 Removal date: 01/07/18 Removal time: 12:25 <Jaqueline Lovelace - Last Filed: 01/08/18 12:37> Vital signs: Vital Signs 01/07/18 16:00 01/07/18 17:31 01/07/18 20:00 Temperature 98.1 F 97.8 F Pulse Rate 125 H 127 H 129 H Respiratory Rate 16 23 24 Blood Pressure 96/55 L 113/53 L Pulse Oximetry 97 01/07/18 20:11 01/08/18 00:00 01/08/18 00:05 Temperature 97.7 F Pulse Rate 118 H 130 H 128 H Respiratory Rate 16 22 18 Blood Pressure 107/56 L Pulse Oximetry 100 99 01/08/18 03:07 01/08/18 04:00 01/08/18 08:00 Temperature 98.1 F 98.0 F Pulse Rate 119 H 130 H 125 H Respiratory Rate 16 22 18 Blood Pressure 115/57 L 108/57 L Pulse Oximetry 100 98 01/08/18 08:47 01/08/18 10:00 01/08/18 11:24 Temperature 98 F Pulse Rate 125 H 127 H 124 H Respiratory Rate 21 28 H Blood Pressure 103/59 L Pulse Oximetry 97 92 L 01/08/18 11:41 01/08/18 12:00 Temperature 98.3 F 98.3 F Pulse Rate 124 H 124 H Respiratory Rate 24 24 Blood Pressure 112/56 L 112/56 L Pulse Oximetry 99 97 Intake & Output 01/07/18 01/08/18 01/08/18 18:59 06:59 18:59 Intake Total 200 / 200 1342.5 / 1342.5 0 / 0 Output Total 1000 / 1000 1150 / 1150 Balance -800 / -800 192.5 / 192.5 0 / 0 Weight 85 kg Intake: IV 200 / 200 862.5 / 862.5 Protonix Inj 80 MG In NS Inj 100 / 100 200 / 200 100 ML @ 10 mls/hr IV.CONT Q10H RENA Rx#:[id number] Flexbumin 25% Inj 100 ML @ 60 200 / 200 mls/hr IV.SIG Q8HR RENA Rx#: [id number] Azactam Inj 1,000 MG In NS Inj 100 / 100 200 / 200 100 ML @ 200 mls/hr IV.SIG Q8H RENA Rx#:[id number] Vancomycin Inj 1,250 MG In NS 262.5 / 262.5 Inj 250 ML @ 262.5 mls/hr IV. SIG ONCE ONE Rx#:[id number] Oral 0 / 0 480 / 480 Intake (Blood Product) Amt 0 / 0 Rbc As-3 Leukoreduced Unit 0 / 0 [id number] Output: Urine 350 / 350 Pleural Fluid 850 / 850 Urine Amount (Catheter) 150 / 150 Indwelling Urethral Catheter 150 / 150 Chest Tube Drainage 800 / 800 Left Upper Pleural 450 / 450 Right Upper Pleural 350 / 350 Other: # Bowel Movements 0 - Urinary Catheter Management Indwelling Urethral Catheter Cath placed during this visit: no <Benjy Juan - Last Filed: 01/08/18 13:12> Results - Labs CBC & Chem 7: 01/08/18 03:20 01/08/18 03:20 Laboratory Results - last 24 hr 01/04/18 01/07/18 01/07/18 20:45 16:34 20:03 WBC RBC Hgb Hct MCV MCH MCHC RDW Plt Count MPV Prelim Diff (Auto) Neut % (Auto) Lymph % (Auto) [place] % (Auto) Eos % (Auto) Baso % (Auto) Neut # (Auto) Lymph # (Auto) [place] # (Auto) Eos # (Auto) Baso # (Auto) WBC Differential Diff Scan Differential Comment Platelet Estimate Platelet Morphology Spherocytes Target Cells Ovalocytes Sodium Potassium Chloride Carbon Dioxide Anion Gap BUN Creatinine Estimated GFR POC Glucose 85 25 L* Random Glucose Calcium Prot Corrected Calcium Phosphorus Magnesium Total Bilirubin AST ALT Alkaline Phosphatase Total Protein Albumin Blood Type Antibody Screen MTS Gel Crossmatch See Detail 01/07/18 01/07/18 01/07/18 20:04 20:26 20:41 WBC RBC Hgb Hct MCV MCH MCHC RDW Plt Count MPV Prelim Diff (Auto) Neut % (Auto) Lymph % (Auto) [place] % (Auto) Eos % (Auto) Baso % (Auto) Neut # (Auto) Lymph # (Auto) [place] # (Auto) Eos # (Auto) Baso # (Auto) WBC Differential Diff Scan Differential Comment Platelet Estimate Platelet Morphology Spherocytes Target Cells Ovalocytes Sodium Potassium Chloride Carbon Dioxide Anion Gap BUN Creatinine Estimated GFR POC Glucose 26 L* 36 L* Random Glucose 127 H Calcium Prot Corrected Calcium Phosphorus Magnesium Total Bilirubin AST ALT Alkaline Phosphatase Total Protein Albumin Blood Type Antibody Screen MTS Gel Crossmatch 01/07/18 01/07/18 01/07/18 20:43 20:47 21:35 WBC RBC Hgb Hct MCV MCH MCHC RDW Plt Count MPV Prelim Diff (Auto) Neut % (Auto) Lymph % (Auto) [place] % (Auto) Eos % (Auto) Baso % (Auto) Neut # (Auto) Lymph # (Auto) [place] # (Auto) Eos # (Auto) Baso # (Auto) WBC Differential Diff Scan Differential Comment Platelet Estimate Platelet Morphology Spherocytes Target Cells Ovalocytes Sodium Potassium Chloride Carbon Dioxide Anion Gap BUN Creatinine Estimated GFR POC Glucose 30 L* 100 102 Random Glucose Calcium Prot Corrected Calcium Phosphorus Magnesium Total Bilirubin AST ALT Alkaline Phosphatase Total Protein Albumin Blood Type Antibody Screen MTS Gel Crossmatch 01/07/18 01/07/18 01/07/18 22:34 22:36 23:25 WBC RBC Hgb Hct MCV MCH MCHC RDW Plt Count MPV Prelim Diff (Auto) Neut % (Auto) Lymph % (Auto) [place] % (Auto) Eos % (Auto) Baso % (Auto) Neut # (Auto) Lymph # (Auto) [place] # (Auto) Eos # (Auto) Baso # (Auto) WBC Differential Diff Scan Differential Comment Platelet Estimate Platelet Morphology Spherocytes Target Cells Ovalocytes Sodium Potassium Chloride Carbon Dioxide Anion Gap BUN Creatinine Estimated GFR POC Glucose 58 L 102 111 H Random Glucose Calcium Prot Corrected Calcium Phosphorus Magnesium Total Bilirubin AST ALT Alkaline Phosphatase Total Protein Albumin Blood Type Antibody Screen MTS Gel Crossmatch 01/08/18 01/08/18 01/08/18 00:42 01:31 02:32 WBC RBC Hgb Hct MCV MCH MCHC RDW Plt Count MPV Prelim Diff (Auto) Neut % (Auto) Lymph % (Auto) [place] % (Auto) Eos % (Auto) Baso % (Auto) Neut # (Auto) Lymph # (Auto) [place] # (Auto) Eos # (Auto) Baso # (Auto) WBC Differential Diff Scan Differential Comment Platelet Estimate Platelet Morphology Spherocytes Target Cells Ovalocytes Sodium Potassium Chloride Carbon Dioxide Anion Gap BUN Creatinine Estimated GFR POC Glucose 97 102 102 Random Glucose Calcium Prot Corrected Calcium Phosphorus Magnesium Total Bilirubin AST ALT Alkaline Phosphatase Total Protein Albumin Blood Type Antibody Screen MTS Gel Crossmatch 01/08/18 01/08/18 01/08/18 03:20 03:20 03:40 WBC 10.4 RBC 3.39 L Hgb 7.3 L Hct 25.8 L MCV 76.0 L MCH 21.6 L MCHC 28.5 L RDW 24.6 H Plt Count 59 L D MPV 8.7 Prelim Diff (Auto) Slide review pending Neut % (Auto) 84.2 H Lymph % (Auto) 6.2 L [place] % (Auto) 8.7 H Eos % (Auto) 0.4 Baso % (Auto) 0.5 Neut # (Auto) 8.7 H Lymph # (Auto) 0.6 L [place] # (Auto) 0.9 Eos # (Auto) 0.0 Baso # (Auto) 0.0 WBC Differential . Diff Scan Auto diff confirmed Differential Comment . Platelet Estimate Low L Platelet Morphology Normal Spherocytes Occ H Target Cells 1+ H Ovalocytes 1+ H Sodium 147 H Potassium 3.7 Chloride 109 H Carbon Dioxide 30.3 Anion Gap 8 BUN 43 H Creatinine 2.46 H Estimated GFR 26 L POC Glucose 111 H Random Glucose 111 H Calcium 7.3 L* Prot Corrected Calcium 8.5 Phosphorus 2.5 Magnesium 1.6 Total Bilirubin 1.4 H AST 29 ALT 17 Alkaline Phosphatase 44 L Total Protein 5.0 L D Albumin 1.8 L Blood Type Antibody Screen MTS Gel Crossmatch 01/08/18 01/08/18 01/08/18 04:44 08:33 09:50 WBC RBC Hgb Hct MCV MCH MCHC RDW Plt Count MPV Prelim Diff (Auto) Neut % (Auto) Lymph % (Auto) [place] % (Auto) Eos % (Auto) Baso % (Auto) Neut # (Auto) Lymph # (Auto) [place] # (Auto) Eos # (Auto) Baso # (Auto) WBC Differential Diff Scan Differential Comment Platelet Estimate Platelet Morphology Spherocytes Target Cells Ovalocytes Sodium Potassium Chloride Carbon Dioxide Anion Gap BUN Creatinine Estimated GFR POC Glucose 106 125 H Random Glucose Calcium Prot Corrected Calcium Phosphorus Magnesium Total Bilirubin AST ALT Alkaline Phosphatase Total Protein Albumin Blood Type O Positive Antibody Screen Negative MTS Gel Crossmatch See Detail 01/08/18 01/08/18 10:34 11:30 WBC RBC Hgb Hct MCV MCH MCHC RDW Plt Count MPV Prelim Diff (Auto) Neut % (Auto) Lymph % (Auto) [place] % (Auto) Eos % (Auto) Baso % (Auto) Neut # (Auto) Lymph # (Auto) [place] # (Auto) Eos # (Auto) Baso # (Auto) WBC Differential Diff Scan Differential Comment Platelet Estimate Platelet Morphology Spherocytes Target Cells Ovalocytes Sodium Potassium Chloride Carbon Dioxide Anion Gap BUN Creatinine Estimated GFR POC Glucose 114 H 117 H Random Glucose Calcium Prot Corrected Calcium Phosphorus Magnesium Total Bilirubin AST ALT Alkaline Phosphatase Total Protein Albumin Blood Type Antibody Screen MTS Gel Crossmatch Microbiology 01/06/18 00:40 Blood - Peripheral Aerobic Blood Culture - Preliminary No growth in 2 days 01/06/18 00:40 Blood - Peripheral Anaerobic Blood Culture - Final QNS - See aerobic report. 01/06/18 00:45 Blood - Peripheral Aerobic Blood Culture - Preliminary No growth in 2 days 01/06/18 00:45 Blood - Peripheral Anaerobic Blood Culture - Final QNS - See aerobic report. 01/04/18 18:55 Blood - Peripheral Aerobic Blood Culture - Preliminary No growth in 4 days 01/04/18 18:55 Blood - Peripheral Anaerobic Blood Culture - Preliminary No growth in 4 days 01/04/18 19:04 Blood - Peripheral Aerobic Blood Culture - Preliminary No growth in 4 days 01/04/18 19:04 Blood - Peripheral Anaerobic Blood Culture - Preliminary No growth in 4 days 01/05/18 08:00 Fluid - Pleural fluid Gram Stain - Final 01/05/18 08:00 Fluid - Pleural fluid Body Fluid Culture - Final No growth in 72 hours (aerobically and anaerobically ) 01/05/18 08:25 Sputum - Endotracheal Gram Stain - Final 01/05/18 08:25 Sputum - Endotracheal Sputum Culture - Final Rare growth normal respiratory mechelle - Imaging Impressions Chest X-Ray 01/08/18 00:00 CONCLUSION: No significant change <Jaqueline Lovelace - Last Filed: 01/08/18 12:37> - Labs CBC & Chem 7: 01/08/18 03:20 01/08/18 03:20 Laboratory Results - last 24 hr 01/04/18 01/07/18 01/07/18 20:45 16:34 20:03 WBC RBC Hgb Hct MCV MCH MCHC RDW Plt Count MPV Prelim Diff (Auto) Neut % (Auto) Lymph % (Auto) [place] % (Auto) Eos % (Auto) Baso % (Auto) Neut # (Auto) Lymph # (Auto) [place] # (Auto) Eos # (Auto) Baso # (Auto) WBC Differential Diff Scan Differential Comment Platelet Estimate Platelet Morphology Spherocytes Target Cells Ovalocytes Sodium Potassium Chloride Carbon Dioxide Anion Gap BUN Creatinine Estimated GFR POC Glucose 85 25 L* Random Glucose Calcium Prot Corrected Calcium Phosphorus Magnesium Total Bilirubin AST ALT Alkaline Phosphatase Total Protein Albumin Blood Type Antibody Screen MTS Gel Crossmatch See Detail 01/07/18 01/07/18 01/07/18 20:04 20:26 20:41 WBC RBC Hgb Hct MCV MCH MCHC RDW Plt Count MPV Prelim Diff (Auto) Neut % (Auto) Lymph % (Auto) [place] % (Auto) Eos % (Auto) Baso % (Auto) Neut # (Auto) Lymph # (Auto) [place] # (Auto) Eos # (Auto) Baso # (Auto) WBC Differential Diff Scan Differential Comment Platelet Estimate Platelet Morphology Spherocytes Target Cells Ovalocytes Sodium Potassium Chloride Carbon Dioxide Anion Gap BUN Creatinine Estimated GFR POC Glucose 26 L* 36 L* Random Glucose 127 H Calcium Prot Corrected Calcium Phosphorus Magnesium Total Bilirubin AST ALT Alkaline Phosphatase Total Protein Albumin Blood Type Antibody Screen MTS Gel Crossmatch 01/07/18 01/07/18 01/07/18 20:43 20:47 21:35 WBC RBC Hgb Hct MCV MCH MCHC RDW Plt Count MPV Prelim Diff (Auto) Neut % (Auto) Lymph % (Auto) [place] % (Auto) Eos % (Auto) Baso % (Auto) Neut # (Auto) Lymph # (Auto) [place] # (Auto) Eos # (Auto) Baso # (Auto) WBC Differential Diff Scan Differential Comment Platelet Estimate Platelet Morphology Spherocytes Target Cells Ovalocytes Sodium Potassium Chloride Carbon Dioxide Anion Gap BUN Creatinine Estimated GFR POC Glucose 30 L* 100 102 Random Glucose Calcium Prot Corrected Calcium Phosphorus Magnesium Total Bilirubin AST ALT Alkaline Phosphatase Total Protein Albumin Blood Type Antibody Screen MTS Gel Crossmatch 01/07/18 01/07/18 01/07/18 22:34 22:36 23:25 WBC RBC Hgb Hct MCV MCH MCHC RDW Plt Count MPV Prelim Diff (Auto) Neut % (Auto) Lymph % (Auto) [place] % (Auto) Eos % (Auto) Baso % (Auto) Neut # (Auto) Lymph # (Auto) [place] # (Auto) Eos # (Auto) Baso # (Auto) WBC Differential Diff Scan Differential Comment Platelet Estimate Platelet Morphology Spherocytes Target Cells Ovalocytes Sodium Potassium Chloride Carbon Dioxide Anion Gap BUN Creatinine Estimated GFR POC Glucose 58 L 102 111 H Random Glucose Calcium Prot Corrected Calcium Phosphorus Magnesium Total Bilirubin AST ALT Alkaline Phosphatase Total Protein Albumin Blood Type Antibody Screen MTS Gel Crossmatch 01/08/18 01/08/18 01/08/18 00:42 01:31 02:32 WBC RBC Hgb Hct MCV MCH MCHC RDW Plt Count MPV Prelim Diff (Auto) Neut % (Auto) Lymph % (Auto) [place] % (Auto) Eos % (Auto) Baso % (Auto) Neut # (Auto) Lymph # (Auto) [place] # (Auto) Eos # (Auto) Baso # (Auto) WBC Differential Diff Scan Differential Comment Platelet Estimate Platelet Morphology Spherocytes Target Cells Ovalocytes Sodium Potassium Chloride Carbon Dioxide Anion Gap BUN Creatinine Estimated GFR POC Glucose 97 102 102 Random Glucose Calcium Prot Corrected Calcium Phosphorus Magnesium Total Bilirubin AST ALT Alkaline Phosphatase Total Protein Albumin Blood Type Antibody Screen DashBurst Gel Crossmatch 01/08/18 01/08/18 01/08/18 03:20 03:20 03:40 WBC 10.4 RBC 3.39 L Hgb 7.3 L Hct 25.8 L MCV 76.0 L MCH 21.6 L MCHC 28.5 L RDW 24.6 H Plt Count 59 L D MPV 8.7 Prelim Diff (Auto) Slide review pending Neut % (Auto) 84.2 H Lymph % (Auto) 6.2 L [place] % (Auto) 8.7 H Eos % (Auto) 0.4 Baso % (Auto) 0.5 Neut # (Auto) 8.7 H Lymph # (Auto) 0.6 L [place] # (Auto) 0.9 Eos # (Auto) 0.0 Baso # (Auto) 0.0 WBC Differential . Diff Scan Auto diff confirmed Differential Comment . Platelet Estimate Low L Platelet Morphology Normal Spherocytes Occ H Target Cells 1+ H Ovalocytes 1+ H Sodium 147 H Potassium 3.7 Chloride 109 H Carbon Dioxide 30.3 Anion Gap 8 BUN 43 H Creatinine 2.46 H Estimated GFR 26 L POC Glucose 111 H Random Glucose 111 H Calcium 7.3 L* Prot Corrected Calcium 8.5 Phosphorus 2.5 Magnesium 1.6 Total Bilirubin 1.4 H AST 29 ALT 17 Alkaline Phosphatase 44 L Total Protein 5.0 L D Albumin 1.8 L Blood Type Antibody Screen MTS Gel Crossmatch 01/08/18 01/08/18 01/08/18 04:44 08:33 09:50 WBC RBC Hgb Hct MCV MCH MCHC RDW Plt Count MPV Prelim Diff (Auto) Neut % (Auto) Lymph % (Auto) [place] % (Auto) Eos % (Auto) Baso % (Auto) Neut # (Auto) Lymph # (Auto) [place] # (Auto) Eos # (Auto) Baso # (Auto) WBC Differential Diff Scan Differential Comment Platelet Estimate Platelet Morphology Spherocytes Target Cells Ovalocytes Sodium Potassium Chloride Carbon Dioxide Anion Gap BUN Creatinine Estimated GFR POC Glucose 106 125 H Random Glucose Calcium Prot Corrected Calcium Phosphorus Magnesium Total Bilirubin AST ALT Alkaline Phosphatase Total Protein Albumin Blood Type O Positive Antibody Screen Negative MTS Gel Crossmatch See Detail 01/08/18 01/08/18 10:34 11:30 WBC RBC Hgb Hct MCV MCH MCHC RDW Plt Count MPV Prelim Diff (Auto) Neut % (Auto) Lymph % (Auto) [place] % (Auto) Eos % (Auto) Baso % (Auto) Neut # (Auto) Lymph # (Auto) [place] # (Auto) Eos # (Auto) Baso # (Auto) WBC Differential Diff Scan Differential Comment Platelet Estimate Platelet Morphology Spherocytes Target Cells Ovalocytes Sodium Potassium Chloride Carbon Dioxide Anion Gap BUN Creatinine Estimated GFR POC Glucose 114 H 117 H Random Glucose Calcium Prot Corrected Calcium Phosphorus Magnesium Total Bilirubin AST ALT Alkaline Phosphatase Total Protein Albumin Blood Type Antibody Screen MTS Gel Crossmatch Microbiology 01/06/18 00:40 Blood - Peripheral Aerobic Blood Culture - Preliminary No growth in 2 days 01/06/18 00:40 Blood - Peripheral Anaerobic Blood Culture - Final QNS - See aerobic report. 01/06/18 00:45 Blood - Peripheral Aerobic Blood Culture - Preliminary No growth in 2 days 01/06/18 00:45 Blood - Peripheral Anaerobic Blood Culture - Final QNS - See aerobic report. 01/04/18 18:55 Blood - Peripheral Aerobic Blood Culture - Preliminary No growth in 4 days 01/04/18 18:55 Blood - Peripheral Anaerobic Blood Culture - Preliminary No growth in 4 days 01/04/18 19:04 Blood - Peripheral Aerobic Blood Culture - Preliminary No growth in 4 days 01/04/18 19:04 Blood - Peripheral Anaerobic Blood Culture - Preliminary No growth in 4 days 01/05/18 08:00 Fluid - Pleural fluid Gram Stain - Final 01/05/18 08:00 Fluid - Pleural fluid Body Fluid Culture - Final No growth in 72 hours (aerobically and anaerobically ) 01/05/18 08:25 Sputum - Endotracheal Gram Stain - Final 01/05/18 08:25 Sputum - Endotracheal Sputum Culture - Final Rare growth normal respiratory mechelle - Imaging Impressions Chest X-Ray 01/08/18 00:00 CONCLUSION: No significant change <Benjy Juan - Last Filed: 01/08/18 13:12> Assessment and Plan - Plan 01/07/2018 patient continues in the intensive care setting eyes closed but does respond and arouse to verbal stimuli. Currently being managed with oxygen per nasal cannula 5 L. No obvious shortness of breath anemia remains present without obvious bleeding current hemoglobin 8.2 PT/INR 1.6 on 01/04/2018, bilirubin 1.7 AST 36, ALT 20, alkaline phosphatase 48. Continues with chest tubes, noted tachycardic heart rate this a.m. approximately 123, probable atrial tach. Anemia, probable acute on chronic disease History of EtOH abuse, mild elevated bilirubin, coagulopathy Portal hypertension, probable, probably secondary to EtOH, albumin dose given on 01/06/2018 10/6/18-patient awake and alert follows movement with eyes and nonverbal. No apparent distress noted. No obvious bleeding reported. Hemoglobin 7.3 hematocrit 25.8 total bilirubin 1.4 AST 29 ALT 17 alk phos 44 albumin 1.8. We will continue to monitor closely. Plan -Speech therapy assessment for diet planning -Continue to monitor labs -Continue albumin -Bowel regimen -PPI -Supportive care This patient has been seen by myself and Dr. Juan and this note is written on his behalf - Attending Attestation Dr. Juan <Jaqueline Lovelace - Last Filed: 01/08/18 12:37> - Plan Seen and examined with [employer], no bleeding reported but drop in H/H. Will be transfused today. ? gi scopes next week. Discussed with nurse. The exam, history, and the medical decision-making described in the above note were completed with the assistance of the mid-level provider. I reviewed and agree with the findings presented. I attest that I had a [id number] encounter with the patient on the same day, and personally performed and documented my assessment and findings in the medical record. <Benjy Juan - Last Filed: 01/08/18 13:12>
[2018-01-08] MEDS: Dextrose 10% in Water Inj 1,000 ML IV.CONT SCH (20:30)
[2018-01-09] MEDS: Albumin Human 25% Inj 100 ML IV.SIG SCH ×4 (00:11→21:47)
[2018-01-09] MEDS: Pantoprazole Inj 80 MG in Sodium Chlor 0.9% Inj 100 ML IV.CONT SCH ×3 (02:29→21:47)
[2018-01-09] MEDS: Insulin NovoLIN Regular Correctional Sugar Inj SQ SCH ×6 (04:19→20:32)
[2018-01-09] MEDS: Chlorhexidine Gluconate 2% 1 Pack (2 Cloths) TOPICAL SCH (04:38)
[2018-01-09 05:03] LABS: Hematocrit 26.2 % (39.0-51.0); Hemoglobin 7.7 gm/dL (13.0-17.0); Mean Corpuscular Hemoglobin 23.1 pg (27.0-34.0); Mean Corpuscular Volume 78.8 fL (80.0-100.0); Mean Platelet Volume 8.8 fL (7.0-11.0); Platelet Count 40 th/mm3 (150-450); Red Blood Count 3.32 mil/mm3 (4.50-5.90)
[2018-01-09 05:09] LABS: Mean Corpuscular HGB Conc 29.3 % (32.0-36.0)
[2018-01-09 05:29] LABS: Albumin 2.5 g/dL (3.4-5.0); Calcium 7.4 mg/dL (8.5-10.1); Carbon Dioxide 27.8 meq/L (21.0-32.0); Magnesium 1.6 mg/dL (1.5-2.5); Potassium 3.6 meq/L (3.5-5.1); Total Protein 5.8 g/dL (6.4-8.2); Vancomycin,Random 11.5 Comment
--- NOTE | 2018-01-09 07:40 | P.PNCC ---
Subjective Subjective Remarks/Hospital Course: The patient is a 77-year-old male with an unknown past medical history, who presented to [facility] ED for generalized weakness. The patient does not really follow up with a physician and takes no medications at home. Per ED nurse, he had fallen multiple times today and was on the floor for some time. Apparently the evac stated that he did not want to come however, he was told that he needed to come in for further evaluation and management. On arrival, he was tachycardic with heart rate of 102 and a blood pressure of 127/ 58. His initial laboratory data showed anemia with hemoglobin 6.6 and acute renal failure with a creatinine level of 2.0. Also, he was found to have elevated lactic acid level at 6.8 and elevated troponin at 0.64. His BNP was 3405. The patient underwent a CT scan of the brain in EGD, which showed no acute intracranial abnormalities. He also had a lumbar spine CT, which showed no subluxation or acute fracture of the lumbar spine. CT of the facial bones showed preseptal soft tissue contusion of the left orbit and a chest x-ray showed bilateral pleural effusions with basilar consolidation, left greater than the right. Most of the history was obtained from reviewing medical records as the patient is a poor historian. In the ED, he was given normal saline 250, Lasix 40 mg IV push, and placed on a Protonix drip. He also received 1 dose of vancomycin. Per records, he also had purulent discharge from his left eye that caused his eyelid to swell. The patient also had a venous Doppler ultrasound, which showed no deep vein thrombosis; however, there is superficial venous thrombosis involving the bilateral great saphenous veins. SUBJ 01/05/18: Patient currently on BiPAP remains very lethargic not following commands not opening eyes to command. PH remains at 7.27 despite several hours on BiPAP PCO2 60. Ultrasound shows large bilateral effusions left larger than right. Because of respiratory acidosis, altered mental status and large pleural effusion patient was intubated and placed on mechanical ventilation. Following this I placed a left pigtail chest tube, initial output was 2 L clear straw colored fluid 01/06: Remains intubated sedated on sedation hold intermittently following commands. Bilateral large pleural effusions drained yesterday. Since placement yesterday left side has drained more than 3 L, right side has drained more than 2 L. Hemoglobin remained stable no obvious bleeding. Fluid studies consistent with transudative effusion. IV Lasix started by cardiology with urine output more than 2 L 01/07 Patient is extubated and on 4L oxygen with good sats, Afebrile. Had episode of hypotension overnight given Albumin, Lopressor held BP now 103/54 with MAP 77mmHg. 01/08: Breathing comfortably tachycardic though sinus. Heart rate 120 bpm. Metoprolol is being held I will resume metoprolol 25 mg twice daily. Hemoglobin 7.3 transfuse 1 unit PRBC. Chest tubes with high output right side 3 3 mL on left side for 3 mL in 24 hours. 01/09: Breathing comfortably. Significant output from chest tubes left side drained 1 L and right side drained 900 mL in 24 hours. Urine output diminished creatinine increased to 2.7. Will increase Lasix to 40 IV every 8 hours with IV albumin, consult nephrology. Previous renal ultrasound did not show any hydronephrosis. Mcfarland ordered to be reinserted for accurate intake output due to worsening renal failure Objective Vital Signs / I&O: Vital Signs 01/08/18 08:00 01/08/18 08:47 01/08/18 10:00 Temperature 98.0 F Pulse Rate 125 H 125 H 127 H Respiratory Rate 18 21 Blood Pressure 108/57 L Pulse Oximetry 98 97 01/08/18 11:24 01/08/18 11:41 01/08/18 12:00 Temperature 98 F 98.3 F 98.3 F Pulse Rate 124 H 124 H 124 H Respiratory Rate 28 H 24 24 Blood Pressure 103/59 L 112/56 L 112/56 L Pulse Oximetry 92 L 99 97 01/08/18 16:00 01/08/18 16:53 01/08/18 19:00 Temperature 98.0 F Pulse Rate 97 H 97 H 92 H Respiratory Rate 27 H 27 H 28 H Blood Pressure 119/57 L 110/57 L Pulse Oximetry 97 100 01/08/18 19:30 01/08/18 20:00 01/08/18 20:53 Temperature 98.0 F Pulse Rate 90 91 H 91 H Respiratory Rate 24 26 H 18 Blood Pressure 105/55 L 105/58 L Pulse Oximetry 100 100 01/09/18 00:00 01/09/18 03:00 01/09/18 03:30 Temperature 98.0 F 100.9 F H Pulse Rate 87 87 86 Respiratory Rate 22 26 H 28 H Blood Pressure 113/58 L 122/58 L 119/57 L Pulse Oximetry 99 99 01/09/18 04:00 01/09/18 04:08 01/09/18 04:10 Temperature 99.9 F H Pulse Rate 88 90 Respiratory Rate 28 H 16 Blood Pressure 122/60 Pulse Oximetry 98 96 Intake & Output 01/08/18 01/09/18 01/09/18 18:59 06:59 18:59 Intake Total 1206 / 1206 1064 / 1064 Output Total 1000 / 1000 1025 / 1025 Balance 206 / 206 39 / 39 Weight 84.5 kg Intake: IV 1086 / 1086 764 / 764 D10W Inj 1,000 ML @ 42 mls/hr 504 / 504 496 / 496 IV.CONT .[id number] RENA Rx#: [id number] Protonix Inj 80 MG In NS Inj 132 / 132 68 / 68 100 ML @ 10 mls/hr IV.CONT Q10H RENA Rx#:[id number] Flexbumin 25% Inj 100 ML @ 60 200 / 200 100 / 100 mls/hr IV.SIG Q8HR RENA Rx#: [id number] Azactam Inj 1,000 MG In NS Inj 100 / 100 100 ML @ 200 mls/hr IV.SIG Q12H RENA Rx#:[id number] NS Inj 250 ML @ 15 mls/hr IV. 250 / 250 SIG ONCE RENA Rx#:[id number] Oral 120 / 120 300 / 300 Intake (Blood Product) Amt 0 / 0 Rbc As-3 Leukoreduced Unit 0 / 0 [id number] Output: Urine Amount (Catheter) 75 / 75 Straight 75 / 75 Chest Tube Drainage 1000 / 1000 950 / 950 Left Upper Pleural 600 / 600 450 / 450 Right Upper Pleural 400 / 400 500 / 500 Other: # Bowel Movements 0 0 Result Diagrams: 01/09/18 04:18 01/09/18 04:18 Objective Remarks: GENERAL: Patient is 77 yo lying in bed in [facility]. HEENT: Atraumatic, normocephalic. Pupils are equal, round. Conjunctivitis appears improved NECK: Supple. No JVD, adenopathy, or thyromegaly. Trachea midline. CARDIOVASCULAR: Normal rate and sinus rhythm. Normal S1, S2. No murmurs, rubs or gallops. PULMONARY: Bilateral equal air entry. Diminished breath sounds at the bases. Bilateral pigtail chest tubes in place 900 mL/24hr right side, 1050 mL from left ABDOMEN: Soft, nontender. No distention. Positive bowel sounds. EXTREMITIES: No cyanosis or clubbing, 1-2+ edema. NEUROLOGIC: Awake, alert. No obvious focal deficits. Following commands Assessment and Plan - Assessment and Plan Plan: IMPRESSION: Acute hypercapnic respiratory failure-resolved Altered mental status/metabolic encephalopathy-resolved Anemia thrombocytopenia Acute renal failure, worsening oliguric. GI bleed Lactic acidemia. 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 Bilateral large pleural effusions, status post chest tube Superficial venous thrombosis bilaterally, great saphenous vein. Conjunctivitis of the left eye. Plan Neuro: Awake and alert, avoid sedatives CT scan of the brain in the ED showed no acute intracranial findings. Pulm: Continue with oxygen keep sats >90%. Bronchodilators Bilateral pigtail chest tubes placed 01/05/2018. Left chest tube with 1050 ml and, right with 950 mL output in 24 hours Transudative fluid. Continue chest tube drainage but place to waterseal CV: Monitor HR and BP keep MAP>65mmHg Lactic acid cleared 1.6. Oliguric on Lasix 20 mg every 12, increase to 40 every 8 hours as the patient is grossly fluid overloaded Consult nephrology, previous renal ultrasound did not show hydronephrosis , reinsert Mcfarland for accurate intake output Echo showed EF 50-55%. Not a candidate for invasive procedures or anticoagulation/antiplatelet therapy at this time due to severe anemia Cardiology Dr. Ball following Continue metoprolol due to tachycardia GI: Continue with Protonix drip. GI is following. EGD/colonoscopy when stable per GI Speech eval today, diet per speech. CT abdomen and pelvis without contrast -no acute findings Endoscopy this week Heme: s/p transfusion 3 units PRBC, Hgb since admission. Thrombocytopenia most likely secondary to liver disease and portal hypertension, check HIT screen Monitor CBC and coags ID: Continue abx aztreonam. Strep pneumonia, Legionella urinary antigen negative , Sputum cx: normal resp mechelle. BC: NGTD Endo: Sliding scale insulin with Accu-Cheks to maintain euglycemia. His TSH measured at 4.2 GI prophylaxis with Protonix drip and DVT prophylaxis with SCDs. Chemical anticoagulation prophylaxis contraindicated due to anemia and probable GI bleed. Level 3 Code Status: Full
[2018-01-09] MEDS: Metoprolol Tartrate 25 MG Tablet PO SCH ×2 (09:55→20:33)
[2018-01-09] MEDS: Senna/Docusate Sodium 8.6/50 MG Tablet PO SCH ×2 (09:55→20:33)
[2018-01-09 11:11] LABS: Bacteria,Urine Occasional /hpf; Bilirubin,Urine Negative (Negative); Clarity,Urine Cloudy (Clear); Color,Urine Amber (Yellw/Straw); Glucose,Urine (UA) Negative (Negative); Hyaline Casts,Urine 19 /lpf (0-3); Leukocyte Esterase,Urine Moderate (Negative); Mucus,Urine Few /lpf (Occasional); Nitrite,Urine Negative (Negative); Specific Gravity,Urine 1.017 (1.002-1.035); Squamous Epithelial Cell,Urine <1 /hpf (0-5); Urobilinogen,Urine 4 or Greater mg/dL (Less than 2)
[2018-01-09] MEDS ORDERED: Vancomycin Inj 1,250 MG in Sodium Chlor 0.9% Inj 250 ML IV.SIG ONE (12:00)
--- NOTE | 2018-01-09 13:38 | P.CONNP ---
History of Present Illness Reason for Consult: Acute on chronic renal insufficiency? Primary Care Provider: UNKNOWN Family Provider: UNKNOWN History of Present Illness: This patient is a 77-year-old male who unfortunately is a very poor historian. He was admitted to this institution January 04, 2018 with altered mental status. Mention of fluid overload as well as respiratory insufficiency. Renal ultrasound indicated a right kidney of 10.2 cm left kidney of 14.5 cm with increased echogenicity. Creatinine level on presentation was initially 2.04 subsequently deteriorating progressively to a level of 2.72 today. On questioning the patient indicated to me that he was using Aleve at home prior to admission on a daily basis and has been doing so for a few years. 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 Echocardiogram reveals an ejection fraction of 50-55%. Renal ultrasound showed no hydronephrosis however CT scan of January 05, 2018 mention of prominence of the left collecting system with a question of mild to moderate hydronephrosis. Patient denies urological history. Also noted to be anemic with an elevated bilirubin. GI has raised the question of alcohol abuse prior to presentation.. Review of Systems All other systems reviewed negative except as stated in HPI PMFSH - History History Provided By: Patient, Model Technician / EMT - Medical / Surgical Hx Neg / Unobtainable Medical Problems Denied: Unable to Obtain - Medical History Medical History: Medical History (Last Updated 01/09/18 @ 13:31 by Wiley Phipps MD) Chronic kidney disease (CKD) Medical history unknown - Surgical History Surgical History: Surgical History (Last Reviewed 01/08/18 @ 07:43 by Jany Ham) No history of previous surgery - Tobacco History Second Hand Smoke Exposure: Yes Tobacco Use In Past 30 Days: Yes Smoking Status: Current every day smoker Tobacco Type: Cigarettes - Alcohol History How Often Do You Have a Drink Containing Alcohol: Never - Substance Use History Substance History: No History of Abuse - Travel History Recent Travel in the [place] Within the Last 8 Weeks: No Recent Travel Out of the Country Within the Last 8 Weeks: No - Immunization History Tetanus Immunization: Unsure Hx Influenza Vaccine This Season: Unable to Assess Medications and Allergies Active Medications: Active Medications Acetaminophen (Tylenol Liq) 650 mg PO Q4H PRN PRN Reason: temp >101 Last Admin: 01/06/18 00:48 Dose: 650 mg Albuterol (Duoneb Neb (Prn)) 1 ampul NEB Q2HR NEB PRN PRN Reason: DYSPNEA Albuterol (Duoneb Neb (Nakia)) 1 ampul NEB Q6HR NEB NAKIA Last Admin: 01/09/18 10:16 Dose: 1 ampul Bisacodyl (Dulcolax Supp) 10 mg RECTAL DAILY PRN PRN Reason: SEVERE CONSITIPATION Chlorhexidine Gluconate (Chlorhexidine 2% Cloth) 3 pack TOPICAL DAILY@0400 NAKIA Stop: 01/10/18 03:59 Last Admin: 01/09/18 04:38 Dose: 3 pack Chlorhexidine Gluconate (Chlorhexidine 2% Cloth) 3 pack TOPICAL DAILY@0400 PRN PRN Reason: Extra cloth needed Stop: 01/10/18 03:59 Dextrose (D50w Vial) 50 ml IV.PUSH UNSCH PRN PRN Reason: PER HYPOGLYCEMIA PROTOCOL Last Admin: 01/07/18 20:00 Dose: 50 ml Erythromycin (Erythromycin 0.5% Opth Oint) 1 gm EACH EYE Q4H [facility] Last Admin: 01/09/18 09:56 Dose: 1 gm Furosemide (Lasix Inj) 40 mg IV.PUSH Q8H [facility] Last Admin: 01/09/18 09:53 Dose: 40 mg Glucagon (Glucagon Inj) 1 mg OTHER PRN PRN PRN Reason: for Hypoglycemia Protocol Sodium Chloride (Ns Inj) 500 mls @ 0 mls/hr IV.SIG BOLUS [facility] Last Infusion: 01/05/18 17:29 Dose: Infused Pantoprazole Sodium 80 mg/ (Sodium Chloride) 100 mls @ 10 mls/hr IV.CONT Q10H [facility] Last Admin: 01/09/18 12:19 Dose: 10 mls/hr Albumin Human (Flexbumin 25% Inj) 100 mls @ 60 mls/hr IV.SIG Q8HR NAKIA Stop: 01/09/18 23:59 Last Infusion: 01/09/18 11:36 Dose: Infused Dextrose (D10w Inj) 1,000 mls @ 42 mls/hr IV.CONT .[id number] [facility] Last Admin: 01/08/18 20:30 Dose: 42 mls/hr Aztreonam 1,000 mg/ Sodium (Chloride) 100 mls @ 200 mls/hr IV.SIG Q12H [facility] Last Infusion: 01/09/18 11:36 Dose: Infused Insulin Human Regular (Novolin R Correctional Sugar Inj) 0 units SQ Q4HR [facility]; Protocol Last Admin: 01/09/18 09:54 Dose: Not Given Lactulose (Lactulose Liq) 30 ml PO DAILY PRN PRN Reason: SEVERE CONSITIPATION Metoprolol Tartrate (Lopressor) 25 mg PO BID [facility] Last Admin: 01/09/18 09:55 Dose: 25 mg Pharmacy Profile Note (Vancomycin Consult Pharmacy) 1 each OTHER UNSCH PRN PRN Reason: Pharmacy to dose Senna/Docusate Sodium (Jessica-Colace) 1 tab PO BID [facility] Last Admin: 01/09/18 09:55 Dose: 1 tab Sennosides (Senokot) 17.2 mg PO Q12H PRN PRN Reason: Moderate Constipation Allergies Allergy/AdvReac Type Severity Reaction Status Date / Time Penicillins Allergy Unknown unknown Verified 01/04/18 18:45 Home Medications Medication Instructions Recorded Confirmed Type aspirin 325 mg PO DAILY 01/04/18 01/04/18 History Exam Vital signs: Vital Signs 01/08/18 16:00 01/08/18 16:53 01/08/18 19:00 Temperature 98.0 F Pulse Rate 97 H 97 H 92 H Respiratory Rate 27 H 27 H 28 H Blood Pressure 119/57 L 110/57 L Pulse Oximetry 97 100 01/08/18 19:30 01/08/18 20:00 01/08/18 20:53 Temperature 98.0 F Pulse Rate 90 91 H 91 H Respiratory Rate 24 26 H 18 Blood Pressure 105/55 L 105/58 L Pulse Oximetry 100 100 01/09/18 00:00 01/09/18 03:00 01/09/18 03:30 Temperature 98.0 F 100.9 F H Pulse Rate 87 87 86 Respiratory Rate 22 26 H 28 H Blood Pressure 113/58 L 122/58 L 119/57 L Pulse Oximetry 99 99 01/09/18 04:00 01/09/18 04:08 01/09/18 04:10 Temperature 99.9 F H Pulse Rate 88 90 Respiratory Rate 28 H 16 Blood Pressure 122/60 Pulse Oximetry 98 96 01/09/18 08:00 10/07/18 10:16 Temperature Pulse Rate 93 H 93 H Respiratory Rate 25 H Blood Pressure Pulse Oximetry 99 Intake & Output 01/08/18 01/09/18 01/09/18 18:59 06:59 18:59 Intake Total 1206 / 1206 1064 / 1064 300 / 300 Output Total 1000 / 1000 1025 / 1025 Balance 206 / 206 39 / 39 300 / 300 Weight 84.5 kg Intake: IV 1086 / 1086 764 / 764 300 / 300 D10W Inj 1,000 ML @ 42 mls/hr 504 / 504 496 / 496 IV.CONT .[id number] NAKIA Rx#: [id number] Protonix Inj 80 MG In NS Inj 132 / 132 68 / 68 100 / 100 100 ML @ 10 mls/hr IV.CONT Q10H NAKIA Rx#:[id number] Flexbumin 25% Inj 100 ML @ 60 200 / 200 100 / 100 100 / 100 mls/hr IV.SIG Q8HR NAKIA Rx#: [id number] Azactam Inj 1,000 MG In NS Inj 100 / 100 100 / 100 100 ML @ 200 mls/hr IV.SIG Q12H NAKIA Rx#:[id number] NS Inj 250 ML @ 15 mls/hr IV. 250 / 250 SIG ONCE NAKIA Rx#:[id number] Oral 120 / 120 300 / 300 Intake (Blood Product) Amt 0 / 0 Rbc As-3 Leukoreduced Unit 0 / 0 [id number] Output: Urine Amount (Catheter) 75 / 75 Straight 75 / 75 Chest Tube Drainage 1000 / 1000 950 / 950 Left Upper Pleural 600 / 600 450 / 450 Right Upper Pleural 400 / 400 500 / 500 Other: # Bowel Movements 0 0 Narrative: GENERAL: Elderly male who appears to be unkept. SKIN: Warm and dry. HEAD: Atraumatic. Normocephalic. EYES: Pupils equal and round. No scleral icterus. No injection or drainage. ENT: No nasal bleeding or discharge. Mucous membranes pink and moist. NECK: Trachea midline. No JVD. CARDIOVASCULAR: Regular rate and rhythm. Chest tube in place. RESPIRATORY: No accessory muscle use. Clear to auscultation. Breath sounds equal bilaterally. GASTROINTESTINAL: Abdomen soft, non-tender, nondistended. MUSCULOSKELETAL: Extremities without clubbing, cyanosis, 3+ pitting edema lower extremities. 2+ pitting edema forearms and lower arms. No obvious deformities. Results - Lab Results 01/09/18 04:18 01/09/18 04:18 Most recent lab results ABG pH 7.35 (7.380-7.420) L 01/06/18 14:50 ABG pCO2 50 mmHg (38-42) H 01/06/18 14:50 ABG pO2 88 mmHG (61-120) 01/06/18 14:50 ABG HCO3 27 mmol/L (22-26) H 01/06/18 14:50 Calcium 7.4 mg/dL (8.5-10.1) L* 01/09/18 04:18 Phosphorus 2.5 mg/dL (2.5-4.9) 01/08/18 03:20 Magnesium 1.6 mg/dL (1.5-2.5) 01/09/18 04:18 - Image Kidney/bladder ultrasound: image reviewed (CT scan suggesting possible mild to moderate left hydronephrosis.) Assessment and Plan - Assessment (1) RICHARD (acute kidney injury) Code(s): N17.9 - Acute kidney failure, unspecified Status: Acute Plan: Presently uncertain if the patient actually has a component of acute renal insufficiency. He was fluid overloaded with anasarca on presentation and his creatinine level may have been spuriously low given the degree of fluid retention and I have no previous creatinine levels prior to this presentation. If there is a component of acute renal insufficiency it may be related to vancomycin nephrotoxicity. There is also mention of a possible hydronephrosis on CT scan although the ultrasound was negative for same. Consider nuclear scan kidneys with washout to evaluate for possible obstruction. Ideally I would like vancomycin to be discontinued but will defer to primary care in regard to that decision. Still has significant fluid retention so we do have to continue diuresis. (2) CKD (chronic kidney disease) stage 4, GFR 15-29 ml/min Code(s): N18.4 - Chronic kidney disease, stage 4 (severe) Status: Acute Plan: Patient is a very poor historian. 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 He was counseled regarding potential adverse effects of continued usage as far as his kidney function is concerned. Serological studies as ordered. (3) Obstructive uropathy Code(s): N13.9 - Obstructive and reflux uropathy, unspecified Status: Acute Plan: I will l order a nuclear scan kidneys with washout to clarify as to whether not patient actually has significant urinary tract obstruction. (4) Anasarca associated with disorder of kidney Code(s): N04.9 - Nephrotic syndrome with unspecified morphologic changes Status: Acute Plan: Continue diuretic therapy as ordered.
[2018-01-09 14:14] LABS: % Iron Saturation 34.7 % (20-50)
--- NOTE | 2018-01-09 14:28 | P.PNGI ---
Subjective Interval history: Patient sitting up in bed bilateral soft restraints in place. Patient awake and alert denies any discomfort <Jaqueline Lovelace - Last Filed: 01/09/18 14:21> Physical Exam Vital signs: Vital Signs 01/08/18 16:00 01/08/18 16:53 01/08/18 19:00 Temperature 98.0 F Pulse Rate 97 H 97 H 92 H Respiratory Rate 27 H 27 H 28 H Blood Pressure 119/57 L 110/57 L Pulse Oximetry 97 100 01/08/18 19:30 01/08/18 20:00 01/08/18 20:53 Temperature 98.0 F Pulse Rate 90 91 H 91 H Respiratory Rate 24 26 H 18 Blood Pressure 105/55 L 105/58 L Pulse Oximetry 100 100 01/09/18 00:00 01/09/18 03:00 01/09/18 03:30 Temperature 98.0 F 100.9 F H Pulse Rate 87 87 86 Respiratory Rate 22 26 H 28 H Blood Pressure 113/58 L 122/58 L 119/57 L Pulse Oximetry 99 99 01/09/18 04:00 01/09/18 04:08 01/09/18 04:10 Temperature 99.9 F H Pulse Rate 88 90 Respiratory Rate 28 H 16 Blood Pressure 122/60 Pulse Oximetry 98 96 01/09/18 08:00 01/09/18 10:16 Temperature Pulse Rate 93 H 93 H Respiratory Rate 25 H Blood Pressure Pulse Oximetry 99 Intake & Output 01/08/18 01/09/18 01/09/18 18:59 06:59 18:59 Intake Total 1206 / 1206 1064 / 1064 300 / 300 Output Total 1000 / 1000 1025 / 1025 Balance 206 / 206 39 / 39 300 / 300 Weight 84.5 kg Intake: IV 1086 / 1086 764 / 764 300 / 300 D10W Inj 1,000 ML @ 42 mls/hr 504 / 504 496 / 496 IV.CONT .[id number] RENA Rx#: [id number] Protonix Inj 80 MG In NS Inj 132 / 132 68 / 68 100 / 100 100 ML @ 10 mls/hr IV.CONT Q10H RENA Rx#:[id number] Flexbumin 25% Inj 100 ML @ 60 200 / 200 100 / 100 100 / 100 mls/hr IV.SIG Q8HR RENA Rx#: [id number] Azactam Inj 1,000 MG In NS Inj 100 / 100 100 / 100 100 ML @ 200 mls/hr IV.SIG Q12H RENA Rx#:[id number] NS Inj 250 ML @ 15 mls/hr IV. 250 / 250 SIG ONCE RENA Rx#:[id number] Oral 120 / 120 300 / 300 Intake (Blood Product) Amt 0 / 0 Rbc As-3 Leukoreduced Unit 0 / 0 [id number] Output: Urine Amount (Catheter) 75 / 75 Straight 75 / 75 Chest Tube Drainage 1000 / 1000 950 / 950 Left Upper Pleural 600 / 600 450 / 450 Right Upper Pleural 400 / 400 500 / 500 Other: # Bowel Movements 0 0 - Constitutional no acute distress - Routine HEENT Exam Head: Present: normocephalic - Routine Respiratory Exam Absent: respiratory distress Comments: Chest tube in place - Routine Cardiovascular Exam Present: RRR - Routine Abdominal Exam Present: soft, normoactive bowel sounds. Absent: tenderness, distended, guarding, firm - Routine Extremities Exam Present: pulses intact. Absent: edema - Routine Skin Exam Present: dry, warm - Routine Neurological Exam Present: alert Oriented x2 - Detailed Neurological Exam: Coma Scale Eye Opening: Spontaneous Verbal Response: Oriented Motor Response: Obey commands Nico Coma Scale Total: 15 - Urinary Catheter Management Indwelling Urethral Catheter Cath placed during this visit: yes, but has since been removed by the nurse Reason for continuing: Other continuation reason Insertion date: 01/09/18 Insertion time: 08:30 Removal date: 01/07/18 Removal time: 12:25 Straight Cath placed during this visit: no Reason for continuing: Other continuation reason <Jaqueline Lovelace - Last Filed: 01/09/18 14:21> Vital signs: Vital Signs 01/09/18 12:00 01/09/18 16:00 01/09/18 16:11 Temperature 98.2 F 98 F Pulse Rate 95 H 92 H 95 H Respiratory Rate 36 H 31 H 22 Blood Pressure 120/65 121/57 L Pulse Oximetry 98 96 01/09/18 16:30 01/09/18 17:00 01/09/18 17:30 Temperature Pulse Rate 92 H 137 H 94 H Respiratory Rate 31 H 27 H 31 H Blood Pressure 127/58 L 120/57 L 128/60 Pulse Oximetry 100 99 98 01/09/18 18:00 01/09/18 18:30 01/09/18 19:00 Temperature Pulse Rate 92 H 92 H 91 H Respiratory Rate 33 H 31 H 29 H Blood Pressure 124/59 L 123/70 123/58 L Pulse Oximetry 100 100 98 01/09/18 19:30 01/09/18 20:00 01/09/18 20:30 Temperature 98.6 F Pulse Rate 95 H 100 H 98 H Respiratory Rate 29 H 34 H 29 H Blood Pressure 122/56 L 130/59 L 135/62 Pulse Oximetry 98 99 96 01/09/18 21:00 01/09/18 21:30 01/09/18 22:00 Temperature Pulse Rate 96 H 94 H 88 Respiratory Rate 28 H 26 H 25 H Blood Pressure 131/60 126/66 129/58 L Pulse Oximetry 97 96 96 01/09/18 22:30 01/09/18 23:00 01/09/18 23:31 Temperature Pulse Rate 87 87 87 Respiratory Rate 28 H 32 H 23 Blood Pressure 135/62 123/60 139/60 Pulse Oximetry 97 97 98 01/10/18 00:00 01/10/18 00:31 01/10/18 01:00 Temperature 98.8 F Pulse Rate 88 88 89 Respiratory Rate 28 H 23 29 H Blood Pressure 134/60 163/68 H 147/63 H Pulse Oximetry 98 99 94 L 01/10/18 01:30 01/10/18 02:00 01/10/18 02:30 Temperature Pulse Rate 88 86 85 Respiratory Rate 27 H 27 H 24 Blood Pressure 152/67 H 147/65 H 148/65 H Pulse Oximetry 95 95 95 01/10/18 03:00 01/10/18 03:30 01/10/18 04:00 Temperature 97.8 F Pulse Rate 84 86 86 Respiratory Rate 21 22 22 Blood Pressure 149/63 H 154/67 H 163/71 H Pulse Oximetry 94 L 96 97 01/10/18 04:08 01/10/18 08:00 01/10/18 08:01 Temperature Pulse Rate 85 90 Respiratory Rate 16 18 Blood Pressure Pulse Oximetry 98 01/10/18 10:47 Temperature Pulse Rate Respiratory Rate Blood Pressure Pulse Oximetry 100 Intake & Output 01/09/18 01/10/18 01/10/18 18:59 06:59 18:59 Intake Total 740 / 740 1300 / 1300 600 / 600 Output Total 125 / 125 1135 / 1135 Balance 615 / 615 165 / 165 600 / 600 Weight 81 kg Intake: IV 500 / 500 1300 / 1300 600 / 600 D10W Inj 1,000 ML @ 42 mls/hr 1000 / 1000 IV.CONT .[id number] RENA Rx#: [id number] D10W Inj 500 ML @ 42 mls/hr IV. 500 / 500 CONT .[id number] RENA Rx#:[id number] Protonix Inj 80 MG In NS Inj 100 / 100 100 / 100 100 / 100 100 ML @ 10 mls/hr IV.CONT Q10H RENA Rx#:[id number] Flexbumin 25% Inj 100 ML @ 60 200 / 200 100 / 100 mls/hr IV.SIG Q8HR RENA Rx#: [id number] Azactam Inj 1,000 MG In NS Inj 200 / 200 100 / 100 100 ML @ 200 mls/hr IV.SIG Q12H RENA Rx#:[id number] Oral 240 / 240 Output: Urine 125 / 125 Urine Amount (Catheter) 475 / 475 Indwelling Urethral Catheter 475 / 475 Chest Tube Drainage 660 / 660 Left Upper Pleural 310 / 310 Right Upper Pleural 350 / 350 Other: # Bowel Movements 0 - Urinary Catheter Management Indwelling Urethral Catheter Cath placed during this visit: no Straight Cath placed during this visit: no <Benjy Juan - Last Filed: 01/10/18 11:13> Results - Labs CBC & Chem 7: 01/09/18 04:18 01/09/18 04:18 Laboratory Results - last 24 hr 01/08/18 01/08/18 01/08/18 09:50 14:33 16:28 WBC RBC Hgb Hct MCV MCH MCHC RDW Plt Count MPV Sodium Potassium Chloride Carbon Dioxide Anion Gap BUN Creatinine Estimated GFR POC Glucose 89 84 Random Glucose Calcium Prot Corrected Calcium Magnesium Iron TIBC % Saturation Ferritin Total Bilirubin AST ALT Alkaline Phosphatase Total Protein Albumin Urine Color Urine Clarity Urine pH Ur Specific [place] Urine Protein Urine Glucose (UA) Urine Ketones Urine Occult Blood Urine Nitrate Urine Bilirubin Urine Urobilinogen Ur Leukocyte Esterase Urine RBC Urine WBC Urine WBC Clumps Ur Squamous Epith Cells Urine Bacteria Hyaline Casts Urine Mucus Micro UA Comment Ur Microscopic Review Urine Culture Comments Random Vancomycin MTS Gel Crossmatch See Detail 01/08/18 01/08/18 01/08/18 18:30 19:44 20:22 WBC RBC Hgb Hct MCV MCH MCHC RDW Plt Count MPV Sodium Potassium Chloride Carbon Dioxide Anion Gap BUN Creatinine Estimated GFR POC Glucose 102 116 H 130 H Random Glucose Calcium Prot Corrected Calcium Magnesium Iron TIBC % Saturation Ferritin Total Bilirubin AST ALT Alkaline Phosphatase Total Protein Albumin Urine Color Urine Clarity Urine pH Ur Specific [place] Urine Protein Urine Glucose (UA) Urine Ketones Urine Occult Blood Urine Nitrate Urine Bilirubin Urine Urobilinogen Ur Leukocyte Esterase Urine RBC Urine WBC Urine WBC Clumps Ur Squamous Epith Cells Urine Bacteria Hyaline Casts Urine Mucus Micro UA Comment Ur Microscopic Review Urine Culture Comments Random Vancomycin MTS Gel Crossmatch 01/08/18 01/08/18 01/08/18 20:55 22:03 23:18 WBC RBC Hgb Hct MCV MCH MCHC RDW Plt Count MPV Sodium Potassium Chloride Carbon Dioxide Anion Gap BUN Creatinine Estimated GFR POC Glucose 130 H 106 103 Random Glucose Calcium Prot Corrected Calcium Magnesium Iron TIBC % Saturation Ferritin Total Bilirubin AST ALT Alkaline Phosphatase Total Protein Albumin Urine Color Urine Clarity Urine pH Ur Specific [place] Urine Protein Urine Glucose (UA) Urine Ketones Urine Occult Blood Urine Nitrate Urine Bilirubin Urine Urobilinogen Ur Leukocyte Esterase Urine RBC Urine WBC Urine WBC Clumps Ur Squamous Epith Cells Urine Bacteria Hyaline Casts Urine Mucus Micro UA Comment Ur Microscopic Review Urine Culture Comments Random Vancomycin MTS Gel Crossmatch 01/09/18 01/09/18 01/09/18 00:06 01:19 01:55 WBC RBC Hgb Hct MCV MCH MCHC RDW Plt Count MPV Sodium Potassium Chloride Carbon Dioxide Anion Gap BUN Creatinine Estimated GFR POC Glucose 116 H 117 H 117 H Random Glucose Calcium Prot Corrected Calcium Magnesium Iron TIBC % Saturation Ferritin Total Bilirubin AST ALT Alkaline Phosphatase Total Protein Albumin Urine Color Urine Clarity Urine pH Ur Specific [place] Urine Protein Urine Glucose (UA) Urine Ketones Urine Occult Blood Urine Nitrate Urine Bilirubin Urine Urobilinogen Ur Leukocyte Esterase Urine RBC Urine WBC Urine WBC Clumps Ur Squamous Epith Cells Urine Bacteria Hyaline Casts Urine Mucus Micro UA Comment Ur Microscopic Review Urine Culture Comments Random Vancomycin MTS Gel Crossmatch 01/09/18 01/09/18 01/09/18 03:18 04:07 04:18 WBC RBC Hgb Hct MCV MCH MCHC RDW Plt Count MPV Sodium 138 Potassium 3.6 Chloride 102 Carbon Dioxide 27.8 Anion Gap 8 BUN 47 H Creatinine 2.72 H Estimated GFR 23 L POC Glucose 126 H 113 H Random Glucose 387 H D Calcium 7.4 L* Prot Corrected Calcium 8.1 L Magnesium 1.6 Iron TIBC % Saturation Ferritin Total Bilirubin 2.2 H AST 19 ALT 17 Alkaline Phosphatase 43 L Total Protein 5.8 L D Albumin 2.5 L D Urine Color Urine Clarity Urine pH Ur Specific [place] Urine Protein Urine Glucose (UA) Urine Ketones Urine Occult Blood Urine Nitrate Urine Bilirubin Urine Urobilinogen Ur Leukocyte Esterase Urine RBC Urine WBC Urine WBC Clumps Ur Squamous Epith Cells Urine Bacteria Hyaline Casts Urine Mucus Micro UA Comment Ur Microscopic Review Urine Culture Comments Random Vancomycin 11.5 MTS Gel Crossmatch 01/09/18 01/09/18 01/09/18 04:18 04:54 05:51 WBC 8.0 RBC 3.32 L Hgb 7.7 L Hct 26.2 L MCV 78.8 L MCH 23.1 L MCHC 29.3 L RDW 26.0 H Plt Count 40 L D MPV 8.8 Sodium Potassium Chloride Carbon Dioxide Anion Gap BUN Creatinine Estimated GFR POC Glucose 113 H 115 H Random Glucose Calcium Prot Corrected Calcium Magnesium Iron TIBC % Saturation Ferritin Total Bilirubin AST ALT Alkaline Phosphatase Total Protein Albumin Urine Color Urine Clarity Urine pH Ur Specific [place] Urine Protein Urine Glucose (UA) Urine Ketones Urine Occult Blood Urine Nitrate Urine Bilirubin Urine Urobilinogen Ur Leukocyte Esterase Urine RBC Urine WBC Urine WBC Clumps Ur Squamous Epith Cells Urine Bacteria Hyaline Casts Urine Mucus Micro UA Comment Ur Microscopic Review Urine Culture Comments Random Vancomycin MTS Gel Crossmatch 01/09/18 01/09/18 01/09/18 07:22 08:00 08:30 WBC RBC Hgb Hct MCV MCH MCHC RDW Plt Count MPV Sodium Potassium Chloride Carbon Dioxide Anion Gap BUN Creatinine Estimated GFR POC Glucose 117 H 117 H Random Glucose Calcium Prot Corrected Calcium Magnesium Iron TIBC % Saturation Ferritin Total Bilirubin AST ALT Alkaline Phosphatase Total Protein Albumin Urine Color [place] Urine Clarity Cloudy H Urine pH 5.0 Ur Specific [place] 1.017 Urine Protein 30 H Urine Glucose (UA) Negative Urine Ketones Negative Urine Occult Blood Large H Urine Nitrate Negative Urine Bilirubin Negative Urine Urobilinogen 4 or greater Ur Leukocyte Esterase Moderate H Urine RBC 10 H Urine WBC 8 H Urine WBC Clumps Moderate H Ur Squamous Epith Cells <1 Urine Bacteria Occasional H Hyaline Casts 19 Urine Mucus Few H Micro UA Comment Cath-culture ind Ur Microscopic Review Not Reportable Urine Culture Comments Cath-cult indicated Random Vancomycin MTS Gel Crossmatch 01/09/18 01/09/18 12:12 13:54 WBC RBC Hgb Hct MCV MCH MCHC RDW Plt Count MPV Sodium Potassium Chloride Carbon Dioxide Anion Gap BUN Creatinine Estimated GFR POC Glucose 106 Random Glucose Calcium Prot Corrected Calcium Magnesium Iron 51 L TIBC 147 L % Saturation 34.7 Ferritin 64 Total Bilirubin AST ALT Alkaline Phosphatase Total Protein Albumin Urine Color Urine Clarity Urine pH Ur Specific [place] Urine Protein Urine Glucose (UA) Urine Ketones Urine Occult Blood Urine Nitrate Urine Bilirubin Urine Urobilinogen Ur Leukocyte Esterase Urine RBC Urine WBC Urine WBC Clumps Ur Squamous Epith Cells Urine Bacteria Hyaline Casts Urine Mucus Micro UA Comment Ur Microscopic Review Urine Culture Comments Random Vancomycin MTS Gel Crossmatch Microbiology 01/06/18 00:40 Blood - Peripheral Aerobic Blood Culture - Preliminary No growth in 3 days 01/06/18 00:40 Blood - Peripheral Anaerobic Blood Culture - Final QNS - See aerobic report. 01/06/18 00:45 Blood - Peripheral Aerobic Blood Culture - Preliminary No growth in 3 days 01/06/18 00:45 Blood - Peripheral Anaerobic Blood Culture - Final QNS - See aerobic report. 01/04/18 18:55 Blood - Peripheral Aerobic Blood Culture - Final No growth in 5 days 01/04/18 18:55 Blood - Peripheral Anaerobic Blood Culture - Final No growth in 5 days 01/04/18 19:04 Blood - Peripheral Aerobic Blood Culture - Final No growth in 5 days 01/04/18 19:04 Blood - Peripheral Anaerobic Blood Culture - Final No growth in 5 days <Jaqueline Lovelace - Last Filed: 01/09/18 14:21> - Labs CBC & Chem 7: 01/10/18 07:33 01/10/18 07:33 Laboratory Results - last 24 hr 01/09/18 01/09/18 01/09/18 08:30 12:12 13:54 WBC RBC Hgb Hct MCV MCH MCHC RDW Plt Count MPV PT INR Puncture Site Patient Temperature O2 Saturation ABG pH ABG pCO2 ABG pO2 ABG HCO3 ABG O2 Content ABG Base Excess ABG Methemoglobin Eh Test Hemoglobin Carboxyhemoglobin O2 Delivery Device Liter Flow Critical Value Sodium Potassium Chloride Carbon Dioxide Anion Gap BUN Creatinine Estimated GFR POC Glucose 106 Random Glucose Calcium Prot Corrected Calcium Magnesium Iron 51 L TIBC 147 L % Saturation 34.7 Ferritin 64 Total Bilirubin AST ALT Alkaline Phosphatase Total Protein Total Protein (PEP) Albumin PTH Intact Urine Color [place]oxanne Urine Clarity Cloudy H Urine pH 5.0 Ur Specific [place] 1.017 Urine Protein 30 H Urine Glucose (UA) Negative Urine Ketones Negative Urine Occult Blood Large H Urine Nitrate Negative Urine Bilirubin Negative Urine Urobilinogen 4 or greater Ur Leukocyte Esterase Moderate H Urine RBC 10 H Urine WBC 8 H Urine WBC Clumps Moderate H Ur Squamous Epith Cells <1 Urine Bacteria Occasional H Hyaline Casts 19 Urine Mucus Few H Micro UA Comment Cath-culture ind Ur Microscopic Review Not Reportable Urine Culture Comments Cath-cult indicated Random Vancomycin Complement C3 Complement C4 Hep Bs Antigen Hep C IgG Ab 01/09/18 01/09/18 01/10/18 16:18 20:30 00:01 WBC RBC Hgb Hct MCV MCH MCHC RDW Plt Count MPV PT INR Puncture Site Patient Temperature O2 Saturation ABG pH ABG pCO2 ABG pO2 ABG HCO3 ABG O2 Content ABG Base Excess ABG Methemoglobin Eh Test Hemoglobin Carboxyhemoglobin O2 Delivery Device Liter Flow Critical Value Sodium Potassium Chloride Carbon Dioxide Anion Gap BUN Creatinine Estimated GFR POC Glucose 94 92 88 Random Glucose Calcium Prot Corrected Calcium Magnesium Iron TIBC % Saturation Ferritin Total Bilirubin AST ALT Alkaline Phosphatase Total Protein Total Protein (PEP) Albumin PTH Intact Urine Color Urine Clarity Urine pH Ur Specific [place] Urine Protein Urine Glucose (UA) Urine Ketones Urine Occult Blood Urine Nitrate Urine Bilirubin Urine Urobilinogen Ur Leukocyte Esterase Urine RBC Urine WBC Urine WBC Clumps Ur Squamous Epith Cells Urine Bacteria Hyaline Casts Urine Mucus Micro UA Comment Ur Microscopic Review Urine Culture Comments Random Vancomycin Complement C3 Complement C4 Hep Bs Antigen Hep C IgG Ab 01/10/18 01/10/18 01/10/18 04:02 07:33 07:33 WBC 8.1 RBC 3.51 L Hgb 8.2 L Hct 27.7 L MCV 79.0 L MCH 23.3 L MCHC 29.5 L RDW 26.1 H Plt Count 43 L MPV 9.0 PT 12.5 H INR 1.2 Puncture Site Patient Temperature O2 Saturation ABG pH ABG pCO2 ABG pO2 ABG HCO3 ABG O2 Content ABG Base Excess ABG Methemoglobin Eh Test Hemoglobin Carboxyhemoglobin O2 Delivery Device Liter Flow Critical Value Sodium Potassium Chloride Carbon Dioxide Anion Gap BUN Creatinine Estimated GFR POC Glucose 88 Random Glucose Calcium Prot Corrected Calcium Magnesium Iron TIBC % Saturation Ferritin Total Bilirubin AST ALT Alkaline Phosphatase Total Protein Total Protein (PEP) Albumin PTH Intact Urine Color Urine Clarity Urine pH Ur Specific [place] Urine Protein Urine Glucose (UA) Urine Ketones Urine Occult Blood Urine Nitrate Urine Bilirubin Urine Urobilinogen Ur Leukocyte Esterase Urine RBC Urine WBC Urine WBC Clumps Ur Squamous Epith Cells Urine Bacteria Hyaline Casts Urine Mucus Micro UA Comment Ur Microscopic Review Urine Culture Comments Random Vancomycin Complement C3 Complement C4 Hep Bs Antigen Hep C IgG Ab 01/10/18 01/10/18 01/10/18 07:33 07:33 09:42 WBC RBC Hgb Hct MCV MCH MCHC RDW Plt Count MPV PT INR Puncture Site Right radial Patient Temperature 98.6 O2 Saturation 93 ABG pH 7.28 L* ABG pCO2 60 H* ABG pO2 85 ABG HCO3 27 H ABG O2 Content 11.0 L ABG Base Excess 1.3 ABG Methemoglobin 1.5 Eh Test Present Hemoglobin 8.3 L Carboxyhemoglobin 2.2 O2 Delivery Device Nasal cannula Liter Flow 2.00 Critical Value Yes Sodium 144 Potassium 3.5 Chloride 106 Carbon Dioxide 27.8 Anion Gap 10 BUN 53 H Creatinine 2.75 H Estimated GFR 23 L POC Glucose Random Glucose 91 D Calcium 7.3 L* Prot Corrected Calcium 8.1 L Magnesium 1.8 Iron TIBC % Saturation Ferritin Total Bilirubin 1.8 H AST 17 ALT 17 Alkaline Phosphatase 64 Total Protein 5.6 L Total Protein (PEP) 5.6 L Albumin 2.2 L PTH Intact 42.6 Urine Color Urine Clarity Urine pH Ur Specific [place] Urine Protein Urine Glucose (UA) Urine Ketones Urine Occult Blood Urine Nitrate Urine Bilirubin Urine Urobilinogen Ur Leukocyte Esterase Urine RBC Urine WBC Urine WBC Clumps Ur Squamous Epith Cells Urine Bacteria Hyaline Casts Urine Mucus Micro UA Comment Ur Microscopic Review Urine Culture Comments Random Vancomycin 9.6 Complement C3 57 L Complement C4 14 Hep Bs Antigen Nonreactive Hep C IgG Ab Nonreactive 01/10/18 09:55 WBC RBC Hgb Hct MCV MCH MCHC RDW Plt Count MPV PT INR Puncture Site Patient Temperature O2 Saturation ABG pH ABG pCO2 ABG pO2 ABG HCO3 ABG O2 Content ABG Base Excess ABG Methemoglobin Eh Test Hemoglobin Carboxyhemoglobin O2 Delivery Device Liter Flow Critical Value Sodium Potassium Chloride Carbon Dioxide Anion Gap BUN Creatinine Estimated GFR POC Glucose 153 H Random Glucose Calcium Prot Corrected Calcium Magnesium Iron TIBC % Saturation Ferritin Total Bilirubin AST ALT Alkaline Phosphatase Total Protein Total Protein (PEP) Albumin PTH Intact Urine Color Urine Clarity Urine pH Ur Specific [place] Urine Protein Urine Glucose (UA) Urine Ketones Urine Occult Blood Urine Nitrate Urine Bilirubin Urine Urobilinogen Ur Leukocyte Esterase Urine RBC Urine WBC Urine WBC Clumps Ur Squamous Epith Cells Urine Bacteria Hyaline Casts Urine Mucus Micro UA Comment Ur Microscopic Review Urine Culture Comments Random Vancomycin Complement C3 Complement C4 Hep Bs Antigen Hep C IgG Ab Microbiology 01/06/18 00:40 Blood - Peripheral Aerobic Blood Culture - Preliminary No growth in 4 days 01/06/18 00:40 Blood - Peripheral Anaerobic Blood Culture - Final QNS - See aerobic report. 01/06/18 00:45 Blood - Peripheral Aerobic Blood Culture - Preliminary No growth in 4 days 01/06/18 00:45 Blood - Peripheral Anaerobic Blood Culture - Final QNS - See aerobic report. 01/04/18 18:55 Blood - Peripheral Aerobic Blood Culture - Final No growth in 5 days 01/04/18 18:55 Blood - Peripheral Anaerobic Blood Culture - Final No growth in 5 days 01/04/18 19:04 Blood - Peripheral Aerobic Blood Culture - Final No growth in 5 days 01/04/18 19:04 Blood - Peripheral Anaerobic Blood Culture - Final No growth in 5 days - Imaging Impressions Chest X-Ray 01/10/18 06:00 CONCLUSION: Stable appearance of the chest. <Benjy Juan - Last Filed: 01/10/18 11:13> Assessment and Plan - Plan 01/07/2018 patient continues in the intensive care setting eyes closed but does respond and arouse to verbal stimuli. Currently being managed with oxygen per nasal cannula 5 L. No obvious shortness of breath anemia remains present without obvious bleeding current hemoglobin 8.2 PT/INR 1.6 on 01/04/2018, bilirubin 1.7 AST 36, ALT 20, alkaline phosphatase 48. Continues with chest tubes, noted tachycardic heart rate this a.m. approximately 123, probable atrial tach. Anemia, probable acute on chronic disease History of EtOH abuse, mild elevated bilirubin, coagulopathy Portal hypertension, probable, probably secondary to EtOH, albumin dose given on 01/06/2018 01/08/18-patient awake and alert follows movement with eyes and nonverbal. No apparent distress noted. No obvious bleeding reported. Hemoglobin 7.3 hematocrit 25.8 total bilirubin 1.4 AST 29 ALT 17 alk phos 44 albumin 1.8. We will continue to monitor closely 01/09/2018-patient awake and alert verbalizes no discomfort. No distress noted. Discussed patient's status with nurse no obvious bleeding noted. Hemoglobin 7.7 hematocrit 26.2 platelet count 40 total bilirubin 2.2 AST 19 ALT 17 alk phos 43 trending down. Plan Continue to monitor labs Continue albumin PPI Possible endoscopy this week sooner if active bleeding occurs Supportive care This patient has been seen by myself and Dr. Juan and this note is written on his behalf - Attending Attestation Dr. Juan <Jaqueline Lovelace - Last Filed: 01/09/18 14:21> - Plan Seen and examined with SPECIAL SERVICES DIRECTOR, no active bleeding. GI procedures next week if ok from pulmonary standpoint. <Benjy Juan - Last Filed: 01/10/18 11:13>
[2018-01-09] MEDS: Dextrose 10% in Water Inj 500 ML IV.CONT SCH (20:57)
[2018-01-09] MEDS: Dextrose 10% in Water Inj 1,000 ML IV.CONT SCH (21:04)
[2018-01-10] MEDS: Insulin NovoLIN Regular Correctional Sugar Inj SQ SCH ×7 (00:04→23:51)
--- NOTE | 2018-01-10 07:02 | XR ---
EXAM DATE: 01/10/2018 6:00 AM EDT AGE/SEX: 77 years / Male INDICATIONS: Shortness of breath, possible pulmonary disease. CLINICAL DATA: This is the patient's subsequent encounter. Patient reports that signs and symptoms h ave been present for 1 week and indicates a pain score of Nonresponsive. MEDICAL/SURGICAL HISTORY: Anemia. Congestive heart failure. Sepsis. None. COMPARISON: [facility] – [place], CHEST 1V SINGLE AP, 01/08/2018. . FINDINGS: There is persistent consolidation in the left lower lobe and right medial lung base. Cardiomegaly and aortic calcification. Osseous structures are intact. A chest tube overlies left lung base. CONCLUSION: Stable appearance of the chest. Electronically signed by: Jamir Curtis MD 01/10/2018 7:01 AM EDT
[2018-01-10 08:25] LABS: INR 1.2 Ratio; Prothrombin Time 12.5 sec (9.8-11.6)
[2018-01-10 08:26] LABS: Albumin 2.2 g/dL (3.4-5.0); Calcium 7.3 mg/dL (8.5-10.1); Carbon Dioxide 27.8 meq/L (21.0-32.0); Hematocrit 27.7 % (39.0-51.0); Hemoglobin 8.2 gm/dL (13.0-17.0); Magnesium 1.8 mg/dL (1.5-2.5); Mean Corpuscular Hemoglobin 23.3 pg (27.0-34.0); Platelet Count 43 th/mm3 (150-450); Potassium 3.5 meq/L (3.5-5.1); Red Blood Count 3.51 mil/mm3 (4.50-5.90); Red Cell Distribution Width 26.1 % (11.6-17.2); Total Protein 5.6 g/dL (6.4-8.2); Vancomycin,Random 9.6 Comment; White Blood Count 8.1 th/mm3 (4.0-11.0)
[2018-01-10 08:36] LABS: Mean Corpuscular HGB Conc 29.5 % (32.0-36.0)
[2018-01-10] MEDS: Metoprolol Tartrate 25 MG Tablet PO SCH ×2 (09:34→22:09)
[2018-01-10] MEDS: Senna/Docusate Sodium 8.6/50 MG Tablet PO SCH ×2 (09:34→22:09)
[2018-01-10] MEDS: Dextrose 10% in Water Inj 500 ML IV.CONT SCH ×2 (09:35→22:08)
[2018-01-10 09:49] LABS: Hepatitits B Surface Antigen Nonreactive (Nonreactive)
[2018-01-10 10:02] LABS: ABG Base Excess 1.3 mmol/L (-2-2); ABG PCO2 60 mmHg (38-42); ABG PO2 85 mmHG (61-120)
--- NOTE | 2018-01-10 10:34 | P.PNCC ---
Subjective Subjective Remarks/Hospital Course: The patient is a 77-year-old male with an unknown past medical history, who presented to [facility] ED for generalized weakness. The patient does not really follow up with a physician and takes no medications at home. Per ED nurse, he had fallen multiple times today and was on the floor for some time. Apparently the evac stated that he did not want to come however, he was told that he needed to come in for further evaluation and management. On arrival, he was tachycardic with heart rate of 102 and a blood pressure of 127/ 58. His initial laboratory data showed anemia with hemoglobin 6.6 and acute renal failure with a creatinine level of 2.0. Also, he was found to have elevated lactic acid level at 6.8 and elevated troponin at 0.64. His BNP was 3405. The patient underwent a CT scan of the brain in EGD, which showed no acute intracranial abnormalities. He also had a lumbar spine CT, which showed no subluxation or acute fracture of the lumbar spine. CT of the facial bones showed preseptal soft tissue contusion of the left orbit and a chest x-ray showed bilateral pleural effusions with basilar consolidation, left greater than the right. Most of the history was obtained from reviewing medical records as the patient is a poor historian. In the ED, he was given normal saline 250, Lasix 40 mg IV push, and placed on a Protonix drip. He also received 1 dose of vancomycin. Per records, he also had purulent discharge from his left eye that caused his eyelid to swell. The patient also had a venous Doppler ultrasound, which showed no deep vein thrombosis; however, there is superficial venous thrombosis involving the bilateral great saphenous veins. SUBJ 01/05/18: Patient currently on BiPAP remains very lethargic not following commands not opening eyes to command. PH remains at 7.27 despite several hours on BiPAP PCO2 60. Ultrasound shows large bilateral effusions left larger than right. Because of respiratory acidosis, altered mental status and large pleural effusion patient was intubated and placed on mechanical ventilation. Following this I placed a left pigtail chest tube, initial output was 2 L clear straw colored fluid 01/06: Remains intubated sedated on sedation hold intermittently following commands. Bilateral large pleural effusions drained yesterday. Since placement yesterday left side has drained more than 3 L, right side has drained more than 2 L. Hemoglobin remained stable no obvious bleeding. Fluid studies consistent with transudative effusion. IV Lasix started by cardiology with urine output more than 2 L 01/07 Patient is extubated and on 4L oxygen with good sats, Afebrile. Had episode of hypotension overnight given Albumin, Lopressor held BP now 103/54 with MAP 77mmHg. 01/08: Breathing comfortably tachycardic though sinus. Heart rate 120 bpm. Metoprolol is being held I will resume metoprolol 25 mg twice daily. Hemoglobin 7.3 transfuse 1 unit PRBC. Chest tubes with high output right side 3 3 mL on left side for 3 mL in 24 hours. 01/09: Breathing comfortably. Significant output from chest tubes left side drained 1 L and right side drained 900 mL in 24 hours. Urine output diminished creatinine increased to 2.7. Will increase Lasix to 40 IV every 8 hours with IV albumin, consult nephrology. Previous renal ultrasound did not show any hydronephrosis. Mcfarland ordered to be reinserted for accurate intake output due to worsening renal failure 01/10: Patient appearing clinically worse. Very lethargic hard to wake up,. Stat ABG shows 7.2 /. Initiate BiPAP for hypercapnic respiratory failure , if not improved in 2 hours will need re intubation. Urine output slightly improved with increased diuresis for 50 mL in 24 hours. Bilateral chest tube with more than 600 mL output combined Objective Vital Signs / I&O: Vital Signs 01/09/18 12:00 01/09/18 16:00 01/09/18 16:11 Temperature 98.2 F 98 F Pulse Rate 95 H 92 H 95 H Respiratory Rate 36 H 31 H 22 Blood Pressure 120/65 121/57 L Pulse Oximetry 98 96 01/09/18 16:30 01/09/18 17:00 01/09/18 17:30 Temperature Pulse Rate 92 H 137 H 94 H Respiratory Rate 31 H 27 H 31 H Blood Pressure 127/58 L 120/57 L 128/60 Pulse Oximetry 100 99 98 01/09/18 18:00 01/09/18 18:30 01/09/18 19:00 Temperature Pulse Rate 92 H 92 H 91 H Respiratory Rate 33 H 31 H 29 H Blood Pressure 124/59 L 123/70 123/58 L Pulse Oximetry 100 100 98 10/07/18 19:30 01/09/18 20:00 01/09/18 20:30 Temperature 98.6 F Pulse Rate 95 H 100 H 98 H Respiratory Rate 29 H 34 H 29 H Blood Pressure 122/56 L 130/59 L 135/62 Pulse Oximetry 98 99 96 01/09/18 21:00 01/09/18 21:30 01/09/18 22:00 Temperature Pulse Rate 96 H 94 H 88 Respiratory Rate 28 H 26 H 25 H Blood Pressure 131/60 126/66 129/58 L Pulse Oximetry 97 96 96 01/09/18 22:30 01/09/18 23:00 01/09/18 23:31 Temperature Pulse Rate 87 87 87 Respiratory Rate 28 H 32 H 23 Blood Pressure 135/62 123/60 139/60 Pulse Oximetry 97 97 98 01/10/18 00:00 01/10/18 00:31 01/10/18 01:00 Temperature 98.8 F Pulse Rate 88 88 89 Respiratory Rate 28 H 23 29 H Blood Pressure 134/60 163/68 H 147/63 H Pulse Oximetry 98 99 94 L 01/10/18 01:30 01/10/18 02:00 01/10/18 02:30 Temperature Pulse Rate 88 86 85 Respiratory Rate 27 H 27 H 24 Blood Pressure 152/67 H 147/65 H 148/65 H Pulse Oximetry 95 95 95 01/10/18 03:00 01/10/18 03:30 01/10/18 04:00 Temperature 97.8 F Pulse Rate 84 86 86 Respiratory Rate 21 22 22 Blood Pressure 149/63 H 154/67 H 163/71 H Pulse Oximetry 94 L 96 97 01/10/18 04:08 01/10/18 08:00 01/10/18 08:01 Temperature Pulse Rate 85 90 Respiratory Rate 16 18 Blood Pressure Pulse Oximetry 98 Intake & Output 01/09/18 01/10/18 01/10/18 18:59 06:59 18:59 Intake Total 740 / 740 1300 / 1300 500 / 500 Output Total 125 / 125 1135 / 1135 Balance 615 / 615 165 / 165 500 / 500 Weight 81 kg Intake: IV 500 / 500 1300 / 1300 500 / 500 D10W Inj 1,000 ML @ 42 mls/hr 1000 / 1000 IV.CONT .[id number] [facility] Rx#: [id number] D10W Inj 500 ML @ 42 mls/hr IV. 500 / 500 CONT .[id number] [facility] Rx#:[id number] Protonix Inj 80 MG In NS Inj 100 / 100 100 / 100 100 ML @ 10 mls/hr IV.CONT Q10H [facility] Rx#:[id number] Flexbumin 25% Inj 100 ML @ 60 200 / 200 100 / 100 mls/hr IV.SIG Q8HR [facility] Rx#: [id number] Azactam Inj 1,000 MG In NS Inj 200 / 200 100 / 100 100 ML @ 200 mls/hr IV.SIG Q12H [facility] Rx#:[id number] Oral 240 / 240 Output: Urine 125 / 125 Urine Amount (Catheter) 475 / 475 Indwelling Urethral Catheter 475 / 475 Chest Tube Drainage 660 / 660 Left Upper Pleural 310 / 310 Right Upper Pleural 350 / 350 Other: # Bowel Movements 0 Result Diagrams: 01/10/18 07:33 01/10/18 07:33 Objective Remarks: GENERAL: Patient is 77 yo lying in bed very lethargic, in moderate distress HEENT: Atraumatic, normocephalic. Pupils are equal, round. Conjunctivitis appears improved NECK: Supple. No JVD, adenopathy, or thyromegaly. Trachea midline. CARDIOVASCULAR: Normal rate and sinus rhythm. Normal S1, S2. No murmurs, rubs or gallops. PULMONARY: Using accessory muscles. Diminished breath sounds at the bases. Bilateral pigtail chest tubes in place 350 mL/24hr right side, 310 mL from left ABDOMEN: Soft, nontender. No distention. Positive bowel sounds. EXTREMITIES: No cyanosis or clubbing, 1-2+ edema. NEUROLOGIC: Patient is very somnolent today hard to wake. Opens eyes to sternal rub. Unable to follow commands but moves extremities. Assessment and Plan - Assessment and Plan Plan: IMPRESSION: Recurrent acute hypercapnic respiratory failure Altered mental status/metabolic encephalopathy Probable COPD Anemia thrombocytopenia Acute renal failure, worsening GI bleed Anemia requiring transfusion Lactic acidemia. 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 Bilateral large pleural effusions, status post chest tube Superficial venous thrombosis bilaterally, great saphenous vein. Conjunctivitis of the left eye. PLAN Neuro: Worsening mental status most likely from hypercapnia CT scan of the brain in the ED showed no acute intracranial findings. Pulm: Interval worsening of respiratory status and hypercapnic respiratory failure Initiate BiPAP 03/09. Repeat ABG in 2 hours if not improving may need endotracheal intubation Bilateral pigtail chest tubes placed 01/05/2018. Left chest tube with 310 ml and, right with 350 mL output in 24 hours Transudative fluid. Continue chest tube to waterseal CV: Monitor HR and BP keep MAP>65mmHg Continue Lasix 40 every 8 hours as the patient is grossly fluid overloaded Nephrology following, previous renal ultrasound did not show hydronephrosis, continue Mcfarland for accurate intake output Echo showed EF 50-55%. Not a candidate for invasive procedures or anticoagulation/antiplatelet therapy at this time due to severe anemia Cardiology Dr. Ball following Continue metoprolol due to tachycardia GI: Continue with Protonix drip. GI is following. EGD/colonoscopy when stable per GI (not stable at this time) Keep n.p.o. due to worsening respiratory failure. CT abdomen and pelvis without contrast-no acute findings Heme: s/p transfusion multiple units of PRBC, since admission. Thrombocytopenia likely secondary to liver disease and portal hypertension, f/u HIT screen Monitor CBC and coags ID: Continue abx aztreonam. Strep pneumonia, Legionella urinary antigen negative , Sputum cx: normal resp mechelle. BC: NGTD Endo: Sliding scale insulin with Accu-Cheks to maintain euglycemia. TSH measured at 4.2 GI prophylaxis with Protonix drip and DVT prophylaxis with SCDs. Chemical anticoagulation prophylaxis contraindicated due to anemia and probable GI bleed. CCT 35. Patient more critical today took a turn for the worse. Currently lethargic ABG shows hypercapnic respiratory failure. Emergently placed back on BiPAP. Repeat ABG in 2 hours if not sufficiently improved may need endotracheal intubation Code Status: Full
[2018-01-10] MEDS: Pantoprazole Inj 80 MG in Sodium Chlor 0.9% Inj 100 ML IV.CONT SCH ×2 (11:06→20:55)
--- NOTE | 2018-01-10 11:33 | P.PNGI ---
Subjective Interval history: Seen and examined with [employer], On Bipap now. Not stable for gi procedures. Will sign off, reconsult as needed when stable for gi procedures. Discussed with nurse. Thank you <Benjy Juan - Last Filed: 01/10/18 15:27> Interval history: Appears lethargic this a.m.. No recent pain meds seen, sinus rhythm heart rate 93 blood pressure stable hemoglobin 8.2 No obvious abdominal pain nausea or vomiting <Sejal Felipe - Last Filed: 01/10/18 16:13> Physical Exam Vital signs: Vital Signs 01/09/18 16:00 01/09/18 16:11 01/09/18 16:30 Temperature 98 F Pulse Rate 92 H 95 H 92 H Respiratory Rate 31 H 22 31 H Blood Pressure 121/57 L 127/58 L Pulse Oximetry 96 100 01/09/18 17:00 01/09/18 17:30 01/09/18 18:00 Temperature Pulse Rate 137 H 94 H 92 H Respiratory Rate 27 H 31 H 33 H Blood Pressure 120/57 L 128/60 124/59 L Pulse Oximetry 99 98 100 01/09/18 18:30 01/09/18 19:00 01/09/18 19:30 Temperature Pulse Rate 92 H 91 H 95 H Respiratory Rate 31 H 29 H 29 H Blood Pressure 123/70 123/58 L 122/56 L Pulse Oximetry 100 98 98 01/09/18 20:00 01/09/18 20:30 01/09/18 21:00 Temperature 98.6 F Pulse Rate 100 H 98 H 96 H Respiratory Rate 34 H 29 H 28 H Blood Pressure 130/59 L 135/62 131/60 Pulse Oximetry 99 96 97 01/09/18 21:30 01/09/18 22:00 01/09/18 22:30 Temperature Pulse Rate 94 H 88 87 Respiratory Rate 26 H 25 H 28 H Blood Pressure 126/66 129/58 L 135/62 Pulse Oximetry 96 96 97 01/09/18 23:00 01/09/18 23:31 01/10/18 00:00 Temperature 98.8 F Pulse Rate 87 87 88 Respiratory Rate 32 H 23 28 H Blood Pressure 123/60 139/60 134/60 Pulse Oximetry 97 98 98 01/10/18 00:31 01/10/18 01:00 01/10/18 01:30 Temperature Pulse Rate 88 89 88 Respiratory Rate 23 29 H 27 H Blood Pressure 163/68 H 147/63 H 152/67 H Pulse Oximetry 99 94 L 95 01/10/18 02:00 01/10/18 02:30 01/10/18 03:00 Temperature Pulse Rate 86 85 84 Respiratory Rate 27 H 24 21 Blood Pressure 147/65 H 148/65 H 149/63 H Pulse Oximetry 95 95 94 L 01/10/18 03:30 01/10/18 04:00 01/10/18 04:08 Temperature 97.8 F Pulse Rate 86 86 85 Respiratory Rate 22 22 16 Blood Pressure 154/67 H 163/71 H Pulse Oximetry 96 97 01/10/18 08:00 01/10/18 08:01 01/10/18 10:47 Temperature Pulse Rate 90 Respiratory Rate 18 Blood Pressure Pulse Oximetry 98 100 01/10/18 14:24 01/10/18 14:25 Temperature Pulse Rate 100 H Respiratory Rate 20 Blood Pressure Pulse Oximetry 96 Intake & Output 01/09/18 01/10/18 01/10/18 18:59 06:59 18:59 Intake Total 740 / 740 1300 / 1300 600 / 600 Output Total 125 / 125 1135 / 1135 Balance 615 / 615 165 / 165 600 / 600 Weight 81 kg Intake: IV 500 / 500 1300 / 1300 600 / 600 D10W Inj 1,000 ML @ 42 mls/hr 1000 / 1000 IV.CONT .[id number] RENA Rx#: [id number] D10W Inj 500 ML @ 42 mls/hr IV. 500 / 500 CONT .[id number] RENA Rx#:[id number] Protonix Inj 80 MG In NS Inj 100 / 100 100 / 100 100 / 100 100 ML @ 10 mls/hr IV.CONT Q10H RENA Rx#:[id number] Flexbumin 25% Inj 100 ML @ 60 200 / 200 100 / 100 mls/hr IV.SIG Q8HR RENA Rx#: [id number] Azactam Inj 1,000 MG In NS Inj 200 / 200 100 / 100 100 ML @ 200 mls/hr IV.SIG Q12H RENA Rx#:[id number] Oral 240 / 240 Output: Urine 125 / 125 Urine Amount (Catheter) 475 / 475 Indwelling Urethral Catheter 475 / 475 Chest Tube Drainage 660 / 660 Left Upper Pleural 310 / 310 Right Upper Pleural 350 / 350 Other: # Bowel Movements 0 - Urinary Catheter Management Indwelling Urethral Catheter Cath placed during this visit: no Straight Cath placed during this visit: no <Benjy Juan - Last Filed: 01/10/18 15:27> Vital signs: Vital Signs 01/09/18 12:00 01/09/18 16:00 01/09/18 16:11 Temperature 98.2 F 98 F Pulse Rate 95 H 92 H 95 H Respiratory Rate 36 H 31 H 22 Blood Pressure 120/65 121/57 L Pulse Oximetry 98 96 01/09/18 16:30 01/09/18 17:00 01/09/18 17:30 Temperature Pulse Rate 92 H 137 H 94 H Respiratory Rate 31 H 27 H 31 H Blood Pressure 127/58 L 120/57 L 128/60 Pulse Oximetry 100 99 98 01/09/18 18:00 01/09/18 18:30 01/09/18 19:00 Temperature Pulse Rate 92 H 92 H 91 H Respiratory Rate 33 H 31 H 29 H Blood Pressure 124/59 L 123/70 123/58 L Pulse Oximetry 100 100 98 01/09/18 19:30 01/09/18 20:00 01/09/18 20:30 Temperature 98.6 F Pulse Rate 95 H 100 H 98 H Respiratory Rate 29 H 34 H 29 H Blood Pressure 122/56 L 130/59 L 135/62 Pulse Oximetry 98 99 96 01/09/18 21:00 01/09/18 21:30 01/09/18 22:00 Temperature Pulse Rate 96 H 94 H 88 Respiratory Rate 28 H 26 H 25 H Blood Pressure 131/60 126/66 129/58 L Pulse Oximetry 97 96 96 01/09/18 22:30 01/09/18 23:00 01/09/18 23:31 Temperature Pulse Rate 87 87 87 Respiratory Rate 28 H 32 H 23 Blood Pressure 135/62 123/60 139/60 Pulse Oximetry 97 97 98 01/10/18 00:00 01/10/18 00:31 01/10/18 01:00 Temperature 98.8 F Pulse Rate 88 88 89 Respiratory Rate 28 H 23 29 H Blood Pressure 134/60 163/68 H 147/63 H Pulse Oximetry 98 99 94 L 01/10/18 01:30 01/10/18 02:00 01/10/18 02:30 Temperature Pulse Rate 88 86 85 Respiratory Rate 27 H 27 H 24 Blood Pressure 152/67 H 147/65 H 148/65 H Pulse Oximetry 95 95 95 01/10/18 03:00 01/10/18 03:30 01/10/18 04:00 Temperature 97.8 F Pulse Rate 84 86 86 Respiratory Rate 21 22 22 Blood Pressure 149/63 H 154/67 H 163/71 H Pulse Oximetry 94 L 96 97 01/10/18 04:08 01/10/18 08:00 01/10/18 08:01 Temperature Pulse Rate 85 90 Respiratory Rate 16 18 Blood Pressure Pulse Oximetry 98 01/10/18 10:47 Temperature Pulse Rate Respiratory Rate Blood Pressure Pulse Oximetry 100 Intake & Output 01/09/18 01/10/18 01/10/18 18:59 06:59 18:59 Intake Total 740 / 740 1300 / 1300 600 / 600 Output Total 125 / 125 1135 / 1135 Balance 615 / 615 165 / 165 600 / 600 Weight 81 kg Intake: IV 500 / 500 1300 / 1300 600 / 600 D10W Inj 1,000 ML @ 42 mls/hr 1000 / 1000 IV.CONT .[id number] RENA Rx#: [id number] D10W Inj 500 ML @ 42 mls/hr IV. 500 / 500 CONT .[id number] RENA Rx#:[id number] Protonix Inj 80 MG In NS Inj 100 / 100 100 / 100 100 / 100 100 ML @ 10 mls/hr IV.CONT Q10H RENA Rx#:[id number] Flexbumin 25% Inj 100 ML @ 60 200 / 200 100 / 100 mls/hr IV.SIG Q8HR RENA Rx#: [id number] Azactam Inj 1,000 MG In NS Inj 200 / 200 100 / 100 100 ML @ 200 mls/hr IV.SIG Q12H RENA Rx#:[id number] Oral 240 / 240 Output: Urine 125 / 125 Urine Amount (Catheter) 475 / 475 Indwelling Urethral Catheter 475 / 475 Chest Tube Drainage 660 / 660 Left Upper Pleural 310 / 310 Right Upper Pleural 350 / 350 Other: # Bowel Movements 0 - Constitutional mild distress, somnolent - Routine HEENT Exam Head: Present: normocephalic ENT: Present: mucous membranes dry - Routine Respiratory Exam Present: distant breath sounds - Routine Cardiovascular Exam Present: S1, S2 - Routine Abdominal Exam Present: soft (Flat, no obvious abdominal pain to light palpation) - Urinary Catheter Management Indwelling Urethral Catheter Cath placed during this visit: yes, but has since been removed by the nurse Reason for continuing: Hourly intake/output Insertion date: 01/09/18 Insertion time: 08:30 Removal date: 01/07/18 Removal time: 12:25 Straight Cath placed during this visit: no Reason for continuing: Other continuation reason <Sejal Felipe - Last Filed: 01/10/18 16:13> Results - Labs CBC & Chem 7: 01/10/18 07:33 01/10/18 07:33 Laboratory Results - last 24 hr 01/09/18 01/09/18 01/10/18 16:18 20:30 00:01 WBC RBC Hgb Hct MCV MCH MCHC RDW Plt Count MPV PT INR Puncture Site Patient Temperature O2 Saturation ABG pH ABG pCO2 ABG pO2 ABG HCO3 ABG O2 Content ABG Base Excess ABG Methemoglobin Eh Test Hemoglobin Carboxyhemoglobin O2 Delivery Device Liter Flow Vent Setting Inspired O2 Critical Value Sodium Potassium Chloride Carbon Dioxide Anion Gap BUN Creatinine Estimated GFR POC Glucose 94 92 88 Random Glucose Calcium Prot Corrected Calcium Magnesium Total Bilirubin AST ALT Alkaline Phosphatase Total Protein Total Protein (PEP) Albumin PTH Intact Random Vancomycin Complement C3 Complement C4 Hep Bs Antigen Hep C IgG Ab 01/10/18 01/10/18 01/10/18 04:02 07:33 07:33 WBC 8.1 RBC 3.51 L Hgb 8.2 L Hct 27.7 L MCV 79.0 L MCH 23.3 L MCHC 29.5 L RDW 26.1 H Plt Count 43 L MPV 9.0 PT 12.5 H INR 1.2 Puncture Site Patient Temperature O2 Saturation ABG pH ABG pCO2 ABG pO2 ABG HCO3 ABG O2 Content ABG Base Excess ABG Methemoglobin Eh Test Hemoglobin Carboxyhemoglobin O2 Delivery Device Liter Flow Vent Setting Inspired O2 Critical Value Sodium Potassium Chloride Carbon Dioxide Anion Gap BUN Creatinine Estimated GFR POC Glucose 88 Random Glucose Calcium Prot Corrected Calcium Magnesium Total Bilirubin AST ALT Alkaline Phosphatase Total Protein Total Protein (PEP) Albumin PTH Intact Random Vancomycin Complement C3 Complement C4 Hep Bs Antigen Hep C IgG Ab 01/10/18 01/10/18 01/10/18 07:33 07:33 09:42 WBC RBC Hgb Hct MCV MCH MCHC RDW Plt Count MPV PT INR Puncture Site Right radial Patient Temperature 98.6 O2 Saturation 93 ABG pH 7.28 L* ABG pCO2 60 H* ABG pO2 85 ABG HCO3 27 H ABG O2 Content 11.0 L ABG Base Excess 1.3 ABG Methemoglobin 1.5 Eh Test Present Hemoglobin 8.3 L Carboxyhemoglobin 2.2 O2 Delivery Device Nasal cannula Liter Flow 2.00 Vent Setting Inspired O2 Critical Value Yes Sodium 144 Potassium 3.5 Chloride 106 Carbon Dioxide 27.8 Anion Gap 10 BUN 53 H Creatinine 2.75 H Estimated GFR 23 L POC Glucose Random Glucose 91 D Calcium 7.3 L* Prot Corrected Calcium 8.1 L Magnesium 1.8 Total Bilirubin 1.8 H AST 17 ALT 17 Alkaline Phosphatase 64 Total Protein 5.6 L Total Protein (PEP) 5.6 L Albumin 2.2 L PTH Intact 42.6 Random Vancomycin 9.6 Complement C3 57 L Complement C4 14 Hep Bs Antigen Nonreactive Hep C IgG Ab Nonreactive 01/10/18 01/10/18 01/10/18 09:55 12:20 14:14 WBC RBC Hgb Hct MCV MCH MCHC RDW Plt Count MPV PT INR Puncture Site Right radial Patient Temperature 98.6 O2 Saturation 96 ABG pH 7.30 L ABG pCO2 57 H* ABG pO2 130 H ABG HCO3 27 H ABG O2 Content 11.3 L ABG Base Excess 1.4 ABG Methemoglobin 1.5 Eh Test Present Hemoglobin 8.2 L Carboxyhemoglobin 2.0 O2 Delivery Device Bipap Liter Flow Vent Setting Ipap+12/epap+5 Inspired O2 40 Critical Value Yes Sodium Potassium Chloride Carbon Dioxide Anion Gap BUN Creatinine Estimated GFR POC Glucose 153 H 108 Random Glucose Calcium Prot Corrected Calcium Magnesium Total Bilirubin AST ALT Alkaline Phosphatase Total Protein Total Protein (PEP) Albumin PTH Intact Random Vancomycin Complement C3 Complement C4 Hep Bs Antigen Hep C IgG Ab Microbiology 01/09/18 08:30 Catheterized Urine Urine Culture - Preliminary No growth in 24 hours 01/06/18 00:40 Blood - Peripheral Aerobic Blood Culture - Preliminary No growth in 4 days 01/06/18 00:40 Blood - Peripheral Anaerobic Blood Culture - Final QNS - See aerobic report. 01/06/18 00:45 Blood - Peripheral Aerobic Blood Culture - Preliminary No growth in 4 days 01/06/18 00:45 Blood - Peripheral Anaerobic Blood Culture - Final QNS - See aerobic report. - Imaging Impressions Chest X-Ray 01/10/18 06:00 CONCLUSION: Stable appearance of the chest. <Benjy Juan - Last Filed: 01/10/18 15:27> - Labs CBC & Chem 7: 01/10/18 07:33 01/10/18 07:33 Laboratory Results - last 24 hr 01/09/18 01/09/18 01/09/18 12:12 13:54 16:18 WBC RBC Hgb Hct MCV MCH MCHC RDW Plt Count MPV PT INR Puncture Site Patient Temperature O2 Saturation ABG pH ABG pCO2 ABG pO2 ABG HCO3 ABG O2 Content ABG Base Excess ABG Methemoglobin Eh Test Hemoglobin Carboxyhemoglobin O2 Delivery Device Liter Flow Critical Value Sodium Potassium Chloride Carbon Dioxide Anion Gap BUN Creatinine Estimated GFR POC Glucose 106 94 Random Glucose Calcium Prot Corrected Calcium Magnesium Iron 51 L TIBC 147 L % Saturation 34.7 Ferritin 64 Total Bilirubin AST ALT Alkaline Phosphatase Total Protein Total Protein (PEP) Albumin PTH Intact Random Vancomycin Complement C3 Complement C4 Hep Bs Antigen Hep C IgG Ab 01/09/18 01/10/18 01/10/18 20:30 00:01 04:02 WBC RBC Hgb Hct MCV MCH MCHC RDW Plt Count MPV PT INR Puncture Site Patient Temperature O2 Saturation ABG pH ABG pCO2 ABG pO2 ABG HCO3 ABG O2 Content ABG Base Excess ABG Methemoglobin Eh Test Hemoglobin Carboxyhemoglobin O2 Delivery Device Liter Flow Critical Value Sodium Potassium Chloride Carbon Dioxide Anion Gap BUN Creatinine Estimated GFR POC Glucose 92 88 88 Random Glucose Calcium Prot Corrected Calcium Magnesium Iron TIBC % Saturation Ferritin Total Bilirubin AST ALT Alkaline Phosphatase Total Protein Total Protein (PEP) Albumin PTH Intact Random Vancomycin Complement C3 Complement C4 Hep Bs Antigen Hep C IgG Ab 01/10/18 01/10/18 01/10/18 07:33 07:33 07:33 WBC 8.1 RBC 3.51 L Hgb 8.2 L Hct 27.7 L MCV 79.0 L MCH 23.3 L MCHC 29.5 L RDW 26.1 H Plt Count 43 L MPV 9.0 PT 12.5 H INR 1.2 Puncture Site Patient Temperature O2 Saturation ABG pH ABG pCO2 ABG pO2 ABG HCO3 ABG O2 Content ABG Base Excess ABG Methemoglobin Eh Test Hemoglobin Carboxyhemoglobin O2 Delivery Device Liter Flow Critical Value Sodium 144 Potassium 3.5 Chloride 106 Carbon Dioxide 27.8 Anion Gap 10 BUN 53 H Creatinine 2.75 H Estimated GFR 23 L POC Glucose Random Glucose 91 D Calcium 7.3 L* Prot Corrected Calcium 8.1 L Magnesium 1.8 Iron TIBC % Saturation Ferritin Total Bilirubin 1.8 H AST 17 ALT 17 Alkaline Phosphatase 64 Total Protein 5.6 L Total Protein (PEP) 5.6 L Albumin 2.2 L PTH Intact Random Vancomycin 9.6 Complement C3 57 L Complement C4 14 Hep Bs Antigen Hep C IgG Ab 01/10/18 01/10/18 01/10/18 07:33 09:42 09:55 WBC RBC Hgb Hct MCV MCH MCHC RDW Plt Count MPV PT INR Puncture Site Right radial Patient Temperature 98.6 O2 Saturation 93 ABG pH 7.28 L* ABG pCO2 60 H* ABG pO2 85 ABG HCO3 27 H ABG O2 Content 11.0 L ABG Base Excess 1.3 ABG Methemoglobin 1.5 Eh Test Present Hemoglobin 8.3 L Carboxyhemoglobin 2.2 O2 Delivery Device Nasal cannula Liter Flow 2.00 Critical Value Yes Sodium Potassium Chloride Carbon Dioxide Anion Gap BUN Creatinine Estimated GFR POC Glucose 153 H Random Glucose Calcium Prot Corrected Calcium Magnesium Iron TIBC % Saturation Ferritin Total Bilirubin AST ALT Alkaline Phosphatase Total Protein Total Protein (PEP) Albumin PTH Intact 42.6 Random Vancomycin Complement C3 Complement C4 Hep Bs Antigen Nonreactive Hep C IgG Ab Nonreactive Microbiology 01/06/18 00:40 Blood - Peripheral Aerobic Blood Culture - Preliminary No growth in 4 days 01/06/18 00:40 Blood - Peripheral Anaerobic Blood Culture - Final QNS - See aerobic report. 01/06/18 00:45 Blood - Peripheral Aerobic Blood Culture - Preliminary No growth in 4 days 01/06/18 00:45 Blood - Peripheral Anaerobic Blood Culture - Final QNS - See aerobic report. 01/04/18 18:55 Blood - Peripheral Aerobic Blood Culture - Final No growth in 5 days 01/04/18 18:55 Blood - Peripheral Anaerobic Blood Culture - Final No growth in 5 days 01/04/18 19:04 Blood - Peripheral Aerobic Blood Culture - Final No growth in 5 days 01/04/18 19:04 Blood - Peripheral Anaerobic Blood Culture - Final No growth in 5 days - Imaging Impressions Chest X-Ray 01/10/18 06:00 CONCLUSION: Stable appearance of the chest. <Sejal Felipe - Last Filed: 01/10/18 16:13> Assessment and Plan - Plan Possible GI bleed symptomatic anemia initial hemoglobin 6.1 with 2 units transfusion now 7.8. No obvious rectal bleeding or hematemesis Coagulopathy with PT/INR 1.6 , no known blood thinners, could be related to liver disease hyperbilirubinemia with elevated AST, this could be related to shock liver versus EtOH versus medications versus cirrhosis versus hepatocellular disease. Patient has diffuse anasarca and small amount of ascites. Sigmoid diverticulosis per CT scan Positive troponins that will be evaluated per cardiology, initially had tachycardic rhythm Large pleural effusions with right chest tube left tube chest tube pending Ventilator management with minimal response except for painful stimuli 01/07/2018 patient continues in the intensive care setting eyes closed but does respond and arouse to verbal stimuli. Currently being managed with oxygen per nasal cannula 5 L. No obvious shortness of breath anemia remains present without obvious bleeding current hemoglobin 8.2 PT/INR 1.6 on 01/04/2018, bilirubin 1.7 AST 36, ALT 20, alkaline phosphatase 48. Continues with chest tubes, noted tachycardic heart rate this a.m. approximately 123, probable atrial tach. Anemia, probable acute on chronic disease History of EtOH abuse, mild elevated bilirubin, coagulopathy Portal hypertension, probable, probably secondary to EtOH, albumin dose given on 01/06/2018 01/08/18-patient awake and alert follows movement with eyes and nonverbal. No apparent distress noted. No obvious bleeding reported. Hemoglobin 7.3 hematocrit 25.8 total bilirubin 1.4 AST 29 ALT 17 alk phos 44 albumin 1.8. We will continue to monitor closely 01/09/2018-patient awake and alert verbalizes no discomfort. No distress noted. Discussed patient's status with nurse no obvious bleeding noted. Hemoglobin 7.7 hematocrit 26.2 platelet count 40 total bilirubin 2.2 AST 19 ALT 17 alk phos 43 trending down. 01/10/2018 patient is less responsive today appears fairly lethargic. Current hemoglobin 8.2 PT/INR last check 1.2, bilirubin 1.8, AST and ALT normal at 17. Heart rate controlled sinus rhythm at 93 stable blood pressure. Abdomen appears soft, flat, with soft bowel sounds no obvious distention. Will need to continue to monitor patient's mental status before EGD is scheduled as well as O2 sat. no obvious bleeding noted today Will check ammonia level. Plan Diet PPI drip continue Antibiotics per attending Bowel regimen as needed ammonia level ordered. Zofran as needed Continue to monitor labs with special attention to hemoglobin and any obvious bleeding, transfuse as needed EGD consider this week once patient stabilizes Further recommendations to follow Patient was seen per myself and Dr. Juan, note was written on his behalf <Sejal Felipe - Last Filed: 01/10/18 16:13>
--- NOTE | 2018-01-10 11:53 | P.PNNP ---
Subjective Interval history: Patient on BiPAP. Not responding to questions currently. Physical Exam Vital signs: Vital Signs 01/09/18 12:00 01/09/18 16:00 01/09/18 16:11 Temperature 98.2 F 98 F Pulse Rate 95 H 92 H 95 H Respiratory Rate 36 H 31 H 22 Blood Pressure 120/65 121/57 L Pulse Oximetry 98 96 01/09/18 16:30 01/09/18 17:00 01/09/18 17:30 Temperature Pulse Rate 92 H 137 H 94 H Respiratory Rate 31 H 27 H 31 H Blood Pressure 127/58 L 120/57 L 128/60 Pulse Oximetry 100 99 98 01/09/18 18:00 01/09/18 18:30 01/09/18 19:00 Temperature Pulse Rate 92 H 92 H 91 H Respiratory Rate 33 H 31 H 29 H Blood Pressure 124/59 L 123/70 123/58 L Pulse Oximetry 100 100 98 01/09/18 19:30 01/09/18 20:00 01/09/18 20:30 Temperature 98.6 F Pulse Rate 95 H 100 H 98 H Respiratory Rate 29 H 34 H 29 H Blood Pressure 122/56 L 130/59 L 135/62 Pulse Oximetry 98 99 96 01/09/18 21:00 01/09/18 21:30 01/09/18 22:00 Temperature Pulse Rate 96 H 94 H 88 Respiratory Rate 28 H 26 H 25 H Blood Pressure 131/60 126/66 129/58 L Pulse Oximetry 97 96 96 01/09/18 22:30 01/09/18 23:00 01/09/18 23:31 Temperature Pulse Rate 87 87 87 Respiratory Rate 28 H 32 H 23 Blood Pressure 135/62 123/60 139/60 Pulse Oximetry 97 97 98 01/10/18 00:00 01/10/18 00:31 01/10/18 01:00 Temperature 98.8 F Pulse Rate 88 88 89 Respiratory Rate 28 H 23 29 H Blood Pressure 134/60 163/68 H 147/63 H Pulse Oximetry 98 99 94 L 01/10/18 01:30 01/10/18 02:00 01/10/18 02:30 Temperature Pulse Rate 88 86 85 Respiratory Rate 27 H 27 H 24 Blood Pressure 152/67 H 147/65 H 148/65 H Pulse Oximetry 95 95 95 01/10/18 03:00 01/10/18 03:30 01/10/18 04:00 Temperature 97.8 F Pulse Rate 84 86 86 Respiratory Rate 21 22 22 Blood Pressure 149/63 H 154/67 H 163/71 H Pulse Oximetry 94 L 96 97 01/10/18 04:08 01/10/18 08:00 01/10/18 08:01 Temperature Pulse Rate 85 90 Respiratory Rate 16 18 Blood Pressure Pulse Oximetry 98 01/10/18 10:47 Temperature Pulse Rate Respiratory Rate Blood Pressure Pulse Oximetry 100 Intake & Output 01/09/18 01/10/18 01/10/18 18:59 06:59 18:59 Intake Total 740 / 740 1300 / 1300 600 / 600 Output Total 125 / 125 1135 / 1135 Balance 615 / 615 165 / 165 600 / 600 Weight 81 kg Intake: IV 500 / 500 1300 / 1300 600 / 600 D10W Inj 1,000 ML @ 42 mls/hr 1000 / 1000 IV.CONT .[id number] RENA Rx#: [id number] D10W Inj 500 ML @ 42 mls/hr IV. 500 / 500 CONT .[id number] RENA Rx#:[id number] Protonix Inj 80 MG In NS Inj 100 / 100 100 / 100 100 / 100 100 ML @ 10 mls/hr IV.CONT Q10H RENA Rx#:[id number] Flexbumin 25% Inj 100 ML @ 60 200 / 200 100 / 100 mls/hr IV.SIG Q8HR RENA Rx#: [id number] Azactam Inj 1,000 MG In NS Inj 200 / 200 100 / 100 100 ML @ 200 mls/hr IV.SIG Q12H RENA Rx#:[id number] Oral 240 / 240 Output: Urine 125 / 125 Urine Amount (Catheter) 475 / 475 Indwelling Urethral Catheter 475 / 475 Chest Tube Drainage 660 / 660 Left Upper Pleural 310 / 310 Right Upper Pleural 350 / 350 Other: # Bowel Movements 0 Narrative: GENERAL: Elderly male who appears to be unkept. With a BiPAP mask not verbal. SKIN: Warm and dry. HEAD: Atraumatic. Normocephalic. EYES: Pupils equal and round. No scleral icterus. No injection or drainage. ENT: No nasal bleeding or discharge. Mucous membranes pink and moist. NECK: Trachea midline. No JVD. CARDIOVASCULAR: Regular rate and rhythm. Chest tube in place. RESPIRATORY: No accessory muscle use. Clear to auscultation. Breath sounds equal bilaterally. GASTROINTESTINAL: Abdomen soft, non-tender, nondistended. MUSCULOSKELETAL: Extremities without clubbing, cyanosis, 3+ pitting edema lower extremities. 2+ pitting edema forearms and lower arms. No obvious deformities. - Urinary Catheter Management Indwelling Urethral Catheter Cath placed during this visit: yes, but has since been removed by the nurse Reason for continuing: Hourly intake/output Insertion date: 01/09/18 Insertion time: 08:30 Removal date: 01/07/18 Removal time: 12:25 Straight Cath placed during this visit: no Reason for continuing: Other continuation reason Assessment and Plan - Assessment (1) RICHARD (acute kidney injury) Code(s): N17.9 - Acute kidney failure, unspecified Status: Acute Plan: Presently uncertain if the patient actually has a component of acute renal insufficiency. He was fluid overloaded with anasarca on presentation and his creatinine level may have been spuriously low given the degree of fluid retention and I have no previous creatinine levels prior to this presentation. If there is a component of acute renal insufficiency it may be related to vancomycin nephrotoxicity. There is also mention of a possible hydronephrosis on CT scan although the ultrasound was negative for same. I am not highly suspicious of an obstruction however but could consider nuclear scan kidneys with washout to evaluate for possible obstruction when patient more stable. Ideally I would like vancomycin to be discontinued but will defer to primary care in regard to that decision. Still has significant fluid retention so we do have to continue diuresis. We will add Diuril. I suspect that the patient's azotemia may continue to worsen at which point in time a decision will have to be made regarding whether or not to proceed with renal replacement therapy i.e. dialysis. Patient does not appear to be competent to do same and I am unaware of any family. Will consult case management. Palliative care consult? Will defer to primary in regard to that decision. (2) CKD (chronic kidney disease) stage 4, GFR 15-29 ml/min Code(s): N18.4 - Chronic kidney disease, stage 4 (severe) Status: Acute Plan: Patient is a very poor historian. 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 He was counseled regarding potential adverse effects of continued usage as far as his kidney function is concerned. Serological studies as ordered. (3) Obstructive uropathy Code(s): N13.9 - Obstructive and reflux uropathy, unspecified Status: Acute Plan: I do not believe obstruction is playing a significant role here but will consider nuclear scan when patient more stable (4) Anasarca associated with disorder of kidney Code(s): N04.9 - Nephrotic syndrome with unspecified morphologic changes Status: Acute Plan: Continue diuretic therapy as ordered.
[2018-01-10 12:38] LABS: ABG Base Excess 1.4 mmol/L (-2-2); ABG PCO2 57 mmHg (38-42); ABG PO2 130 mmHG (61-120)
--- NOTE | 2018-01-10 17:35 | P.PCN ---
Date of procedure: 01/10/18 Pre-op diagnosis: Large left pleural effusion, resp distress Post-op diagnosis: same Procedure: Ultrasound-guided left pigtail chest tube placement A time-out was completed verifying correct patient, procedure, site, positioning , and special equipment if applicable. Two units of platelets ongoing transfusion due to thrombocytopenia. The patient was positioned appropriately for chest tube placement. The patients left chest was prepped and draped in sterile fashion. 1% Lidocaine was used to anesthetize the surrounding skin area. A 0.25 CM skin incision was made posterolateral let thorax, at the site marked with ultrasound. 18-gauge introducer needle was inserted into the pleural space and clear straw-colored pleural fluid was removed. Syringe was removed and a guidewire was placed followed by removal of the needle. Track dilated and using Seldinger technique a 10 Malagasy pigtail catheter was advanced in the pleural space and connected to Pleur-evac. Pigtail was secured with a suture and stay fix. Initial output was 1.7 L (1700 ml) of straw-colored pleural fluid. Await further fluid studies. Chest x-ray is pending at this time and will be reviewed Anesthesia: local Surgeon: Mary Hernández Estimated blood loss (mL): 1 Pathology: other (pleural fluid studies sent) Condition: critical Disposition: ICU
[2018-01-11] MEDS: Insulin NovoLIN Regular Correctional Sugar Inj SQ SCH ×5 (03:50→19:51)
[2018-01-11] MEDS: Pantoprazole Inj 80 MG in Sodium Chlor 0.9% Inj 100 ML IV.CONT SCH (06:43)
--- NOTE | 2018-01-11 07:12 | P.PNCC ---
Subjective Subjective Remarks/Hospital Course: The patient is a 77-year-old male with an unknown past medical history, who presented to [facility] ED for generalized weakness. The patient does not really follow up with a physician and takes no medications at home. Per ED nurse, he had fallen multiple times today and was on the floor for some time. Apparently the evac stated that he did not want to come however, he was told that he needed to come in for further evaluation and management. On arrival, he was tachycardic with heart rate of 102 and a blood pressure of 127/ 58. His initial laboratory data showed anemia with hemoglobin 6.6 and acute renal failure with a creatinine level of 2.0. Also, he was found to have elevated lactic acid level at 6.8 and elevated troponin at 0.64. His BNP was 3405. The patient underwent a CT scan of the brain in EGD, which showed no acute intracranial abnormalities. He also had a lumbar spine CT, which showed no subluxation or acute fracture of the lumbar spine. CT of the facial bones showed preseptal soft tissue contusion of the left orbit and a chest x-ray showed bilateral pleural effusions with basilar consolidation, left greater than the right. Most of the history was obtained from reviewing medical records as the patient is a poor historian. In the ED, he was given normal saline 250, Lasix 40 mg IV push, and placed on a Protonix drip. He also received 1 dose of vancomycin. Per records, he also had purulent discharge from his left eye that caused his eyelid to swell. The patient also had a venous Doppler ultrasound, which showed no deep vein thrombosis; however, there is superficial venous thrombosis involving the bilateral great saphenous veins. SUBJ 01/05/18: Patient currently on BiPAP remains very lethargic not following commands not opening eyes to command. PH remains at 7.27 despite several hours on BiPAP PCO2 60. Ultrasound shows large bilateral effusions left larger than right. Because of respiratory acidosis, altered mental status and large pleural effusion patient was intubated and placed on mechanical ventilation. Following this I placed a left pigtail chest tube, initial output was 2 L clear straw colored fluid 01/06: Remains intubated sedated on sedation hold intermittently following commands. Bilateral large pleural effusions drained yesterday. Since placement yesterday left side has drained more than 3 L, right side has drained more than 2 L. Hemoglobin remained stable no obvious bleeding. Fluid studies consistent with transudative effusion. IV Lasix started by cardiology with urine output more than 2 L 01/07 Patient is extubated and on 4L oxygen with good sats, Afebrile. Had episode of hypotension overnight given Albumin, Lopressor held BP now 103/54 with MAP 77mmHg. 01/08: Breathing comfortably tachycardic though sinus. Heart rate 120 bpm. Metoprolol is being held I will resume metoprolol 25 mg twice daily. Hemoglobin 7.3 transfuse 1 unit PRBC. Chest tubes with high output right side 3 3 mL on left side for 3 mL in 24 hours. 01/09: Breathing comfortably. Significant output from chest tubes left side drained 1 L and right side drained 900 mL in 24 hours. Urine output diminished creatinine increased to 2.7. Will increase Lasix to 40 IV every 8 hours with IV albumin, consult nephrology. Previous renal ultrasound did not show any hydronephrosis. Mcfarland ordered to be reinserted for accurate intake output due to worsening renal failure 01/10: Patient appearing clinically worse. Very lethargic hard to wake up,. Stat ABG shows 7.2 /. Initiate BiPAP for hypercapnic respiratory failure , if not improved in 2 hours will need re intubation. Urine output slightly improved with increased diuresis for 50 mL in 24 hours. Bilateral chest tube with more than 600 mL output combined 01/11 No events overnight. Awake and alert. On 3L oxygen, afebrile. Off BIPAP. Objective Vital Signs / I&O: Vital Signs 01/10/18 08:00 01/10/18 08:01 01/10/18 10:47 Temperature 97.7 F Pulse Rate 90 90 Respiratory Rate 29 H 18 Blood Pressure 174/70 H Pulse Oximetry 95 100 01/10/18 12:00 01/10/18 14:24 01/10/18 14:25 Temperature 97.7 F Pulse Rate 88 100 H Respiratory Rate 25 H 20 Blood Pressure 153/65 H Pulse Oximetry 100 96 01/10/18 16:00 01/10/18 20:00 01/10/18 20:24 Temperature 98.1 F 98.1 F Pulse Rate 90 96 H Respiratory Rate 24 25 H Blood Pressure 159/66 H 130/76 Pulse Oximetry 100 100 95 01/10/18 20:27 01/11/18 00:00 01/11/18 00:01 Temperature 98.7 F Pulse Rate 98 H 87 Respiratory Rate 21 34 H Blood Pressure 121/52 L Pulse Oximetry 100 100 96 01/11/18 03:33 01/11/18 04:00 Temperature 97.6 F Pulse Rate 87 87 Respiratory Rate 19 23 Blood Pressure 126/97 H Pulse Oximetry 96 Intake & Output 01/10/18 01/11/18 01/11/18 18:59 06:59 18:59 Intake Total 700 / 700 940 / 940 Output Total 1220 / 1220 2370 / 2370 Balance -520 / -520 -1430 / -1430 Weight 78 kg Intake: IV 700 / 700 700 / 700 D10W Inj 500 ML @ 42 mls/hr IV. 500 / 500 500 / 500 CONT .[id number] RENA Rx#:[id number] Protonix Inj 80 MG In NS Inj 100 / 100 100 / 100 100 ML @ 10 mls/hr IV.CONT Q10H RENA Rx#:[id number] Azactam Inj 1,000 MG In NS Inj 100 / 100 100 / 100 100 ML @ 200 mls/hr IV.SIG Q12H RENA Rx#:[id number] Oral 240 / 240 Output: Urine Amount (Catheter) 700 / 700 1600 / 1600 Indwelling Urethral Catheter 700 / 700 1600 / 1600 Chest Tube Drainage 520 / 520 770 / 770 Left Upper Pleural 210 / 210 490 / 490 Right Upper Pleural 310 / 310 280 / 280 Result Diagrams: 01/10/18 07:33 01/10/18 07:33 Other Results: Laboratory Results - last 12 hr 01/10/18 01/11/18 01/11/18 23:41 03:48 06:18 POC Glucose 81 77 Ammonia Less than 10 L Imaging: Abdomen/Bladder Ultrasound 01/04/18 00:00 CONCLUSION: 1. Chronic parenchymal disease. 2. Bilateral cysts, left more so than right. 3. No obstructive uropathy or other acute abnormality. Head CT 01/04/18 18:15 CONCLUSION: Motion degraded study without evidence of bleed or other acute intracranial abnormality. . Venous Doppler Study 01/04/18 18:15 CONCLUSION: No deep venous thrombosis of either lower extremity but there is superficial venous thrombosis involving the bilateral greater saphenous veins as described. Lumbar Spine CT 01/04/18 18:18 CONCLUSION: 1. No subluxation or acute fracture of the lumbar spine. 2. There is an old, mild compression deformity of L3. 3. Multilevel degenerative changes and diffuse idiopathic skeletal hyperostosis. 4. Pleural effusions and parenchymal consolidation partly seen of the visualized lung bases. 5. Atrophy and apparent hydronephrosis of the left knee. Face CT 01/04/18 20:14 CONCLUSION: 1. Focal minimally displaced fracture of the tip of the nasion. 2. Preseptal soft tissue contusion of the left orbit. 3. Acute on chronic appearing left maxillary sinusitis. Abdomen/Pelvis CT 01/05/18 00:00 CONCLUSION: 1. Bilateral moderate to large pleural effusions, left greater than right with associated lower lobe airspace disease. 2. Abnormal appearance of the left kidney with numerous cortical cysts. Apparent prominence of the renal collecting system does not have a corresponding finding on today's ultrasound exam. However, it remains concerning for mild to moderate hydronephrosis. 3. 7 mm calyceal calculus in the inferior pole of the left kidney. 4. Diffuse anasarca with small amount ascites. 5. Mild sigmoid diverticulosis. 6. Normal appendix. Chest X-Ray 01/10/18 06:00 CONCLUSION: Stable appearance of the chest. Objective Remarks: GENERAL: Patient is 77 yo lying in bed in NAD HEENT: Atraumatic, normocephalic. Pupils are equal, round. Conjunctivitis appears improved NECK: Supple. No JVD, adenopathy, or thyromegaly. Trachea midline. CARDIOVASCULAR: Normal rate and sinus rhythm. Normal S1, S2. No murmurs, rubs or gallops. PULMONARY: B/L equal air entry ABDOMEN: Soft, nontender. No distention. Positive bowel sounds. EXTREMITIES: No cyanosis or clubbing, 1-2+ edema. NEUROLOGIC: Awake and alert Assessment and Plan - Assessment and Plan Plan: IMPRESSION: Recurrent acute hypercapnic respiratory failure Altered mental status/metabolic encephalopathy Probable COPD Anemia thrombocytopenia Acute renal failure, worsening GI bleed Anemia requiring transfusion Lactic acidemia. 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 Bilateral large pleural effusions, status post chest tube Superficial venous thrombosis bilaterally, great saphenous vein. Conjunctivitis of the left eye. PLAN Neuro: Awake and alert, avoid sedatives CT scan of the brain in the ED showed no acute intracranial findings. Pulm: Continue with oxygen keep sats >92% Bronchodilators, NIPPV PRN for resp distress, check ABG Bilateral pigtail chest tubes placed 01/05/2018. Left chest tube with 490 ml and, right with 280 mL output in 24 hours Transudative fluid. Monitor CT drainage CV: Monitor HR and BP keep MAP>65mmHg Continue Lasix 40 every 8 hours as the patient is grossly fluid overloaded Nephrology following, previous renal ultrasound did not show hydronephrosis, continue Mcfarland for accurate intake output Echo showed EF 50-55%. Not a candidate for invasive procedures or anticoagulation/antiplatelet therapy at this time due to severe anemia Cardiology Dr. Ball following Continue metoprolol GI: Continue with Protonix drip. GI is following. EGD/colonoscopy when stable per GI CT abdomen and pelvis without contrast-no acute findings Kevon Protonix drip to Protonix 40mg IV daily : Monitor renal function, I/O's, electrolytes replacement per protocol. On D10 @42ml/hr, On Lasix 40mg IV Q8 Heme: s/p transfusion multiple units of PRBC, since admission. Thrombocytopenia likely secondary to liver disease and portal hypertension, f/u HIT screen Monitor CBC and coags ID: Continue abx aztreonam. Strep pneumonia, Legionella urinary antigen negative , Sputum cx: normal resp mechelle. BC: NGTD Endo: Sliding scale insulin with Accu-Cheks to maintain euglycemia. TSH measured at 4.2 GI prophylaxis with Protonix and DVT prophylaxis with SCDs. Chemical anticoagulation prophylaxis contraindicated due to anemia and probable GI bleed. Level 3
[2018-01-11 08:05] LABS: ABG Base Excess 3.8 mmol/L (-2-2); ABG PCO2 62 mmHg (38-42); ABG PO2 100 mmHG (61-120)
[2018-01-11] MEDS: Pantoprazole Inj 40 MG Vial IV.PUSH SCH (09:57)
[2018-01-11] MEDS: Senna/Docusate Sodium 8.6/50 MG Tablet PO SCH ×2 (10:01→21:23)
[2018-01-11] MEDS: Metoprolol Tartrate 25 MG Tablet PO SCH ×2 (10:01→21:24)
[2018-01-11] MEDS: Chlorothiazide Inj 500 MG Vial IV.PUSH SCH (10:01)
[2018-01-11 10:09] LABS: Baso # (Auto) 0.1 th/mm3 (0.0-0.2); Baso % (Auto) 0.7 % (0.0-2.0); Eos # (Auto) 0.3 th/mm3 (0.0-0.4); Eos % (Auto) 3.5 % (0.0-4.0); Hematocrit 29.3 % (39.0-51.0); Hemoglobin 8.6 gm/dL (13.0-17.0); Lymph # (Auto) 0.7 th/mm3 (1.0-4.8); Lymph % (Auto) 9.5 % (9.0-44.0); Mean Corpuscular Hemoglobin 22.8 pg (27.0-34.0); Mean Corpuscular Volume 78.2 fL (80.0-100.0); Mean Platelet Volume 8.7 fL (7.0-11.0); Mono # (Auto) 0.9 th/mm3 (0.0-0.9); Mono % (Auto) 11.8 % (0.0-8.0); Neut # (Auto) 5.5 th/mm3 (1.8-7.7); Neut % (Auto) 74.5 % (16.0-70.0); Platelet Count 75 th/mm3 (150-450); Red Blood Count 3.75 mil/mm3 (4.50-5.90); Red Cell Distribution Width 26.6 % (11.6-17.2); White Blood Count 7.3 th/mm3 (4.0-11.0)
[2018-01-11 10:14] LABS: Mean Corpuscular HGB Conc 29.2 % (32.0-36.0)
--- NOTE | 2018-01-11 10:25 | P.PNGI ---
Subjective Interval history: Patient sitting upright in bed awake and alert. Family members at bedside. Patient denies any discomfort, abdominal pain, nausea or vomiting. Denies any noted bleeding. Physical Exam Vital signs: Vital Signs 01/10/18 10:47 01/10/18 12:00 01/10/18 14:24 Temperature 97.7 F Pulse Rate 88 100 H Respiratory Rate 25 H 20 Blood Pressure 153/65 H Pulse Oximetry 100 100 01/10/18 14:25 01/10/18 16:00 01/10/18 20:00 Temperature 98.1 F 98.1 F Pulse Rate 90 96 H Respiratory Rate 24 25 H Blood Pressure 159/66 H 130/76 Pulse Oximetry 96 100 100 01/10/18 20:24 01/10/18 20:27 01/11/18 00:00 Temperature 98.7 F Pulse Rate 98 H 87 Respiratory Rate 21 34 H Blood Pressure 121/52 L Pulse Oximetry 95 100 100 01/11/18 00:01 01/11/18 03:33 01/11/18 04:00 Temperature 97.6 F Pulse Rate 87 87 Respiratory Rate 19 23 Blood Pressure 126/97 H Pulse Oximetry 96 96 01/11/18 08:21 Temperature Pulse Rate 82 Respiratory Rate 17 Blood Pressure Pulse Oximetry 100 Intake & Output 01/10/18 01/11/18 01/11/18 18:59 06:59 18:59 Intake Total 700 / 700 940 / 940 Output Total 1220 / 1220 2370 / 2370 Balance -520 / -520 -1430 / -1430 Weight 78 kg Intake: IV 700 / 700 700 / 700 D10W Inj 500 ML @ 42 mls/hr IV. 500 / 500 500 / 500 CONT .[id number] RENA Rx#:[id number] Protonix Inj 80 MG In NS Inj 100 / 100 100 / 100 100 ML @ 10 mls/hr IV.CONT Q10H RENA Rx#:[id number] Azactam Inj 1,000 MG In NS Inj 100 / 100 100 / 100 100 ML @ 200 mls/hr IV.SIG Q12H RENA Rx#:[id number] Oral 240 / 240 Output: Urine Amount (Catheter) 700 / 700 1600 / 1600 Indwelling Urethral Catheter 700 / 700 1600 / 1600 Chest Tube Drainage 520 / 520 770 / 770 Left Upper Pleural 210 / 210 490 / 490 Right Upper Pleural 310 / 310 280 / 280 - Constitutional no acute distress, chronically ill appearing - Routine HEENT Exam Head: Present: normocephalic - Routine Respiratory Exam Present: CTA bilaterally. Absent: accessory muscle use Comments: Off BiPAP on 3 L nasal cannula - Routine Cardiovascular Exam Present: RRR. Absent: bradycardia, tachycardia - Routine Abdominal Exam Present: soft, normoactive bowel sounds. Absent: tenderness, guarding, firm - Routine Skin Exam Present: dry, warm - Routine Neurological Exam Present: alert - Detailed Neurological Exam: Coma Scale Eye Opening: Spontaneous Awake and alert - Routine Psychiatric Exam Present: cooperative - Urinary Catheter Management Indwelling Urethral Catheter Cath placed during this visit: yes, but has since been removed by the nurse Reason for continuing: Hourly intake/output Insertion date: 01/09/18 Insertion time: 08:30 Removal date: 01/07/18 Removal time: 12:25 Straight Cath placed during this visit: no Reason for continuing: Other continuation reason Results - Labs CBC & Chem 7: 01/10/18 07:33 01/10/18 07:33 Laboratory Results - last 24 hr 01/10/18 01/10/18 01/10/18 12:20 14:14 17:58 Puncture Site Right radial Patient Temperature 98.6 O2 Saturation 96 ABG pH 7.30 L ABG pCO2 57 H* ABG pO2 130 H ABG HCO3 27 H ABG O2 Content 11.3 L ABG Base Excess 1.4 ABG Methemoglobin 1.5 Eh Test Present Hemoglobin 8.2 L Carboxyhemoglobin 2.0 O2 Delivery Device Bipap Liter Flow Vent Setting Ipap+12/epap+5 Inspired O2 40 Critical Value Yes POC Glucose 108 84 Ammonia 01/10/18 01/11/18 01/11/18 23:41 03:48 06:18 Puncture Site Patient Temperature O2 Saturation ABG pH ABG pCO2 ABG pO2 ABG HCO3 ABG O2 Content ABG Base Excess ABG Methemoglobin Eh Test Hemoglobin Carboxyhemoglobin O2 Delivery Device Liter Flow Vent Setting Inspired O2 Critical Value POC Glucose 81 77 Ammonia Less than 10 L 01/11/18 01/11/18 07:54 08:15 Puncture Site Left radial Patient Temperature 98.6 O2 Saturation 94 ABG pH 7.30 L ABG pCO2 62 H* ABG pO2 100 ABG HCO3 30 H ABG O2 Content 11.2 L ABG Base Excess 3.8 H ABG Methemoglobin 1.7 Eh Test Present Hemoglobin 8.3 L Carboxyhemoglobin 2.1 O2 Delivery Device Nasal cannula Liter Flow 2.00 Vent Setting Inspired O2 Critical Value Yes POC Glucose 77 Ammonia Microbiology 01/09/18 08:30 Catheterized Urine Urine Culture - Final No growth in 48 hours 01/06/18 00:40 Blood - Peripheral Aerobic Blood Culture - Preliminary No growth in 4 days 01/06/18 00:40 Blood - Peripheral Anaerobic Blood Culture - Final QNS - See aerobic report. 01/06/18 00:45 Blood - Peripheral Aerobic Blood Culture - Preliminary No growth in 4 days 01/06/18 00:45 Blood - Peripheral Anaerobic Blood Culture - Final QNS - See aerobic report. Assessment and Plan (1) Acute GI bleeding Status: Acute Code(s): K92.2 - Gastrointestinal hemorrhage, unspecified - Plan 01/08/18-patient awake and alert follows movement with eyes and nonverbal. No apparent distress noted. No obvious bleeding reported. Hemoglobin 7.3 hematocrit 25.8 total bilirubin 1.4 AST 29 ALT 17 alk phos 44 albumin 1.8. We will continue to monitor closely 01/09/2018-patient awake and alert verbalizes no discomfort. No distress noted. Discussed patient's status with nurse no obvious bleeding noted. Hemoglobin 7.7 hematocrit 26.2 platelet count 40 total bilirubin 2.2 AST 19 ALT 17 alk phos 43 trending down. 01/10/2018 patient is less responsive today appears fairly lethargic. Current hemoglobin 8.2 PT/INR last check 1.2, bilirubin 1.8, AST and ALT normal at 17. Heart rate controlled sinus rhythm at 93 stable blood pressure. Abdomen appears soft, flat, with soft bowel sounds no obvious distention. Will need to continue to monitor patient's mental status before EGD is scheduled as well as O2 sat. no obvious bleeding noted today Will check ammonia level. 01/11/2018-patient awake and alert responsive and pleasant. Denies discomfort, no acute distress noted. No obvious bleeding reported. Abdomen soft with positive bowel sounds patient off BiPAP on 3 L nasal cannula. Ammonia level less than 10. 01/10/2018 hemoglobin 8.2 hematocrit 27.7. AM labs pending at this time Plan -Diet as tolerated -Continue PPI -Bowel regimen -Monitor for bleeding -Continue to follow liver function -EGD-if patient remains stable -Supportive care -Further recommendations to follow based on patient status and findings This patient has been seen by myself and Dr. Juan and this note is written on his behalf - Attending Attestation Dr. Juan
[2018-01-11 10:44] LABS: Alanine Aminotransferase 15 U/L (12-78); Anion Gap 9 meq/L (5-15); Aspartate Aminotransferase 13 U/L (15-37); Blood Urea Nitrogen 54 mg/dL (7-18); Calcium 7.8 mg/dL (8.5-10.1); Carbon Dioxide 32.1 meq/L (21.0-32.0); Chloride 105 meq/L (98-107); Glomerular Filtration Rate 29 mL/min (>89); Glucose,Random 82 mg/dL (74-106); Magnesium 1.7 mg/dL (1.5-2.5); Phosphorus 2.7 mg/dL (2.5-4.9); Potassium 3.2 meq/L (3.5-5.1); Sodium 146 meq/L (136-145)
[2018-01-11 10:45] LABS: Alkaline Phosphatase 153 U/L (45-117); Total Protein 5.5 g/dL (6.4-8.2)
--- NOTE | 2018-01-11 11:35 | P.PNNP ---
Subjective Interval history: Patient off BiPAP. Indicating that he feels better with improved shortness of breath. Physical Exam Vital signs: Vital Signs 01/10/18 12:00 01/10/18 14:24 01/10/18 14:25 Temperature 97.7 F Pulse Rate 88 100 H Respiratory Rate 25 H 20 Blood Pressure 153/65 H Pulse Oximetry 100 96 01/10/18 16:00 01/10/18 20:00 01/10/18 20:24 Temperature 98.1 F 98.1 F Pulse Rate 90 96 H Respiratory Rate 24 25 H Blood Pressure 159/66 H 130/76 Pulse Oximetry 100 100 95 01/10/18 20:27 01/11/18 00:00 01/11/18 00:01 Temperature 98.7 F Pulse Rate 98 H 87 Respiratory Rate 21 34 H Blood Pressure 121/52 L Pulse Oximetry 100 100 96 01/11/18 03:33 01/11/18 04:00 01/11/18 08:21 Temperature 97.6 F Pulse Rate 87 87 82 Respiratory Rate 19 23 17 Blood Pressure 126/97 H Pulse Oximetry 96 100 Intake & Output 01/10/18 01/11/18 01/11/18 18:59 06:59 18:59 Intake Total 700 / 700 940 / 940 Output Total 1220 / 1220 2370 / 2370 Balance -520 / -520 -1430 / -1430 Weight 78 kg Intake: IV 700 / 700 700 / 700 D10W Inj 500 ML @ 42 mls/hr IV. 500 / 500 500 / 500 CONT .[id number] RENA Rx#:[id number] Protonix Inj 80 MG In NS Inj 100 / 100 100 / 100 100 ML @ 10 mls/hr IV.CONT Q10H RENA Rx#:[id number] Azactam Inj 1,000 MG In NS Inj 100 / 100 100 / 100 100 ML @ 200 mls/hr IV.SIG Q12H RENA Rx#:[id number] Oral 240 / 240 Output: Urine Amount (Catheter) 700 / 700 1600 / 1600 Indwelling Urethral Catheter 700 / 700 1600 / 1600 Chest Tube Drainage 520 / 520 770 / 770 Left Upper Pleural 210 / 210 490 / 490 Right Upper Pleural 310 / 310 280 / 280 Narrative: GENERAL: Elderly male who appears to be unkept. SKIN: Warm and dry. HEAD: Atraumatic. Normocephalic. EYES: Pupils equal and round. No scleral icterus. No injection or drainage. ENT: No nasal bleeding or discharge. Mucous membranes pink and moist. NECK: Trachea midline. No JVD. CARDIOVASCULAR: Regular rate and rhythm. Chest tube in place. RESPIRATORY: No accessory muscle use. Few basilar rales. Breath sounds equal bilaterally. GASTROINTESTINAL: Abdomen soft, non-tender, nondistended. MUSCULOSKELETAL: Extremities without clubbing, cyanosis, 3+ pitting edema lower extremities. 2+ pitting edema forearms and lower arms. No obvious deformities. - Urinary Catheter Management Indwelling Urethral Catheter Cath placed during this visit: yes, but has since been removed by the nurse Reason for continuing: Hourly intake/output Insertion date: 01/09/18 Insertion time: 08:30 Removal date: 01/07/18 Removal time: 12:25 Straight Cath placed during this visit: no Reason for continuing: Other continuation reason Assessment and Plan - Assessment (1) RICHARD (acute kidney injury) Code(s): N17.9 - Acute kidney failure, unspecified Status: Acute Plan: Presently uncertain if the patient actually has a component of acute renal insufficiency. He was fluid overloaded with anasarca on presentation and his creatinine level may have been spuriously low given the degree of fluid retention and I have no previous creatinine levels prior to this presentation. If there is a component of acute renal insufficiency it may be related to vancomycin nephrotoxicity. There is also mention of a possible hydronephrosis on CT scan although the ultrasound was negative for same. I am not highly suspicious of an obstruction however but could consider nuclear scan kidneys with washout to evaluate for possible obstruction when patient more stable. Ideally I would like vancomycin to be discontinued but will defer to primary care in regard to that decision. Still has significant fluid retention so we do have to continue diuresis. We will add Diuril. Fairly good urine output since yesterday with some improvement in his renal indices continue diuretic therapy with Diuril as ordered. Still has significant fluid retention. Potassium chloride ordered for hypokalemia. (2) CKD (chronic kidney disease) stage 4, GFR 15-29 ml/min Code(s): N18.4 - Chronic kidney disease, stage 4 (severe) Status: Acute Plan: Patient is a very poor historian. We will attempt to obtain records from his fisher if possible regarding previous renal indices. 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 He was counseled regarding potential adverse effects of continued usage as far as his kidney function is concerned. Serological studies as ordered. (3) Obstructive uropathy Code(s): N13.9 - Obstructive and reflux uropathy, unspecified Status: Acute Plan: I do not believe obstruction is playing a significant role here but will consider nuclear scan when patient more stable (4) Anasarca associated with disorder of kidney Code(s): N04.9 - Nephrotic syndrome with unspecified morphologic changes Status: Acute Plan: Continue diuretic therapy as ordered.
[2018-01-11 11:46] LABS: Acanthocytes Occ; Ovalocytes 1+; Target Cells 1+
[2018-01-11 11:46] LABS: Protein/Creatinine Ratio,Urine 0.45 (0.00-0.14)
[2018-01-11 11:47] LABS: Platelet Morphology Normal (Normal)
[2018-01-11] MEDS: Dextrose 10% in Water Inj 500 ML IV.CONT SCH (12:06)
[2018-01-11] MEDS: Potassium Chloride 25 MEQ Effervescent Tablet PO SCH ×2 (17:50→21:23)
[2018-01-12] MEDS: Insulin NovoLIN Regular Correctional Sugar Inj SQ SCH ×6 (00:24→20:44)
[2018-01-12] MEDS: Dextrose 10% in Water Inj 500 ML IV.CONT SCH ×2 (00:31→13:23)
[2018-01-12 03:51] LABS: Free Kappa/Lambda Light Chain 1.27 (0.26-1.65)
--- NOTE | 2018-01-12 07:11 | P.PNCC ---
Subjective Subjective Remarks/Hospital Course: The patient is a 77-year-old male with an unknown past medical history, who presented to [facility] ED for generalized weakness. The patient does not really follow up with a physician and takes no medications at home. Per ED nurse, he had fallen multiple times today and was on the floor for some time. Apparently the evac stated that he did not want to come however, he was told that he needed to come in for further evaluation and management. On arrival, he was tachycardic with heart rate of 102 and a blood pressure of 127/ 58. His initial laboratory data showed anemia with hemoglobin 6.6 and acute renal failure with a creatinine level of 2.0. Also, he was found to have elevated lactic acid level at 6.8 and elevated troponin at 0.64. His BNP was 3405. The patient underwent a CT scan of the brain in EGD, which showed no acute intracranial abnormalities. He also had a lumbar spine CT, which showed no subluxation or acute fracture of the lumbar spine. CT of the facial bones showed preseptal soft tissue contusion of the left orbit and a chest x-ray showed bilateral pleural effusions with basilar consolidation, left greater than the right. Most of the history was obtained from reviewing medical records as the patient is a poor historian. In the ED, he was given normal saline 250, Lasix 40 mg IV push, and placed on a Protonix drip. He also received 1 dose of vancomycin. Per records, he also had purulent discharge from his left eye that caused his eyelid to swell. The patient also had a venous Doppler ultrasound, which showed no deep vein thrombosis; however, there is superficial venous thrombosis involving the bilateral great saphenous veins. SUBJ 01/05/18: Patient currently on BiPAP remains very lethargic not following commands not opening eyes to command. PH remains at 7.27 despite several hours on BiPAP PCO2 60. Ultrasound shows large bilateral effusions left larger than right. Because of respiratory acidosis, altered mental status and large pleural effusion patient was intubated and placed on mechanical ventilation. Following this I placed a left pigtail chest tube, initial output was 2 L clear straw colored fluid 01/06: Remains intubated sedated on sedation hold intermittently following commands. Bilateral large pleural effusions drained yesterday. Since placement yesterday left side has drained more than 3 L, right side has drained more than 2 L. Hemoglobin remained stable no obvious bleeding. Fluid studies consistent with transudative effusion. IV Lasix started by cardiology with urine output more than 2 L 01/07 Patient is extubated and on 4L oxygen with good sats, Afebrile. Had episode of hypotension overnight given Albumin, Lopressor held BP now 103/54 with MAP 77mmHg. 01/08: Breathing comfortably tachycardic though sinus. Heart rate 120 bpm. Metoprolol is being held I will resume metoprolol 25 mg twice daily. Hemoglobin 7.3 transfuse 1 unit PRBC. Chest tubes with high output right side 3 3 mL on left side for 3 mL in 24 hours. 01/09: Breathing comfortably. Significant output from chest tubes left side drained 1 L and right side drained 900 mL in 24 hours. Urine output diminished creatinine increased to 2.7. Will increase Lasix to 40 IV every 8 hours with IV albumin, consult nephrology. Previous renal ultrasound did not show any hydronephrosis. Mcfarland ordered to be reinserted for accurate intake output due to worsening renal failure 01/10: Patient appearing clinically worse. Very lethargic hard to wake up,. Stat ABG shows 7.2 . Initiate BiPAP for hypercapnic respiratory failure , if not improved in 2 hours will need re intubation. Urine output slightly improved with increased diuresis for 50 mL in 24 hours. Bilateral chest tube with more than 600 mL output combined 01/11 No events overnight. Awake and alert. On 3L oxygen, afebrile. Off BIPAP. 101/10 No events overnight. Patient is lying in bed in NAD> B/l CT still draining. Awake and alert. Objective Vital Signs / I&O: Vital Signs 01/11/18 08:00 01/11/18 08:21 01/11/18 10:00 Temperature 98.0 F Pulse Rate 82 82 87 Respiratory Rate 19 17 21 Blood Pressure 125/59 L Pulse Oximetry 100 100 94 L 01/11/18 10:01 01/11/18 10:30 01/11/18 11:00 Temperature Pulse Rate 87 91 H 92 H Respiratory Rate 23 25 H 30 H Blood Pressure 132/61 142/75 H Pulse Oximetry 97 92 L 100 01/11/18 11:31 01/11/18 12:00 01/11/18 12:30 Temperature 98.1 F Pulse Rate 86 87 88 Respiratory Rate 24 22 22 Blood Pressure 103/56 L 118/55 L 125/58 L Pulse Oximetry 100 97 100 01/11/18 13:00 01/11/18 13:30 01/11/18 14:00 Temperature Pulse Rate 87 86 87 Respiratory Rate 23 22 20 Blood Pressure 121/58 L 123/59 L 119/58 L Pulse Oximetry 92 L 100 100 01/11/18 14:30 01/11/18 15:00 01/11/18 15:01 Temperature Pulse Rate 91 H 86 85 Respiratory Rate 22 20 20 Blood Pressure 139/60 108/70 Pulse Oximetry 100 100 100 01/11/18 15:30 01/11/18 16:00 01/11/18 16:30 Temperature 98.1 F Pulse Rate 88 95 H 85 Respiratory Rate 24 23 23 Blood Pressure 115/54 L 117/56 L 117/58 L Pulse Oximetry 100 100 100 01/11/18 16:32 01/11/18 17:00 01/11/18 17:30 Temperature Pulse Rate 93 H 91 H 136 H Respiratory Rate 23 24 28 H Blood Pressure 127/60 125/52 L Pulse Oximetry 96 82 L 01/11/18 18:00 01/11/18 18:01 01/11/18 18:30 Temperature Pulse Rate 92 H 92 H 95 H Respiratory Rate 26 H 25 H 23 Blood Pressure 120/56 L 115/57 L Pulse Oximetry 97 97 94 L 01/11/18 19:00 01/11/18 19:30 01/11/18 19:56 Temperature Pulse Rate 88 96 H 93 H Respiratory Rate 28 H 24 27 H Blood Pressure 115/81 87/54 L 129/58 L Pulse Oximetry 86 L 83 L 96 01/11/18 19:58 01/11/18 20:00 01/11/18 20:07 Temperature 98.5 F Pulse Rate 91 H 93 H 91 H Respiratory Rate 29 H 32 H 18 Blood Pressure 120/57 L 110/57 L Pulse Oximetry 96 97 96 01/11/18 21:00 01/11/18 22:00 01/11/18 23:00 Temperature Pulse Rate 93 H 93 H 95 H Respiratory Rate 37 H 30 H 33 H Blood Pressure 106/51 L 114/66 114/56 L Pulse Oximetry 97 98 97 01/12/18 00:00 01/12/18 00:01 01/12/18 04:00 Temperature 97.5 F L Pulse Rate 95 H 96 H 99 H Respiratory Rate 31 H 41 H 20 Blood Pressure 136/60 144/59 H Pulse Oximetry 97 97 97 01/12/18 04:14 Temperature Pulse Rate 97 H Respiratory Rate 18 Blood Pressure Pulse Oximetry Intake & Output 01/11/18 01/12/18 01/12/18 18:59 06:59 18:59 Intake Total 1200 / 1200 840 / 840 Output Total 1850 / 1850 1810 / 1810 Balance -650 / -650 -970 / -970 Weight 80.5 kg Intake: IV 600 / 600 600 / 600 D10W Inj 500 ML @ 42 mls/hr IV. 500 / 500 500 / 500 CONT .[id number] [facility] Rx#:[id number] Azactam Inj 1,000 MG In NS Inj 100 / 100 100 / 100 100 ML @ 200 mls/hr IV.SIG Q12H RE[facility] Rx#:[id number] Oral 600 / 600 240 / 240 Output: Urine Amount (Catheter) 1450 / 1450 1400 / 1400 Indwelling Urethral Catheter 1450 / 1450 1400 / 1400 Chest Tube Drainage 400 / 400 410 / 410 Left Upper Pleural 250 / 250 320 / 320 Right Upper Pleural 150 / 150 90 / 90 Other: # Bowel Movements 0 0 Result Diagrams: 01/12/18 06:38 01/12/18 06:38 Other Results: Laboratory Results - last 12 hr 01/10/18 01/11/18 01/12/18 07:33 19:35 00:23 POC Glucose 130 H 123 H Free [place] Light Chains 163.20 H Free [place] Light Chain 129.00 H Free [place]/Lambda Ratio 1.27 01/12/18 04:07 POC Glucose 111 H Free [place] Light Chains Free Lambda Light Chain Free [place]/Lambda Ratio Imaging: Abdomen/Bladder Ultrasound 01/04/18 00:00 CONCLUSION: 1. Chronic parenchymal disease. 2. Bilateral cysts, left more so than right. 3. No obstructive uropathy or other acute abnormality. Head CT 01/04/18 18:15 CONCLUSION: Motion degraded study without evidence of bleed or other acute intracranial abnormality. . Venous Doppler Study 01/04/18 18:15 CONCLUSION: No deep venous thrombosis of either lower extremity but there is superficial venous thrombosis involving the bilateral greater saphenous veins as described. Lumbar Spine CT 01/04/18 18:18 CONCLUSION: 1. No subluxation or acute fracture of the lumbar spine. 2. There is an old, mild compression deformity of L3. 3. Multilevel degenerative changes and diffuse idiopathic skeletal hyperostosis. 4. Pleural effusions and parenchymal consolidation partly seen of the visualized lung bases. 5. Atrophy and apparent hydronephrosis of the left knee. Face CT 01/04/18 20:14 CONCLUSION: 1. Focal minimally displaced fracture of the tip of the nasion. 2. Preseptal soft tissue contusion of the left orbit. 3. Acute on chronic appearing left maxillary sinusitis. Abdomen/Pelvis CT 01/05/18 00:00 CONCLUSION: 1. Bilateral moderate to large pleural effusions, left greater than right with associated lower lobe airspace disease. 2. Abnormal appearance of the left kidney with numerous cortical cysts. Apparent prominence of the renal collecting system does not have a corresponding finding on today's ultrasound exam. However, it remains concerning for mild to moderate hydronephrosis. 3. 7 mm calyceal calculus in the inferior pole of the left kidney. 4. Diffuse anasarca with small amount ascites. 5. Mild sigmoid diverticulosis. 6. Normal appendix. Chest X-Ray 01/10/18 06:00 CONCLUSION: Stable appearance of the chest. Objective Remarks: GENERAL: Patient is 77 yo lying in bed in NAD HEENT: Atraumatic, normocephalic. Pupils are equal, round. Conjunctivitis appears improved NECK: Supple. No JVD, adenopathy, or thyromegaly. Trachea midline. CARDIOVASCULAR: Normal rate and sinus rhythm. Normal S1, S2. No murmurs, rubs or gallops. PULMONARY: B/L equal air entry ABDOMEN: Soft, nontender. No distention. Positive bowel sounds. EXTREMITIES: No cyanosis or clubbing, 1-2+ edema. NEUROLOGIC: Awake and alert Assessment and Plan - Assessment and Plan Plan: IMPRESSION: Recurrent acute hypercapnic respiratory failure Altered mental status/metabolic encephalopathy Probable COPD Anemia thrombocytopenia Acute renal failure, worsening GI bleed Anemia requiring transfusion Lactic acidemia. 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 Bilateral large pleural effusions, status post chest tube Superficial venous thrombosis bilaterally, great saphenous vein. Conjunctivitis of the left eye. PLAN Neuro: Awake and alert, avoid sedatives CT scan of the brain in the ED showed no acute intracranial findings. Pulm: Continue with oxygen keep sats >92% Bronchodilators, NIPPV PRN for resp distress, check ABG Bilateral pigtail chest tubes placed 01/05/2018. Left chest tube with 310 ml and, right with 90 mL overnight Transudative fluid. Monitor CT drainage. Check CXR CV: Monitor HR and BP keep MAP>65mmHg Continue Lasix 40 every 8 hours a Nephrology following, previous renal ultrasound did not show hydronephrosis, continue Mcfarland for accurate intake output Echo showed EF 50-55%. Not a candidate for invasive procedures or anticoagulation/antiplatelet therapy at this time due to severe anemia Cardiology Dr. Blal following Continue metoprolol GI: Continue with Protonix drip. GI is following. EGD/colonoscopy when stable per GI CT abdomen and pelvis without contrast-no acute findings On Protonix 40mg IV daily : Monitor renal function, I/O's, electrolytes replacement per protocol. On D10 @42ml/hr, On Lasix 40mg IV Q8 Heme: s/p transfusion multiple units of PRBC, since admission. Thrombocytopenia likely secondary to liver disease and portal hypertension, HIT screen negative. PLT count is improving Monitor CBC and coags Doppler US UE: Occlusive thrombus in the right cephalic vein. No thrombus in the left upper extremity. Patient is at high risk for AC given anemia, thrombocytopenia and possibly GI bleed ID: Continue abx aztreonam. Strep pneumonia, Legionella urinary antigen negative , Sputum cx: normal resp mechelle. BC: NGTD Endo: Sliding scale insulin with Accu-Cheks to maintain euglycemia. TSH measured at 4.2 GI prophylaxis with Protonix and DVT prophylaxis with SCDs. Chemical anticoagulation prophylaxis contraindicated due to anemia, thrombocytopenia and probable GI bleed. Level 3
[2018-01-12 08:19] LABS: Anion Gap 7 meq/L (5-15); Aspartate Aminotransferase 16 U/L (15-37); Blood Urea Nitrogen 53 mg/dL (7-18); Carbon Dioxide 30.9 meq/L (21.0-32.0); Chloride 101 meq/L (98-107); Glomerular Filtration Rate 32 mL/min (>89); Glucose,Random 94 mg/dL (74-106); Magnesium 1.6 mg/dL (1.5-2.5); Potassium 3.7 meq/L (3.5-5.1); Sodium 139 meq/L (136-145)
[2018-01-12 08:20] LABS: Alanine Aminotransferase 14 U/L (12-78); Phosphorus 1.9 mg/dL (2.5-4.9)
[2018-01-12 08:22] LABS: Alkaline Phosphatase 64 U/L (45-117); Total Protein 5.7 g/dL (6.4-8.2)
--- NOTE | 2018-01-12 08:35 | XR ---
EXAM DATE: 01/12/2018 12:00 AM EDT AGE/SEX: 77 years / Male INDICATIONS: Evaluate for effusions. CLINICAL DATA: This is the patient's subsequent encounter. Patient reports that signs and symptoms h ave been present for 1 week and indicates a pain score of 0/10. MEDICAL/SURGICAL HISTORY: . Anemia. Congestive heart failure. Sepsis. None. COMPARISON: [facility] – [place], CHEST 1V SINGLE AP, 01/10/2018. . FINDINGS: A single AP view of the chest demonstrates left basilar density. Cardiomegaly. Bilateral chest tubes. No pneumothorax. The cardiomediastinal contours are unremarkable. CONCLUSION: Persistent left basilar density. No pneumothorax. Electronically signed by: John Ashby MD 01/12/2018 8:34 AM EDT
[2018-01-12 08:36] LABS: Baso % (Auto) 0.5 % (0.0-2.0); Eos # (Auto) 0.2 th/mm3 (0.0-0.4); Eos % (Auto) 3.1 % (0.0-4.0); Hematocrit 29.2 % (39.0-51.0); Hemoglobin 8.7 gm/dL (13.0-17.0); Lymph # (Auto) 0.6 th/mm3 (1.0-4.8); Lymph % (Auto) 8.1 % (9.0-44.0); Mean Corpuscular Volume 77.1 fL (80.0-100.0); Mean Platelet Volume 8.8 fL (7.0-11.0); Mono # (Auto) 1.1 th/mm3 (0.0-0.9); Mono % (Auto) 13.7 % (0.0-8.0); Neut % (Auto) 74.6 % (16.0-70.0); Platelet Count 89 th/mm3 (150-450); Red Blood Count 3.79 mil/mm3 (4.50-5.90); Red Cell Distribution Width 25.9 % (11.6-17.2)
[2018-01-12 09:01] LABS: Mean Corpuscular HGB Conc 29.8 % (32.0-36.0)
[2018-01-12] MEDS: Pantoprazole Inj 40 MG Vial IV.PUSH SCH (09:05)
[2018-01-12] MEDS: Potassium Chloride 25 MEQ Effervescent Tablet PO SCH ×2 (09:06→20:44)
[2018-01-12] MEDS: Senna/Docusate Sodium 8.6/50 MG Tablet PO SCH ×2 (09:06→20:45)
[2018-01-12] MEDS: Metoprolol Tartrate 25 MG Tablet PO SCH ×2 (09:07→20:45)
[2018-01-12] MEDS: Chlorothiazide Inj 500 MG Vial IV.PUSH SCH (09:43)
[2018-01-12 13:15] LABS: Ovalocytes 1+
--- NOTE | 2018-01-12 15:03 | US ---
EXAM DATE: 01/12/2018 12:00 AM EDT AGE/SEX: 77 years / Male INDICATIONS: Bilateral arm swelling. CLINICAL DATA: This is the patient's initial encounter. Patient reports that signs and symptoms have been present for 1 day and indicates a pain score of 0/10. MEDICAL/SURGICAL HISTORY: . Chronic kidney disease. Bilateral arm swelling. None. COMPARISON: . FINDINGS: Right Upper Extremity: There is occlusion of the right cephalic vein. Right brachial, radial maxilla ry subclavian and internal jugular veins are patent. Left Upper Extremity: The vessels are compressible and augmentation response is documented. No filli ng defects are seen. The flow is phasic with respiration. Other: None. CONCLUSION: 1. Occlusive thrombus in the right cephalic vein. 2. No thrombus in the left upper extremity. Electronically signed by: John Ashby MD 01/12/2018 3:02 PM EDT
--- NOTE | 2018-01-12 19:54 | P.PNNP ---
Subjective Interval history: Pt states he is feeling better. <Carina Mejía - Last Filed: 01/12/18 19:50> Physical Exam Vital signs: Vital Signs 01/11/18 19:56 01/11/18 19:58 01/11/18 20:00 Temperature 98.5 F Pulse Rate 93 H 91 H 93 H Respiratory Rate 27 H 29 H 32 H Blood Pressure 129/58 L 120/57 L 110/57 L Pulse Oximetry 96 96 97 01/11/18 20:07 01/11/18 21:00 01/11/18 22:00 Temperature Pulse Rate 91 H 93 H 93 H Respiratory Rate 18 37 H 30 H Blood Pressure 106/51 L 114/66 Pulse Oximetry 96 97 98 01/11/18 23:00 01/12/18 00:00 01/12/18 00:01 Temperature 97.5 F L Pulse Rate 95 H 95 H 96 H Respiratory Rate 33 H 31 H 41 H Blood Pressure 114/56 L 136/60 Pulse Oximetry 97 97 97 01/12/18 04:00 01/12/18 04:14 01/12/18 08:00 Temperature 98.0 F Pulse Rate 99 H 97 H 96 H Respiratory Rate 20 18 23 Blood Pressure 144/59 H 141/60 H Pulse Oximetry 97 93 L 01/12/18 08:13 01/12/18 12:00 01/12/18 16:00 Temperature 98.1 F 98.4 F Pulse Rate 95 H 91 H 101 H Respiratory Rate 18 36 H 18 Blood Pressure 122/70 127/58 L Pulse Oximetry 100 100 Intake & Output 01/12/18 01/12/18 01/13/18 06:59 18:59 06:59 Intake Total 840 / 840 900 / 900 Output Total 1810 / 1810 1830 / 1830 Balance -970 / -970 -930 / -930 Weight 80.5 kg Intake: IV 600 / 600 600 / 600 D10W Inj 500 ML @ 42 mls/hr IV. 500 / 500 500 / 500 CONT .[id number] [facility] Rx#:[id number] Azactam Inj 1,000 MG In NS Inj 100 / 100 100 / 100 100 ML @ 200 mls/hr IV.SIG Q12H [facility] Rx#:[id number] Oral 240 / 240 300 / 300 Output: Urine Amount (Catheter) 1400 / 1400 1500 / 1500 Indwelling Urethral Catheter 1400 / 1400 1100 / 1100 Straight 400 / 400 Chest Tube Drainage 410 / 410 330 / 330 Left Upper Pleural 320 / 320 200 / 200 Right Upper Pleural 90 / 90 130 / 130 Other: # Bowel Movements 0 0 - Constitutional no acute distress - Routine HEENT Exam Head: Present: normocephalic Eye: Present: conjunctival icterus - Routine Neck Exam Present: supple - Routine Respiratory Exam Present: distant breath sounds, diminished air movement - Routine Cardiovascular Exam Present: RRR, S1, S2 - Routine Abdominal Exam Present: soft - Routine Extremities Exam Present: edema (still significant edema in BUE. Edema in LE much improved.) - Routine Neurological Exam Present: alert - Urinary Catheter Management Indwelling Urethral Catheter Cath placed during this visit: yes, but has since been removed by the nurse Reason for continuing: Decision to DC catheter Insertion date: 01/09/18 Insertion time: 08:30 Removal date: 01/12/18 Removal time: 11:35 Straight Cath placed during this visit: no Reason for continuing: Other continuation reason <Carina Mejía - Last Filed: 01/12/18 19:50> Vital signs: Vital Signs 01/12/18 18:00 01/12/18 19:00 01/12/18 20:00 Temperature 99.2 F Pulse Rate 100 H 98 H 99 H Respiratory Rate 30 H 30 H 25 H Blood Pressure 130/58 L 130/60 128/58 L Pulse Oximetry 99 100 100 01/12/18 20:14 01/12/18 21:00 01/12/18 21:01 Temperature Pulse Rate 97 H 99 H Respiratory Rate 39 H 26 H Blood Pressure 117/49 L Pulse Oximetry 97 99 99 01/12/18 22:00 01/12/18 22:29 01/12/18 23:00 Temperature Pulse Rate 96 H 91 H 85 Respiratory Rate 40 H 29 H 24 Blood Pressure 116/56 L Pulse Oximetry 100 100 01/12/18 23:01 01/13/18 00:00 01/13/18 01:00 Temperature 99.0 F Pulse Rate 84 89 87 Respiratory Rate 23 21 30 H Blood Pressure 102/45 L 109/53 L 153/66 H Pulse Oximetry 01/13/18 02:00 01/13/18 03:00 01/13/18 04:00 Temperature 99.1 F Pulse Rate 86 83 88 Respiratory Rate 24 19 29 H Blood Pressure 121/57 L 127/60 131/58 L Pulse Oximetry 99 100 99 01/13/18 08:00 01/13/18 08:33 01/13/18 12:00 Temperature 98.4 F 98.1 F Pulse Rate 84 79 Respiratory Rate 24 30 H Blood Pressure 138/64 139/60 Pulse Oximetry 100 95 100 Intake & Output 01/12/18 01/13/18 01/13/18 18:59 06:59 18:59 Intake Total 900 / 900 980 / 980 200 / 200 Output Total 1830 / 1830 255 / 255 Balance -930 / -930 725 / 725 200 / 200 Weight 78.5 kg Intake: IV 600 / 600 500 / 500 200 / 200 D10W Inj 500 ML @ 42 mls/hr IV. 500 / 500 500 / 500 CONT .[id number] [facility] Rx#:[id number] Azactam Inj 1,000 MG In NS Inj 100 / 100 100 / 100 100 ML @ 200 mls/hr IV.SIG Q12H [facility] Rx#:[id number] KCl 20 mEq Premix Inj 20 meq In 100 / 100 100 ml @ 50 mls/hr IV.SIG Q2H PRN Rx#:[id number] Oral 300 / 300 480 / 480 Output: Urine Amount (Catheter) 1500 / 1500 Indwelling Urethral Catheter 1100 / 1100 Straight 400 / 400 Chest Tube Drainage 330 / 330 255 / 255 Left Upper Pleural 200 / 200 80 / 80 Right Upper Pleural 130 / 130 175 / 175 Other: # Bowel Movements 0 0 - Urinary Catheter Management Indwelling Urethral Catheter Cath placed during this visit: no Straight Cath placed during this visit: no <Wiley Phipps - Last Filed: 01/13/18 17:16> Assessment and Plan - Assessment (1) RICHARD (acute kidney injury) Code(s): N17.9 - Acute kidney failure, unspecified Status: Acute Plan: Presently uncertain if the patient actually has a component of acute renal insufficiency. He was fluid overloaded with anasarca on presentation and his creatinine level may have been spuriously low given the degree of fluid retention and I have no previous creatinine levels prior to this presentation. If there is a component of acute renal insufficiency it may be related to vancomycin nephrotoxicity. There is also mention of a possible hydronephrosis on CT scan although the ultrasound was negative for same. I am not highly suspicious of an obstruction however but could consider nuclear scan kidneys with washout to evaluate for possible obstruction when patient more stable. Renal functions have improved and is diuresing well. Will leave in IV lasix for another day and potentially try to convert to po within the next 24h or so. 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 Baseline SCr uncertain at this time. (3) Obstructive uropathy Code(s): N13.9 - Obstructive and reflux uropathy, unspecified Status: Acute Plan: I do not believe obstruction is playing a significant role here but will consider nuclear scan when patient more stable (4) Anasarca associated with disorder of kidney Code(s): N04.9 - Nephrotic syndrome with unspecified morphologic changes Status: Acute Plan: Continue diuretic therapy as ordered. <Carina Mejía - Last Filed: 01/12/18 19:50> - Assessment (1) RICHARD (acute kidney injury) Code(s): N17.9 - Acute kidney failure, unspecified Status: Acute (2) CKD (chronic kidney disease) stage 4, GFR 15-29 ml/min Code(s): N18.4 - Chronic kidney disease, stage 4 (severe) Status: Acute (3) Obstructive uropathy Code(s): N13.9 - Obstructive and reflux uropathy, unspecified Status: Acute (4) Anasarca associated with disorder of kidney Code(s): N04.9 - Nephrotic syndrome with unspecified morphologic changes Status: Acute - Attending Attestation The exam, history, and the medical decision-making described in the above note were completed with the assistance of the AGUEDA. I reviewed and agree with the findings presented. <Wiley Phipps - Last Filed: 01/13/18 17:16>
[2018-01-13] MEDS: Insulin NovoLIN Regular Correctional Sugar Inj SQ SCH ×6 (00:28→20:50)
[2018-01-13] MEDS: Dextrose 10% in Water Inj 500 ML IV.CONT SCH ×3 (06:13→20:52)
[2018-01-13 06:37] LABS: Baso % (Auto) 0.5 % (0.0-2.0); Eos # (Auto) 0.2 th/mm3 (0.0-0.4); Eos % (Auto) 3.6 % (0.0-4.0); Hematocrit 28.6 % (39.0-51.0); Hemoglobin 8.4 gm/dL (13.0-17.0); Lymph # (Auto) 0.9 th/mm3 (1.0-4.8); Lymph % (Auto) 13.7 % (9.0-44.0); Mean Corpuscular Volume 78.6 fL (80.0-100.0); Mean Platelet Volume 8.7 fL (7.0-11.0); Mono # (Auto) 0.7 th/mm3 (0.0-0.9); Mono % (Auto) 11.1 % (0.0-8.0); Neut # (Auto) 4.8 th/mm3 (1.8-7.7); Neut % (Auto) 71.1 % (16.0-70.0); Platelet Count 137 th/mm3 (150-450); Red Blood Count 3.64 mil/mm3 (4.50-5.90); White Blood Count 6.8 th/mm3 (4.0-11.0)
[2018-01-13 06:58] LABS: Anion Gap 9 meq/L (5-15); Aspartate Aminotransferase 15 U/L (15-37); Blood Urea Nitrogen 51 mg/dL (7-18); Calcium 7.7 mg/dL (8.5-10.1); Carbon Dioxide 32.9 meq/L (21.0-32.0); Chloride 98 meq/L (98-107); Glomerular Filtration Rate 36 mL/min (>89); Magnesium 1.7 mg/dL (1.5-2.5); Potassium 3.2 meq/L (3.5-5.1); Sodium 140 meq/L (136-145)
[2018-01-13 07:01] LABS: Alanine Aminotransferase 12 U/L (12-78); Alkaline Phosphatase 67 U/L (45-117); Glucose,Random 95 mg/dL (74-106); Phosphorus 2.4 mg/dL (2.5-4.9); Total Protein 5.9 g/dL (6.4-8.2)
[2018-01-13 07:05] LABS: Mean Corpuscular HGB Conc 29.2 % (32.0-36.0)
[2018-01-13] MEDS ORDERED: Potassium Phosphate Inj 30 MMOL in Sodium Chlor 0.9% Inj 250 ML IV.SIG PRN (07:28)
[2018-01-13] MEDS ORDERED: Magnesium Sulfate Inj 4 GM in Sodium Chlor 0.9% Inj 92 ML IV.SIG PRN (07:28)
[2018-01-13] MEDS ORDERED: Magnesium Sulfate Inj 2 GM in Sodium Chlor 0.9% Inj 96 ML IV.SIG PRN (07:28)
[2018-01-13] MEDS ORDERED: Sodium Phosphate Inj 30 MMOL in Sodium Chlor 0.9% Inj 250 ML IV.SIG PRN (07:28)
[2018-01-13] MEDS ORDERED: Potassium Chloride 25 MEQ Effervescent Tablet PO PRN (07:28)
[2018-01-13] MEDS ORDERED: Potassium Chlor 20 mEq Premix 20 MEQ/100 ML PIGGYBACK IV.SIG PRN (07:28)
[2018-01-13] MEDS ORDERED: Potassium Chlor 40 mEq Premix 40 MEQ/100 ML PIGGYBACK IV.SIG PRN ×2 (07:28)
[2018-01-13] MEDS ORDERED: Magnesium Oxide 400 MG Tablet PO PRN (07:28)
[2018-01-13] MEDS ORDERED: Potassium Phosphate 500 MG Soluble Tablet PO PRN ×2 (07:28)
--- NOTE | 2018-01-13 07:35 | P.PNCC ---
Subjective Subjective Remarks/Hospital Course: The patient is a 77-year-old male with an unknown past medical history, who presented to [facility] ED for generalized weakness. The patient does not really follow up with a physician and takes no medications at home. Per ED nurse, he had fallen multiple times today and was on the floor for some time. Apparently the evac stated that he did not want to come however, he was told that he needed to come in for further evaluation and management. On arrival, he was tachycardic with heart rate of 102 and a blood pressure of 127/ 58. His initial laboratory data showed anemia with hemoglobin 6.6 and acute renal failure with a creatinine level of 2.0. Also, he was found to have elevated lactic acid level at 6.8 and elevated troponin at 0.64. His BNP was 3405. The patient underwent a CT scan of the brain in EGD, which showed no acute intracranial abnormalities. He also had a lumbar spine CT, which showed no subluxation or acute fracture of the lumbar spine. CT of the facial bones showed preseptal soft tissue contusion of the left orbit and a chest x-ray showed bilateral pleural effusions with basilar consolidation, left greater than the right. Most of the history was obtained from reviewing medical records as the patient is a poor historian. In the ED, he was given normal saline 250, Lasix 40 mg IV push, and placed on a Protonix drip. He also received 1 dose of vancomycin. Per records, he also had purulent discharge from his left eye that caused his eyelid to swell. The patient also had a venous Doppler ultrasound, which showed no deep vein thrombosis; however, there is superficial venous thrombosis involving the bilateral great saphenous veins. SUBJ 01/05/18: Patient currently on BiPAP remains very lethargic not following commands not opening eyes to command. PH remains at 7.27 despite several hours on BiPAP PCO2 60. Ultrasound shows large bilateral effusions left larger than right. Because of respiratory acidosis, altered mental status and large pleural effusion patient was intubated and placed on mechanical ventilation. Following this I placed a left pigtail chest tube, initial output was 2 L clear straw colored fluid 01/06: Remains intubated sedated on sedation hold intermittently following commands. Bilateral large pleural effusions drained yesterday. Since placement yesterday left side has drained more than 3 L, right side has drained more than 2 L. Hemoglobin remained stable no obvious bleeding. Fluid studies consistent with transudative effusion. IV Lasix started by cardiology with urine output more than 2 L 01/07 Patient is extubated and on 4L oxygen with good sats, Afebrile. Had episode of hypotension overnight given Albumin, Lopressor held BP now 103/54 with MAP 77mmHg. 01/08: Breathing comfortably tachycardic though sinus. Heart rate 120 bpm. Metoprolol is being held I will resume metoprolol 25 mg twice daily. Hemoglobin 7.3 transfuse 1 unit PRBC. Chest tubes with high output right side 3 3 mL on left side for 3 mL in 24 hours. 01/09: Breathing comfortably. Significant output from chest tubes left side drained 1 L and right side drained 900 mL in 24 hours. Urine output diminished creatinine increased to 2.7. Will increase Lasix to 40 IV every 8 hours with IV albumin, consult nephrology. Previous renal ultrasound did not show any hydronephrosis. Mcfarland ordered to be reinserted for accurate intake output due to worsening renal failure 01/10: Patient appearing clinically worse. Very lethargic hard to wake up,. Stat ABG shows 7.2 . Initiate BiPAP for hypercapnic respiratory failure , if not improved in 2 hours will need re intubation. Urine output slightly improved with increased diuresis for 50 mL in 24 hours. Bilateral chest tube with more than 600 mL output combined 01/11 No events overnight. Awake and alert. On 3L oxygen, afebrile. Off BIPAP. 01/12 No events overnight. Patient is lying in bed in NAD> B/l CT still draining. Awake and alert. 01/13 Patient is lying in bed in NAD. Renal function is improving with Cr: 1.85 this morning from 2.02 Objective Vital Signs / I&O: Vital Signs 01/12/18 08:00 01/12/18 08:13 01/12/18 09:00 Temperature 98.0 F Pulse Rate 96 H 95 H 95 H Respiratory Rate 23 18 23 Blood Pressure 141/60 H 138/54 L Pulse Oximetry 93 L 84 L 01/12/18 10:00 01/12/18 11:00 01/12/18 12:00 Temperature 98.1 F Pulse Rate 97 H 96 H 91 H Respiratory Rate 27 H 27 H 36 H Blood Pressure 119/54 L 123/59 L 122/70 Pulse Oximetry 100 100 100 01/12/18 13:00 01/12/18 14:00 01/12/18 15:00 Temperature Pulse Rate 96 H 98 H 93 H Respiratory Rate 34 H 34 H 20 Blood Pressure 128/59 L 135/62 Pulse Oximetry 100 79 L 100 01/12/18 15:01 01/12/18 16:00 01/12/18 16:01 Temperature 98.4 F Pulse Rate 93 H 101 H 101 H Respiratory Rate 26 H 18 Blood Pressure 149/88 H 127/58 L 127/58 L Pulse Oximetry 100 100 100 01/12/18 17:00 01/12/18 18:00 01/12/18 19:00 Temperature Pulse Rate 99 H 100 H 98 H Respiratory Rate 30 H 30 H Blood Pressure 135/61 130/58 L 130/60 Pulse Oximetry 100 99 100 01/12/18 20:00 01/12/18 20:14 01/12/18 21:00 Temperature 99.2 F Pulse Rate 99 H 97 H Respiratory Rate 25 H 39 H Blood Pressure 128/58 L Pulse Oximetry 100 97 99 01/12/18 21:01 01/12/18 22:00 01/12/18 22:29 Temperature Pulse Rate 99 H 96 H 91 H Respiratory Rate 26 H 40 H 29 H Blood Pressure 117/49 L 116/56 L Pulse Oximetry 99 100 100 01/12/18 23:00 01/12/18 23:01 01/13/18 00:00 Temperature 99.0 F Pulse Rate 85 84 89 Respiratory Rate 24 23 21 Blood Pressure 102/45 L 109/53 L Pulse Oximetry 01/13/18 01:00 01/13/18 02:00 01/13/18 03:00 Temperature Pulse Rate 87 86 83 Respiratory Rate 30 H 24 19 Blood Pressure 153/66 H 121/57 L 127/60 Pulse Oximetry 99 100 01/13/18 04:00 Temperature 99.1 F Pulse Rate 88 Respiratory Rate 29 H Blood Pressure 131/58 L Pulse Oximetry 99 Intake & Output 01/12/18 01/13/18 01/13/18 18:59 06:59 18:59 Intake Total 900 / 900 980 / 980 100 / 100 Output Total 1830 / 1830 255 / 255 Balance -930 / -930 725 / 725 100 / 100 Weight 78.5 kg Intake: IV 600 / 600 500 / 500 100 / 100 D10W Inj 500 ML @ 42 mls/hr IV. 500 / 500 500 / 500 CONT .[id number] [facility] Rx#:[id number] Azactam Inj 1,000 MG In NS Inj 100 / 100 100 / 100 100 ML @ 200 mls/hr IV.SIG Q12H [facility] Rx#:[id number] Oral 300 / 300 480 / 480 Output: Urine Amount (Catheter) 1500 / 1500 Indwelling Urethral Catheter 1100 / 1100 Straight 400 / 400 Chest Tube Drainage 330 / 330 255 / 255 Left Upper Pleural 200 / 200 80 / 80 Right Upper Pleural 130 / 130 175 / 175 Other: # Bowel Movements 0 0 Result Diagrams: 01/13/18 05:45 01/13/18 05:45 Other Results: Laboratory Results - last 12 hr 01/10/18 01/12/18 01/12/18 07:33 19:41 23:49 WBC RBC Hgb Hct MCV MCH MCHC RDW Plt Count MPV Prelim Diff (Auto) Neut % (Auto) Lymph % (Auto) Hayes % (Auto) Eos % (Auto) Baso % (Auto) Neut # (Auto) Lymph # (Auto) Hayes # (Auto) Eos # (Auto) Baso # (Auto) Differential Comment Sodium Potassium Chloride Carbon Dioxide Anion Gap BUN Creatinine Estimated GFR POC Glucose 123 H 113 H Random Glucose Calcium Phosphorus Magnesium Total Bilirubin AST ALT Alkaline Phosphatase Total Protein Albumin Actin IgG Antibody <20 01/13/18 01/13/18 01/13/18 03:56 05:45 05:45 WBC 6.8 RBC 3.64 L Hgb 8.4 L Hct 28.6 L MCV 78.6 L MCH 23.0 L MCHC 29.2 L RDW 26.0 H Plt Count 137 L D MPV 8.7 Prelim Diff (Auto) Slide review pending Neut % (Auto) 71.1 H Lymph % (Auto) 13.7 Hayes % (Auto) 11.1 H Eos % (Auto) 3.6 Baso % (Auto) 0.5 Neut # (Auto) 4.8 Lymph # (Auto) 0.9 L Hayes # (Auto) 0.7 Eos # (Auto) 0.2 Baso # (Auto) 0.0 Differential Comment . Sodium 140 Potassium 3.2 L Chloride 98 Carbon Dioxide 32.9 H Anion Gap 9 BUN 51 H Creatinine 1.85 H Estimated GFR 36 L POC Glucose 120 H Random Glucose 95 Calcium 7.7 L Phosphorus 2.4 L Magnesium 1.7 Total Bilirubin 1.8 H AST 15 ALT 12 Alkaline Phosphatase 67 Total Protein 5.9 L Albumin 2.0 L Actin IgG Antibody Imaging: Abdomen/Bladder Ultrasound 01/04/18 00:00 CONCLUSION: 1. Chronic parenchymal disease. 2. Bilateral cysts, left more so than right. 3. No obstructive uropathy or other acute abnormality. Head CT 01/04/18 18:15 CONCLUSION: Motion degraded study without evidence of bleed or other acute intracranial abnormality. . Lumbar Spine CT 01/04/18 18:18 CONCLUSION: 1. No subluxation or acute fracture of the lumbar spine. 2. There is an old, mild compression deformity of L3. 3. Multilevel degenerative changes and diffuse idiopathic skeletal hyperostosis. 4. Pleural effusions and parenchymal consolidation partly seen of the visualized lung bases. 5. Atrophy and apparent hydronephrosis of the left knee. Face CT 01/04/18 20:14 CONCLUSION: 1. Focal minimally displaced fracture of the tip of the nasion. 2. Preseptal soft tissue contusion of the left orbit. 3. Acute on chronic appearing left maxillary sinusitis. Abdomen/Pelvis CT 01/05/18 00:00 CONCLUSION: 1. Bilateral moderate to large pleural effusions, left greater than right with associated lower lobe airspace disease. 2. Abnormal appearance of the left kidney with numerous cortical cysts. Apparent prominence of the renal collecting system does not have a corresponding finding on today's ultrasound exam. However, it remains concerning for mild to moderate hydronephrosis. 3. 7 mm calyceal calculus in the inferior pole of the left kidney. 4. Diffuse anasarca with small amount ascites. 5. Mild sigmoid diverticulosis. 6. Normal appendix. Chest X-Ray 01/12/18 00:00 CONCLUSION: Persistent left basilar density. No pneumothorax. Venous Doppler Study 01/12/18 00:00 CONCLUSION: 1. Occlusive thrombus in the right cephalic vein. 2. No thrombus in the left upper extremity. Objective Remarks: GENERAL: Patient is 77 yo lying in bed in [facility] HEENT: Atraumatic, normocephalic. Pupils are equal, round. Conjunctivitis appears improved NECK: Supple. No JVD, adenopathy, or thyromegaly. Trachea midline. CARDIOVASCULAR: Normal rate and sinus rhythm. Normal S1, S2. No murmurs, rubs or gallops. PULMONARY: B/L equal air entry ABDOMEN: Soft, nontender. No distention. Positive bowel sounds. EXTREMITIES: No cyanosis or clubbing, 1-2+ edema. NEUROLOGIC: Awake and alert Assessment and Plan - Assessment and Plan Plan: IMPRESSION: Recurrent acute hypercapnic respiratory failure Altered mental status/metabolic encephalopathy Probable COPD Anemia thrombocytopenia Acute renal failure, worsening GI bleed Anemia requiring transfusion Lactic acidemia. 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 Bilateral large pleural effusions, status post chest tube Superficial venous thrombosis bilaterally, great saphenous vein. Conjunctivitis of the left eye. PLAN Neuro: Awake and alert, avoid sedatives CT scan of the brain in the ED showed no acute intracranial findings. Pulm: Continue with oxygen keep sats >92% Bronchodilators, NIPPV PRN for resp distress, check ABG Bilateral pigtail chest tubes placed 01/05/2018. Left chest tube with 280 ml and, right with 305 mL overnight Transudative fluid. Monitor CT drainage. CV: Monitor HR and BP keep MAP>65mmHg Continue Lasix 40 every 8 hours a Nephrology following, previous renal ultrasound did not show hydronephrosis, continue Mcfarland for accurate intake output Echo showed EF 50-55%. Not a candidate for invasive procedures or anticoagulation/antiplatelet therapy at this time due to severe anemia Cardiology Dr. Ball following Continue metoprolol GI: Continue with Protonix drip. GI is following. EGD/colonoscopy when stable per GI CT abdomen and pelvis without contrast-no acute findings On Protonix 40mg IV daily : Monitor renal function, I/O's, electrolytes replacement per protocol. On D10 @42ml/hr, On Lasix 40mg IV Q8, KCL 25meq BID, Renal is following- Dr. Phipps Renal function is improving with Cr: 1.8 from 2.02. Heme: s/p transfusion multiple units of PRBC, since admission. Thrombocytopenia likely secondary to liver disease and portal hypertension, HIT screen negative. PLT count is improving Monitor CBC and coags Doppler US UE: Occlusive thrombus in the right cephalic vein. No thrombus in the left upper extremity. Patient is at high risk for AC given anemia, thrombocytopenia and possibly GI bleed ID: Continue abx aztreonam. Strep pneumonia, Legionella urinary antigen negative , Sputum cx: normal resp mechelle. BC: NGTD Endo: Sliding scale insulin with Accu-Cheks to maintain euglycemia. TSH measured at 4.2 GI prophylaxis with Protonix and DVT prophylaxis with SCDs. Chemical anticoagulation prophylaxis contraindicated due to anemia, thrombocytopenia and probable GI bleed. Level 3
[2018-01-13] MEDS: Potassium Chloride 25 MEQ Effervescent Tablet PO SCH ×2 (08:23→20:50)
[2018-01-13] MEDS: Pantoprazole Inj 40 MG Vial IV.PUSH SCH (08:24)
[2018-01-13] MEDS: Chlorothiazide Inj 500 MG Vial IV.PUSH SCH (08:25)
[2018-01-13] MEDS: Metoprolol Tartrate 25 MG Tablet PO SCH ×2 (08:27→20:53)
[2018-01-13] MEDS: Senna/Docusate Sodium 8.6/50 MG Tablet PO SCH ×2 (08:27→20:53)
[2018-01-13] MEDS: Potassium Chlor 20 mEq Premix 20 MEQ/100 ML PIGGYBACK IV.SIG PRN ×2 (08:36→10:49)
[2018-01-13 09:24] LABS: Dimorphic RBC Present
[2018-01-13 09:25] LABS: Ovalocytes 1+
--- NOTE | 2018-01-13 16:43 | P.PNWCN ---
Wound Care Nurse Consult Description: Wound consult ordered by for wound management. Communicated with: Leslee BAPTISTE, Recommendation: 1. Manually reposition patient every 2 hours for comfort and offloading. 2. Cleanse intra gluteal/sacral region with remedy soft cloth wipes 3. Apply thick even layer of Calazime cream to affected area. 4. Please reframe from placing patient on cotton underpads, Please use UltraSorb moisture wicking underpad to reduce moisture. 5. Please contact business analytics specialist if wound worsens or treatment fails. Additional information: Patient was seen today by sql report writer and Leslee BAPTISTE 5 [facility] for wound management.Patient alert resting in bed in no acute distress.Restraints removed and patient repositioned to right side with minimal assistance.Intra gluteal cleft and sacral region cleansed with remedy soft cloth wipes.Patient noted to have a DTI(deep tissue injury) measuring ~6.0cm x~7.0cm with partial thickness tissue loss to diffuse periwound.Wound base is non blanchable purple colored tissue.Wound edges are irregular with moist pink tissue present on ~20% of wound edges.Intact condom catheter in place.Per Leslee BAPTISTE patient has not had a lot of loose stools no fecal diversion recommended at this time.patient noted to have +3 pitting edema to bilateral upper extremities and +2 pitting edema to lower extremities.UltraSorb moisture wicking underpads may be used for weeping. Calazime barrier cream applied in thick even layer to effected tissue and patient was repositioned to left side.No further questions or concern upon writers departure. Wound/Pressure Injury - Wound Sacrum Wound Staging: DTI Wound Assessment: Ongoing Wound Type: Pressure Injury Is This a Chronic Wound: No Requested from Provider a Wound Care Consult: No (Jerry BAPTISTE,[facility] seen 01/13) Length (cm): 6.0 Width (cm): 7.0 Depth (cm): 0.1 Wound Bed Appearance: Peeling Skin (Purple), Red Wound Bed Appearance: 80% intact purple tissue 20% diffuse pink partial thickness tissue loss. Surrounding Tissue Appearance: Edematous, Erythema Surrounding Tissue Temperature: Cool Drainage Description: Sanguinous Drainage Amount: Scant Drainage Odor: No Odor Dressing Status: Open to Air Cleansing Solution: Saline Topical: Calazime cream Wound Dressing Change Date: 01/13/18
--- NOTE | 2018-01-13 17:18 | P.PNNP ---
Subjective Interval history: No verbal complaints today Physical Exam Vital signs: Vital Signs 01/12/18 18:00 01/12/18 19:00 01/12/18 20:00 Temperature 99.2 F Pulse Rate 100 H 98 H 99 H Respiratory Rate 30 H 30 H 25 H Blood Pressure 130/58 L 130/60 128/58 L Pulse Oximetry 99 100 100 01/12/18 20:14 01/12/18 21:00 01/12/18 21:01 Temperature Pulse Rate 97 H 99 H Respiratory Rate 39 H 26 H Blood Pressure 117/49 L Pulse Oximetry 97 99 99 01/12/18 22:00 01/12/18 22:29 01/12/18 23:00 Temperature Pulse Rate 96 H 91 H 85 Respiratory Rate 40 H 29 H 24 Blood Pressure 116/56 L Pulse Oximetry 100 100 01/12/18 23:01 01/13/18 00:00 01/13/18 01:00 Temperature 99.0 F Pulse Rate 84 89 87 Respiratory Rate 23 21 30 H Blood Pressure 102/45 L 109/53 L 153/66 H Pulse Oximetry 01/13/18 02:00 01/13/18 03:00 01/13/18 04:00 Temperature 99.1 F Pulse Rate 86 83 88 Respiratory Rate 24 19 29 H Blood Pressure 121/57 L 127/60 131/58 L Pulse Oximetry 99 100 99 01/13/18 08:00 01/13/18 08:33 01/13/18 12:00 Temperature 98.4 F 98.1 F Pulse Rate 84 79 Respiratory Rate 24 30 H Blood Pressure 138/64 139/60 Pulse Oximetry 100 95 100 Intake & Output 01/12/18 01/13/18 01/13/18 18:59 06:59 18:59 Intake Total 900 / 900 980 / 980 200 / 200 Output Total 1830 / 1830 255 / 255 Balance -930 / -930 725 / 725 200 / 200 Weight 78.5 kg Intake: IV 600 / 600 500 / 500 200 / 200 D10W Inj 500 ML @ 42 mls/hr IV. 500 / 500 500 / 500 CONT .[id number] [facility] Rx#:[id number] Azactam Inj 1,000 MG In NS Inj 100 / 100 100 / 100 100 ML @ 200 mls/hr IV.SIG Q12H [facility] Rx#:[id number] KCl 20 mEq Premix Inj 20 meq In 100 / 100 100 ml @ 50 mls/hr IV.SIG Q2H [facility] Rx#:[id number] Oral 300 / 300 480 / 480 Output: Urine Amount (Catheter) 1500 / 1500 Indwelling Urethral Catheter 1100 / 1100 Straight 400 / 400 Chest Tube Drainage 330 / 330 255 / 255 Left Upper Pleural 200 / 200 80 / 80 Right Upper Pleural 130 / 130 175 / 175 Other: # Bowel Movements 0 0 - Urinary Catheter Management Indwelling Urethral Catheter Cath placed during this visit: yes, but has since been removed by the nurse Reason for continuing: Decision to DC catheter Insertion date: 01/09/18 Insertion time: 08:30 Removal date: 01/12/18 Removal time: 11:35 Straight Cath placed during this visit: no Reason for continuing: Other continuation reason Assessment and Plan - Assessment (1) RICHARD (acute kidney injury) Code(s): N17.9 - Acute kidney failure, unspecified Status: Acute Plan: Presently uncertain if the patient actually has a component of acute renal insufficiency. He was fluid overloaded with anasarca on presentation and his creatinine level may have been spuriously low given the degree of fluid retention and I have no previous creatinine levels prior to this presentation. If there is a component of acute renal insufficiency it may be related to vancomycin nephrotoxicity. There is also mention of a possible hydronephrosis on CT scan although the ultrasound was negative for same. I am not highly suspicious of an obstruction however but could consider nuclear scan kidneys with washout to evaluate for possible obstruction when patient more stable. Renal function continues to improve and volume status is much improved. At this point in time will discontinue IV Diuril and furosemide. Convert the patient to p.o. diuretics. We will see patient intermittently at this point in time. I suspect the patient does have underlying chronic kidney disease in addition to the acute component on presentation. Medications should be adjusted for the patient's estimated GFR if clinically indicated. Avoid agents with significant potential for nephrotoxicity possible including NSAIDs for analgesia, iodine contrast agents. Gadolinium is contraindicated if the GFR is below 30. 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 Baseline SCr uncertain at this time. (3) Obstructive uropathy Code(s): N13.9 - Obstructive and reflux uropathy, unspecified Status: Acute Plan: I do not believe obstruction is playing a significant role here but will consider nuclear scan when patient more stable (4) Anasarca associated with disorder of kidney Code(s): N04.9 - Nephrotic syndrome with unspecified morphologic changes Status: Acute Plan: Much improved.
[2018-01-13] MEDS: Furosemide 20 MG Tablet PO SCH (17:55)
[2018-01-14] MEDS: Insulin NovoLIN Regular Correctional Sugar Inj SQ SCH ×7 (00:08→23:44)
--- NOTE | 2018-01-14 08:25 | P.PNCC ---
Subjective Subjective Remarks/Hospital Course: The patient is a 77-year-old male with an unknown past medical history, who presented to [facility] ED for generalized weakness. The patient does not really follow up with a physician and takes no medications at home. Per ED nurse, he had fallen multiple times today and was on the floor for some time. Apparently the evac stated that he did not want to come however, he was told that he needed to come in for further evaluation and management. On arrival, he was tachycardic with heart rate of 102 and a blood pressure of 127/ 58. His initial laboratory data showed anemia with hemoglobin 6.6 and acute renal failure with a creatinine level of 2.0. Also, he was found to have elevated lactic acid level at 6.8 and elevated troponin at 0.64. His BNP was 3405. The patient underwent a CT scan of the brain in EGD, which showed no acute intracranial abnormalities. He also had a lumbar spine CT, which showed no subluxation or acute fracture of the lumbar spine. CT of the facial bones showed preseptal soft tissue contusion of the left orbit and a chest x-ray showed bilateral pleural effusions with basilar consolidation, left greater than the right. Most of the history was obtained from reviewing medical records as the patient is a poor historian. In the ED, he was given normal saline 250, Lasix 40 mg IV push, and placed on a Protonix drip. He also received 1 dose of vancomycin. Per records, he also had purulent discharge from his left eye that caused his eyelid to swell. The patient also had a venous Doppler ultrasound, which showed no deep vein thrombosis; however, there is superficial venous thrombosis involving the bilateral great saphenous veins. SUBJ 01/05/18: Patient currently on BiPAP remains very lethargic not following commands not opening eyes to command. PH remains at 7.27 despite several hours on BiPAP PCO2 60. Ultrasound shows large bilateral effusions left larger than right. Because of respiratory acidosis, altered mental status and large pleural effusion patient was intubated and placed on mechanical ventilation. Following this I placed a left pigtail chest tube, initial output was 2 L clear straw colored fluid 01/06: Remains intubated sedated on sedation hold intermittently following commands. Bilateral large pleural effusions drained yesterday. Since placement yesterday left side has drained more than 3 L, right side has drained more than 2 L. Hemoglobin remained stable no obvious bleeding. Fluid studies consistent with transudative effusion. IV Lasix started by cardiology with urine output more than 2 L 01/07 Patient is extubated and on 4L oxygen with good sats, Afebrile. Had episode of hypotension overnight given Albumin, Lopressor held BP now 103/54 with MAP 77mmHg. 01/08: Breathing comfortably tachycardic though sinus. Heart rate 120 bpm. Metoprolol is being held I will resume metoprolol 25 mg twice daily. Hemoglobin 7.3 transfuse 1 unit PRBC. Chest tubes with high output right side 3 3 mL on left side for 3 mL in 24 hours. 01/09: Breathing comfortably. Significant output from chest tubes left side drained 1 L and right side drained 900 mL in 24 hours. Urine output diminished creatinine increased to 2.7. Will increase Lasix to 40 IV every 8 hours with IV albumin, consult nephrology. Previous renal ultrasound did not show any hydronephrosis. Mcfarland ordered to be reinserted for accurate intake output due to worsening renal failure 01/10: Patient appearing clinically worse. Very lethargic hard to wake up,. Stat ABG shows 7.2 . Initiate BiPAP for hypercapnic respiratory failure , if not improved in 2 hours will need re intubation. Urine output slightly improved with increased diuresis for 50 mL in 24 hours. Bilateral chest tube with more than 600 mL output combined 01/11 No events overnight. Awake and alert. On 3L oxygen, afebrile. Off BIPAP. 01/12 No events overnight. Patient is lying in bed in NAD> B/l CT still draining. Awake and alert. 01/13 Patient is lying in bed in NAD. Renal function is improving with Cr: 1.85 this morning from 2.02 01/14 Patient is lying in bed in NAD. Afebrile. Objective Vital Signs / I&O: Vital Signs 01/13/18 08:33 01/13/18 12:00 01/13/18 16:00 Temperature 98.1 F 98.4 F Pulse Rate 79 85 Respiratory Rate 30 H 21 Blood Pressure 139/60 126/56 L Pulse Oximetry 95 100 100 01/13/18 19:48 01/13/18 20:00 01/14/18 00:00 Temperature 98 F 98.1 F Pulse Rate 94 H 91 H Respiratory Rate 18 20 Blood Pressure 109/55 L 128/71 Pulse Oximetry 100 100 99 01/14/18 04:00 01/14/18 08:03 Temperature 98 F Pulse Rate 86 Respiratory Rate 19 Blood Pressure 110/65 Pulse Oximetry 100 99 Intake & Output 01/13/18 01/14/18 01/14/18 18:59 06:59 18:59 Intake Total 1100 / 1100 840 / 840 Output Total 1680 / 1680 1300 / 1300 Balance -580 / -580 -460 / -460 Weight 78 kg Intake: IV 900 / 900 600 / 600 D10W Inj 500 ML @ 42 mls/hr IV. 500 / 500 500 / 500 CONT .[id number] RENA Rx#:[id number] Azactam Inj 1,000 MG In NS Inj 200 / 200 100 / 100 100 ML @ 200 mls/hr IV.SIG Q12H RENA Rx#:[id number] KCl 20 mEq Premix Inj 20 meq In 200 / 200 100 ml @ 50 mls/hr IV.SIG Q2H PRN Rx#:[id number] Oral 200 / 200 240 / 240 Output: Urine 1400 / 1400 1100 / 1100 Chest Tube Drainage 280 / 280 200 / 200 Left Upper Pleural 220 / 220 50 / 50 Right Upper Pleural 60 / 60 150 / 150 Other: # Bowel Movements 0 0 Result Diagrams: 01/13/18 05:45 01/13/18 05:45 Other Results: Laboratory Results - last 12 hr 01/10/18 01/13/18 01/14/18 08:30 23:07 04:49 POC Glucose 95 108 Urine Eosinophils Cancelled 01/14/18 07:41 POC Glucose 103 Urine Eosinophils Imaging: Abdomen/Bladder Ultrasound 01/04/18 00:00 CONCLUSION: 1. Chronic parenchymal disease. 2. Bilateral cysts, left more so than right. 3. No obstructive uropathy or other acute abnormality. Head CT 01/04/18 18:15 CONCLUSION: Motion degraded study without evidence of bleed or other acute intracranial abnormality. . Lumbar Spine CT 01/04/18 18:18 CONCLUSION: 1. No subluxation or acute fracture of the lumbar spine. 2. There is an old, mild compression deformity of L3. 3. Multilevel degenerative changes and diffuse idiopathic skeletal hyperostosis. 4. Pleural effusions and parenchymal consolidation partly seen of the visualized lung bases. 5. Atrophy and apparent hydronephrosis of the left knee. Face CT 01/04/18 20:14 CONCLUSION: 1. Focal minimally displaced fracture of the tip of the nasion. 2. Preseptal soft tissue contusion of the left orbit. 3. Acute on chronic appearing left maxillary sinusitis. Abdomen/Pelvis CT 01/05/18 00:00 CONCLUSION: 1. Bilateral moderate to large pleural effusions, left greater than right with associated lower lobe airspace disease. 2. Abnormal appearance of the left kidney with numerous cortical cysts. Apparent prominence of the renal collecting system does not have a corresponding finding on today's ultrasound exam. However, it remains concerning for mild to moderate hydronephrosis. 3. 7 mm calyceal calculus in the inferior pole of the left kidney. 4. Diffuse anasarca with small amount ascites. 5. Mild sigmoid diverticulosis. 6. Normal appendix. Chest X-Ray 01/12/18 00:00 CONCLUSION: Persistent left basilar density. No pneumothorax. Venous Doppler Study 01/12/18 00:00 CONCLUSION: 1. Occlusive thrombus in the right cephalic vein. 2. No thrombus in the left upper extremity. Objective Remarks: GENERAL: Patient is 77 yo lying in bed in NAD HEENT: Atraumatic, normocephalic. Pupils are equal, round. Conjunctivitis appears improved NECK: Supple. No JVD, adenopathy, or thyromegaly. Trachea midline. CARDIOVASCULAR: Normal rate and sinus rhythm. Normal S1, S2. No murmurs, rubs or gallops. PULMONARY: B/L equal air entry ABDOMEN: Soft, nontender. No distention. Positive bowel sounds. EXTREMITIES: No cyanosis or clubbing/edema NEUROLOGIC: Awake and alert Assessment and Plan - Assessment and Plan Plan: IMPRESSION: Recurrent acute hypercapnic respiratory failure Altered mental status/metabolic encephalopathy Probable COPD Anemia thrombocytopenia Acute renal failure, worsening GI bleed Anemia requiring transfusion Lactic acidemia. 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 Bilateral large pleural effusions, status post chest tube Superficial venous thrombosis bilaterally, great saphenous vein. Conjunctivitis of the left eye. PLAN Neuro: Awake and alert, avoid sedatives CT scan of the brain in the ED showed no acute intracranial findings. Pulm: Continue with oxygen keep sats >92% Bronchodilators, NIPPV PRN for resp distress, check ABG Bilateral pigtail chest tubes placed 01/05/2018. Left chest tube with 270 ml and, right with 210 mL in 24 hrs [address]ud[address] fluid. Monitor CT drainage. Check CXR CV: Monitor HR and BP keep MAP>65mmHg Nephrology following, previous renal ultrasound did not show hydronephrosis, continue Mcfarland for accurate intake output Echo showed EF 50-55%. Not a candidate for invasive procedures or anticoagulation/antiplatelet therapy at this time due to severe anemia Cardiology Dr. Ball following Continue metoprolol, on Lasix 60mg BID GI: Continue with Protonix drip. GI is following. EGD/colonoscopy when stable per GI CT abdomen and pelvis without contrast-no acute findings On Protonix 40mg IV daily : Monitor renal function, I/O's, electrolytes replacement per protocol. On D10 @42ml/hr, On Lasix 60mg IV BID, KCL 25meq BID, Renal is following- Dr. Phipps Follow up on BMP Heme: s/p transfusion multiple units of PRBC, since admission. Thrombocytopenia likely secondary to liver disease and portal hypertension, HIT screen negative. PLT count is improving Monitor CBC and coags Doppler US UE: Occlusive thrombus in the right cephalic vein. No thrombus in the left upper extremity. Patient is at high risk for AC given anemia, thrombocytopenia and possibly GI bleed ID: Continue abx aztreonam. Strep pneumonia, Legionella urinary antigen negative , Sputum cx: normal resp mechelle. BC: NGTD Endo: Sliding scale insulin with Accu-Cheks to maintain euglycemia. TSH measured at 4.2 GI prophylaxis with Protonix and DVT prophylaxis with SCDs. Chemical anticoagulation prophylaxis contraindicated due to anemia, thrombocytopenia and probable GI bleed. Follow up on labs Level 3
[2018-01-14 08:30] LABS: Albumin 1.9 g/dL (3.4-5.0); Anion Gap 12 meq/L (5-15); Aspartate Aminotransferase 16 U/L (15-37); Blood Urea Nitrogen 49 mg/dL (7-18); Calcium 7.6 mg/dL (8.5-10.1); Carbon Dioxide 33.6 meq/L (21.0-32.0); Chloride 94 meq/L (98-107); Glomerular Filtration Rate 44 mL/min (>89); Glucose,Random 95 mg/dL (74-106); Magnesium 1.6 mg/dL (1.5-2.5); Sodium 140 meq/L (136-145)
[2018-01-14 08:32] LABS: Alanine Aminotransferase 12 U/L (12-78); Alkaline Phosphatase 68 U/L (45-117); Phosphorus 2.5 mg/dL (2.5-4.9); Total Protein 5.9 g/dL (6.4-8.2)
--- NOTE | 2018-01-14 09:13 | XR ---
EXAM DATE: 01/14/2018 8:26 AM EDT AGE/SEX: 77 years / Male INDICATIONS: Shortness of breath. CLINICAL DATA: This is the patient's subsequent encounter. Patient reports that signs and symptoms h ave been present for 1 week and indicates a pain score of 0/10. MEDICAL/SURGICAL HISTORY: . Anemia. Congestive heart failure. Sepsis. None. . COMPARISON: C, CHEST 1V SINGLE AP, 01/12/2018. . FINDINGS: Small bore chest tube in place on the left with minimal consolidative changes left base Right lung clear Heart minimally enlarged. There is no pneumothorax. CONCLUSION: Small bore chest tube in place on the left without pneumothorax Minimal fluid and consolidation persisting left base. Electronically signed by: Keagan Schilling MD 01/14/2018 9:12 AM EDT
[2018-01-14 09:29] LABS: Baso % (Auto) 0.3 % (0.0-2.0); Eos # (Auto) 0.1 th/mm3 (0.0-0.4); Eos % (Auto) 1.4 % (0.0-4.0); Hematocrit 29.8 % (39.0-51.0); Lymph # (Auto) 0.9 th/mm3 (1.0-4.8); Lymph % (Auto) 13.6 % (9.0-44.0); Mean Corpuscular Hemoglobin 23.9 pg (27.0-34.0); Mean Platelet Volume 8.6 fL (7.0-11.0); Mono # (Auto) 0.5 th/mm3 (0.0-0.9); Mono % (Auto) 8.2 % (0.0-8.0); Neut # (Auto) 4.9 th/mm3 (1.8-7.7); Neut % (Auto) 76.5 % (16.0-70.0); Platelet Count 223 th/mm3 (150-450); Red Blood Count 3.77 mil/mm3 (4.50-5.90); Red Cell Distribution Width 26.9 % (11.6-17.2); White Blood Count 6.4 th/mm3 (4.0-11.0)
[2018-01-14] MEDS: Potassium Chloride 25 MEQ Effervescent Tablet PO SCH ×2 (09:29→20:03)
[2018-01-14] MEDS: Senna/Docusate Sodium 8.6/50 MG Tablet PO SCH ×2 (09:30→20:02)
[2018-01-14] MEDS: Metoprolol Tartrate 25 MG Tablet PO SCH ×2 (09:30→20:02)
[2018-01-14] MEDS: metOLazone 5 MG Tablet PO SCH (09:30)
[2018-01-14] MEDS: Pantoprazole Inj 40 MG Vial IV.PUSH SCH (09:30)
[2018-01-14 09:31] LABS: Mean Corpuscular HGB Conc 30.2 % (32.0-36.0)
[2018-01-14 10:53] LABS: Eosinophils 2 % (0-4); Lymphocytes 4 % (9-44); Monocytes 6 % (0-8)
[2018-01-14 11:00] LABS: Dimorphic RBC Present; Ovalocytes 1+; Platelet Estimate Normal (Normal); Platelet Morphology Normal (Normal)
[2018-01-14] MEDS: Furosemide 20 MG Tablet PO SCH ×2 (12:40→18:22)
[2018-01-14] MEDS: Dextrose 10% in Water Inj 500 ML IV.CONT SCH (18:21)
--- NOTE | 2018-01-15 01:06 | XR ---
EXAM DATE: 01/15/2018 12:05 AM EDT AGE/SEX: 77 years / Male INDICATIONS: Chest tube dislodged. CLINICAL DATA: This is the patient's initial encounter. Patient reports that signs and symptoms have been present for 1 day and indicates a pain score of 0/10. MEDICAL/SURGICAL HISTORY: . Anemia. Congestive heart failure. Sepsis None. COMPARISON: . FINDINGS: Previous small caliber left chest tube no longer visualized. Small caliber right chest tube unchanged . Basilar airspace disease persists, left greater than right. No significant pneumothorax identified. CONCLUSION: Previous small caliber left chest tube no longer visualized. No pneumothorax identified. Stable basil ar airspace disease in the lungs. Electronically signed by: Alonzo Steel MD 01/15/2018 1:05 AM EDT
[2018-01-15] MEDS: Insulin NovoLIN Regular Correctional Sugar Inj SQ SCH ×5 (03:59→21:02)
[2018-01-15 05:50] LABS: Baso % (Auto) 0.3 % (0.0-2.0); Eos # (Auto) 0.1 th/mm3 (0.0-0.4); Hematocrit 31.5 % (39.0-51.0); Hemoglobin 9.5 gm/dL (13.0-17.0); Lymph # (Auto) 0.9 th/mm3 (1.0-4.8); Lymph % (Auto) 12.4 % (9.0-44.0); Mean Corpuscular Hemoglobin 23.1 pg (27.0-34.0); Mean Corpuscular Volume 76.8 fL (80.0-100.0); Mean Platelet Volume 7.9 fL (7.0-11.0); Mono # (Auto) 0.5 th/mm3 (0.0-0.9); Mono % (Auto) 6.9 % (0.0-8.0); Neut # (Auto) 5.6 th/mm3 (1.8-7.7); Neut % (Auto) 79.4 % (16.0-70.0); Platelet Count 237 th/mm3 (150-450); Red Cell Distribution Width 26.5 % (11.6-17.2); White Blood Count 7.1 th/mm3 (4.0-11.0)
[2018-01-15] MEDS: Dextrose 10% in Water Inj 500 ML IV.CONT SCH ×3 (06:08→21:00)
[2018-01-15 06:22] LABS: Albumin 2.2 g/dL (3.4-5.0); Anion Gap 8 meq/L (5-15); Aspartate Aminotransferase 15 U/L (15-37); Blood Urea Nitrogen 53 mg/dL (7-18); Calcium 8.1 mg/dL (8.5-10.1); Carbon Dioxide 36.3 meq/L (21.0-32.0); Chloride 91 meq/L (98-107); Glomerular Filtration Rate 49 mL/min (>89); Glucose,Random 86 mg/dL (74-106); Magnesium 1.9 mg/dL (1.5-2.5); Potassium 3.8 meq/L (3.5-5.1); Sodium 135 meq/L (136-145)
[2018-01-15 06:26] LABS: Alanine Aminotransferase 12 U/L (12-78); Alkaline Phosphatase 78 U/L (45-117); Phosphorus 2.9 mg/dL (2.5-4.9); Total Protein 6.7 g/dL (6.4-8.2)
--- NOTE | 2018-01-15 07:18 | P.PNCC ---
Subjective Subjective Remarks/Hospital Course: The patient is a 77-year-old male with an unknown past medical history, who presented to [facility] ED for generalized weakness. The patient does not really follow up with a physician and takes no medications at home. Per ED nurse, he had fallen multiple times today and was on the floor for some time. Apparently the evac stated that he did not want to come however, he was told that he needed to come in for further evaluation and management. On arrival, he was tachycardic with heart rate of 102 and a blood pressure of 127/ 58. His initial laboratory data showed anemia with hemoglobin 6.6 and acute renal failure with a creatinine level of 2.0. Also, he was found to have elevated lactic acid level at 6.8 and elevated troponin at 0.64. His BNP was 3405. The patient underwent a CT scan of the brain in EGD, which showed no acute intracranial abnormalities. He also had a lumbar spine CT, which showed no subluxation or acute fracture of the lumbar spine. CT of the facial bones showed preseptal soft tissue contusion of the left orbit and a chest x-ray showed bilateral pleural effusions with basilar consolidation, left greater than the right. Most of the history was obtained from reviewing medical records as the patient is a poor historian. In the ED, he was given normal saline 250, Lasix 40 mg IV push, and placed on a Protonix drip. He also received 1 dose of vancomycin. Per records, he also had purulent discharge from his left eye that caused his eyelid to swell. The patient also had a venous Doppler ultrasound, which showed no deep vein thrombosis; however, there is superficial venous thrombosis involving the bilateral great saphenous veins. SUBJ 01/05/18: Patient currently on BiPAP remains very lethargic not following commands not opening eyes to command. PH remains at 7.27 despite several hours on BiPAP PCO2 60. Ultrasound shows large bilateral effusions left larger than right. Because of respiratory acidosis, altered mental status and large pleural effusion patient was intubated and placed on mechanical ventilation. Following this I placed a left pigtail chest tube, initial output was 2 L clear straw colored fluid 01/06: Remains intubated sedated on sedation hold intermittently following commands. Bilateral large pleural effusions drained yesterday. Since placement yesterday left side has drained more than 3 L, right side has drained more than 2 L. Hemoglobin remained stable no obvious bleeding. Fluid studies consistent with transudative effusion. IV Lasix started by cardiology with urine output more than 2 L 01/07 Patient is extubated and on 4L oxygen with good sats, Afebrile. Had episode of hypotension overnight given Albumin, Lopressor held BP now 103/54 with MAP 77mmHg. 01/08: Breathing comfortably tachycardic though sinus. Heart rate 120 bpm. Metoprolol is being held I will resume metoprolol 25 mg twice daily. Hemoglobin 7.3 transfuse 1 unit PRBC. Chest tubes with high output right side 3 3 mL on left side for 3 mL in 24 hours. 01/09: Breathing comfortably. Significant output from chest tubes left side drained 1 L and right side drained 900 mL in 24 hours. Urine output diminished creatinine increased to 2.7. Will increase Lasix to 40 IV every 8 hours with IV albumin, consult nephrology. Previous renal ultrasound did not show any hydronephrosis. Mcfarland ordered to be reinserted for accurate intake output due to worsening renal failure 01/10: Patient appearing clinically worse. Very lethargic hard to wake up,. Stat ABG shows 7.2 . Initiate BiPAP for hypercapnic respiratory failure , if not improved in 2 hours will need re intubation. Urine output slightly improved with increased diuresis for 50 mL in 24 hours. Bilateral chest tube with more than 600 mL output combined 01/11 No events overnight. Awake and alert. On 3L oxygen, afebrile. Off BIPAP. 01/12 No events overnight. Patient is lying in bed in NAD> B/l CT still draining. Awake and alert. 01/13 Patient is lying in bed in NAD. Renal function is improving with Cr: 1.85 this morning from 2.02 01/14 Patient is lying in bed in NAD. Afebrile. 01/[address] dislodged overnight. CXR showed stable basilar airspace disease in the lungs. Right CT drained approx 100ml overnight. Afebrile. Objective Vital Signs / I&O: Vital Signs 01/14/18 08:00 01/14/18 08:03 01/14/18 12:00 Temperature 98 F 97.5 F L Pulse Rate 84 76 Respiratory Rate 29 H 23 Blood Pressure 137/64 138/59 L Pulse Oximetry 100 99 100 01/14/18 16:00 01/14/18 19:00 01/14/18 19:55 Temperature 97.8 F Pulse Rate 86 87 Respiratory Rate 18 23 Blood Pressure 116/61 114/74 Pulse Oximetry 99 99 94 L 01/14/18 20:00 01/14/18 20:03 01/14/18 21:00 Temperature 98 F Pulse Rate 90 91 H 77 Respiratory Rate 34 H 26 H 20 Blood Pressure 129/62 120/57 L Pulse Oximetry 99 99 01/14/18 22:00 01/14/18 23:00 01/15/18 00:00 Temperature 98 F 98.1 F Pulse Rate 91 H 93 H 81 Respiratory Rate 35 H 29 H 36 H Blood Pressure 134/69 152/72 H 107/58 L Pulse Oximetry 100 100 99 01/15/18 01:00 01/15/18 02:00 01/15/18 03:00 Temperature Pulse Rate 87 85 89 Respiratory Rate 29 H 28 H 32 H Blood Pressure 126/64 122/64 Pulse Oximetry 100 100 100 01/15/18 03:01 01/15/18 04:00 01/15/18 04:02 Temperature 98 F Pulse Rate 90 89 87 Respiratory Rate 39 H 29 H 24 Blood Pressure 142/78 H 199/77 H 151/106 H Pulse Oximetry 100 100 100 01/15/18 04:04 Temperature Pulse Rate 88 Respiratory Rate 30 H Blood Pressure 139/64 Pulse Oximetry 100 Intake & Output 01/14/18 01/15/18 01/15/18 18:59 06:59 18:59 Intake Total 940 / 940 500 / 500 Output Total 1170 / 1170 Balance -230 / -230 500 / 500 Intake: IV 700 / 700 500 / 500 D10W Inj 500 ML @ 42 mls/hr IV. 500 / 500 500 / 500 CONT .[id number] RENA Rx#:[id number] Azactam Inj 1,000 MG In NS Inj 100 / 100 100 ML @ 200 mls/hr IV.SIG Q12H RENA Rx#:[id number] Magnesium Sulfate Inj 2 GM In 100 / 100 NS Inj 96 ML @ 50 mls/hr IV.SIG UNSCH PRN Rx#:[id number] Oral 240 / 240 Output: Urine 800 / 800 Chest Tube Drainage 370 / 370 Left Upper Pleural 230 / 230 Right Upper Pleural 140 / 140 Other: # Bowel Movements 0 Result Diagrams: 01/15/18 04:08 01/15/18 04:08 Other Results: Laboratory Results - last 12 hr 01/14/18 01/14/18 01/15/18 20:00 23:44 03:41 WBC RBC Hgb Hct MCV MCH MCHC RDW Plt Count MPV Prelim Diff (Auto) Neut % (Auto) Lymph % (Auto) [place] % (Auto) Eos % (Auto) Baso % (Auto) Neut # (Auto) Lymph # (Auto) [place] # (Auto) Eos # (Auto) Baso # (Auto) Differential Comment Sodium Potassium Chloride Carbon Dioxide Anion Gap BUN Creatinine Estimated GFR POC Glucose 105 89 104 Random Glucose Calcium Phosphorus Magnesium Total Bilirubin AST ALT Alkaline Phosphatase Total Protein Albumin 01/15/18 01/15/18 04:08 04:08 WBC 7.1 RBC 4.10 L Hgb 9.5 L Hct 31.5 L MCV 76.8 L MCH 23.1 L MCHC 30.0 L RDW 26.5 H Plt Count 237 MPV 7.9 Prelim Diff (Auto) Slide review pending Neut % (Auto) 79.4 H Lymph % (Auto) 12.4 [place] % (Auto) 6.9 Eos % (Auto) 1.0 Baso % (Auto) 0.3 Neut # (Auto) 5.6 Lymph # (Auto) 0.9 L [place] # (Auto) 0.5 Eos # (Auto) 0.1 Baso # (Auto) 0.0 Differential Comment . Sodium 135 L Potassium 3.8 Chloride 91 L Carbon Dioxide 36.3 H Anion Gap 8 BUN 53 H Creatinine 1.41 H Estimated GFR 49 L POC Glucose Random Glucose 86 Calcium 8.1 L Phosphorus 2.9 Magnesium 1.9 Total Bilirubin 1.6 H AST 15 ALT 12 Alkaline Phosphatase 78 Total Protein 6.7 D Albumin 2.2 L Imaging: Abdomen/Bladder Ultrasound 01/04/18 00:00 CONCLUSION: 1. Chronic parenchymal disease. 2. Bilateral cysts, left more so than right. 3. No obstructive uropathy or other acute abnormality. Head CT 01/04/18 18:15 CONCLUSION: Motion degraded study without evidence of bleed or other acute intracranial abnormality. . Lumbar Spine CT 01/04/18 18:18 CONCLUSION: 1. No subluxation or acute fracture of the lumbar spine. 2. There is an old, mild compression deformity of L3. 3. Multilevel degenerative changes and diffuse idiopathic skeletal hyperostosis. 4. Pleural effusions and parenchymal consolidation partly seen of the visualized lung bases. 5. Atrophy and apparent hydronephrosis of the left knee. Face CT 01/04/18 20:14 CONCLUSION: 1. Focal minimally displaced fracture of the tip of the nasion. 2. Preseptal soft tissue contusion of the left orbit. 3. Acute on chronic appearing left maxillary sinusitis. Abdomen/Pelvis CT 01/05/18 00:00 CONCLUSION: 1. Bilateral moderate to large pleural effusions, left greater than right with associated lower lobe airspace disease. 2. Abnormal appearance of the left kidney with numerous cortical cysts. Apparent prominence of the renal collecting system does not have a corresponding finding on today's ultrasound exam. However, it remains concerning for mild to moderate hydronephrosis. 3. 7 mm calyceal calculus in the inferior pole of the left kidney. 4. Diffuse anasarca with small amount ascites. 5. Mild sigmoid diverticulosis. 6. Normal appendix. Venous Doppler Study 01/12/18 00:00 CONCLUSION: 1. Occlusive thrombus in the right cephalic vein. 2. No thrombus in the left upper extremity. Chest X-Ray 01/15/18 00:05 CONCLUSION: Previous small caliber left chest tube no longer visualized. No pneumothorax identified. Stable basilar airspace disease in the lungs. Objective Remarks: GENERAL: Patient is 77 yo lying in bed in NAD HEENT: Atraumatic, normocephalic. Pupils are equal, round. Conjunctivitis appears improved NECK: Supple. No JVD, adenopathy, or thyromegaly. Trachea midline. CARDIOVASCULAR: Normal rate and sinus rhythm. Normal S1, S2. No murmurs, rubs or gallops. PULMONARY: B/L equal air entry ABDOMEN: Soft, nontender. No distention. Positive bowel sounds. EXTREMITIES: No cyanosis or clubbing/edema NEUROLOGIC: Awake and alert Assessment and Plan - Assessment and Plan Plan: IMPRESSION: Recurrent acute hypercapnic respiratory failure Altered mental status/metabolic encephalopathy Probable COPD Anemia thrombocytopenia Acute renal failure, worsening GI bleed Anemia requiring transfusion Lactic acidemia. 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 Bilateral large pleural effusions, status post chest tube Superficial venous thrombosis bilaterally, great saphenous vein. Conjunctivitis of the left eye. PLAN Neuro: Awake and alert, avoid sedatives CT scan of the brain in the ED showed no acute intracranial findings. Pulm: Continue with oxygen keep sats >92% Bronchodilators, NIPPV PRN for resp distress, check ABG Bilateral pigtail chest tubes placed 01/05/2018. right CT drained 100ml overnight. Left CT dislodged 01/[address] drainage. CXR: Stable basilar airspace disease in the lungs. CV: Monitor HR and BP keep MAP>65mmHg Nephrology following, previous renal ultrasound did not show hydronephrosis, continue Mcfarland for accurate intake output Echo showed EF 50-55%. Not a candidate for invasive procedures or anticoagulation/antiplatelet therapy at this time due to severe anemia Cardiology Dr. Ball following Continue metoprolol, on Lasix 60mg BID GI: Continue with Protonix drip. GI is following. EGD/colonoscopy when stable per GI CT abdomen and pelvis without contrast-no acute findings On Protonix 40mg IV daily : Monitor renal function, I/O's, electrolytes replacement per protocol. On D10 @42ml/hr, On Lasix 60mg IV BID, Zaroxolyn 5mg daily ,KCL 25meq BID, Renal is following- Dr. Phipps Renal function is improving with Cr: 1.41 from 1.56 Heme: s/p transfusion multiple units of PRBC, since admission. Thrombocytopenia (improving)likely secondary to liver disease and portal hypertension, HIT screen negative. PLT count is improving Monitor CBC and coags Doppler US UE: Occlusive thrombus in the right cephalic vein. No thrombus in the left upper extremity. Patient is at high risk for AC given anemia, thrombocytopenia and possibly GI bleed ID: d/c aztreonam today (01/08- 01/15). Strep pneumonia, Legionella urinary antigen negative, Sputum cx: normal resp mechelle. BC: NGTD Endo: Sliding scale insulin with Accu-Cheks to maintain euglycemia. TSH measured at 4.2 GI prophylaxis with Protonix and DVT prophylaxis with SCDs. Chemical anticoagulation prophylaxis contraindicated due to anemia, thrombocytopenia and probable GI bleed. [facility] sign off and [facility] Level 2
[2018-01-15 08:09] LABS: Lymphocytes 7 % (9-44); Monocytes 5 % (0-8); Ovalocytes 1+; Platelet Estimate Normal (Normal); Platelet Morphology Normal (Normal); Toxic Granulation 1+
[2018-01-15 08:10] LABS: Basophilic Stippling Moderate
[2018-01-15] MEDS: metOLazone 5 MG Tablet PO SCH (08:35)
[2018-01-15] MEDS: Senna/Docusate Sodium 8.6/50 MG Tablet PO SCH ×2 (08:35→21:01)
[2018-01-15] MEDS: Metoprolol Tartrate 25 MG Tablet PO SCH ×2 (08:35→21:01)
[2018-01-15] MEDS: Pantoprazole Inj 40 MG Vial IV.PUSH SCH (08:35)
[2018-01-15] MEDS: Potassium Chloride 25 MEQ Effervescent Tablet PO SCH ×2 (08:36→21:01)
[2018-01-15] MEDS: Furosemide 20 MG Tablet PO SCH ×2 (08:41→18:29)
--- NOTE | 2018-01-15 10:47 | P.DIET ---
Nutritional Evaluation Type of nutrition evaluation: follow-up Nutrition consult regarding: Diet Evaluation Nutrition screening: [facility] Objective - Diagnosis Weakness. PMH see H&P - Objective [place] body weight: 70 kg % IBW: 121 Body Weight Used for Calculations: IBW (Pt. with Anasarca) Energy Needs - Lower Range (kCal/kg): 28 Energy Needs - Upper Range (kCal/kg): 32 Lower Limit kCal/kg (kCals): 1,960 Upper Limit kCal/kg (kCals): 2,240 Lower Limit Protein Factor (Grams per Kg): 0.8 Upper Limit Protein Factor (Grams per Kg): 1.2 Lower Protein Needs (Protein): 56 Upper Protein Needs (Protein): 84 Dietitian Reviewed in Medical Record: Current diet, Curent medications, Intake & Output, Labs, Medical history Diet Order: [facility] Assessment Assessment: noted, Left CT dislodged overnight. CXR showed stable basilar airspace disease in the lungs. Right CT drained approx 100ml overnight. Afebrile. Pt. with wt. loss, but was fluid overloaded w/ anasarca. Pt. with +uop but no recorded BMs since admission. No recorded PO intake in EMR. Recommend starting Thiamin, Theragran M QD and Folic acid. Record % of PO intake in EMR. Will send ensure QD with Lunch. Continue to monitor PO intake, renal labs, BMs and wt. Recommendations: 1. Recommend starting Thiamin, Theragran M QD and Folic acid. 2. Record % of PO intake in EMR. 3. Will send ensure QD with Lunch. 4. Continue to monitor PO intake, renal labs, BMs and wt. Dietitian to Monitor: Lab values, Renal labs, Intake & Output, Diet tolerance, Weight change, PO Intake, Diet advancement, Medical course
[2018-01-15 20:36] LABS: Carbon Dioxide 36.7 meq/L (21.0-32.0); Potassium 3.9 meq/L (3.5-5.1)
[2018-01-16] MEDS: Insulin NovoLIN Regular Correctional Sugar Inj SQ SCH ×6 (00:57→21:58)
[2018-01-16 06:02] LABS: Baso % (Auto) 0.6 % (0.0-2.0); Eos # (Auto) 0.1 th/mm3 (0.0-0.4); Eos % (Auto) 1.9 % (0.0-4.0); Hemoglobin 8.2 gm/dL (13.0-17.0); Lymph # (Auto) 0.9 th/mm3 (1.0-4.8); Lymph % (Auto) 12.5 % (9.0-44.0); Mean Corpuscular Hemoglobin 23.2 pg (27.0-34.0); Mean Corpuscular Volume 75.9 fL (80.0-100.0); Mono # (Auto) 0.5 th/mm3 (0.0-0.9); Mono % (Auto) 7.2 % (0.0-8.0); Neut # (Auto) 5.4 th/mm3 (1.8-7.7); Neut % (Auto) 77.8 % (16.0-70.0); Platelet Count 244 th/mm3 (150-450); Red Blood Count 3.56 mil/mm3 (4.50-5.90); Red Cell Distribution Width 26.4 % (11.6-17.2)
[2018-01-16 06:12] LABS: Mean Corpuscular HGB Conc 30.6 % (32.0-36.0)
[2018-01-16 06:29] LABS: Calcium 7.9 mg/dL (8.5-10.1); Carbon Dioxide 37.1 meq/L (21.0-32.0); Magnesium 1.9 mg/dL (1.5-2.5); Potassium 4.1 meq/L (3.5-5.1)
[2018-01-16 06:30] LABS: Phosphorus 3.5 mg/dL (2.5-4.9)
[2018-01-16 08:44] LABS: Dimorphic RBC Present; Eosinophils 3 % (0-4); Lymphocytes 7 % (9-44); Monocytes 2 % (0-8); Myelocytes 1 % (0-0); Platelet Estimate Normal (Normal); Platelet Morphology Normal (Normal)
[2018-01-16] MEDS: Potassium Chloride 25 MEQ Effervescent Tablet PO SCH ×2 (09:07→22:02)
[2018-01-16] MEDS: Furosemide 20 MG Tablet PO SCH ×2 (09:07→18:28)
[2018-01-16] MEDS: Pantoprazole Inj 40 MG Vial IV.PUSH SCH (09:09)
[2018-01-16] MEDS: metOLazone 5 MG Tablet PO SCH (09:09)
[2018-01-16] MEDS: Dextrose 10% in Water Inj 500 ML IV.CONT SCH (10:00)
[2018-01-16] MEDS: Senna/Docusate Sodium 8.6/50 MG Tablet PO SCH ×2 (10:09→22:00)
[2018-01-16] MEDS: Metoprolol Tartrate 25 MG Tablet PO SCH ×2 (10:09→21:59)
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
--- NOTE | 2018-01-16 12:59 | MB ---
cc: Octavio Low MD DATE: 01/15/2018 REASON FOR CONSULTATION: COPD and bilateral pleural effusions. HISTORY OF PRESENT ILLNESS: This is a 77-year-old man with a history of shortness of breath, generalized weakness, and debility with multiple falls who was brought into the emergency room for evaluation. The patient, upon arrival in the ER, was tachycardic and tachypneic and was severely anemic with a hemoglobin down to 6.6 and was in acute kidney failure as well and was septic with a lactic acid level of over 6. He had a CT of the brain which showed no significant intracranial abnormalities and the patient was noted to have some soft tissue contusions around the left orbit. Chest x-ray done upon admission showed bibasilar effusions of consolidations, more on the left side. He was unable to give much of a history, but was treated for sepsis and treated for anemia, receiving IV fluids and packed red cells and the patient was on BiPAP in the emergency room since he was hypercapnic. Due to a large pleural effusion he had bilateral chest catheters placed to drain the effusions and they have drained a straw-colored fluid on both sides. Yesterday, the patient pulled out his left chest tube and he has been somewhat disoriented and slightly agitated, requiring restraints. He was weaned down to a nasal cannula at 3-4 liters and presently seems cooperative, calm, and responds to some commands. PAST HISTORY: Not immediately available, the patient is a poor historian and is confused. He is not running any fever. He does have swelling of his extremities, more so on the arms. Most recent chest x-ray continued to show basilar airspace disease, but the effusions have been drained out. ALLERGIES: NO KNOWN DRUG ALLERGIES. SOCIAL HABITS: No significant history of smoking, but has history for alcohol use. FAMILY HISTORY: Unavailable, noncontributory. REVIEW OF SYSTEMS: The patient is unable to give any meaningful details of his history or complaints. PHYSICAL EXAMINATION: GENERAL: Elderly, averagely built, male who is awake, pale, and mildly tachypneic. VITAL SIGNS: Blood pressure 130/60, pulse 90, respirations 18-24, temperature 98.2. HEENT: Head is normocephalic. Pupils are reactive. Sclerae were injected. Tongue was dry. Throat is injected. Ears no inflammation. NECK: Supple with mild venous distention at 45 degrees. Trachea midline. No thyroid enlargement. CHEST: Equal movements with distant breath sounds over the lower lung davis. Occasional bibasilar crackles heard. HEART: Sounds are irregular, S1 and S2 with no murmur. ABDOMEN: Soft and protuberant with mild epigastric tenderness. No organomegaly. Bowel sounds are active. EXTREMITIES: Edema, 2+ of the right arm, 1+ both legs and the peripheral pulses are diminished. Reflexes are 1+. He does move all his extremities to command with no gross motor deficits. Cranial nerves grossly intact. SKIN: Dry and scaly. IMPRESSION: 1. Hypercapnic acute respiratory failure, resolving. 2. Probable chronic obstructive pulmonary disease. 3. Alcoholic liver disease. 4. Severe anemia requiring transfusions. 5. Sepsis with lactic acidemia. 6. Gastrointestinal bleeding. 7. Bilateral pleural effusions, resolved. 8. Metabolic encephalopathy. 9. Acute kidney injury, resolving. PLAN: The patient will be maintained on O2 at 2.5 liters nasal cannula. Nebulized DuoNeb solution added 4 times a day and p.r.n. The patient will be advised to use an incentive spirometer every 3 hours when possible. He will get a followup chest x-ray. Chest tube to drain on the right side. Follow ultrasound of the left chest to see if he needs thoracentesis on the left. We will also continue with antibiotic coverage including Azactam 1 g IV every 12 hours and the patient will be transferred to the telemetry unit. Physical therapy to start as soon as possible. The patient will be given a dose of Lasix 20 mg. CBC and BMP will be ordered and a pulmonary function study when he is able to cooperate. Thank you Dr. Mitchell for this consultation. VMD [place] Quinonez/jose martin , 09:25 AM , 09:36 AM
--- NOTE | 2018-01-16 13:38 | P.PN ---
Subjective Interval history: Awake and confused. Off O2 sat 94. No active GI bleed. Right chest tube drains. Physical Exam Vital signs: Vital Signs 01/15/18 14:00 01/15/18 15:00 01/15/18 15:01 Temperature Pulse Rate 81 90 84 Respiratory Rate 22 30 H 33 H Blood Pressure 130/61 160/100 H Pulse Oximetry 01/15/18 15:41 01/15/18 16:00 01/15/18 17:00 Temperature 97.6 F Pulse Rate 84 82 85 Respiratory Rate 33 H 31 H 25 H Blood Pressure 143/63 H 98/56 L Pulse Oximetry 100 100 01/15/18 17:01 01/15/18 18:00 01/15/18 19:00 Temperature Pulse Rate 84 89 91 H Respiratory Rate 43 H 43 H 46 H Blood Pressure 144/63 H 121/58 L 129/59 L Pulse Oximetry 100 01/15/18 19:03 01/15/18 20:00 01/15/18 21:00 Temperature 97.9 F Pulse Rate 89 90 Respiratory Rate 27 H 29 H Blood Pressure 131/60 133/58 L Pulse Oximetry 100 100 100 01/15/18 22:00 01/15/18 23:00 01/16/18 00:00 Temperature 98.4 F Pulse Rate 79 79 80 Respiratory Rate 25 H 30 H 36 H Blood Pressure 109/62 113/51 L 97/66 L Pulse Oximetry 95 100 100 01/16/18 01:00 01/16/18 02:00 01/16/18 03:00 Temperature Pulse Rate 83 84 79 Respiratory Rate 39 H 30 H 20 Blood Pressure 120/58 L 114/55 L 108/51 L Pulse Oximetry 100 100 100 01/16/18 04:00 01/16/18 05:00 01/16/18 06:00 Temperature 98.0 F Pulse Rate 90 86 94 H Respiratory Rate 36 H 25 H 35 H Blood Pressure 114/67 Pulse Oximetry 100 100 01/16/18 06:10 01/16/18 08:00 Temperature 97.8 F Pulse Rate 85 81 Respiratory Rate 33 H 18 Blood Pressure 102/53 L 110/54 L Pulse Oximetry 95 Intake & Output 01/15/18 01/16/18 01/16/18 18:59 06:59 18:59 Intake Total 1080 / 1080 620 / 620 Output Total 400 / 400 1305 / 1305 Balance 680 / 680 -685 / -685 Weight 71.5 kg Intake: IV 600 / 600 500 / 500 D10W Inj 500 ML @ 42 mls/hr IV. 500 / 500 500 / 500 CONT .[id number] [facility] Rx#:[id number] Azactam Inj 1,000 MG In NS Inj 100 / 100 100 ML @ 200 mls/hr IV.SIG Q12H [facility] Rx#:[id number] Oral 480 / 480 120 / 120 Tube Irrigant 0 / 0 Output: Urine 400 / 400 0 / 0 Pleural Fluid 0 / 0 Urine Amount (Catheter) 1125 / 1125 Condom 1125 / 1125 Indwelling Urethral Catheter 0 / 0 Straight 0 / 0 Chest Tube Drainage 0 / 0 180 / 180 Right Upper Pleural 0 / 0 180 / 180 Other: # Voids 2 0 # Bowel Movements 0 0 Narrative: GENERAL: Elderly w/M alert and confused. SKIN: Warm and dry. HEAD: Normocephalic. EYES: No scleral icterus. No injection or drainage. NECK: Supple, trachea midline. No JVD or lymphadenopathy. CARDIOVASCULAR: Irregular rate and rhythm without murmurs, gallops, or rubs. RESPIRATORY: Breath sounds decreased bilaterally. Occ Basal crackles.No accessory muscle use. GASTROINTESTINAL: Abdomen soft, non-tender, nondistended. MUSCULOSKELETAL: No cyanosis, but has edema. BACK: Nontender without obvious deformity. No CVA tenderness. - Urinary Catheter Management Indwelling Urethral Catheter Cath placed during this visit: yes, but has since been removed by the nurse Reason for continuing: Decision to DC catheter Insertion date: 01/09/18 Insertion time: 08:30 Removal date: 01/12/18 Removal time: 11:35 Straight Cath placed during this visit: no Reason for continuing: Other continuation reason Condom Cath placed during this visit: no Results - Labs CBC & Chem 7: 01/16/18 05:22 01/16/18 05:22 Laboratory Results - last 24 hr 01/15/18 01/15/18 01/15/18 16:19 19:50 20:03 WBC RBC Hgb Hct MCV MCH MCHC RDW Plt Count MPV Prelim Diff (Auto) Neut % (Auto) Lymph % (Auto) [place] % (Auto) Eos % (Auto) Baso % (Auto) Neut # (Auto) Lymph # (Auto) [place] # (Auto) Eos # (Auto) Baso # (Auto) WBC Differential Seg Neuts % (Manual) Band Neuts % (Manual) Lymphocytes % (Manual) Monocytes % (Manual) Eosinophils % (Manual) Myelocytes % (Man) Abs Neuts (Manual) Differential Comment Platelet Estimate Platelet Morphology Dimorphic RBCs Sodium 134 L Potassium 3.9 Chloride 92 L Carbon Dioxide 36.7 H Anion Gap 5 BUN 48 H Creatinine 1.39 H Estimated GFR 50 L POC Glucose 82 103 Random Glucose 104 Calcium 8.0 L Phosphorus Magnesium 01/16/18 01/16/18 01/16/18 00:45 04:33 05:22 WBC 7.0 RBC 3.56 L Hgb 8.2 L Hct 27.0 L MCV 75.9 L MCH 23.2 L MCHC 30.6 L RDW 26.4 H Plt Count 244 MPV 8.0 Prelim Diff (Auto) Slide review pending Neut % (Auto) 77.8 H Lymph % (Auto) 12.5 [place] % (Auto) 7.2 Eos % (Auto) 1.9 Baso % (Auto) 0.6 Neut # (Auto) 5.4 Lymph # (Auto) 0.9 L [place] # (Auto) 0.5 Eos # (Auto) 0.1 Baso # (Auto) 0.0 WBC Differential Manual diff final Seg Neuts % (Manual) 86 H Band Neuts % (Manual) 1 Lymphocytes % (Manual) 7 L Monocytes % (Manual) 2 Eosinophils % (Manual) 3 Myelocytes % (Man) 1 H Abs Neuts (Manual) 6.2 Differential Comment . Platelet Estimate Normal Platelet Morphology Normal Dimorphic RBCs Present H Sodium Potassium Chloride Carbon Dioxide Anion Gap BUN Creatinine Estimated GFR POC Glucose 87 86 Random Glucose Calcium Phosphorus Magnesium 01/16/18 01/16/18 05:22 12:31 WBC RBC Hgb Hct MCV MCH MCHC RDW Plt Count MPV Prelim Diff (Auto) Neut % (Auto) Lymph % (Auto) [place] % (Auto) Eos % (Auto) Baso % (Auto) Neut # (Auto) Lymph # (Auto) [place] # (Auto) Eos # (Auto) Baso # (Auto) WBC Differential Seg Neuts % (Manual) Band Neuts % (Manual) Lymphocytes % (Manual) Monocytes % (Manual) Eosinophils % (Manual) Myelocytes % (Man) Abs Neuts (Manual) Differential Comment Platelet Estimate Platelet Morphology Dimorphic RBCs Sodium 134 L Potassium 4.1 Chloride 91 L Carbon Dioxide 37.1 H Anion Gap 6 BUN 49 H Creatinine 1.41 H Estimated GFR 49 L POC Glucose 88 Random Glucose 79 Calcium 7.9 L Phosphorus 3.5 Magnesium 1.9 Assessment and Plan - Assessment (1) Encephalopathy Code(s): G93.40 - Encephalopathy, unspecified Status: Acute (2) Acute GI bleeding Code(s): K92.2 - Gastrointestinal hemorrhage, unspecified Status: Acute (3) Sepsis Code(s): A41.9 - Sepsis, unspecified organism Status: Acute (4) Symptomatic anemia Code(s): D64.9 - Anemia, unspecified Status: Acute (5) Pleural effusion Code(s): J90 - Pleural effusion, not elsewhere classified Status: Acute (6) Acute exacerbation of congestive heart failure Code(s): I50.9 - Heart failure, unspecified Status: Acute (7) RICHARD (acute kidney injury) Code(s): N17.9 - Acute kidney failure, unspecified Status: Acute (8) Conjunctivitis Code(s): H10.9 - Unspecified conjunctivitis Status: Acute (9) CKD (chronic kidney disease) stage 4, GFR 15-29 ml/min Code(s): N18.4 - Chronic kidney disease, stage 4 (severe) Status: Acute - Plan 1. O2 2 L PRN 2. Chest XRay in am 3. Cont chest tube drainage. 4. Diet as tolerated. 5. IS q2h bedside. 6. PT evaluation. (3) Sepsis Qualifiers: Sepsis type: sepsis due to unspecified organism Qualified Code(s): A41.9 - Sepsis, unspecified organism (6) Acute exacerbation of congestive heart failure Qualifiers: Heart failure type: unspecified Qualified Code(s): I50.9 - Heart failure, unspecified (8) Conjunctivitis Qualifiers: Conjunctivitis type: acute Acute conjunctivitis type: bacterial Laterality: bilateral Qualified Code(s): H10.33 - Unspecified acute conjunctivitis, bilateral
[2018-01-16] MEDS ORDERED: Sodium Chloride 0.9% 2 ML Flush PRN IV.FLUSH (21:22)
[2018-01-16] MEDS: Dextrose 5%/NaCl 0.45% Inj 1,000 ML IV.CONT SCH (22:55)
[2018-01-17] MEDS: Insulin NovoLIN Regular Correctional Sugar Inj SQ SCH ×6 (00:33→22:38)
[2018-01-17 05:08] LABS: Bacteria,Urine Many /hpf; Bilirubin,Urine Negative (Negative); Clarity,Urine Cloudy (Clear); Color,Urine Red (Yellw/Straw); Glucose,Urine (UA) Negative (Negative); Leukocyte Esterase,Urine Negative (Negative); Nitrite,Urine Negative (Negative); Specific Gravity,Urine 1.009 (1.002-1.035); Urobilinogen,Urine 4 or Greater mg/dL (Less than 2)
[2018-01-17 07:25] LABS: Baso # (Auto) 0.1 th/mm3 (0.0-0.2); Baso % (Auto) 1.1 % (0.0-2.0); Eos # (Auto) 0.1 th/mm3 (0.0-0.4); Eos % (Auto) 1.8 % (0.0-4.0); Hematocrit 25.4 % (39.0-51.0); Hemoglobin 7.9 gm/dL (13.0-17.0); Lymph # (Auto) 0.9 th/mm3 (1.0-4.8); Lymph % (Auto) 13.7 % (9.0-44.0); Mean Corpuscular HGB Conc 31.2 % (32.0-36.0); Mean Corpuscular Hemoglobin 23.6 pg (27.0-34.0); Mean Corpuscular Volume 75.7 fL (80.0-100.0); Mean Platelet Volume 7.7 fL (7.0-11.0); Mono # (Auto) 0.6 th/mm3 (0.0-0.9); Mono % (Auto) 9.6 % (0.0-8.0); Neut # (Auto) 4.9 th/mm3 (1.8-7.7); Neut % (Auto) 73.8 % (16.0-70.0); Platelet Count 248 th/mm3 (150-450); Red Blood Count 3.36 mil/mm3 (4.50-5.90); Red Cell Distribution Width 26.4 % (11.6-17.2); White Blood Count 6.7 th/mm3 (4.0-11.0)
[2018-01-17 07:44] LABS: Carbon Dioxide 34.6 meq/L (21.0-32.0); Potassium 3.5 meq/L (3.5-5.1)
[2018-01-17 08:02] LABS: Calcium 7.6 mg/dL (8.5-10.1); Phosphorus 3.4 mg/dL (2.5-4.9)
[2018-01-17] MEDS: metOLazone 5 MG Tablet PO SCH (09:02)
[2018-01-17] MEDS: Potassium Chloride 25 MEQ Effervescent Tablet PO SCH (09:02)
[2018-01-17] MEDS: Pantoprazole Inj 40 MG Vial IV.PUSH SCH (09:03)
[2018-01-17] MEDS: Sodium Chloride 0.9% 2 ML Flush BID IV.FLUSH SCH ×2 (09:03→22:40)
[2018-01-17] MEDS: Senna/Docusate Sodium 8.6/50 MG Tablet PO SCH ×2 (09:03→22:40)
[2018-01-17] MEDS: Metoprolol Tartrate 25 MG Tablet PO SCH ×2 (09:03→22:39)
[2018-01-17] MEDS: Furosemide 20 MG Tablet PO SCH ×2 (09:05→17:19)
[2018-01-17 09:28] LABS: Dimorphic RBC Present; Toxic Granulation 2+
--- NOTE | 2018-01-17 09:48 | P.PNGI ---
Subjective Interval history: Patient sitting up in bed awake and alert. Bilateral soft restraints in place. Patient oriented to self. No active bleeding per patient's nurse. <Jaqueline oLvelace - Last Filed: 01/17/18 09:39> Physical Exam Vital signs: Vital Signs 01/16/18 12:00 01/16/18 16:00 01/16/18 18:00 Temperature 97.8 F 97.4 F L 98 F Pulse Rate 81 81 95 H Respiratory Rate 18 18 20 Blood Pressure 125/78 118/74 118/55 L Pulse Oximetry 95 95 90 L 01/16/18 20:00 01/17/18 00:00 01/17/18 04:00 Temperature 98.1 F 98 F 97.9 F Pulse Rate 95 H 94 H 17 L Respiratory Rate 17 18 17 Blood Pressure 100/53 L 100/49 L 93/51 L Pulse Oximetry 92 L 92 L 96 01/17/18 04:50 01/17/18 04:52 Temperature Pulse Rate Respiratory Rate Blood Pressure Pulse Oximetry 87 L 96 Intake & Output 01/16/18 01/17/18 01/17/18 18:59 06:59 18:59 Intake Total 500 / 500 Output Total 60 / 60 Balance 500 / 500 -60 / -60 Weight 95.3 kg Intake: IV 500 / 500 D10W Inj 500 ML @ 42 mls/hr IV. 500 / 500 CONT .[id number] [facility] Rx#:[id number] Output: Chest Tube Drainage 60 / 60 Right Upper Pleural 60 / 60 Other: Date of Last Bowel Movement 01/17/18 - Constitutional no acute distress - Routine HEENT Exam Head: Present: normocephalic - Routine Neck Exam Present: supple - Routine Respiratory Exam Present: CTA bilaterally - Routine Abdominal Exam Present: normoactive bowel sounds. Absent: tenderness - Routine Skin Exam Present: dry, warm - Routine Neurological Exam Present: alert - Routine Psychiatric Exam Present: cooperative - Urinary Catheter Management Indwelling Urethral Catheter Cath placed during this visit: yes, but has since been removed by the nurse Reason for continuing: Decision to DC catheter Insertion date: 01/09/18 Insertion time: 08:30 Removal date: 01/12/18 Removal time: 11:35 Straight Cath placed during this visit: no Reason for continuing: Other continuation reason Condom Cath placed during this visit: no <Jaqueline Lovelace - Last Filed: 01/17/18 09:39> Vital signs: Vital Signs 01/16/18 18:00 01/16/18 20:00 01/17/18 00:00 Temperature 98 F 98.1 F 98 F Pulse Rate 95 H 95 H 94 H Respiratory Rate 20 17 18 Blood Pressure 118/55 L 100/53 L 100/49 L Pulse Oximetry 90 L 92 L 92 L 01/17/18 04:00 01/17/18 04:50 01/17/18 04:52 Temperature 97.9 F Pulse Rate 17 L Respiratory Rate 17 Blood Pressure 93/51 L Pulse Oximetry 96 87 L 96 01/17/18 08:00 01/17/18 12:00 01/17/18 16:00 Temperature 97.6 F 97.9 F 97.6 F Pulse Rate 78 70 82 Respiratory Rate 18 18 18 Blood Pressure 116/57 L 110/56 L 102/52 L Pulse Oximetry 97 99 94 L 01/17/18 16:27 Temperature Pulse Rate Respiratory Rate Blood Pressure Pulse Oximetry 97 Intake & Output 01/16/18 01/17/18 01/17/18 18:59 06:59 18:59 Intake Total 500 / 500 Output Total 60 / 60 Balance 500 / 500 -60 / -60 Weight 95.3 kg Intake: IV 500 / 500 D10W Inj 500 ML @ 42 mls/hr IV. 500 / 500 CONT .[id number] [facility] Rx#:[id number] Output: Chest Tube Drainage 60 / 60 Right Upper Pleural 60 / 60 Other: Date of Last Bowel Movement 01/17/18 01/17/18 - Urinary Catheter Management Indwelling Urethral Catheter Cath placed during this visit: no Straight Cath placed during this visit: no Condom Cath placed during this visit: no <Zayda Cassidy - Last Filed: 01/17/18 18:26> Results - Labs CBC & Chem 7: 01/17/18 05:58 01/17/18 05:58 Laboratory Results - last 24 hr 01/16/18 01/16/18 01/16/18 12:31 17:13 21:11 WBC RBC Hgb Hct MCV MCH MCHC RDW Plt Count MPV Prelim Diff (Auto) Neut % (Auto) Lymph % (Auto) [place] % (Auto) Eos % (Auto) Baso % (Auto) Neut # (Auto) Lymph # (Auto) [place] # (Auto) Eos # (Auto) Baso # (Auto) WBC Differential Diff Scan Differential Comment Toxic Granulation Dimorphic RBCs Sodium Potassium Chloride Carbon Dioxide Anion Gap BUN Creatinine Estimated GFR POC Glucose 88 84 76 Random Glucose Calcium Phosphorus Magnesium Urine Color Urine Clarity Urine pH Ur Specific [place] Urine Protein Urine Glucose (UA) Urine Ketones Urine Occult Blood Urine Nitrate Urine Bilirubin Urine Urobilinogen Ur Leukocyte Esterase Urine RBC Urine WBC Urine Bacteria Micro UA Comment Ur Microscopic Review Urine Culture Comments 01/17/18 01/17/18 01/17/18 00:33 04:33 04:50 WBC RBC Hgb Hct MCV MCH MCHC RDW Plt Count MPV Prelim Diff (Auto) Neut % (Auto) Lymph % (Auto) [place] % (Auto) Eos % (Auto) Baso % (Auto) Neut # (Auto) Lymph # (Auto) [place] # (Auto) Eos # (Auto) Baso # (Auto) WBC Differential Diff Scan Differential Comment Toxic Granulation Dimorphic RBCs Sodium Potassium Chloride Carbon Dioxide Anion Gap BUN Creatinine Estimated GFR POC Glucose 104 88 Random Glucose Calcium Phosphorus Magnesium Urine Color Red Urine Clarity Cloudy H Urine pH 6.0 Ur Specific [place] 1.009 Urine Protein 100 H Urine Glucose (UA) Negative Urine Ketones Negative Urine Occult Blood Moderate H Urine Nitrate Negative Urine Bilirubin Negative Urine Urobilinogen 4 or greater Ur Leukocyte Esterase Negative Urine RBC Urine WBC 181 H Urine Bacteria Many H Micro UA Comment Culture indicated Ur Microscopic Review Not Reportable Urine Culture Comments Culture indicated 01/17/18 01/17/18 01/17/18 05:58 05:58 07:14 WBC 6.7 RBC 3.36 L Hgb 7.9 L Hct 25.4 L MCV 75.7 L MCH 23.6 L MCHC 31.2 L RDW 26.4 H Plt Count 248 MPV 7.7 Prelim Diff (Auto) Slide review pending Neut % (Auto) 73.8 H Lymph % (Auto) 13.7 [place] % (Auto) 9.6 H Eos % (Auto) 1.8 Baso % (Auto) 1.1 Neut # (Auto) 4.9 Lymph # (Auto) 0.9 L [place] # (Auto) 0.6 Eos # (Auto) 0.1 Baso # (Auto) 0.1 WBC Differential . Diff Scan Auto diff confirmed Differential Comment . Toxic Granulation 2+ H Dimorphic RBCs Present H Sodium 134 L Potassium 3.5 Chloride 91 L Carbon Dioxide 34.6 H Anion Gap 8 BUN 49 H Creatinine 1.38 H Estimated GFR 50 L POC Glucose 88 Random Glucose 80 Calcium 7.6 L Phosphorus 3.4 Magnesium 2.0 Urine Color Urine Clarity Urine pH Ur Specific [place] Urine Protein Urine Glucose (UA) Urine Ketones Urine Occult Blood Urine Nitrate Urine Bilirubin Urine Urobilinogen Ur Leukocyte Esterase Urine RBC Urine WBC Urine Bacteria Micro UA Comment Ur Microscopic Review Urine Culture Comments <Jaqueline Lovelace - Last Filed: 01/17/18 09:39> - Labs CBC & Chem 7: 01/17/18 05:58 01/17/18 05:58 Laboratory Results - last 24 hr 01/10/18 01/16/18 01/17/18 07:33 21:11 00:33 WBC RBC Hgb Hct MCV MCH MCHC RDW Plt Count MPV Prelim Diff (Auto) Neut % (Auto) Lymph % (Auto) [place] % (Auto) Eos % (Auto) Baso % (Auto) Neut # (Auto) Lymph # (Auto) [place] # (Auto) Eos # (Auto) Baso # (Auto) WBC Differential Diff Scan Differential Comment Toxic Granulation Dimorphic RBCs Sodium Potassium Chloride Carbon Dioxide Anion Gap BUN Creatinine Estimated GFR POC Glucose 76 104 Random Glucose Calcium Phosphorus Magnesium Vit D 1,25-Dihydroxy 15 L Urine Color Urine Clarity Urine pH Ur Specific [place] Urine Protein Urine Glucose (UA) Urine Ketones Urine Occult Blood Urine Nitrate Urine Bilirubin Urine Urobilinogen Ur Leukocyte Esterase Urine RBC Urine WBC Urine Bacteria Micro UA Comment Ur Microscopic Review Urine Culture Comments Sm (Ball) Antibody <1.0neg SM/[employer] Antibody <1.0neg Scl-70 Antibody <1.0neg Anti-ds DNA (Crithidia) <1 Ribosomal P Prot Ab <1.0neg 01/17/18 01/17/18 01/17/18 04:33 04:50 05:58 WBC 6.7 RBC 3.36 L Hgb 7.9 L Hct 25.4 L MCV 75.7 L MCH 23.6 L MCHC 31.2 L RDW 26.4 H Plt Count 248 MPV 7.7 Prelim Diff (Auto) Slide review pending Neut % (Auto) 73.8 H Lymph % (Auto) 13.7 [place] % (Auto) 9.6 H Eos % (Auto) 1.8 Baso % (Auto) 1.1 Neut # (Auto) 4.9 Lymph # (Auto) 0.9 L [place] # (Auto) 0.6 Eos # (Auto) 0.1 Baso # (Auto) 0.1 WBC Differential . Diff Scan Auto diff confirmed Differential Comment . Toxic Granulation 2+ H Dimorphic RBCs Present H Sodium Potassium Chloride Carbon Dioxide Anion Gap BUN Creatinine Estimated GFR POC Glucose 88 Random Glucose Calcium Phosphorus Magnesium Vit D 1,25-Dihydroxy Urine Color Red Urine Clarity Cloudy H Urine pH 6.0 Ur Specific [place] 1.009 Urine Protein 100 H Urine Glucose (UA) Negative Urine Ketones Negative Urine Occult Blood Moderate H Urine Nitrate Negative Urine Bilirubin Negative Urine Urobilinogen 4 or greater Ur Leukocyte Esterase Negative Urine RBC Urine WBC 181 H Urine Bacteria Many H Micro UA Comment Culture indicated Ur Microscopic Review Not Reportable Urine Culture Comments Culture indicated Sm (Ball) Antibody SM/[employer] Antibody Scl-70 Antibody Anti-ds DNA (Crithidia) Ribosomal P Prot Ab 01/17/18 01/17/18 01/17/18 05:58 07:14 12:29 WBC RBC Hgb Hct MCV MCH MCHC RDW Plt Count MPV Prelim Diff (Auto) Neut % (Auto) Lymph % (Auto) [place] % (Auto) Eos % (Auto) Baso % (Auto) Neut # (Auto) Lymph # (Auto) [place] # (Auto) Eos # (Auto) Baso # (Auto) WBC Differential Diff Scan Differential Comment Toxic Granulation Dimorphic RBCs Sodium 134 L Potassium 3.5 Chloride 91 L Carbon Dioxide 34.6 H Anion Gap 8 BUN 49 H Creatinine 1.38 H Estimated GFR 50 L POC Glucose 88 92 Random Glucose 80 Calcium 7.6 L Phosphorus 3.4 Magnesium 2.0 Vit D 1,25-Dihydroxy Urine Color Urine Clarity Urine pH Ur Specific [place] Urine Protein Urine Glucose (UA) Urine Ketones Urine Occult Blood Urine Nitrate Urine Bilirubin Urine Urobilinogen Ur Leukocyte Esterase Urine RBC Urine WBC Urine Bacteria Micro UA Comment Ur Microscopic Review Urine Culture Comments Sm (Ball) Antibody SM/[employer] Antibody Scl-70 Antibody Anti-ds DNA (Crithidia) Ribosomal P Prot Ab 01/17/18 16:08 WBC RBC Hgb Hct MCV MCH MCHC RDW Plt Count MPV Prelim Diff (Auto) Neut % (Auto) Lymph % (Auto) [place] % (Auto) Eos % (Auto) Baso % (Auto) Neut # (Auto) Lymph # (Auto) [place] # (Auto) Eos # (Auto) Baso # (Auto) WBC Differential Diff Scan Differential Comment Toxic Granulation Dimorphic RBCs Sodium Potassium Chloride Carbon Dioxide Anion Gap BUN Creatinine Estimated GFR POC Glucose 87 Random Glucose Calcium Phosphorus Magnesium Vit D 1,25-Dihydroxy Urine Color Urine Clarity Urine pH Ur Specific [place] Urine Protein Urine Glucose (UA) Urine Ketones Urine Occult Blood Urine Nitrate Urine Bilirubin Urine Urobilinogen Ur Leukocyte Esterase Urine RBC Urine WBC Urine Bacteria Micro UA Comment Ur Microscopic Review Urine Culture Comments Sm (Ball) Antibody SM/[employer] Antibody Scl-70 Antibody Anti-ds DNA (Crith[place]) Ribosomal P Prot Ab - Imaging Impressions Chest X-Ray 01/17/18 00:00 CONCLUSION: Mild bibasilar atelectasis, slightly worse. Very small left basilar pneumothorax without tension. <Zayda Cassidy - Last Filed: 01/17/18 18:26> Assessment and Plan (1) Acute GI bleeding Status: Acute Code(s): K92.2 - Gastrointestinal hemorrhage, unspecified - Plan GI bleeding Patient awake and alert sitting up in bed. Per RN no active bleeding noted. N.p.o. status at this time, order to obtain consent for EGD placed. RN advised to notify family to obtain consent. Plan for EGD today or tomorrow pending consent. Hemoglobin 7.9 hematocrit 25.4 platelet count 248. Plan N.p.o. for now Obtain consent for EGD-possibly today or tomorrow Monitor for bleeding Monitor H&H Continue PPI Supportive care Further recommendations to follow based on patient status and findings This patient has been seen by myself and Dr. Cassidy and this note is written on her behalf - Attending Attestation Dr. Cassidy <Jaqueline Lovelace - Last Filed: 01/17/18 09:39> (1) Acute GI bleeding Status: Acute Code(s): K92.2 - Gastrointestinal hemorrhage, unspecified - Attending Attestation seen, examined agree with above no consent today, hopefully tomorrow resume diet <Zayda Cassidy - Last Filed: 01/17/18 18:26>
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
[2018-01-17 10:35] LABS: DS DNA Ab (Crithidia) <1
[2018-01-17 11:34] LABS: Vitamin D 1,25-Dihydroxy 15 pg/mL (18-64)
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
--- NOTE | 2018-01-17 16:21 | XR ---
EXAM DATE: 01/17/2018 12:00 AM EDT AGE/SEX: 77 years / Male INDICATIONS: pneumothorax. CLINICAL DATA: This is the patient's initial encounter. Patient reports that signs and symptoms have been present for 4 - 6 days and indicates a pain score of 0/10. MEDICAL/SURGICAL HISTORY: Congestive heart failure. chronic kidney disease. None. COMPARISON: [facility] [place], CHEST 1V SINGLE AP, 01/15/2018. [facility] [place], CHEST 1V SINGLE AP, 01/14/2018. . FINDINGS: Mild basilar atelectasis seen, left more so than right and both sides slightly worse. Very small left pleural effusion possible. No large effusion seen. Probably a small basilar pneumothorax. Heart size stable, upper limits of normal. CONCLUSION: Mild bibasilar atelectasis, slightly worse. Very small left basilar pneumothorax without tension. Electronically signed by: Edgar Hardy MD 01/17/2018 4:20 PM EDT
--- NOTE | 2018-01-17 18:46 | P.PN ---
Subjective Interval history: Remains confused and off O2. In restraints. Good output. Chest tube drained <100 Cc today Physical Exam Vital signs: Vital Signs 01/16/18 20:00 01/17/18 00:00 01/17/18 04:00 Temperature 98.1 F 98 F 97.9 F Pulse Rate 95 H 94 H 17 L Respiratory Rate 17 18 17 Blood Pressure 100/53 L 100/49 L 93/51 L Pulse Oximetry 92 L 92 L 96 01/17/18 04:50 01/17/18 04:52 01/17/18 08:00 Temperature 97.6 F Pulse Rate 78 Respiratory Rate 18 Blood Pressure 116/57 L Pulse Oximetry 87 L 96 97 01/17/18 12:00 01/17/18 16:00 01/17/18 16:27 Temperature 97.9 F 97.6 F Pulse Rate 70 83 Respiratory Rate 18 18 Blood Pressure 110/56 L 102/52 L Pulse Oximetry 99 94 L 97 Intake & Output 01/16/18 01/17/18 01/17/18 18:59 06:59 18:59 Intake Total 500 / 500 Output Total 60 / 60 400 / 400 Balance 500 / 500 -60 / -60 -400 / -400 Weight 95.3 kg Intake: IV 500 / 500 D10W Inj 500 ML @ 42 mls/hr IV. 500 / 500 CONT .[id number] [facility] Rx#:[id number] Output: Urine 400 / 400 Chest Tube Drainage 60 / 60 Right Upper Pleural 60 / 60 Other: Date of Last Bowel Movement 01/17/18 01/17/18 # Bowel Movements 1 Narrative: GENERAL: Pleasantly confused elderly male in NAD. Alert, oriented to person, not time or place. CARDIOVASCULAR: Regular rate and rhythm. RESPIRATORY: No accessory muscle use. Decreased breath sounds and Breath sounds equal bilaterally. GASTROINTESTINAL: Abdomen soft, non-tender, nondistended. Hepatic and splenic margins not palpable. : [place] with bloody urine MUSCULOSKELETAL: Extremities without clubbing, cyanosis, or edema. No obvious deformities. NEUROLOGICAL: Awake and alert. No obvious cranial nerve deficits. Motor grossly within normal limits. Normal speech. - Urinary Catheter Management Indwelling Urethral Catheter Cath placed during this visit: yes, but has since been removed by the nurse Reason for continuing: Decision to DC catheter Insertion date: 01/09/18 Insertion time: 08:30 Removal date: 01/12/18 Removal time: 11:35 Straight Cath placed during this visit: no Reason for continuing: Other continuation reason Condom Cath placed during this visit: no Results - Labs CBC & Chem 7: 01/17/18 05:58 01/17/18 05:58 Laboratory Results - last 24 hr 01/10/18 01/16/18 01/17/18 07:33 21:11 00:33 WBC RBC Hgb Hct MCV MCH MCHC RDW Plt Count MPV Prelim Diff (Auto) Neut % (Auto) Lymph % (Auto) [place] % (Auto) Eos % (Auto) Baso % (Auto) Neut # (Auto) Lymph # (Auto) [place] # (Auto) Eos # (Auto) Baso # (Auto) WBC Differential Diff Scan Differential Comment Toxic Granulation Dimorphic RBCs Sodium Potassium Chloride Carbon Dioxide Anion Gap BUN Creatinine Estimated GFR POC Glucose 76 104 Random Glucose Calcium Phosphorus Magnesium Vit D 1,25-Dihydroxy 15 L Urine Color Urine Clarity Urine pH Ur Specific [place] Urine Protein Urine Glucose (UA) Urine Ketones Urine Occult Blood Urine Nitrate Urine Bilirubin Urine Urobilinogen Ur Leukocyte Esterase Urine RBC Urine WBC Urine Bacteria Micro UA Comment Ur Microscopic Review Urine Culture Comments Sm (Ball) Antibody <1.0neg SM/VIDEO GAME PROGRAMMER Antibody <1.0neg Scl-70 Antibody <1.0neg Anti-ds DNA (Crithidia) <1 Ribosomal P Prot Ab <1.0neg 01/17/18 01/17/18 01/17/18 04:33 04:50 05:58 WBC 6.7 RBC 3.36 L Hgb 7.9 L Hct 25.4 L MCV 75.7 L MCH 23.6 L MCHC 31.2 L RDW 26.4 H Plt Count 248 MPV 7.7 Prelim Diff (Auto) Slide review pending Neut % (Auto) 73.8 H Lymph % (Auto) 13.7 [place] % (Auto) 9.6 H Eos % (Auto) 1.8 Baso % (Auto) 1.1 Neut # (Auto) 4.9 Lymph # (Auto) 0.9 L [place] # (Auto) 0.6 Eos # (Auto) 0.1 Baso # (Auto) 0.1 WBC Differential . Diff Scan Auto diff confirmed Differential Comment . Toxic Granulation 2+ H Dimorphic RBCs Present H Sodium Potassium Chloride Carbon Dioxide Anion Gap BUN Creatinine Estimated GFR POC Glucose 88 Random Glucose Calcium Phosphorus Magnesium Vit D 1,25-Dihydroxy Urine Color Red Urine Clarity Cloudy H Urine pH 6.0 Ur Specific [place] 1.009 Urine Protein 100 H Urine Glucose (UA) Negative Urine Ketones Negative Urine Occult Blood Moderate H Urine Nitrate Negative Urine Bilirubin Negative Urine Urobilinogen 4 or greater Ur Leukocyte Esterase Negative Urine RBC Urine WBC 181 H Urine Bacteria Many H Micro UA Comment Culture indicated Ur Microscopic Review Not Reportable Urine Culture Comments Culture indicated Sm (Ball) Antibody SM/VIDEO GAME PROGRAMMER Antibody Scl-70 Antibody Anti-ds DNA (Crithidia) Ribosomal P Prot Ab 01/17/18 01/17/18 01/17/18 05:58 07:14 12:29 WBC RBC Hgb Hct MCV MCH MCHC RDW Plt Count MPV Prelim Diff (Auto) Neut % (Auto) Lymph % (Auto) [place] % (Auto) Eos % (Auto) Baso % (Auto) Neut # (Auto) Lymph # (Auto) [place] # (Auto) Eos # (Auto) Baso # (Auto) WBC Differential Diff Scan Differential Comment Toxic Granulation Dimorphic RBCs Sodium 134 L Potassium 3.5 Chloride 91 L Carbon Dioxide 34.6 H Anion Gap 8 BUN 49 H Creatinine 1.38 H Estimated GFR 50 L POC Glucose 88 92 Random Glucose 80 Calcium 7.6 L Phosphorus 3.4 Magnesium 2.0 Vit D 1,25-Dihydroxy Urine Color Urine Clarity Urine pH Ur Specific [place] Urine Protein Urine Glucose (UA) Urine Ketones Urine Occult Blood Urine Nitrate Urine Bilirubin Urine Urobilinogen Ur Leukocyte Esterase Urine RBC Urine WBC Urine Bacteria Micro UA Comment Ur Microscopic Review Urine Culture Comments Sm (Ball) Antibody SM/VIDEO GAME PROGRAMMER Antibody Scl-70 Antibody Anti-ds DNA (Crithidia) Ribosomal P Prot Ab 01/17/18 16:08 WBC RBC Hgb Hct MCV MCH MCHC RDW Plt Count MPV Prelim Diff (Auto) Neut % (Auto) Lymph % (Auto) [place] % (Auto) Eos % (Auto) Baso % (Auto) Neut # (Auto) Lymph # (Auto) [place] # (Auto) Eos # (Auto) Baso # (Auto) WBC Differential Diff Scan Differential Comment Toxic Granulation Dimorphic RBCs Sodium Potassium Chloride Carbon Dioxide Anion Gap BUN Creatinine Estimated GFR POC Glucose 87 Random Glucose Calcium Phosphorus Magnesium Vit D 1,25-Dihydroxy Urine Color Urine Clarity Urine pH Ur Specific [place] Urine Protein Urine Glucose (UA) Urine Ketones Urine Occult Blood Urine Nitrate Urine Bilirubin Urine Urobilinogen Ur Leukocyte Esterase Urine RBC Urine WBC Urine Bacteria Micro UA Comment Ur Microscopic Review Urine Culture Comments Sm (Ball) Antibody SM/VIDEO GAME PROGRAMMER Antibody Scl-70 Antibody Anti-ds DNA (Crithidia) Ribosomal P Prot Ab - Imaging Impressions Chest X-Ray 01/17/18 00:00 CONCLUSION: Mild bibasilar atelectasis, slightly worse. Very small left basilar pneumothorax without tension. Assessment and Plan - Assessment (1) Encephalopathy Code(s): G93.40 - Encephalopathy, unspecified Status: Acute (2) Acute GI bleeding Code(s): K92.2 - Gastrointestinal hemorrhage, unspecified Status: Acute (3) Sepsis Code(s): A41.9 - Sepsis, unspecified organism Status: Acute (4) Symptomatic anemia Code(s): D64.9 - Anemia, unspecified Status: Acute (5) Pleural effusion Code(s): J90 - Pleural effusion, not elsewhere classified Status: Acute (6) Acute exacerbation of congestive heart failure Code(s): I50.9 - Heart failure, unspecified Status: Acute (7) RICHARD (acute kidney injury) Code(s): N17.9 - Acute kidney failure, unspecified Status: Acute (8) Conjunctivitis Code(s): H10.9 - Unspecified conjunctivitis Status: Acute (9) CKD (chronic kidney disease) stage 4, GFR 15-29 ml/min Code(s): N18.4 - Chronic kidney disease, stage 4 (severe) Status: Acute - Plan 1. O2 2 L PRN 2. Chest XRay in am 3. Cont chest tube drainage. will consider D/c chest tube in am. 4. Diet as tolerated. 5. IS q2h bedside. 6. PT evaluation. 7. Up In chair as tolerated. (3) Sepsis Qualifiers: Sepsis type: sepsis due to unspecified organism Qualified Code(s): A41.9 - Sepsis, unspecified organism (6) Acute exacerbation of congestive heart failure Qualifiers: Heart failure type: unspecified Qualified Code(s): I50.9 - Heart failure, unspecified (8) Conjunctivitis Qualifiers: Conjunctivitis type: acute Acute conjunctivitis type: bacterial Laterality: bilateral Qualified Code(s): H10.33 - Unspecified acute conjunctivitis, bilateral
[2018-01-17] MEDS: Dextrose 5%/NaCl 0.45% Inj 1,000 ML IV.CONT SCH (22:41)
[2018-01-18] MEDS: Insulin NovoLIN Regular Correctional Sugar Inj SQ SCH ×6 (02:55→21:52)
--- NOTE | 2018-01-18 06:52 | XR ---
EXAM DATE: 01/18/2018 12:00 AM EDT AGE/SEX: 77 years / Male INDICATIONS: Short of breath, evaluate effusion CLINICAL DATA: This is the patient's subsequent encounter. Patient reports that signs and symptoms h ave been present for 2 weeks and indicates a pain score of 0/10. MEDICAL/SURGICAL HISTORY: Congestive heart failure. renal disease Non-responsive. COMPARISON: [facility] [place], CHEST 1V SINGLE AP, 01/17/2018. . FINDINGS: The cardiac silhouette is enlarged in transverse diameter. There is left lower lobe atelectasis versu s pneumonia. There is no evidence of pneumothorax. The right lung is free of acute parenchymal opacit y. A small left sided effusion is present. CONCLUSION: Left lower lobe atelectasis versus pneumonia. Small left effusion There is no evidence of pneumothorax. Electronically signed by: Noble Sam MD 01/18/2018 6:50 AM EDT
[2018-01-18 07:14] LABS: Baso # (Auto) 0.1 th/mm3 (0.0-0.2); Baso % (Auto) 1.2 % (0.0-2.0); Eos # (Auto) 0.1 th/mm3 (0.0-0.4); Eos % (Auto) 1.7 % (0.0-4.0); Hematocrit 28.7 % (39.0-51.0); Hemoglobin 8.6 gm/dL (13.0-17.0); Lymph # (Auto) 1.3 th/mm3 (1.0-4.8); Lymph % (Auto) 15.6 % (9.0-44.0); Mean Corpuscular Volume 77.2 fL (80.0-100.0); Mean Platelet Volume 7.9 fL (7.0-11.0); Mono # (Auto) 0.6 th/mm3 (0.0-0.9); Mono % (Auto) 7.5 % (0.0-8.0); Platelet Count 296 th/mm3 (150-450); Red Blood Count 3.72 mil/mm3 (4.50-5.90); Red Cell Distribution Width 26.1 % (11.6-17.2); White Blood Count 8.2 th/mm3 (4.0-11.0)
[2018-01-18 07:18] LABS: Mean Corpuscular HGB Conc 29.8 % (32.0-36.0)
[2018-01-18 07:56] LABS: Calcium 8.2 mg/dL (8.5-10.1); Carbon Dioxide 34.8 meq/L (21.0-32.0); Potassium 3.5 meq/L (3.5-5.1)
[2018-01-18 07:59] LABS: Phosphorus 3.9 mg/dL (2.5-4.9)
[2018-01-18] MEDS: Metoprolol Tartrate 25 MG Tablet PO SCH ×2 (09:11→21:53)
[2018-01-18] MEDS: metOLazone 5 MG Tablet PO SCH (09:11)
[2018-01-18] MEDS: Furosemide 20 MG Tablet PO SCH ×2 (09:11→17:51)
[2018-01-18] MEDS: Sodium Chloride 0.9% 2 ML Flush BID IV.FLUSH SCH ×2 (09:16→21:58)
[2018-01-18] MEDS: Pantoprazole Inj 40 MG Vial IV.PUSH SCH (09:16)
[2018-01-18] MEDS: Senna/Docusate Sodium 8.6/50 MG Tablet PO SCH ×2 (09:18→21:58)
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
--- NOTE | 2018-01-18 14:13 | P.PNGI ---
Subjective Interval history: Patient sitting up in bed, awake alert. Bilateral soft wrist restraints in place, patient oriented x2. Nurse reports unable at this time to locate family for EGD consent. Nurse states stool dark brown with no bright red blood noted. <Jaqueline Lovelace - Last Filed: 01/18/18 13:59> Physical Exam Vital signs: Vital Signs 01/17/18 16:00 01/17/18 16:27 01/17/18 20:00 Temperature 97.6 F 98.0 F Pulse Rate 83 93 H Respiratory Rate 18 20 Blood Pressure 102/52 L 91/52 L Pulse Oximetry 94 L 97 100 01/18/18 00:00 01/18/18 04:00 01/18/18 08:00 Temperature 97.7 F 97.5 F L 97 F L Pulse Rate 87 88 85 Respiratory Rate 20 18 20 Blood Pressure 111/54 L 126/63 120/56 L Pulse Oximetry 98 98 100 01/18/18 09:49 01/18/18 12:00 Temperature 97.5 F L Pulse Rate 76 Respiratory Rate 20 Blood Pressure 106/52 L Pulse Oximetry 99 100 Intake & Output 01/17/18 01/18/18 01/18/18 18:59 06:59 18:59 Intake Total 1000 / 1000 Output Total 400 / 400 110 / 110 Balance -400 / -400 890 / 890 Weight 71.5 kg Intake: IV 1000 / 1000 D5W/1/2 NS Inj 1,000 ML @ 42 1000 / 1000 mls/hr IV.CONT .[id number] [facility] Rx# :[id number] Output: Urine 400 / 400 Chest Tube Drainage 110 / 110 Right Upper Pleural 110 / 110 Other: # Incontinent Voids 5 Date of Last Bowel Movement 01/17/18 01/17/18 01/17/18 # Bowel Movements 1 - Constitutional no acute distress - Routine HEENT Exam Head: Present: normocephalic - Routine Respiratory Exam Present: CTA bilaterally. Absent: accessory muscle use Comments: Chest tube- right - Routine Cardiovascular Exam Present: RRR - Routine Abdominal Exam Present: soft, normoactive bowel sounds. Absent: tenderness, distended, guarding, firm - Routine Extremities Exam Present: full ROM - Routine Skin Exam Present: dry, warm - Routine Neurological Exam Present: alert - Detailed Neurological Exam: Coma Scale Eye Opening: Spontaneous Verbal Response: Confused - Routine Psychiatric Exam Present: cooperative - Urinary Catheter Management Indwelling Urethral Catheter Cath placed during this visit: yes, but has since been removed by the nurse Reason for continuing: Decision to DC catheter Insertion date: 01/09/18 Insertion time: 08:30 Removal date: 01/12/18 Removal time: 11:35 Straight Cath placed during this visit: no Reason for continuing: Other continuation reason Condom Cath placed during this visit: no <Jaqueline Lovelace - Last Filed: 01/18/18 13:59> Vital signs: Vital Signs 01/17/18 16:27 01/17/18 20:00 01/18/18 00:00 Temperature 98.0 F 97.7 F Pulse Rate 93 H 87 Respiratory Rate 20 20 Blood Pressure 91/52 L 111/54 L Pulse Oximetry 97 100 98 01/18/18 04:00 01/18/18 08:00 01/18/18 09:49 Temperature 97.5 F L 97 F L Pulse Rate 88 85 Respiratory Rate 18 20 Blood Pressure 126/63 120/56 L Pulse Oximetry 98 100 99 01/18/18 12:00 Temperature 97.5 F L Pulse Rate 76 Respiratory Rate 20 Blood Pressure 106/52 L Pulse Oximetry 100 Intake & Output 01/17/18 01/18/18 01/18/18 18:59 06:59 18:59 Intake Total 1000 / 1000 Output Total 400 / 400 110 / 110 Balance -400 / -400 890 / 890 Weight 71.5 kg Intake: IV 1000 / 1000 D5W/1/2 NS Inj 1,000 ML @ 42 1000 / 1000 mls/hr IV.CONT .[id number] [facility] Rx# :[id number] Output: Urine 400 / 400 Chest Tube Drainage 110 / 110 Right Upper Pleural 110 / 110 Other: # Incontinent Voids 5 Date of Last Bowel Movement 01/17/18 01/17/18 01/17/18 # Bowel Movements 1 - Urinary Catheter Management Indwelling Urethral Catheter Cath placed during this visit: no Straight Cath placed during this visit: no Condom Cath placed during this visit: no <Zayda Cassidy - Last Filed: 01/18/18 16:23> Results - Labs CBC & Chem 7: 01/18/18 05:40 01/18/18 05:40 Laboratory Results - last 24 hr 10/15/18 10/16/18 10/16/18 16:08 02:54 05:40 WBC 8.2 RBC 3.72 L Hgb 8.6 L Hct 28.7 L MCV 77.2 L MCH 23.0 L MCHC 29.8 L RDW 26.1 H Plt Count 296 MPV 7.9 Prelim Diff (Auto) Slide review pending Neut % (Auto) 74.0 H Lymph % (Auto) 15.6 [place] % (Auto) 7.5 Eos % (Auto) 1.7 Baso % (Auto) 1.2 Neut # (Auto) 6.0 Lymph # (Auto) 1.3 [place] # (Auto) 0.6 Eos # (Auto) 0.1 Baso # (Auto) 0.1 WBC Differential . Diff Scan Auto diff confirmed Differential Comment . Sodium Potassium Chloride Carbon Dioxide Anion Gap BUN Creatinine Estimated GFR POC Glucose 87 101 Random Glucose Calcium Phosphorus Magnesium 01/18/18 01/18/18 01/18/18 05:40 06:26 07:23 WBC RBC Hgb Hct MCV MCH MCHC RDW Plt Count MPV Prelim Diff (Auto) Neut % (Auto) Lymph % (Auto) [place] % (Auto) Eos % (Auto) Baso % (Auto) Neut # (Auto) Lymph # (Auto) [place] # (Auto) Eos # (Auto) Baso # (Auto) WBC Differential Diff Scan Differential Comment Sodium 134 L Potassium 3.5 Chloride 90 L Carbon Dioxide 34.8 H Anion Gap 9 BUN 48 H Creatinine 1.50 H Estimated GFR 46 L POC Glucose 90 102 Random Glucose 81 Calcium 8.2 L Phosphorus 3.9 Magnesium 2.0 01/18/18 12:16 WBC RBC Hgb Hct MCV MCH MCHC RDW Plt Count MPV Prelim Diff (Auto) Neut % (Auto) Lymph % (Auto) [place] % (Auto) Eos % (Auto) Baso % (Auto) Neut # (Auto) Lymph # (Auto) [place] # (Auto) Eos # (Auto) Baso # (Auto) WBC Differential Diff Scan Differential Comment Sodium Potassium Chloride Carbon Dioxide Anion Gap BUN Creatinine Estimated GFR POC Glucose 89 Random Glucose Calcium Phosphorus Magnesium Microbiology 01/17/18 04:50 Clean Catch Urine Urine Culture - Preliminary Immature growth - reincubate - Imaging Impressions Chest X-Ray 01/17/18 00:00 CONCLUSION: Mild bibasilar atelectasis, slightly worse. Very small left basilar pneumothorax without tension. Chest X-Ray 01/18/18 00:00 CONCLUSION: Left lower lobe atelectasis versus pneumonia. Small left effusion There is no evidence of pneumothorax. <Jaqueline Lovelace - Last Filed: 01/18/18 13:59> - Labs CBC & Chem 7: 01/18/18 05:40 01/18/18 05:40 Laboratory Results - last 24 hr 01/17/18 01/18/18 01/18/18 16:08 02:54 05:40 WBC 8.2 RBC 3.72 L Hgb 8.6 L Hct 28.7 L MCV 77.2 L MCH 23.0 L MCHC 29.8 L RDW 26.1 H Plt Count 296 MPV 7.9 Prelim Diff (Auto) Slide review pending Neut % (Auto) 74.0 H Lymph % (Auto) 15.6 [place] % (Auto) 7.5 Eos % (Auto) 1.7 Baso % (Auto) 1.2 Neut # (Auto) 6.0 Lymph # (Auto) 1.3 [place] # (Auto) 0.6 Eos # (Auto) 0.1 Baso # (Auto) 0.1 WBC Differential . Diff Scan Auto diff confirmed Differential Comment . Sodium Potassium Chloride Carbon Dioxide Anion Gap BUN Creatinine Estimated GFR POC Glucose 87 101 Random Glucose Calcium Phosphorus Magnesium 01/18/18 01/18/18 01/18/18 05:40 06:26 07:23 WBC RBC Hgb Hct MCV MCH MCHC RDW Plt Count MPV Prelim Diff (Auto) Neut % (Auto) Lymph % (Auto) [place] % (Auto) Eos % (Auto) Baso % (Auto) Neut # (Auto) Lymph # (Auto) [place] # (Auto) Eos # (Auto) Baso # (Auto) WBC Differential Diff Scan Differential Comment Sodium 134 L Potassium 3.5 Chloride 90 L Carbon Dioxide 34.8 H Anion Gap 9 BUN 48 H Creatinine 1.50 H Estimated GFR 46 L POC Glucose 90 102 Random Glucose 81 Calcium 8.2 L Phosphorus 3.9 Magnesium 2.0 01/18/18 12:16 WBC RBC Hgb Hct MCV MCH MCHC RDW Plt Count MPV Prelim Diff (Auto) Neut % (Auto) Lymph % (Auto) [place] % (Auto) Eos % (Auto) Baso % (Auto) Neut # (Auto) Lymph # (Auto) [place] # (Auto) Eos # (Auto) Baso # (Auto) WBC Differential Diff Scan Differential Comment Sodium Potassium Chloride Carbon Dioxide Anion Gap BUN Creatinine Estimated GFR POC Glucose 89 Random Glucose Calcium Phosphorus Magnesium Microbiology 01/17/18 04:50 Clean Catch Urine Urine Culture - Preliminary Immature growth - reincubate - Imaging Impressions Chest X-Ray 01/18/18 00:00 CONCLUSION: Left lower lobe atelectasis versus pneumonia. Small left effusion There is no evidence of pneumothorax. <Zayda Cassidy - Last Filed: 01/18/18 16:23> Assessment and Plan (1) Acute GI bleeding Status: Acute Code(s): K92.2 - Gastrointestinal hemorrhage, unspecified - Plan GI bleeding Patient awake and alert sitting up in bed. Per RN no active bleeding noted. N.p.o. status at this time, order to obtain consent for EGD placed. RN advised to notify family to obtain consent. Plan for EGD today or tomorrow pending consent. Hemoglobin 7.9 hematocrit 25.4 platelet count 248. 01/18/2018 GI bleeding Patient awake and alert sitting up in bed. RN reports stool dark brown with no bright red blood noted. No family located for consent for EGD. No nausea or vomiting reported. Hemoglobin 8.6 hematocrit 28.7 stable. Plan -Regular diet -Obtain consent for EGD when POA located -Monitor for bleeding -Monitor H&H -Continue PPI -Supportive care -Further recommendations to follow based on patient status and findings This patient has been seen by myself and Dr. Cassidy and this note is written on her behalf - Attending Attestation Dr. Cassidy <Jaqueline Lovelace - Last Filed: 01/18/18 13:59> (1) Acute GI bleeding Status: Acute Code(s): K92.2 - Gastrointestinal hemorrhage, unspecified - Attending Attestation seen, examined agree with above seems to be oriented times 3 now we will schedule egd <Zayda Cassidy - Last Filed: 01/18/18 16:23>
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
--- NOTE | 2018-01-18 19:13 | P.PN ---
Subjective Interval history: Confused and not agitated. On O2 2 L. Chest tube drained 110 CC over 12 Hrs. CXR is stable with Mild left atelectasis Physical Exam Vital signs: Vital Signs 01/17/18 20:00 01/18/18 00:00 01/18/18 04:00 Temperature 98.0 F 97.7 F 97.5 F L Pulse Rate 93 H 87 88 Respiratory Rate 20 20 18 Blood Pressure 91/52 L 111/54 L 126/63 Pulse Oximetry 100 98 98 01/18/18 08:00 01/18/18 09:49 01/18/18 12:00 Temperature 97 F L 97.5 F L Pulse Rate 85 76 Respiratory Rate 20 20 Blood Pressure 120/56 L 106/52 L Pulse Oximetry 100 99 100 01/18/18 16:00 Temperature Pulse Rate 143 H Respiratory Rate Blood Pressure Pulse Oximetry Intake & Output 01/18/18 01/18/18 01/19/18 06:59 18:59 06:59 Intake Total 1000 / 1000 720 / 720 Output Total 110 / 110 Balance 890 / 890 720 / 720 Weight 71.5 kg Intake: IV 1000 / 1000 D5W/1/2 NS Inj 1,000 ML @ 42 1000 / 1000 mls/hr IV.CONT .[id number] [facility] Rx# :[id number] Oral 720 / 720 Output: Chest Tube Drainage 110 / 110 Right Upper Pleural 110 / 110 Other: # Incontinent Voids 5 # Urine Diapers 6 Date of Last Bowel Movement 01/17/18 01/17/18 Narrative: GENERAL: Pleasantly confused 77 year old male in NAD, alert and in restraints. SKIN: Warm and dry. Weeping open ulcerations present on sacral back. CARDIOVASCULAR: Regular rate and rhythm. RESPIRATORY: No accessory muscle use. Occ Basal crackles. Breath sounds equal bilaterally. GASTROINTESTINAL: Abdomen soft, non-tender, nondistended. Hepatic and splenic margins not palpable. MUSCULOSKELETAL: Extremities without clubbing, cyanosis, or edema. No obvious deformities. NEUROLOGICAL: Awake. No obvious cranial nerve deficits. Motor grossly within normal limits.. Normal speech. - Urinary Catheter Management Indwelling Urethral Catheter Cath placed during this visit: yes, but has since been removed by the nurse Reason for continuing: Decision to DC catheter Insertion date: 01/09/18 Insertion time: 08:30 Removal date: 01/12/18 Removal time: 11:35 Straight Cath placed during this visit: no Reason for continuing: Other continuation reason Condom Cath placed during this visit: no Results - Labs CBC & Chem 7: 01/18/18 05:40 01/18/18 05:40 Laboratory Results - last 24 hr 01/18/18 01/18/18 01/18/18 02:54 05:40 05:40 WBC 8.2 RBC 3.72 L Hgb 8.6 L Hct 28.7 L MCV 77.2 L MCH 23.0 L MCHC 29.8 L RDW 26.1 H Plt Count 296 MPV 7.9 Prelim Diff (Auto) Slide review pending Neut % (Auto) 74.0 H Lymph % (Auto) 15.6 [place] % (Auto) 7.5 Eos % (Auto) 1.7 Baso % (Auto) 1.2 Neut # (Auto) 6.0 Lymph # (Auto) 1.3 [place] # (Auto) 0.6 Eos # (Auto) 0.1 Baso # (Auto) 0.1 WBC Differential . Diff Scan Auto diff confirmed Differential Comment . Sodium 134 L Potassium 3.5 Chloride 90 L Carbon Dioxide 34.8 H Anion Gap 9 BUN 48 H Creatinine 1.50 H Estimated GFR 46 L POC Glucose 101 Random Glucose 81 Calcium 8.2 L Phosphorus 3.9 Magnesium 2.0 01/18/18 01/18/18 01/18/18 06:26 07:23 12:16 WBC RBC Hgb Hct MCV MCH MCHC RDW Plt Count MPV Prelim Diff (Auto) Neut % (Auto) Lymph % (Auto) [place] % (Auto) Eos % (Auto) Baso % (Auto) Neut # (Auto) Lymph # (Auto) [place] # (Auto) Eos # (Auto) Baso # (Auto) WBC Differential Diff Scan Differential Comment Sodium Potassium Chloride Carbon Dioxide Anion Gap BUN Creatinine Estimated GFR POC Glucose 90 102 89 Random Glucose Calcium Phosphorus Magnesium 01/18/18 17:46 WBC RBC Hgb Hct MCV MCH MCHC RDW Plt Count MPV Prelim Diff (Auto) Neut % (Auto) Lymph % (Auto) [place] % (Auto) Eos % (Auto) Baso % (Auto) Neut # (Auto) Lymph # (Auto) [place] # (Auto) Eos # (Auto) Baso # (Auto) WBC Differential Diff Scan Differential Comment Sodium Potassium Chloride Carbon Dioxide Anion Gap BUN Creatinine Estimated GFR POC Glucose 95 Random Glucose Calcium Phosphorus Magnesium Microbiology 01/17/18 04:50 Clean Catch Urine Urine Culture - Preliminary Immature growth - reincubate - Imaging Impressions Chest X-Ray 01/18/18 00:00 CONCLUSION: Left lower lobe atelectasis versus pneumonia. Small left effusion There is no evidence of pneumothorax. Assessment and Plan - Assessment (1) Encephalopathy Code(s): G93.40 - Encephalopathy, unspecified Status: Acute (2) Acute GI bleeding Code(s): K92.2 - Gastrointestinal hemorrhage, unspecified Status: Acute (3) Sepsis Code(s): A41.9 - Sepsis, unspecified organism Status: Acute (4) Symptomatic anemia Code(s): D64.9 - Anemia, unspecified Status: Acute (5) Pleural effusion Code(s): J90 - Pleural effusion, not elsewhere classified Status: Acute (6) Acute exacerbation of congestive heart failure Code(s): I50.9 - Heart failure, unspecified Status: Acute (7) RICHARD (acute kidney injury) Code(s): N17.9 - Acute kidney failure, unspecified Status: Acute (8) Conjunctivitis Code(s): H10.9 - Unspecified conjunctivitis Status: Acute (9) CKD (chronic kidney disease) stage 4, GFR 15-29 ml/min Code(s): N18.4 - Chronic kidney disease, stage 4 (severe) Status: Acute - Plan 1. O2 2 L N/C 2. Clamp Chest tube in am. 3. Cont chest tube drainage. will consider D/c chest tube when draiange drops <150 CC /day 4. Diet as tolerated. 5. IS q2h bedside. 6. PT evaluation. 7.CBC,BMP 8. Continue Lasix and Aldactone. (3) Sepsis Qualifiers: Sepsis type: sepsis due to unspecified organism Qualified Code(s): A41.9 - Sepsis, unspecified organism (6) Acute exacerbation of congestive heart failure Qualifiers: Heart failure type: unspecified Qualified Code(s): I50.9 - Heart failure, unspecified (8) Conjunctivitis Qualifiers: Conjunctivitis type: acute Acute conjunctivitis type: bacterial Laterality: bilateral Qualified Code(s): H10.33 - Unspecified acute conjunctivitis, bilateral
[2018-01-18] MEDS: Dextrose 5%/NaCl 0.45% Inj 1,000 ML IV.CONT SCH (21:57)
[2018-01-19] MEDS: Insulin NovoLIN Regular Correctional Sugar Inj SQ SCH ×6 (03:09→20:26)
[2018-01-19] MEDS ORDERED: Chlorhexidine Gluconate 2% 1 Pack (2 Cloths) TOPICAL ONE (04:27)
[2018-01-19] MEDS ORDERED: Sodium Chlor 0.9% Inj 500 ML IV.SIG SCH (05:00)
[2018-01-19 08:22] LABS: Baso # (Auto) 0.1 th/mm3 (0.0-0.2); Baso % (Auto) 1.7 % (0.0-2.0); Eos # (Auto) 0.2 th/mm3 (0.0-0.4); Eos % (Auto) 2.5 % (0.0-4.0); Hematocrit 26.2 % (39.0-51.0); Hemoglobin 7.9 gm/dL (13.0-17.0); Lymph # (Auto) 1.2 th/mm3 (1.0-4.8); Lymph % (Auto) 17.4 % (9.0-44.0); Mean Corpuscular Hemoglobin 23.7 pg (27.0-34.0); Mean Corpuscular Volume 78.9 fL (80.0-100.0); Mean Platelet Volume 7.6 fL (7.0-11.0); Mono # (Auto) 0.6 th/mm3 (0.0-0.9); Mono % (Auto) 8.9 % (0.0-8.0); Neut # (Auto) 4.6 th/mm3 (1.8-7.7); Neut % (Auto) 69.5 % (16.0-70.0); Platelet Count 293 th/mm3 (150-450); Red Blood Count 3.33 mil/mm3 (4.50-5.90); Red Cell Distribution Width 26.1 % (11.6-17.2); White Blood Count 6.6 th/mm3 (4.0-11.0)
[2018-01-19 08:26] LABS: Mean Corpuscular HGB Conc 30.1 % (32.0-36.0)
[2018-01-19 08:57] LABS: Calcium 7.7 mg/dL (8.5-10.1); Carbon Dioxide 33.6 meq/L (21.0-32.0); Potassium 3.2 meq/L (3.5-5.1)
[2018-01-19 09:09] LABS: Eosinophils 1 % (0-4); Lymphocytes 13 % (9-44); Monocytes 3 % (0-8)
[2018-01-19 09:10] LABS: Dimorphic RBC Present; Platelet Estimate Normal (Normal); Platelet Morphology Normal (Normal)
[2018-01-19 09:11] LABS: Ovalocytes 1+
[2018-01-19 09:12] LABS: Toxic Granulation 3+
--- NOTE | 2018-01-19 10:02 | GIPROC ---
[facility] [address] [facility]. [facility], [address] EGD PROCEDURE REPORT EXAM DATE: 01/19/2018 PATIENT NAME: Luis Murguia MR #: [id number] BIRTHDATE: 1940 ATTENDING: Zayda Cassidy MD ORDER #: [id number] CULINARY MANAGER: Renée Fay and Sonja Gomez STATUS: inpatient INDICATIONS: The patient is a 77 yr old male here for an EGD due to anemia, gi bleeding PROCEDURE PERFORMED: EGD w/ biopsy MEDICATIONS: None and Per Anesthesia. TOPICAL ANESTHETIC: none CONSENT: The patient understands the risks and benefits of the procedure and understands that these risks include, but are not limited to: sedation, allergic reaction, infection, perforation and/or bleeding. Alternative means of evaluation and treatment include, among others: physical exam, x-rays, and/or surgical intervention. The patient elects to proceed with this endoscopic procedure. medical equipment was checked for proper function. Hand hygiene and appropriate measures for infection prevention was taken. After the risks, benefits and alternatives of the procedure were thoroughly explained, Informed consent was verified, confirmed and timeout was successfully executed by the treatment team. The patient was anesthetized with topical anesthesia and the Pentax [id number] endoscope was introduced through the mouth and advanced to the second portion of the duodenum. Retroflexed views revealed a hiatal hernia The gastroscope was then slowly withdrawn and removed. Duodenum normal-biopsy. Gastritis antrum-biopsy esophagitis distal esophagus-biopsy. ADVERSE EVENTS: There were no complications. IMPRESSIONS: 1. Duodenum normal-biopsy 2. Retroflexed views revealed a hiatal hernia RECOMMENDATIONS: 1. Await biopsy results. Biopsy results will not be ready for 7-10 days. If you don't hear from us in two weeks, call our office for biopsy results. 2. Anti-reflux regimen 3. Continue PPI 4. If dc fu gi colonoscopy op unless indicated otherwise ok to dc home from gi point PATIENT CONDITION: stable DISPOSITION: Inpatient REPEAT EXAM: Return as needed for 3 years EGD Zayda Cassidy MD eSigned: Zayda Cassidy MD 01/19/2018 10:02 AM cc: PATIENT NAME: Luis Murguia MR#: [id number]
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
--- NOTE | 2018-01-19 12:56 | P.PN ---
Subjective Interval history: Had an EGD.No SOB at rest. On O2 Chest tube is draining. Physical Exam Vital signs: Vital Signs 01/18/18 16:00 01/18/18 16:55 01/18/18 20:00 Temperature 98 F Pulse Rate 143 H 82 94 H Respiratory Rate 20 Blood Pressure 91/52 L 100/54 L Pulse Oximetry 01/18/18 22:00 01/19/18 00:00 01/19/18 04:00 Temperature 97.1 F L 97.7 F 97.4 F L Pulse Rate 92 H 92 H 85 Respiratory Rate 20 17 20 Blood Pressure 100/40 L 118/55 L 132/58 L Pulse Oximetry 93 L 95 93 L 01/19/18 08:05 01/19/18 10:15 Temperature 97.1 F L Pulse Rate 83 75 Respiratory Rate 18 16 Blood Pressure 136/60 116/57 L Pulse Oximetry 100 100 Intake & Output 01/18/18 01/19/18 01/19/18 18:59 06:59 18:59 Intake Total 720 / 720 1000 / 1000 200 / 200 Output Total 190 / 190 150 / 150 Balance 720 / 720 810 / 810 50 / 50 Weight 71.3 kg Intake: IV 1000 / 1000 D5W/1/2 NS Inj 1,000 ML @ 42 1000 / 1000 mls/hr IV.CONT .[id number] [facility] Rx# :[id number] Oral 720 / 720 Anesthesia Amount 200 / 200 Output: Urine 150 / 150 Chest Tube Drainage 190 / 190 Right Upper Pleural 190 / 190 Other: # Incontinent Voids 3 # Urine Diapers 6 Date of Last Bowel Movement 01/17/18 01/17/18 Narrative: GENERAL: Pleasantly confused 77 year old male in NAD, alert and in restraints. SKIN: Warm and dry. ulcerations present on sacral area CARDIOVASCULAR: Regular rate and rhythm. RESPIRATORY: No accessory muscle use. Occ Basal crackles. Breath sounds equal bilaterally. GASTROINTESTINAL: Abdomen soft, non-tender, nondistended. Hepatic and splenic margins not palpable. MUSCULOSKELETAL: Extremities without clubbing, cyanosis,but has edema. No obvious deformities. NEUROLOGICAL: Awake. No obvious cranial nerve deficits. Motor grossly within normal limits.. Normal speech. - Urinary Catheter Management Indwelling Urethral Catheter Cath placed during this visit: yes, but has since been removed by the nurse Reason for continuing: Decision to DC catheter Insertion date: 01/09/18 Insertion time: 08:30 Removal date: 01/12/18 Removal time: 11:35 Straight Cath placed during this visit: no Reason for continuing: Other continuation reason Condom Cath placed during this visit: no Results - Labs CBC & Chem 7: 01/19/18 06:53 01/19/18 06:53 Laboratory Results - last 24 hr 01/18/18 01/19/18 01/19/18 17:46 00:13 04:30 WBC RBC Hgb Hct MCV MCH MCHC RDW Plt Count MPV Prelim Diff (Auto) Neut % (Auto) Lymph % (Auto) [place] % (Auto) Eos % (Auto) Baso % (Auto) Neut # (Auto) Lymph # (Auto) [place] # (Auto) Eos # (Auto) Baso # (Auto) WBC Differential Seg Neuts % (Manual) Band Neuts % (Manual) Lymphocytes % (Manual) Monocytes % (Manual) Eosinophils % (Manual) Basophils % (Manual) Abs Neuts (Manual) Differential Comment Toxic Granulation Platelet Estimate Platelet Morphology Dimorphic RBCs Ovalocytes Sodium Potassium Chloride Carbon Dioxide Anion Gap BUN Creatinine Estimated GFR POC Glucose 95 103 94 Random Glucose Calcium 01/19/18 01/19/18 01/19/18 06:53 06:53 07:30 WBC 6.6 RBC 3.33 L Hgb 7.9 L Hct 26.2 L MCV 78.9 L MCH 23.7 L MCHC 30.1 L RDW 26.1 H Plt Count 293 MPV 7.6 Prelim Diff (Auto) Slide review pending Neut % (Auto) 69.5 Lymph % (Auto) 17.4 [place] % (Auto) 8.9 H Eos % (Auto) 2.5 Baso % (Auto) 1.7 Neut # (Auto) 4.6 Lymph # (Auto) 1.2 [place] # (Auto) 0.6 Eos # (Auto) 0.2 Baso # (Auto) 0.1 WBC Differential Manual diff final Seg Neuts % (Manual) 79 H Band Neuts % (Manual) 3 Lymphocytes % (Manual) 13 Monocytes % (Manual) 3 Eosinophils % (Manual) 1 Basophils % (Manual) 1 Abs Neuts (Manual) 5.4 Differential Comment . Toxic Granulation 3+ H Platelet Estimate Normal Platelet Morphology Normal Dimorphic RBCs Present H Ovalocytes 1+ H Sodium 134 L Potassium 3.2 L Chloride 90 L Carbon Dioxide 33.6 H Anion Gap 10 BUN 48 H Creatinine 1.45 H Estimated GFR 47 L POC Glucose 109 Random Glucose 85 Calcium 7.7 L 01/19/18 10:24 WBC RBC Hgb Hct MCV MCH MCHC RDW Plt Count MPV Prelim Diff (Auto) Neut % (Auto) Lymph % (Auto) [place] % (Auto) Eos % (Auto) Baso % (Auto) Neut # (Auto) Lymph # (Auto) [place] # (Auto) Eos # (Auto) Baso # (Auto) WBC Differential Seg Neuts % (Manual) Band Neuts % (Manual) Lymphocytes % (Manual) Monocytes % (Manual) Eosinophils % (Manual) Basophils % (Manual) Abs Neuts (Manual) Differential Comment Toxic Granulation Platelet Estimate Platelet Morphology Dimorphic RBCs Ovalocytes Sodium Potassium Chloride Carbon Dioxide Anion Gap BUN Creatinine Estimated GFR POC Glucose 83 Random Glucose Calcium Microbiology 01/17/18 04:50 Clean Catch Urine Urine Culture - Final <10,000 cfu/mL gram positive mechelle - no further workup Assessment and Plan - Assessment (1) Encephalopathy Code(s): G93.40 - Encephalopathy, unspecified Status: Acute (2) Acute GI bleeding Code(s): K92.2 - Gastrointestinal hemorrhage, unspecified Status: Acute (3) Sepsis Code(s): A41.9 - Sepsis, unspecified organism Status: Acute (4) Symptomatic anemia Code(s): D64.9 - Anemia, unspecified Status: Acute (5) Pleural effusion Code(s): J90 - Pleural effusion, not elsewhere classified Status: Acute (6) Acute exacerbation of congestive heart failure Code(s): I50.9 - Heart failure, unspecified Status: Acute (7) RICHARD (acute kidney injury) Code(s): N17.9 - Acute kidney failure, unspecified Status: Acute (8) Conjunctivitis Code(s): H10.9 - Unspecified conjunctivitis Status: Acute (9) CKD (chronic kidney disease) stage 4, GFR 15-29 ml/min Code(s): N18.4 - Chronic kidney disease, stage 4 (severe) Status: Acute - Plan 1. Cont O2 2 L N/C 2. Chest X ray in am 3. Cont chest tube drainage. will consider D/c chest tube when draiange drops <150 CC /day 4. Diet as tolerated. 5. IS q2h bedside. 6. PT evaluation. 7. Continue Lasix and Aldactone. (3) Sepsis Qualifiers: Sepsis type: sepsis due to unspecified organism Qualified Code(s): A41.9 - Sepsis, unspecified organism (6) Acute exacerbation of congestive heart failure Qualifiers: Heart failure type: unspecified Qualified Code(s): I50.9 - Heart failure, unspecified (8) Conjunctivitis Qualifiers: Conjunctivitis type: acute Acute conjunctivitis type: bacterial Laterality: bilateral Qualified Code(s): H10.33 - Unspecified acute conjunctivitis, bilateral
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
[2018-01-19] MEDS: Furosemide 20 MG Tablet PO SCH ×2 (15:30→17:23)
[2018-01-19] MEDS: Senna/Docusate Sodium 8.6/50 MG Tablet PO SCH ×2 (15:31→20:25)
[2018-01-19] MEDS: Metoprolol Tartrate 25 MG Tablet PO SCH ×2 (15:31→20:25)
[2018-01-19] MEDS: Sodium Chloride 0.9% 2 ML Flush BID IV.FLUSH SCH ×2 (15:31→20:25)
[2018-01-19] MEDS: Pantoprazole Inj 40 MG Vial IV.PUSH SCH (15:36)
[2018-01-19] MEDS: metOLazone 5 MG Tablet PO SCH (15:37)
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
[2018-01-19] MEDS: Potassium Chloride 10 MEQ ER Capsule PO SCH ×2 (17:23→20:24)
--- NOTE | 2018-01-19 17:49 | US ---
EXAM DATE: 01/19/2018 12:00 AM EDT AGE/SEX: 77 years / Male INDICATIONS: Hematuria. CLINICAL DATA: This is the patient's subsequent encounter. Patient reports that signs and symptoms h ave been present for 1 day and indicates a pain score of 0/10. MEDICAL/SURGICAL HISTORY: . Chronic kidney disease. None. COMPARISON: [facility] [place], KIDNEY/RENAL/BLADDER, 01/04/2018. . MEASUREMENTS: Right Kidney:__8.7 x 4.4 x 4.7 cm Left Kidney:__20.1 x 9.6 x 10.2 cm FINDINGS: The patient is a small right pleural effusion. Right Kidney: There are 2 obvious cyst in the upper pole the right kidney. No evidence of hydronephro sis or solid mass. Left Kidney: The left kidney is severely hydronephrotic similar to the 01/04/2018 exam. Bladder: There is some debris within the bladder. Prostate is normal in size. Other: None. CONCLUSION: 1. Continued severe hydronephrosis of the left kidney unchanged since the previous study. 2. 2 small cysts in the right kidney without evidence of hydronephrosis Electronically signed by: Isaac Wolf MD 01/19/2018 5:48 PM EDT
[2018-01-20] MEDS: Insulin NovoLIN Regular Correctional Sugar Inj SQ SCH ×6 (03:17→23:01)
[2018-01-20 05:04] LABS: Calcium 7.5 mg/dL (8.5-10.1); Carbon Dioxide 36.8 meq/L (21.0-32.0); Potassium 3.8 meq/L (3.5-5.1)
[2018-01-20] MEDS: Dextrose 5%/NaCl 0.45% Inj 1,000 ML IV.CONT SCH (05:31)
--- NOTE | 2018-01-20 05:47 | XR ---
EXAM DATE: 01/20/2018 12:00 AM EDT AGE/SEX: 77 years / Male INDICATIONS: Shortness of breath. CLINICAL DATA: This is the patient's subsequent encounter. Patient reports that signs and symptoms h ave been present for 2 weeks and indicates a pain score of Nonresponsive. MEDICAL/SURGICAL HISTORY: . Congestive heart failure. Renal disease. Non-responsive. COMPARISON: C, CHEST 1V SINGLE AP, 01/18/2018. . FINDINGS: The cardiac silhouette is enlarged in transverse diameter. There is left lower lobe atelectasis versu s pneumonia. A small left sided effusion is present. There is subsegmental atelectasis in the right b ase. There is prominence of the aortic knob is with calcification characteristic of atherosclerotic v ascular disease. CONCLUSION: Left lower lobe atelectasis versus pneumonia. There has been no significant change when compared to t he prior exam. Electronically signed by: Noble Sam MD 01/20/2018 5:46 AM EDT
[2018-01-20] MEDS: Pantoprazole Inj 40 MG Vial IV.PUSH SCH (11:22)
[2018-01-20] MEDS: Sodium Chloride 0.9% 2 ML Flush BID IV.FLUSH SCH ×2 (11:23→23:02)
[2018-01-20] MEDS: Furosemide 20 MG Tablet PO SCH ×2 (11:23→18:49)
[2018-01-20] MEDS: metOLazone 5 MG Tablet PO SCH (11:23)
[2018-01-20] MEDS: Metoprolol Tartrate 25 MG Tablet PO SCH ×2 (11:23→23:01)
[2018-01-20] MEDS: Senna/Docusate Sodium 8.6/50 MG Tablet PO SCH ×2 (11:23→23:01)
--- NOTE | 2018-01-20 11:32 | P.PNGI ---
Subjective Interval history: Patient laying supine in bed in no apparent distress. Post EGD, no reported difficulty or discomfort. Physical Exam Vital signs: Vital Signs 01/19/18 12:00 01/19/18 15:55 01/19/18 19:55 Temperature 97.3 F L 97.6 F 98.1 F Pulse Rate 80 85 88 Respiratory Rate 18 20 20 Blood Pressure 134/56 L 100/55 L 105/51 L Pulse Oximetry 100 100 99 01/19/18 20:00 01/20/18 00:00 01/20/18 04:00 Temperature 97.9 F 98.0 F Pulse Rate 88 99 H 92 H Respiratory Rate 17 20 Blood Pressure 107/55 L 132/51 L Pulse Oximetry 100 98 01/20/18 07:37 Temperature 98.1 F Pulse Rate 89 Respiratory Rate 16 Blood Pressure 112/65 Pulse Oximetry 99 Intake & Output 01/19/18 01/20/18 01/20/18 18:59 06:59 18:59 Intake Total 2300 / 2300 700 / 700 Output Total 475 / 475 1824 / 1824 Balance 1825 / 182 -1125 / -1125 Intake: IV 1500 / 1500 700 / 700 D5W/1/2 NS Inj 1,000 ML @ 42 700 / 700 mls/hr IV.CONT .[id number] [facility] Rx# :[id number] LR 1000 mL Inj 1,000 ML @ 30 1000 / 1000 mls/hr IV.SIG .Q24H [facility] Rx#: [id number] NS Inj 500 ML @ 30 mls/hr IV. 500 / 500 SIG .Q10H [facility] Rx#:[id number] Oral 600 / 600 Anesthesia Amount 200 / 200 Output: Urine 475 / 475 Urine Amount (Catheter) 1824 / 1825 Indwelling Urethral Catheter 1824 Other: Date of Last Bowel Movement 01/17/18 - Constitutional no acute distress - Routine HEENT Exam Head: Present: normocephalic - Routine Respiratory Exam Absent: accessory muscle use - Routine Abdominal Exam Present: soft, normoactive bowel sounds. Absent: tenderness - Routine Extremities Exam Absent: edema - Routine Skin Exam Present: dry, warm - Routine Neurological Exam Present: alert - Urinary Catheter Management Indwelling Urethral Catheter Cath placed during this visit: yes, but has since been removed by the nurse Reason for continuing: Gross Hematuria Insertion date: 01/19/18 Insertion time: 21:00 Removal date: 01/12/18 Removal time: 11:35 Straight Cath placed during this visit: no Reason for continuing: Other continuation reason Condom Cath placed during this visit: no Results - Labs CBC & Chem 7: 01/19/18 06:53 01/20/18 04:29 Laboratory Results - last 24 hr 01/19/18 01/20/18 01/20/18 15:55 01:24 04:29 Sodium 136 Potassium 3.8 Chloride 95 L Carbon Dioxide 36.8 H Anion Gap 4 L BUN 47 H Creatinine 1.39 H Estimated GFR 50 L POC Glucose 107 120 H Random Glucose 84 Calcium 7.5 L 01/20/18 01/20/18 05:36 08:19 Sodium Potassium Chloride Carbon Dioxide Anion Gap BUN Creatinine Estimated GFR POC Glucose 98 107 Random Glucose Calcium Microbiology 01/05/18 08:00 Other Acid Fast Bacilli Smear - Final No acid fast bacilli seen 01/05/18 08:00 Other Mycobacterial Culture - Preliminary No growth in 2 weeks 01/17/18 04:50 Clean Catch Urine Urine Culture - Final <10,000 cfu/mL gram positive mechelle - no further workup - Imaging Impressions Abdomen/Bladder Ultrasound 01/19/18 00:00 CONCLUSION: 1. Continued severe hydronephrosis of the left kidney unchanged since the previous study. 2. 2 small cysts in the right kidney without evidence of hydronephrosis Chest X-Ray 01/20/18 00:00 CONCLUSION: Left lower lobe atelectasis versus pneumonia. There has been no significant change when compared to the prior exam. Assessment and Plan (1) Acute GI bleeding Status: Acute Code(s): K92.2 - Gastrointestinal hemorrhage, unspecified - Plan GI bleeding Patient awake and alert sitting up in bed. Per RN no active bleeding noted. N.p.o. status at this time, order to obtain consent for EGD placed. RN advised to notify family to obtain consent. Plan for EGD today or tomorrow pending consent. Hemoglobin 7.9 hematocrit 25.4 platelet count 248. 01/18/2018 GI bleeding Patient awake and alert sitting up in bed. RN reports stool dark brown with no bright red blood noted. No family located for consent for EGD. No nausea or vomiting reported. Hemoglobin 8.6 hematocrit 28.7 stable. 01/20/2018 Patient awake and alert. Denies any nausea vomiting or abdominal pain. Patient post EGD 01/19/2018 with the following findings: 1. Duodenum normal-biopsy 2. Retroflexed views revealed a hiatal hernia Plan -Cardiac and diabetic diet as tolerated -Monitor for bleeding -PPI -Antireflux regimen -Patient to follow-up with GI upon discharge -Colonoscopy can be done as outpatient unless otherwise indicated -Recommended repeat EGD in 3 years -Supportive care This patient has been seen by myself and Dr. Cassidy and this note is written on her behalf - Attending Attestation Dr. Cassidy
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
--- NOTE | 2018-01-20 12:51 | P.PN ---
Subjective Interval history: He is feeling OK. Chest tube drained <75 CC No fever. Eating better. Physical Exam Vital signs: Vital Signs 01/19/18 15:55 01/19/18 19:55 01/19/18 20:00 Temperature 97.6 F 98.1 F Pulse Rate 85 88 88 Respiratory Rate 20 20 Blood Pressure 100/55 L 105/51 L Pulse Oximetry 100 99 01/20/18 00:00 01/20/18 04:00 01/20/18 07:37 Temperature 97.9 F 98.0 F 98.1 F Pulse Rate 99 H 92 H 89 Respiratory Rate 17 20 16 Blood Pressure 107/55 L 132/51 L 112/65 Pulse Oximetry 100 98 99 01/20/18 12:02 Temperature 97.3 F L Pulse Rate 88 Respiratory Rate 17 Blood Pressure 141/60 H Pulse Oximetry 100 Intake & Output 01/19/18 01/20/18 01/20/18 18:59 06:59 18:59 Intake Total 2300 / 2300 700 / 700 Output Total 475 / 475 1824 / 1824 Balance 1824 / 1824 -1125 / -1125 Intake: IV 1500 / 1500 700 / 700 D5W/1/2 NS Inj 1,000 ML @ 42 700 / 700 mls/hr IV.CONT .[id number] [facility] Rx# :[id number] LR 1000 mL Inj 1,000 ML @ 30 1000 / 1000 mls/hr IV.SIG .Q24H [facility] Rx#: [id number] NS Inj 500 ML @ 30 mls/hr IV. 500 / 500 SIG .Q10H [facility] Rx#:[id number] Oral 600 / 600 Anesthesia Amount 200 / 200 Output: Urine 475 / 475 Urine Amount (Catheter) 1824 Indwelling Urethral Catheter 1824 Other: Date of Last Bowel Movement 01/17/18 Narrative: GENERAL: Pleasantly confused 77 year old male in NAD, alert and in restraints. SKIN: Warm and dry. ulcerations present on sacral area CARDIOVASCULAR: Regular rate and rhythm. RESPIRATORY: Occ Basal crackles. Breath sounds equal bilaterally. GASTROINTESTINAL: Abdomen soft, non-tender, nondistended. Hepatic and splenic margins not palpable. MUSCULOSKELETAL: Extremities without clubbing, cyanosis,but has 1 + edema. No obvious deformities. NEUROLOGICAL: Awake. No obvious cranial nerve deficits. Motor grossly within normal limits.. Normal speech. - Urinary Catheter Management Indwelling Urethral Catheter Cath placed during this visit: yes, but has since been removed by the nurse Reason for continuing: Gross Hematuria Insertion date: 01/19/18 Insertion time: 21:00 Removal date: 01/12/18 Removal time: 11:35 Straight Cath placed during this visit: no Reason for continuing: Other continuation reason Condom Cath placed during this visit: no Results - Labs CBC & Chem 7: 01/19/18 06:53 01/20/18 04:29 Laboratory Results - last 24 hr 01/19/18 01/20/18 01/20/18 15:55 01:24 04:29 Sodium 136 Potassium 3.8 Chloride 95 L Carbon Dioxide 36.8 H Anion Gap 4 L BUN 47 H Creatinine 1.39 H Estimated GFR 50 L POC Glucose 107 120 H Random Glucose 84 Calcium 7.5 L 01/20/18 01/20/18 01/20/18 05:36 08:19 11:50 Sodium Potassium Chloride Carbon Dioxide Anion Gap BUN Creatinine Estimated GFR POC Glucose 98 107 105 Random Glucose Calcium Microbiology 01/05/18 08:00 Other Acid Fast Bacilli Smear - Final No acid fast bacilli seen 01/05/18 08:00 Other Mycobacterial Culture - Preliminary No growth in 2 weeks - Imaging Impressions Abdomen/Bladder Ultrasound 01/19/18 00:00 CONCLUSION: 1. Continued severe hydronephrosis of the left kidney unchanged since the previous study. 2. 2 small cysts in the right kidney without evidence of hydronephrosis Chest X-Ray 01/20/18 00:00 CONCLUSION: Left lower lobe atelectasis versus pneumonia. There has been no significant change when compared to the prior exam. Assessment and Plan - Assessment (1) Encephalopathy Code(s): G93.40 - Encephalopathy, unspecified Status: Acute (2) Acute GI bleeding Code(s): K92.2 - Gastrointestinal hemorrhage, unspecified Status: Acute (3) Sepsis Code(s): A41.9 - Sepsis, unspecified organism Status: Acute (4) Symptomatic anemia Code(s): D64.9 - Anemia, unspecified Status: Acute (5) Pleural effusion Code(s): J90 - Pleural effusion, not elsewhere classified Status: Acute (6) Acute exacerbation of congestive heart failure Code(s): I50.9 - Heart failure, unspecified Status: Acute (7) RICHARD (acute kidney injury) Code(s): N17.9 - Acute kidney failure, unspecified Status: Acute (8) Conjunctivitis Code(s): H10.9 - Unspecified conjunctivitis Status: Acute (9) CKD (chronic kidney disease) stage 4, GFR 15-29 ml/min Code(s): N18.4 - Chronic kidney disease, stage 4 (severe) Status: Acute - Plan 1. Cont O2 2 L N/C 2. Chest X ray in am 3. Cont chest tube drainage. will D/c chest tube in am if stable 4. Diet as tolerated. 5. IS q2h bedside. 6. PT evaluation. 7. Continue Lasix and Aldactone. (3) Sepsis Qualifiers: Sepsis type: sepsis due to unspecified organism Qualified Code(s): A41.9 - Sepsis, unspecified organism (6) Acute exacerbation of congestive heart failure Qualifiers: Heart failure type: unspecified Qualified Code(s): I50.9 - Heart failure, unspecified (8) Conjunctivitis Qualifiers: Conjunctivitis type: acute Acute conjunctivitis type: bacterial Laterality: bilateral Qualified Code(s): H10.33 - Unspecified acute conjunctivitis, bilateral
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
[2018-01-21] MEDS: Insulin NovoLIN Regular Correctional Sugar Inj SQ SCH ×6 (01:34→20:13)
--- NOTE | 2018-01-21 04:51 | XR ---
EXAM DATE: 01/21/2018 12:00 AM EDT AGE/SEX: 77 years / Male INDICATIONS: Effusions. CLINICAL DATA: This is the patient's subsequent encounter. Patient reports that signs and symptoms h ave been present for 2 weeks and indicates a pain score of Nonresponsive. MEDICAL/SURGICAL HISTORY: . Congestive heart failure. Renal disease. Non-responsive. COMPARISON: [facility] [place], CHEST 1V SINGLE AP, 01/20/2018. . FINDINGS: The heart size is normal. There is increased density seen at the bases bilaterally being much worse o n the left. There is Silhouetting of the left hemidiaphragm. CONCLUSION: Bibasilar areas of consolidation or atelectasis being much worse on the left. Electronically signed by: Edgar Almanzar MD 01/21/2018 4:49 AM EDT
[2018-01-21 08:04] LABS: Carbon Dioxide 36.6 meq/L (21.0-32.0); Potassium 3.5 meq/L (3.5-5.1)
[2018-01-21] MEDS: Pantoprazole Inj 40 MG Vial IV.PUSH SCH (08:09)
[2018-01-21] MEDS: Metoprolol Tartrate 25 MG Tablet PO SCH ×2 (08:10→20:12)
[2018-01-21] MEDS: metOLazone 5 MG Tablet PO SCH (08:10)
[2018-01-21] MEDS: Sodium Chloride 0.9% 2 ML Flush BID IV.FLUSH SCH ×2 (08:10→20:12)
[2018-01-21] MEDS: Senna/Docusate Sodium 8.6/50 MG Tablet PO SCH ×2 (08:10→20:13)
[2018-01-21] MEDS: Furosemide 20 MG Tablet PO SCH ×2 (08:14→18:35)
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
--- NOTE | 2018-01-21 11:59 | P.PNGI ---
Subjective Interval history: Patient resting soundly with eyes closed, awakens easily. Denies any abdominal pain nausea or vomiting. Denies any noted bleeding <Jaqueline Lovelace - Last Filed: 01/21/18 11:55> Physical Exam Vital signs: Vital Signs 01/20/18 12:02 01/20/18 16:00 01/20/18 20:00 Temperature 97.3 F L 97.8 F 97.6 F Pulse Rate 88 75 80 Respiratory Rate 18 Blood Pressure 141/60 H 95/51 L 97/47 L Pulse Oximetry 100 99 95 01/21/18 00:00 01/21/18 04:00 01/21/18 08:00 Temperature 98.7 F 98.2 F 97.6 F Pulse Rate 82 83 83 Respiratory Rate 18 Blood Pressure 115/53 L 113/52 L 118/54 L Pulse Oximetry 100 92 L 100 Intake & Output 01/20/18 01/21/18 01/21/18 18:59 06:59 18:59 Intake Total 600 / 600 120 / 120 Output Total 2400 / 2400 750 / 750 Balance -1800 / -1800 -630 / -630 Weight 71 kg Intake: Oral 600 / 600 120 / 120 Output: Urine 2400 / 2400 750 / 750 Other: Date of Last Bowel Movement 01/19/18 # Bowel Movements 0 - Constitutional no acute distress - Routine HEENT Exam Head: Present: normocephalic - Routine Respiratory Exam Present: CTA bilaterally. Absent: accessory muscle use Comments: Right-sided chest tube to Pleur-evac - Routine Abdominal Exam Present: soft, normoactive bowel sounds. Absent: tenderness, guarding, firm - Routine Skin Exam Present: dry, warm - Routine Neurological Exam Present: alert - Routine Psychiatric Exam Present: normal affect, cooperative - Urinary Catheter Management Indwelling Urethral Catheter Cath placed during this visit: yes, but has since been removed by the nurse Reason for continuing: Acute urinary retention Insertion date: 01/19/18 Insertion time: 21:00 Removal date: 01/12/18 Removal time: 11:35 Straight Cath placed during this visit: no Reason for continuing: Other continuation reason Condom Cath placed during this visit: no <Jaqueline Lovelace - Last Filed: 01/21/18 11:55> Vital signs: Vital Signs 01/20/18 16:00 01/20/18 20:00 01/21/18 00:00 Temperature 97.8 F 97.6 F 98.7 F Pulse Rate 75 80 82 Respiratory Rate 18 Blood Pressure 95/51 L 97/47 L 115/53 L Pulse Oximetry 99 95 100 01/21/18 04:00 01/21/18 08:00 01/21/18 12:00 Temperature 98.2 F 97.6 F 97.4 F L Pulse Rate 83 83 70 Respiratory Rate 18 Blood Pressure 113/52 L 118/54 L 115/58 L Pulse Oximetry 92 L 100 99 Intake & Output 01/20/18 01/21/18 01/21/18 18:59 06:59 18:59 Intake Total 600 / 600 120 / 120 Output Total 2400 / 2400 750 / 750 Balance -1800 / -1800 -630 / -630 Weight 71 kg Intake: Oral 600 / 600 120 / 120 Output: Urine 2400 / 2400 750 / 750 Other: Date of Last Bowel Movement 01/19/18 # Bowel Movements 0 - Urinary Catheter Management Indwelling Urethral Catheter Cath placed during this visit: no Straight Cath placed during this visit: no Condom Cath placed during this visit: no <Zayda Cassidy - Last Filed: 01/21/18 14:56> Results - Labs CBC & Chem 7: 01/19/18 06:53 01/21/18 06:53 Laboratory Results - last 24 hr 01/20/18 01/21/18 01/21/18 20:09 01:32 06:13 Sodium Potassium Chloride Carbon Dioxide Anion Gap BUN Creatinine Estimated GFR POC Glucose 118 H 92 81 Random Glucose Calcium 01/21/18 01/21/18 06:53 07:53 Sodium 137 Potassium 3.5 Chloride 94 L Carbon Dioxide 36.6 H Anion Gap 6 BUN 45 H Creatinine 1.29 Estimated GFR 54 L POC Glucose 83 Random Glucose 72 L Calcium 8.0 L - Imaging Impressions Chest X-Ray 01/21/18 00:00 CONCLUSION: Bibasilar areas of consolidation or atelectasis being much worse on the left. <Jaqueline Lovelace - Last Filed: 01/21/18 11:55> - Labs CBC & Chem 7: 01/19/18 06:53 01/21/18 06:53 Laboratory Results - last 24 hr 01/20/18 01/21/18 01/21/18 20:09 01:32 06:13 Sodium Potassium Chloride Carbon Dioxide Anion Gap BUN Creatinine Estimated GFR POC Glucose 118 H 92 81 Random Glucose Calcium 01/21/18 01/21/18 01/21/18 06:53 07:53 12:26 Sodium 137 Potassium 3.5 Chloride 94 L Carbon Dioxide 36.6 H Anion Gap 6 BUN 45 H Creatinine 1.29 Estimated GFR 54 L POC Glucose 83 119 H Random Glucose 72 L Calcium 8.0 L - Imaging Impressions Chest X-Ray 01/21/18 00:00 CONCLUSION: Bibasilar areas of consolidation or atelectasis being much worse on the left. <Zayda Cassidy - Last Filed: 01/21/18 14:56> Assessment and Plan (1) Acute GI bleeding Status: Acute Code(s): K92.2 - Gastrointestinal hemorrhage, unspecified - Plan GI bleeding Patient awake and alert sitting up in bed. Per RN no active bleeding noted. N.p.o. status at this time, order to obtain consent for EGD placed. RN advised to notify family to obtain consent. Plan for EGD today or tomorrow pending consent. Hemoglobin 7.9 hematocrit 25.4 platelet count 248. 01/18/2018 GI bleeding Patient awake and alert sitting up in bed. RN reports stool dark brown with no bright red blood noted. No family located for consent for EGD. No nausea or vomiting reported. Hemoglobin 8.6 hematocrit 28.7 stable. 01/20/2018 Patient awake and alert. Denies any nausea vomiting or abdominal pain. Patient post EGD 01/19/2018 with the following findings: 1. Duodenum normal-biopsy 2. Retroflexed views revealed a hiatal hernia 01/21/2018 Patient resting soundly. Denies any abdominal pain nausea vomiting. Denies any noted bleeding. (01/20) hemoglobin 7.9 hematocrit 26.2 stable Plan -Cardiac and diabetic diet as tolerated -Monitor labs -Monitor for bleeding -PPI -Anti-reflux regimen -Patient to follow-up with GI upon discharge -Colonoscopy can be done as outpatient unless otherwise indicated -Recommended repeat EGD in 3 years -Supportive care This patient has been seen by myself and Dr. Cassidy and this note is written on her behalf <Jaqueline Lovelace - Last Filed: 01/21/18 11:55> (1) Acute GI bleeding Status: Acute Code(s): K92.2 - Gastrointestinal hemorrhage, unspecified - Attending Attestation seen, examined Alert, oriented egd essentially negative, still anemic hematuria-urology following improving slowly colonoscopy next week to further evaluate anemia, hem positive stool <Zayda Cassidy - Last Filed: 01/21/18 14:56>
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
--- NOTE | 2018-01-21 16:58 | P.PNWCN ---
Wound Care Nurse Consult Description: Patient seen on [place] for follow up of previously noted DTI to sacral area Communicated with: Rn Cyn Yu [address] [place] [address] and Doctor Ansrai Recommendation: 1. Manually reposition patient every 2 hours from L side to R side for comfort and offloading. Limit time spent positioned on back to P.T. and meals 2. Please cleanse wound to sacral area with normal saline only and pat dry 3. Apply Santyl ointment to wound bed vikki thickness. 4. Apply Cavilon barrier film spray to skin surrounding wound bed 5. Cover wound with Optifoam gentle dressing 6x6 and change dressing daily 6. Vocera wound care nurse for worsening wound 7. Please use ultrasorb pads under patient, DO NOT apply cotton underpads under patient. Wound/Pressure Injury - Patient Status Premedicated for Pain Prior to Dressing Change: No - Wound Sacrum Wound Staging: Unstageable Wound Assessment: Ongoing Wound Type: Pressure Injury Is This a Chronic Wound: No Requested from Provider a Wound Care Consult: Yes (Wound care is following) Length (cm): 9.1 (cm) Width (cm): 9 (cm) Depth (cm): 0 (eschar) Wound Bed Appearance: Necrotic, [place], Yellow Wound Bed Appearance: Wound presents today with ~ 20% island of moist eschar, ~30% yellow adherent thin slough and ~ 50% pink tissue. Periwound is unremarkable. Surrounding Tissue Appearance: [place] Surrounding Tissue Temperature: Cool Drainage Description: Serosanguinous Drainage Amount: Scant Drainage Odor: No Odor Dressing Status: Changed Cover Dressing: bordered gauze Wound Dressing Change Date: 01/21/18 Wound Margin Description: Wound margins are open and defined. - Additional Information Patient seen on [place] for follow up of previously noted DTI. Patient was turned toward the R side with minimal assistance from senior technical writer and EVENING SITTER, to reveal open wound to sacral area. Wound description and measurements noted above. Wound is now classified as an unstagable pressure injury due to necrotic tissue occluding visualization of wound bed. Patient is laying in [facility] bed, on one UltraSorb pad and one cotton underpad.Patient also noted with Mcfarland catheter in place.Wound was cleansed with normal saline patted dry. Applied Cavilon spray to periwound and covered wound with one 6x6 bordered gauze and one 4x4 bordered gauze. Patient appears cachetic, but reports eating ~ 75% of every meal. Recommend Tax Intern, and low airloss bed/mattress. Wound care recommendations are noted above.
--- NOTE | 2018-01-21 18:47 | P.PN ---
Subjective Interval history: Doing better. CHest tube stopped draining. No Fever. Physical Exam Vital signs: Vital Signs 01/20/18 20:00 01/21/18 00:00 01/21/18 04:00 Temperature 97.6 F 98.7 F 98.2 F Pulse Rate 80 82 83 Respiratory Rate 18 18 18 Blood Pressure 97/47 L 115/53 L 113/52 L Pulse Oximetry 95 100 92 L 01/21/18 08:00 01/21/18 12:00 01/21/18 16:00 Temperature 97.6 F 97.4 F L 97.9 F Pulse Rate 83 70 84 Respiratory Rate 18 18 18 Blood Pressure 118/54 L 115/58 L 107/66 Pulse Oximetry 100 99 99 Intake & Output 01/20/18 01/21/18 01/21/18 18:59 06:59 18:59 Intake Total 600 / 600 120 / 120 480 / 480 Output Total 2400 / 2400 750 / 750 600 / 600 Balance -1800 / -1800 -630 / -630 -120 / -120 Weight 71 kg Intake: Oral 600 / 600 120 / 120 480 / 480 Output: Urine 2400 / 2400 750 / 750 Urine Amount (Catheter) 600 / 600 Indwelling Urethral Catheter 600 / 600 Other: Date of Last Bowel Movement 01/19/18 # Bowel Movements 0 Narrative: GENERAL: Pleasantly confused 77 year old male in NAD, alert and in restraints. SKIN: Warm and dry. ulcerations present on sacral area CARDIOVASCULAR: Regular rate and rhythm. RESPIRATORY: Occ Basal crackles. wheezes heard. GASTROINTESTINAL: Abdomen soft, non-tender, nondistended. Hepatic and splenic margins not palpable. MUSCULOSKELETAL: Extremities without clubbing, cyanosis,but has 1 + edema. No obvious deformities. NEUROLOGICAL: Awake. No obvious cranial nerve deficits. Motor grossly within normal limits.. Normal speech. - Urinary Catheter Management Indwelling Urethral Catheter Cath placed during this visit: yes, but has since been removed by the nurse Reason for continuing: Acute urinary retention Insertion date: 01/19/18 Insertion time: 21:00 Removal date: 01/12/18 Removal time: 11:35 Straight Cath placed during this visit: no Reason for continuing: Other continuation reason Condom Cath placed during this visit: no Results - Labs CBC & Chem 7: 01/19/18 06:53 01/21/18 06:53 Laboratory Results - last 24 hr 01/20/18 01/21/18 01/21/18 20:09 01:32 06:13 Sodium Potassium Chloride Carbon Dioxide Anion Gap BUN Creatinine Estimated GFR POC Glucose 118 H 92 81 Random Glucose Calcium 01/21/18 01/21/18 01/21/18 06:53 07:53 12:26 Sodium 137 Potassium 3.5 Chloride 94 L Carbon Dioxide 36.6 H Anion Gap 6 BUN 45 H Creatinine 1.29 Estimated GFR 54 L POC Glucose 83 119 H Random Glucose 72 L Calcium 8.0 L 01/21/18 17:14 Sodium Potassium Chloride Carbon Dioxide Anion Gap BUN Creatinine Estimated GFR POC Glucose 95 Random Glucose Calcium - Imaging Impressions Chest X-Ray 01/21/18 00:00 CONCLUSION: Bibasilar areas of consolidation or atelectasis being much worse on the left. Assessment and Plan - Assessment (1) Encephalopathy Code(s): G93.40 - Encephalopathy, unspecified Status: Acute (2) Acute GI bleeding Code(s): K92.2 - Gastrointestinal hemorrhage, unspecified Status: Acute (3) Sepsis Code(s): A41.9 - Sepsis, unspecified organism Status: Acute (4) Symptomatic anemia Code(s): D64.9 - Anemia, unspecified Status: Acute (5) Pleural effusion Code(s): J90 - Pleural effusion, not elsewhere classified Status: Acute (6) Acute exacerbation of congestive heart failure Code(s): I50.9 - Heart failure, unspecified Status: Acute (7) RICHARD (acute kidney injury) Code(s): N17.9 - Acute kidney failure, unspecified Status: Acute (8) Conjunctivitis Code(s): H10.9 - Unspecified conjunctivitis Status: Acute (9) CKD (chronic kidney disease) stage 4, GFR 15-29 ml/min Code(s): N18.4 - Chronic kidney disease, stage 4 (severe) Status: Acute - Plan 1. Cont O2 2 L N/C 2. Chest X ray in am 3 D/C chest tube 4. Diet as tolerated. 5. IS q2h bedside. 6. PT evaluation. 7. Continue Lasix and Aldactone. (3) Sepsis Qualifiers: Sepsis type: sepsis due to unspecified organism Qualified Code(s): A41.9 - Sepsis, unspecified organism (6) Acute exacerbation of congestive heart failure Qualifiers: Heart failure type: unspecified Qualified Code(s): I50.9 - Heart failure, unspecified (8) Conjunctivitis Qualifiers: Conjunctivitis type: acute Acute conjunctivitis type: bacterial Laterality: bilateral Qualified Code(s): H10.33 - Unspecified acute conjunctivitis, bilateral
[2018-01-21] MEDS: Collagenase Oint 30 GM Tube TOPICAL SCH (20:14)
[2018-01-22] MEDS: Insulin NovoLIN Regular Correctional Sugar Inj SQ SCH ×5 (00:09→17:44)
[2018-01-22 08:43] LABS: Baso # (Auto) 0.1 th/mm3 (0.0-0.2); Baso % (Auto) 1.3 % (0.0-2.0); Eos # (Auto) 0.2 th/mm3 (0.0-0.4); Eos % (Auto) 3.1 % (0.0-4.0); Hematocrit 22.9 % (39.0-51.0); Hemoglobin 7.2 gm/dL (13.0-17.0); Lymph # (Auto) 1.4 th/mm3 (1.0-4.8); Lymph % (Auto) 23.9 % (9.0-44.0); Mean Corpuscular HGB Conc 31.3 % (32.0-36.0); Mean Corpuscular Hemoglobin 24.2 pg (27.0-34.0); Mean Corpuscular Volume 77.5 fL (80.0-100.0); Mean Platelet Volume 7.6 fL (7.0-11.0); Mono # (Auto) 0.5 th/mm3 (0.0-0.9); Neut # (Auto) 3.7 th/mm3 (1.8-7.7); Neut % (Auto) 62.7 % (16.0-70.0); Platelet Count 329 th/mm3 (150-450); Red Blood Count 2.95 mil/mm3 (4.50-5.90); Red Cell Distribution Width 24.9 % (11.6-17.2); White Blood Count 5.9 th/mm3 (4.0-11.0)
[2018-01-22 09:06] LABS: Carbon Dioxide 37.4 meq/L (21.0-32.0); Potassium 3.3 meq/L (3.5-5.1)
[2018-01-22 09:34] LABS: Dimorphic RBC Present; Ovalocytes 1+
[2018-01-22 09:35] LABS: Platelet Estimate Normal (Normal); Platelet Morphology Normal (Normal)
[2018-01-22] MEDS: Furosemide 20 MG Tablet PO SCH ×2 (09:59→17:42)
[2018-01-22] MEDS: metOLazone 5 MG Tablet PO SCH (09:59)
[2018-01-22] MEDS: Senna/Docusate Sodium 8.6/50 MG Tablet PO SCH ×2 (09:59→22:32)
[2018-01-22] MEDS: Metoprolol Tartrate 25 MG Tablet PO SCH ×2 (09:59→22:32)
[2018-01-22] MEDS: Sodium Chloride 0.9% 2 ML Flush BID IV.FLUSH SCH ×2 (10:00→22:33)
[2018-01-22] MEDS: Pantoprazole Inj 40 MG Vial IV.PUSH SCH (10:00)
[2018-01-22] MEDS ORDERED: Sodium Chlor 0.9% Inj 250 ML IV.SIG SCH (11:00)
--- NOTE | 2018-01-22 11:15 | P.PNGI ---
Subjective Interval history: Resting in the bed awake answer simple questions currently denies any abdominal pain and states appetite fair to good. Gastroenterology been following for anemia, EGD initially unremarkable for any obvious bleeding Physical Exam Vital signs: Vital Signs 01/21/18 12:00 01/21/18 16:00 01/21/18 20:00 Temperature 97.4 F L 97.9 F 97.2 F L Pulse Rate 70 82 79 Respiratory Rate 18 18 18 Blood Pressure 115/58 L 107/66 93/45 L Pulse Oximetry 99 99 97 01/21/18 22:17 01/22/18 00:00 01/22/18 04:00 Temperature 98.3 F 97.5 F L Pulse Rate 100 H 86 Respiratory Rate 18 18 Blood Pressure 139/85 104/57 L Pulse Oximetry 97 98 93 L 01/22/18 08:00 Temperature 98 F Pulse Rate 88 Respiratory Rate 20 Blood Pressure 109/51 L Pulse Oximetry 93 L Intake & Output 01/21/18 01/22/18 01/22/18 18:59 06:59 18:59 Intake Total 480 / 480 Output Total 600 / 600 Balance -120 / -120 Intake: Oral 480 / 480 Output: Urine Amount (Catheter) 600 / 600 Indwelling Urethral Catheter 600 / 600 Other: Date of Last Bowel Movement 01/19/18 - Constitutional no acute distress, disheveled, cooperative (wilbur, pale) - Routine HEENT Exam ENT: Present: mucous membranes moist - Routine Respiratory Exam Present: accessory muscle use (Even, unlabored at rest) - Routine Cardiovascular Exam Present: S1, S2 - Routine Abdominal Exam Present: normoactive bowel sounds (No abdominal pain to light palpation, round) - Routine Skin Exam Present: dry - Urinary Catheter Management Indwelling Urethral Catheter Cath placed during this visit: yes, but has since been removed by the nurse Reason for continuing: Acute urinary retention Insertion date: 01/19/18 Insertion time: 21:00 Removal date: 01/12/18 Removal time: 11:35 Straight Cath placed during this visit: no Reason for continuing: Other continuation reason Condom Cath placed during this visit: no Results - Labs CBC & Chem 7: 01/22/18 07:28 01/22/18 07:28 Laboratory Results - last 24 hr 01/21/18 01/21/18 01/21/18 12:26 17:14 20:00 WBC RBC Hgb Hct MCV MCH MCHC RDW Plt Count MPV Prelim Diff (Auto) Neut % (Auto) Lymph % (Auto) [place] % (Auto) Eos % (Auto) Baso % (Auto) Neut # (Auto) Lymph # (Auto) [place] # (Auto) Eos # (Auto) Baso # (Auto) WBC Differential Diff Scan Differential Comment Platelet Estimate Platelet Morphology Dimorphic RBCs Ovalocytes Keratocytes Sodium Potassium Chloride Carbon Dioxide Anion Gap BUN Creatinine Estimated GFR POC Glucose 119 H 95 126 H Random Glucose Calcium 01/22/18 01/22/18 07:28 07:28 WBC 5.9 RBC 2.95 L Hgb 7.2 L Hct 22.9 L MCV 77.5 L MCH 24.2 L MCHC 31.3 L RDW 24.9 H Plt Count 329 MPV 7.6 Prelim Diff (Auto) Slide review pending Neut % (Auto) 62.7 Lymph % (Auto) 23.9 [place] % (Auto) 9.0 H Eos % (Auto) 3.1 Baso % (Auto) 1.3 Neut # (Auto) 3.7 Lymph # (Auto) 1.4 [place] # (Auto) 0.5 Eos # (Auto) 0.2 Baso # (Auto) 0.1 WBC Differential . Diff Scan Auto diff confirmed Differential Comment . Platelet Estimate Normal Platelet Morphology Normal Dimorphic RBCs Present H Ovalocytes 1+ H Keratocytes Occ H Sodium 137 Potassium 3.3 L Chloride 92 L Carbon Dioxide 37.4 H Anion Gap 8 BUN 52 H Creatinine 1.65 H Estimated GFR 41 L POC Glucose Random Glucose 73 L Calcium 8.0 L Assessment and Plan (1) Acute GI bleeding Status: Acute Code(s): K92.2 - Gastrointestinal hemorrhage, unspecified - Plan GI bleeding Patient awake and alert sitting up in bed. Per RN no active bleeding noted. N.p.o. status at this time, order to obtain consent for EGD placed. RN advised to notify family to obtain consent. Plan for EGD today or tomorrow pending consent. Hemoglobin 7.9 hematocrit 25.4 platelet count 248. 01/18/2018 GI bleeding Patient awake and alert sitting up in bed. RN reports stool dark brown with no bright red blood noted. No family located for consent for EGD. No nausea or vomiting reported. Hemoglobin 8.6 hematocrit 28.7 stable. 01/20/2018 Patient awake and alert. Denies any nausea vomiting or abdominal pain. Patient post EGD 01/19/2018 with the following findings: 1. Duodenum normal-biopsy 2. Retroflexed views revealed a hiatal hernia 01/21/2018 Patient resting soundly. Denies any abdominal pain nausea vomiting. Denies any noted bleeding. (01/20) hemoglobin 7.9 hematocrit 26.2 stable 01/22/2018 current hemoglobin 7.2 and normal WBC count. Still has some mild trending down anemia but does not appear to have symptoms at this time. Previous EGD unremarkable, will consider colonoscopy possibly Wednesday to further evaluate any lower GI bleeding. Repeat EGD in [address] Borjas, plan for colonoscopy Wednesday Plan Diet cardiac ADA encourage hydration, antireflux precautions Monitor labs with special attention hemoglobin and transfuse as needed PPI Bowel regimen Plan for colonoscopy Wednesday, consent N.p.o. at midnight Wednesday night Clear liquids 01/23/2018 Hold any blood thinners GoLYTELY prep, patient will need assistance with and please call GI if patient cannot tolerate Further recommendations to follow after colonoscopy Patient was seen per myself and Dr. Borjas, note was written on his behalf
[2018-01-22 11:20] LABS: % Iron Saturation 23.2 % (20-50)
--- NOTE | 2018-01-22 14:14 | P.PN ---
Subjective Interval history: Patient resting in bed able to awake to voice offers no concerns/complaints at this time hgb 7.2 this AM patient denies any jonelle bleeding or black stool Physical Exam Vital signs: Vital Signs 01/21/18 16:00 01/21/18 20:00 01/21/18 22:17 Temperature 97.9 F 97.2 F L Pulse Rate 82 79 Respiratory Rate 18 18 Blood Pressure 107/66 93/45 L Pulse Oximetry 99 97 97 01/22/18 00:00 01/22/18 04:00 01/22/18 08:00 Temperature 98.3 F 97.5 F L 98 F Pulse Rate 100 H 86 88 Respiratory Rate 18 18 20 Blood Pressure 139/85 104/57 L 109/51 L Pulse Oximetry 98 93 L 93 L 01/22/18 12:00 Temperature Pulse Rate Respiratory Rate 20 Blood Pressure Pulse Oximetry Intake & Output 01/21/18 01/22/18 01/22/18 18:59 06:59 18:59 Intake Total 480 / 480 Output Total 600 / 600 Balance -120 / -120 Intake: Oral 480 / 480 Output: Urine Amount (Catheter) 600 / 600 Indwelling Urethral Catheter 600 / 600 Other: Date of Last Bowel Movement 01/19/18 Narrative: GENERAL: Pleasantly confused 77 year old male in NAD SKIN: Warm and dry. ulcerations present on sacral area CARDIOVASCULAR: Regular rate and rhythm. RESPIRATORY: Breath sounds equal bilaterally. GASTROINTESTINAL: Abdomen soft, non-tender, nondistended. MUSCULOSKELETAL: Extremities without clubbing, cyanosis. No obvious deformities. NEUROLOGICAL: Awake, confused at time. Motor grossly within normal limits.. Normal speech. - Urinary Catheter Management Indwelling Urethral Catheter Cath placed during this visit: yes, but has since been removed by the nurse Reason for continuing: Acute urinary retention Insertion date: 01/19/18 Insertion time: 21:00 Removal date: 01/12/18 Removal time: 11:35 Straight Cath placed during this visit: no Reason for continuing: Other continuation reason Condom Cath placed during this visit: no Results - Labs CBC & Chem 7: 01/22/18 07:28 01/22/18 07:28 Laboratory Results - last 24 hr 01/21/18 01/21/18 01/22/18 17:14 20:00 07:28 WBC RBC Hgb Hct MCV MCH MCHC RDW Plt Count MPV Prelim Diff (Auto) Neut % (Auto) Lymph % (Auto) [place] % (Auto) Eos % (Auto) Baso % (Auto) Neut # (Auto) Lymph # (Auto) [place] # (Auto) Eos # (Auto) Baso # (Auto) WBC Differential Diff Scan Differential Comment Platelet Estimate Platelet Morphology Dimorphic RBCs Ovalocytes Keratocytes Sodium 137 Potassium 3.3 L Chloride 92 L Carbon Dioxide 37.4 H Anion Gap 8 BUN 52 H Creatinine 1.65 H Estimated GFR 41 L POC Glucose 95 126 H Random Glucose 73 L Calcium 8.0 L Iron TIBC % Saturation Ferritin Blood Type Antibody Screen MTS Gel Crossmatch Bld Prod Order Comment 01/22/18 01/22/18 01/22/18 07:28 07:28 07:28 WBC 5.9 RBC 2.95 L Hgb 7.2 L Hct 22.9 L MCV 77.5 L MCH 24.2 L MCHC 31.3 L RDW 24.9 H Plt Count 329 MPV 7.6 Prelim Diff (Auto) Slide review pending Neut % (Auto) 62.7 Lymph % (Auto) 23.9 [place] % (Auto) 9.0 H Eos % (Auto) 3.1 Baso % (Auto) 1.3 Neut # (Auto) 3.7 Lymph # (Auto) 1.4 [place] # (Auto) 0.5 Eos # (Auto) 0.2 Baso # (Auto) 0.1 WBC Differential . Diff Scan Auto diff confirmed Differential Comment . Platelet Estimate Normal Platelet Morphology Normal Dimorphic RBCs Present H Ovalocytes 1+ H Keratocytes Occ H Sodium Potassium Chloride Carbon Dioxide Anion Gap BUN Creatinine Estimated GFR POC Glucose Random Glucose Calcium Iron 41 L TIBC 176 L % Saturation 23.2 Ferritin 154 Blood Type Antibody Screen MTS Gel Crossmatch Bld Prod Order Comment 01/22/18 11:59 WBC RBC Hgb Hct MCV MCH MCHC RDW Plt Count MPV Prelim Diff (Auto) Neut % (Auto) Lymph % (Auto) [place] % (Auto) Eos % (Auto) Baso % (Auto) Neut # (Auto) Lymph # (Auto) [place] # (Auto) Eos # (Auto) Baso # (Auto) WBC Differential Diff Scan Differential Comment Platelet Estimate Platelet Morphology Dimorphic RBCs Ovalocytes Keratocytes Sodium Potassium Chloride Carbon Dioxide Anion Gap BUN Creatinine Estimated GFR POC Glucose Random Glucose Calcium Iron TIBC % Saturation Ferritin Blood Type O Positive Antibody Screen Negative MTS Gel Crossmatch See Detail Bld Prod Order Comment Assessment and Plan - Plan The patient is a 77-year-old male admitted after having generalized weakness, falls at home, lactic acidemia, ultimately requiring intubation mechanical ventilation for respiratory failure. Had chest tube insertions bilaterally with substantial drainage. He was extubated on antibiotics for pneumonia. Blood cultures are negative. Pleural effusions -Bilateral pigtail chest tubes placed 01/05/2018. right CT drain -Left CT dislodged 01/14 -Transudative fluid. Monitor CT drainage. -CXR: Stable basilar airspace disease in the lungs. -d/c aztreonam (01/08- 01/15). Strep pneumonia, Legionella urinary antigen negative, - Now on Lasix 60mg PO BID, Zaroxolyn 5mg PO daily -Pulm consulted -Continue chest tube drainage -Diet as tolerated -IS q2h bedside -PT evaluation - Repeat CXR 01/18 stable , no PTX Possible CHF w/ preserved EF -Continue metoprolol, on Lasix 60mg BID - 2D echocardiogram The left ventricular systolic function is low normal with an estimated ejection fraction in the range of 50- 55%. Normal left ventricular size. Wall thickness is normal. No regional wall motion abnormalities are present. Mild thickening of the mitral valve leaflets. Mild mitral valve regurgitation. Aortic valve sclerosis is present. Mild aortic valve regurgitation. There is mild tricuspid valve regurgitation. The estimated pulmonary arterial pressure is 51.2 mmHg. The inferior vena cava is dilated. Acute Anemia poss due to acute GI bleed -Possible 2/2 GI bleed -Monitor for bleeding -Continue PPI, -On Protonix 40 mg daily. Antireflux regimen. Recommended repeat EGD in 3 years -Patient's hgb 7.2 this AM - transfuse 1 unit PRBC - recheck CBC in AM - discussed with GI - Plan for colonoscopy Wednesday Chronic hepatic insufficiency -Bilirubin most recently 1.6 on 01/15 RICHARD Chronic Kidney Disease -KCL -Lasix -Nephro diuresing Thrombocytopenia,resolved -likely 2/2 hepatic insufficiency -s/p transfusion multiple units of PRBC, since admission. -Doppler US UE: Occlusive thrombus in the right cephalic vein. -No thrombus in the left upper extremity. -Patient is at high risk for AC given anemia, thrombocytopenia and possibly GI bleed Hematuria: UA, US if kidney Abdomen/Bladder Ultrasound 1. Continued severe hydronephrosis of the left kidney unchanged since the previous study. 2. 2 small cysts in the right kidney without evidence of hydronephrosis consult urology, appreciate recommendations Acute encephalopathy toxic / metabolic. Patient improved and back at his baseline Sacral wound worsening. 01/21 SACRAL WOUND ARE GETTING WORSE, Dr. Ansari DISCUSSED WITH MARYANA FROM WOUND CARE, SPECIALTY BED ORDERED , WOUND CARE REGIMEN CHANGED TO SANTYL Code Status: Full Discharge Planning: hematuria and urinary retention, has a norton, urology also ff. Now with worsening sacral wounds. Sacral wound is getting worse, reconsulted wound care ordered changed. Plan for colonoscopy Wednesday Discussed with patient, nurse and Dr. Choudhary Addendum: Patient had 6 beat NSVT 01/22 at 1455 potassium 3.3 replace potassium mag 01/08 2.0 recheck BMP and Mag in AM discussed with Dr. Choudhary continuous telemetry 2D echocardiogram The left ventricular systolic function is low normal with an estimated ejection fraction in the range of 50- 55%. Normal left ventricular size. Wall thickness is normal. No regional wall motion abnormalities are present. Mild thickening of the mitral valve leaflets. Mild mitral valve regurgitation. Aortic valve sclerosis is present. Mild aortic valve regurgitation. There is mild tricuspid valve regurgitation. The estimated pulmonary arterial pressure is 51.2 mmHg. The inferior vena cava is dilated. Cardiology has previously seen and aware of short NSVT continue metoprolol 25 mg PO BID
[2018-01-22] MEDS: Collagenase Oint 30 GM Tube TOPICAL SCH (16:00)
[2018-01-23] MEDS: Insulin NovoLIN Regular Correctional Sugar Inj SQ SCH ×5 (06:55→17:54)
[2018-01-23 07:19] LABS: Calcium 8.1 mg/dL (8.5-10.1); Carbon Dioxide 36.6 meq/L (21.0-32.0); Magnesium 1.9 mg/dL (1.5-2.5); Potassium 3.4 meq/L (3.5-5.1)
[2018-01-23 07:21] LABS: Baso # (Auto) 0.1 th/mm3 (0.0-0.2); Baso % (Auto) 1.7 % (0.0-2.0); Eos # (Auto) 0.2 th/mm3 (0.0-0.4); Eos % (Auto) 2.7 % (0.0-4.0); Hematocrit 27.6 % (39.0-51.0); Hemoglobin 8.9 gm/dL (13.0-17.0); Lymph # (Auto) 1.4 th/mm3 (1.0-4.8); Mean Corpuscular HGB Conc 32.4 % (32.0-36.0); Mean Corpuscular Hemoglobin 25.6 pg (27.0-34.0); Mean Corpuscular Volume 79.1 fL (80.0-100.0); Mean Platelet Volume 7.8 fL (7.0-11.0); Mono # (Auto) 0.6 th/mm3 (0.0-0.9); Mono % (Auto) 8.3 % (0.0-8.0); Neut # (Auto) 4.8 th/mm3 (1.8-7.7); Neut % (Auto) 67.3 % (16.0-70.0); Platelet Count 300 th/mm3 (150-450); Red Blood Count 3.48 mil/mm3 (4.50-5.90); Red Cell Distribution Width 23.9 % (11.6-17.2); White Blood Count 7.2 th/mm3 (4.0-11.0)
[2018-01-23 08:52] LABS: Dimorphic RBC Present; Ovalocytes 1+; Platelet Estimate Normal (Normal); Platelet Morphology Clumped (Normal)
[2018-01-23] MEDS: Senna/Docusate Sodium 8.6/50 MG Tablet PO SCH ×2 (10:04→21:05)
[2018-01-23] MEDS: Pantoprazole Inj 40 MG Vial IV.PUSH SCH (10:05)
[2018-01-23] MEDS: Sodium Chloride 0.9% 2 ML Flush BID IV.FLUSH SCH ×2 (10:05→21:06)
[2018-01-23] MEDS: Furosemide 20 MG Tablet PO SCH ×2 (10:05→17:55)
[2018-01-23] MEDS: Metoprolol Tartrate 25 MG Tablet PO SCH ×2 (10:05→21:05)
[2018-01-23] MEDS: metOLazone 5 MG Tablet PO SCH (10:06)
--- NOTE | 2018-01-23 10:09 | P.DIET ---
Nutritional Evaluation Type of nutrition evaluation: follow-up Nutrition screening: Pressure Injury (DTI Sacral area, unstageable), MDC Subjective Subjective Comments: Pt reports a good appetite, eating 50-100% of his meals. Objective - Diagnosis Weakness. PMH see H&P - Objective [place] body weight: 70 kg % IBW: 121 Body Weight Used for Calculations: IBW (Pt. with Anasarca) Energy Needs - Lower Range (kCal/kg): 28 Energy Needs - Upper Range (kCal/kg): 32 Lower Limit kCal/kg (kCals): 1,960 Upper Limit kCal/kg (kCals): 2,240 Lower Limit Protein Factor (Grams per Kg): 0.8 Upper Limit Protein Factor (Grams per Kg): 1.2 Lower Protein Needs (Protein): 56 Upper Protein Needs (Protein): 84 Dietitian Reviewed in Medical Record: Current diet, Curent medications, Intake & Output, Labs, Medical history Diet Order: [facility], [facility] Wound Care Note: 01/21 unstageable pressure injury-see note Assessment Assessment: Pt remains at nutritional risk related to current clinical status. Noted pt now with an unstageable pressure injury to the sacral area, reviewed WOC note. Pt's nutritional needs as assessed above. He is presently on a CL diet for colonoscopy in the AM. Yesterday pt was on a cardiac diet and ate 100% of all meals. Will continue to monitor clinical course and provide supplements of Enlive TID when diet advances. Recommend Theragran M q day. Recommendations: CL diet for procedure in AM With diet advancement, will provide Enlive TID Recommend Theragran M q day Dietitian to Monitor: Lab values, Renal labs, Intake & Output, Diet tolerance, Weight change, PO Intake, Diet advancement, Wound/skin status, Medical course
--- NOTE | 2018-01-23 11:30 | P.PNIM ---
Subjective Interval history: Patient resting in bed offers no complaints at this time reports feeling good denies signs of active bleeding - although patient unreliable Physical Exam Vital signs: Vital Signs 01/22/18 12:00 01/22/18 14:08 01/22/18 15:52 Temperature 97.2 F L 97.8 F Pulse Rate 71 80 Respiratory Rate 20 Blood Pressure 101/50 L 117/52 L Pulse Oximetry 93 L 93 L 94 L 01/22/18 16:00 01/22/18 16:51 01/22/18 20:00 Temperature 98 F 97.8 F Pulse Rate 84 82 87 Respiratory Rate 20 18 Blood Pressure 119/52 L 130/64 Pulse Oximetry 93 L 95 01/23/18 00:00 01/23/18 04:00 01/23/18 08:00 Temperature 99.2 F 98.6 F 98.4 F Pulse Rate 83 84 82 Respiratory Rate 18 18 20 Blood Pressure 101/58 L 103/49 L 101/51 L Pulse Oximetry 93 L 97 94 L Intake & Output 01/22/18 01/23/18 01/23/18 18:59 06:59 18:59 Intake Total 480 / 480 299 / 299 Output Total 1000 / 1000 1350 / 1350 Balance -520 / -520 -1051 / -1051 Weight 72 kg Intake: Oral 480 / 480 Intake (Blood Product) Amt 0 / 0 Rbc As-3 Leukoreduced Unit 0 / 0 [id number] Mass Transfusion Protocol 299 / 299 Output: Urine 1000 / 1000 550 / 550 Urine Amount (Catheter) 800 / 800 Indwelling Urethral Catheter 800 / 800 Other: Date of Last Bowel Movement 01/19/18 01/22/18 # Bowel Movements 1 Narrative: GENERAL: Pleasantly confused 77 year old male in NAD SKIN: Warm and dry. ulcerations present on sacral area CARDIOVASCULAR: Regular rate and rhythm. RESPIRATORY: Breath sounds equal bilaterally. GASTROINTESTINAL: Abdomen soft, non-tender, nondistended. MUSCULOSKELETAL: Extremities without clubbing, cyanosis. No obvious deformities. NEUROLOGICAL: Awake, confused at time. Motor grossly within normal limits.. Normal speech. - Urinary Catheter Management Indwelling Urethral Catheter Cath placed during this visit: yes, but has since been removed by the nurse Reason for continuing: Chronic Urinary Retention Insertion date: 01/19/18 Insertion time: 21:00 Removal date: 01/12/18 Removal time: 11:35 Straight Cath placed during this visit: no Reason for continuing: Other continuation reason Condom Cath placed during this visit: no Results - Labs CBC & Chem 7: 01/23/18 06:15 01/23/18 06:15 Laboratory Results - last 24 hr 01/08/18 01/22/18 01/22/18 09:50 11:59 22:15 WBC RBC Hgb Hct MCV MCH MCHC RDW Plt Count MPV Prelim Diff (Auto) Neut % (Auto) Lymph % (Auto) [place] % (Auto) Eos % (Auto) Baso % (Auto) Neut # (Auto) Lymph # (Auto) [place] # (Auto) Eos # (Auto) Baso # (Auto) WBC Differential Diff Scan Differential Comment Platelet Estimate Platelet Morphology Dimorphic RBCs Ovalocytes Sodium Potassium Chloride Carbon Dioxide Anion Gap BUN Creatinine Estimated GFR POC Glucose 116 H Random Glucose Calcium Magnesium Blood Type O Positive Antibody Screen Negative MTS Gel Crossmatch See Detail See Detail Bld Prod Order Comment 01/23/18 01/23/18 06:15 06:15 WBC 7.2 RBC 3.48 L Hgb 8.9 L Hct 27.6 L MCV 79.1 L MCH 25.6 L MCHC 32.4 RDW 23.9 H Plt Count 300 MPV 7.8 Prelim Diff (Auto) Slide review pending Neut % (Auto) 67.3 Lymph % (Auto) 20.0 [place] % (Auto) 8.3 H Eos % (Auto) 2.7 Baso % (Auto) 1.7 Neut # (Auto) 4.8 Lymph # (Auto) 1.4 [place] # (Auto) 0.6 Eos # (Auto) 0.2 Baso # (Auto) 0.1 WBC Differential . Diff Scan Auto diff confirmed Differential Comment . Platelet Estimate Normal Platelet Morphology Clumped H Dimorphic RBCs Present H Ovalocytes 1+ H Sodium 135 L Potassium 3.4 L Chloride 91 L Carbon Dioxide 36.6 H Anion Gap 7 BUN 51 H Creatinine 1.53 H Estimated GFR 45 L POC Glucose Random Glucose 81 Calcium 8.1 L Magnesium 1.9 Blood Type Antibody Screen MTS Gel Crossmatch Bld Prod Order Comment Assessment and Plan - Plan The patient is a 77-year-old male admitted after having generalized weakness, falls at home, lactic acidemia, ultimately requiring intubation mechanical ventilation for respiratory failure. Had chest tube insertions bilaterally with substantial drainage. He was extubated on antibiotics for pneumonia. Blood cultures are negative. Pleural effusions -Bilateral pigtail chest tubes placed 01/05/2018. right CT drain -Left CT dislodged 01/14 -Transudative fluid. Monitor CT drainage. -CXR: Stable basilar airspace disease in the lungs. -d/c aztreonam (01/08- 01/15). Strep pneumonia, Legionella urinary antigen negative, - Now on Lasix 60mg PO BID, Zaroxolyn 5mg PO daily -Pulm consulted -Continue chest tube drainage -Diet as tolerated -IS q2h bedside -PT evaluation - Repeat CXR 01/18 stable , no PTX Possible CHF w/ preserved EF -Continue metoprolol, on Lasix 60mg BID - 2D echocardiogram The left ventricular systolic function is low normal with an estimated ejection fraction in the range of 50- 55%. Normal left ventricular size. Wall thickness is normal. No regional wall motion abnormalities are present. Mild thickening of the mitral valve leaflets. Mild mitral valve regurgitation. Aortic valve sclerosis is present. Mild aortic valve regurgitation. There is mild tricuspid valve regurgitation. The estimated pulmonary arterial pressure is 51.2 mmHg. The inferior vena cava is dilated. Acute Anemia poss due to acute GI bleed -Possible 2/2 GI bleed -Monitor for bleeding -Continue PPI, -On Protonix 40 mg daily. Antireflux regimen. Recommended repeat EGD in 3 years -Patient's hgb 7.2 (01/22) -> 8.9 (01/23) - transfuse 1 unit PRBC 01/22 - discussed with GI - Plan for colonoscopy Wednesday Chronic hepatic insufficiency -Bilirubin most recently 1.6 on 01/15 RICHARD Chronic Kidney Disease -KCL -Lasix -Nephro diuresing NSVT 01/22 -Patient had 6 beat NSVT 01/22 at 1455 -potassium 3.3 -replace potassium -mag 01/08 2.0 -recheck K 3.4 (01/23) mag 1.9 (01/23) -replaced -discussed with Dr. Choudhary -continuous telemetry -Cardiology has previously seen and aware of short NSVT -continue metoprolol 25 mg PO BID Thrombocytopenia,resolved -likely 2/2 hepatic insufficiency -s/p transfusion multiple units of PRBC, since admission. -Doppler US UE: Occlusive thrombus in the right cephalic vein. -No thrombus in the left upper extremity. -Patient is at high risk for AC given anemia, thrombocytopenia and possibly GI bleed Hematuria: UA, US if kidney Abdomen/Bladder Ultrasound 1. Continued severe hydronephrosis of the left kidney unchanged since the previous study. 2. 2 small cysts in the right kidney without evidence of hydronephrosis consult urology, appreciate recommendations Acute encephalopathy toxic / metabolic. Patient improved and back at his baseline Sacral wound worsening. 01/21 SACRAL WOUND ARE GETTING WORSE, Dr. Ansari DISCUSSED WITH MARYANA FROM WOUND CARE, SPECIALTY BED ORDERED , WOUND CARE REGIMEN CHANGED TO SANTYL Code Status: Full Discharge Planning: hematuria and urinary retention, has a norton, urology also ff. Now with worsening sacral wounds. Sacral wound is getting worse, reconsulted wound care ordered changed. Plan for colonoscopy Wednesday Discussed with patient, nurse and Dr. Choudhary
[2018-01-23] MEDS: Collagenase Oint 30 GM Tube TOPICAL SCH (14:36)
[2018-01-23] MEDS ORDERED: PEG 3350/E-Lyte Soln 4000 ML Bottle PO ONE (15:00)
--- NOTE | 2018-01-23 15:12 | P.PNGI ---
Subjective Interval history: Sleeps a lot resting in the bed no complaints of nausea vomiting or abdominal pain Plan for colonoscopy in a.m., dark urine probable some hematuria noted which could be related to patient's anemia Physical Exam Vital signs: Vital Signs 01/22/18 15:52 01/22/18 16:00 01/22/18 16:51 Temperature 97.8 F 98 F Pulse Rate 80 84 82 Respiratory Rate 20 Blood Pressure 117/52 L 119/52 L Pulse Oximetry 94 L 93 L 01/22/18 20:00 01/23/18 00:00 01/23/18 04:00 Temperature 97.8 F 99.2 F 98.6 F Pulse Rate 87 83 84 Respiratory Rate 18 18 18 Blood Pressure 130/64 101/58 L 103/49 L Pulse Oximetry 95 93 L 97 01/23/18 08:00 01/23/18 12:00 Temperature 98.4 F 97.9 F Pulse Rate 82 69 Respiratory Rate 20 20 Blood Pressure 101/51 L 110/53 L Pulse Oximetry 94 L 94 L Intake & Output 01/22/18 01/23/18 01/23/18 18:59 06:59 18:59 Intake Total 480 / 480 299 / 299 Output Total 1000 / 1000 1350 / 1350 Balance -520 / -520 -1051 / -1051 Weight 72 kg Intake: Oral 480 / 480 Intake (Blood Product) Amt 0 / 0 Rbc As-3 Leukoreduced Unit 0 / 0 [id number] Mass Transfusion Protocol 299 / 299 Output: Urine 1000 / 1000 550 / 550 Urine Amount (Catheter) 800 / 800 Indwelling Urethral Catheter 800 / 800 Other: Date of Last Bowel Movement 01/19/18 01/22/18 # Bowel Movements 1 - Constitutional no acute distress, disheveled, cooperative - Routine HEENT Exam ENT: Present: mucous membranes moist - Routine Respiratory Exam Present: accessory muscle use (Even, unlabored) - Routine Cardiovascular Exam Present: S1, S2 - Routine Abdominal Exam Present: soft (Round, soft,), normoactive bowel sounds - Urinary Catheter Management Indwelling Urethral Catheter Cath placed during this visit: yes, but has since been removed by the nurse Reason for continuing: Chronic Urinary Retention Insertion date: 01/19/18 Insertion time: 21:00 Removal date: 01/12/18 Removal time: 11:35 Straight Cath placed during this visit: no Reason for continuing: Other continuation reason Condom Cath placed during this visit: no Results - Labs CBC & Chem 7: 01/23/18 06:15 01/23/18 06:15 Laboratory Results - last 24 hr 01/08/18 01/22/18 01/22/18 09:50 11:59 22:15 WBC RBC Hgb Hct MCV MCH MCHC RDW Plt Count MPV Prelim Diff (Auto) Neut % (Auto) Lymph % (Auto) [facility] % (Auto) Eos % (Auto) Baso % (Auto) Neut # (Auto) Lymph # (Auto) [facility] # (Auto) Eos # (Auto) Baso # (Auto) WBC Differential Diff Scan Differential Comment Platelet Estimate Platelet Morphology Dimorphic RBCs Ovalocytes Sodium Potassium Chloride Carbon Dioxide Anion Gap BUN Creatinine Estimated GFR POC Glucose 116 H Random Glucose Calcium Magnesium Blood Type O Positive Antibody Screen Negative MTS Gel Crossmatch See Detail See Detail Bld Prod Order Comment 01/23/18 01/23/18 06:15 06:15 WBC 7.2 RBC 3.48 L Hgb 8.9 L Hct 27.6 L MCV 79.1 L MCH 25.6 L MCHC 32.4 RDW 23.9 H Plt Count 300 MPV 7.8 Prelim Diff (Auto) Slide review pending Neut % (Auto) 67.3 Lymph % (Auto) 20.0 [facility] % (Auto) 8.3 H Eos % (Auto) 2.7 Baso % (Auto) 1.7 Neut # (Auto) 4.8 Lymph # (Auto) 1.4 [facility] # (Auto) 0.6 Eos # (Auto) 0.2 Baso # (Auto) 0.1 WBC Differential . Diff Scan Auto diff confirmed Differential Comment . Platelet Estimate Normal Platelet Morphology Clumped H Dimorphic RBCs Present H Ovalocytes 1+ H Sodium 135 L Potassium 3.4 L Chloride 91 L Carbon Dioxide 36.6 H Anion Gap 7 BUN 51 H Creatinine 1.53 H Estimated GFR 45 L POC Glucose Random Glucose 81 Calcium 8.1 L Magnesium 1.9 Blood Type Antibody Screen MTS Gel Crossmatch Bld Prod Order Comment Assessment and Plan (1) Acute GI bleeding Status: Acute Code(s): K92.2 - Gastrointestinal hemorrhage, unspecified - Plan GI bleeding Patient awake and alert sitting up in bed. Per RN no active bleeding noted. N.p.o. status at this time, order to obtain consent for EGD placed. RN advised to notify family to obtain consent. Plan for EGD today or tomorrow pending consent. Hemoglobin 7.9 hematocrit 25.4 platelet count 248. 01/18/2018 GI bleeding Patient awake and alert sitting up in bed. RN reports stool dark brown with no bright red blood noted. No family located for consent for EGD. No nausea or vomiting reported. Hemoglobin 8.6 hematocrit 28.7 stable. 01/20/2018 Patient awake and alert. Denies any nausea vomiting or abdominal pain. Patient post EGD 01/19/2018 with the following findings: 1. Duodenum normal-biopsy 2. Retroflexed views revealed a hiatal hernia 01/21/2018 Patient resting soundly. Denies any abdominal pain nausea vomiting. Denies any noted bleeding. (01/20) hemoglobin 7.9 hematocrit 26.2 stable 01/22/2018 current hemoglobin 7.2 and normal WBC count. Still has some mild trending down anemia but does not appear to have symptoms at this time. Previous EGD unremarkable, will consider colonoscopy possibly Wednesday to further evaluate any lower GI bleeding. Repeat EGD in [address] Borjas, plan for colonoscopy Wednesday01/23/2018 current hemoglobin 8.9 but denies any nausea vomiting or abdominal pain. Since anemia has continued to be an issue patient is getting colonoscopy in the morning. Noted some dark urine, possible hematuria which may be some of the cause of his anemia. Further recommendations to follow after colonoscopy Plan Diet clear liquids today Monitor labs with special attention hemoglobin and transfuse as needed PPI Plan for colonoscopy Wednesday, consent N.p.o. at midnight Wednesday night GoLYTELY prep, patient will need assistance with and please call GI if patient cannot tolerate Further recommendations to follow after colonoscopy Monitor labs Patient was seen per myself and Dr. Borjas, note was written on his behalf
[2018-01-24] MEDS: Insulin NovoLIN Regular Correctional Sugar Inj SQ SCH ×8 (00:05→23:05)
[2018-01-24 07:33] LABS: Baso # (Auto) 0.1 th/mm3 (0.0-0.2); Baso % (Auto) 1.5 % (0.0-2.0); Eos # (Auto) 0.2 th/mm3 (0.0-0.4); Eos % (Auto) 3.8 % (0.0-4.0); Hematocrit 29.7 % (39.0-51.0); Hemoglobin 9.3 gm/dL (13.0-17.0); Lymph # (Auto) 1.3 th/mm3 (1.0-4.8); Lymph % (Auto) 24.3 % (9.0-44.0); Mean Corpuscular HGB Conc 31.3 % (32.0-36.0); Mean Corpuscular Hemoglobin 25.1 pg (27.0-34.0); Mean Corpuscular Volume 80.2 fL (80.0-100.0); Mean Platelet Volume 7.7 fL (7.0-11.0); Mono # (Auto) 0.6 th/mm3 (0.0-0.9); Mono % (Auto) 10.6 % (0.0-8.0); Neut # (Auto) 3.2 th/mm3 (1.8-7.7); Neut % (Auto) 59.8 % (16.0-70.0); Platelet Count 281 th/mm3 (150-450); Red Cell Distribution Width 23.7 % (11.6-17.2); White Blood Count 5.3 th/mm3 (4.0-11.0)
[2018-01-24 07:49] LABS: Potassium 3.3 meq/L (3.5-5.1)
[2018-01-24] MEDS ORDERED: Magnesium Citrate Liq 300 ML Bottle PO ONE ×2 (08:45→09:00)
[2018-01-24] MEDS: Pantoprazole Inj 40 MG Vial IV.PUSH SCH (09:16)
[2018-01-24] MEDS: Senna/Docusate Sodium 8.6/50 MG Tablet PO SCH ×2 (09:17→21:17)
[2018-01-24] MEDS: Metoprolol Tartrate 25 MG Tablet PO SCH ×2 (09:17→21:16)
[2018-01-24] MEDS: metOLazone 5 MG Tablet PO SCH (09:18)
[2018-01-24] MEDS: Sodium Chloride 0.9% 2 ML Flush BID IV.FLUSH SCH ×2 (09:18→21:17)
[2018-01-24] MEDS: Collagenase Oint 30 GM Tube TOPICAL SCH (09:18)
[2018-01-24] MEDS: Furosemide 20 MG Tablet PO SCH ×2 (09:40→17:20)
[2018-01-24 09:55] LABS: Ovalocytes 1+
[2018-01-24 09:56] LABS: Dimorphic RBC Present
--- NOTE | 2018-01-24 12:22 | P.PCN ---
Date of procedure: 01/24/18 Pre-op diagnosis: Worsening anemia rule out GI bleed Procedure: PROCEDURE PERFORMED Colonoscopy with biopsy and snare polypectomy PROCEDURE: The procedure, risks and benefits were discussed with Patient/POA and informed consent was obtained. Anesthesia sedated Patient with Diprivan. Patient was placed in the left lateral decubitus position. Colonoscopy: The Pentax videoscope was introduced through the rectum and advanced to cecum where the ileocecal valve and appendiceal orifice were identified. Retroflexion was performed in the rectum. Colonic prep was good FINDINGS: Colonic withdrawal time greater than 6 minutes. As the scope was slowly withdrawn colonic mucosa was carefully inspected the patient was noted to have a small sessile polyp in the cecum this was excised using a biopsy forceps there was another medium sized polyp measuring about 6-8 mm in the sigmoid region this was excised using cold snare technique both polyps were retrieved for further evaluation colonic mucosa was otherwise unremarkable with normal limits patient was noted to have mild diverticulosis of the sigmoid region rectal examination and retroflexion were basically unremarkable ESTIMATED BLOOD LOSS: None SPECIMENS REMOVED: Colon biopsies COMPLICATIONS: None IMPRESSION: Colon polyps Diverticulosis PLAN: Await biopsies Advance diet as tolerated Continue with current supportive care Monitor labs and transfuse as needed Most likely the anemia is multifactorial with no obvious GI bleed at this point Patient will need a colonoscopy in 5 years Not much to add from a GI perspective we will sign off Anesthesia: MAC Surgeon: Feliciano Gabriel Condition: stable Disposition: floor
--- NOTE | 2018-01-24 18:09 | P.PN ---
Subjective Interval history: Follow up on patient with GIB. Patient seen and examined. Patient s/p colonoscopy earlier today. He denies any complaints or concerns. Physical Exam Vital signs: Vital Signs 01/23/18 20:00 01/24/18 00:00 01/24/18 04:00 Temperature 98.6 F 98.4 F 97.9 F Pulse Rate 83 89 80 Respiratory Rate 18 20 18 Blood Pressure 116/57 L 122/61 118/58 L Pulse Oximetry 91 L 93 L 91 L 01/24/18 08:00 01/24/18 12:30 01/24/18 12:48 Temperature 97.4 F L 97.2 F L 98.1 F Pulse Rate 81 80 80 Respiratory Rate 16 16 18 Blood Pressure 109/51 L 117/61 124/74 Pulse Oximetry 94 L 94 L 94 L Intake & Output 01/23/18 01/24/18 01/24/18 18:59 06:59 18:59 Intake Total 0 / 0 Output Total 610 / 610 800 / 800 Balance -610 / -610 -800 / -800 Intake: Other 0 / 0 Output: Urine 550 / 550 Pleural Fluid 0 / 0 Urine Amount (Catheter) 800 / 800 Indwelling Urethral Catheter 800 / 800 Chest Tube Drainage 60 / 60 Right Upper Pleural 60 / 60 Other: Date of Last Bowel Movement 01/22/18 01/22/18 # Bowel Movements 1 Narrative: GENERAL: WDWN elderly male patient, INAD. Awake and alert. Appears comfortable. SKIN: Warm and dry. HEENT: Atraumatic. Normocephalic. Pupils equal and round. No scleral icterus. No injection or drainage. No nasal bleeding or discharge. Mucous membranes pink and moist. NECK: Trachea midline. CARDIOVASCULAR: Regular rate and rhythm. RESPIRATORY: No accessory muscle use. Clear to auscultation. Breath sounds equal bilaterally. GASTROINTESTINAL: Abdomen soft, non-tender, nondistended. Hepatic and splenic margins not palpable. MUSCULOSKELETAL: Extremities without clubbing, cyanosis, or edema. No obvious deformities. NEUROLOGICAL: Awake and alert. Partially oriented. No obvious cranial nerve deficits. Motor grossly within normal limits. Normal speech. PSYCHIATRIC: Calm and cooperative. - Urinary Catheter Management Indwelling Urethral Catheter Cath placed during this visit: yes, but has since been removed by the nurse Reason for continuing: Acute urinary retention Insertion date: 01/19/18 Insertion time: 21:00 Removal date: 01/12/18 Removal time: 11:35 Straight Cath placed during this visit: no Reason for continuing: Other continuation reason Condom Cath placed during this visit: no Results - Labs CBC & Chem 7: 01/24/18 05:39 01/24/18 05:39 Laboratory Results - last 24 hr 01/23/18 01/24/18 01/24/18 22:15 05:39 05:39 WBC 5.3 RBC 3.70 L Hgb 9.3 L Hct 29.7 L MCV 80.2 MCH 25.1 L MCHC 31.3 L RDW 23.7 H Plt Count 281 MPV 7.7 Prelim Diff (Auto) Slide review pending Neut % (Auto) 59.8 Lymph % (Auto) 24.3 [place]cdonald % (Auto) 10.6 H Eos % (Auto) 3.8 Baso % (Auto) 1.5 Neut # (Auto) 3.2 Lymph # (Auto) 1.3 [place]cdonald # (Auto) 0.6 Eos # (Auto) 0.2 Baso # (Auto) 0.1 WBC Differential . Diff Scan Auto diff confirmed Differential Comment . Dimorphic RBCs Present H Ovalocytes 1+ H Sodium 137 Potassium 3.3 L Chloride 90 L Carbon Dioxide 39.0 H Anion Gap 8 BUN 52 H Creatinine 1.44 H Estimated GFR 48 L POC Glucose 84 Random Glucose 72 L Calcium 8.0 L 01/24/18 01/24/18 01/24/18 09:32 12:44 14:01 WBC RBC Hgb Hct MCV MCH MCHC RDW Plt Count MPV Prelim Diff (Auto) Neut % (Auto) Lymph % (Auto) [place] % (Auto) Eos % (Auto) Baso % (Auto) Neut # (Auto) Lymph # (Auto) [place] # (Auto) Eos # (Auto) Baso # (Auto) WBC Differential Diff Scan Differential Comment Dimorphic RBCs Ovalocytes Sodium Potassium Chloride Carbon Dioxide Anion Gap BUN Creatinine Estimated GFR POC Glucose 85 74 80 Random Glucose Calcium Assessment and Plan - Plan 77-year-old male admitted after having generalized weakness, falls at home, lactic acidemia, ultimately requiring intubation mechanical ventilation for respiratory failure. Had chest tube insertions bilaterally with substantial drainage. He was extubated on antibiotics for pneumonia. Blood cultures are negative. Pleural effusions -Bilateral pigtail chest tubes placed 01/05/2018. right CT drain -Left CT dislodged 01/14 -Transudative fluid. Monitor CT drainage. -CXR: Stable basilar airspace disease in the lungs. -d/c aztreonam (01/08- 01/15). Strep pneumonia, Legionella urinary antigen negative, - Now on Lasix 60mg PO BID, Zaroxolyn 5mg PO daily -Pulm consulted -Continue chest tube drainage -Diet as tolerated -IS q2h bedside -PT evaluation - Repeat CXR 01/18 stable , no PTX -01/[address] Peoples, cleared for discharge from pulmonary standpoint Possible CHF w/ preserved EF -Continue metoprolol, on Lasix 60mg BID - 2D echocardiogram The left ventricular systolic function is low normal with an estimated ejection fraction in the range of 50- 55%. Normal left ventricular size. Wall thickness is normal. No regional wall motion abnormalities are present. Mild thickening of the mitral valve leaflets. Mild mitral valve regurgitation. Aortic valve sclerosis is present. Mild aortic valve regurgitation. There is mild tricuspid valve regurgitation. The estimated pulmonary arterial pressure is 51.2 mmHg. The inferior vena cava is dilated. Acute Anemia poss due to acute GI bleed -Possible 2/2 GI bleed -Monitor for bleeding -Continue PPI, -On Protonix 40 mg daily. Antireflux regimen. Recommended repeat EGD in 3 years -Patient's hgb 7.2 (01/22) -> 8.9 (01/23) - transfuse 1 unit PRBC 01/22 -H/H appears stable - 01/24 s/p colonoscopy, awaiting report Chronic hepatic insufficiency -Bilirubin most recently 1.6 on 01/15 RICHARD Chronic Kidney Disease -KCL -Lasix -Nephro diuresing NSVT 01/22 -Patient had 6 beat NSVT 01/22 at 1455 -potassium 3.3 -replace potassium -mag 01/08 2.0 -recheck K 3.4 (01/23) mag 1.9 (01/23) -replaced -discussed with Dr. Choudhary -continuous telemetry -Cardiology has previously seen and aware of short NSVT -continue metoprolol 25 mg PO BID Thrombocytopenia,resolved -likely 2/2 hepatic insufficiency -s/p transfusion multiple units of PRBC, since admission. -Doppler US UE: Occlusive thrombus in the right cephalic vein. -No thrombus in the left upper extremity. -Patient is at high risk for AC given anemia, thrombocytopenia and possibly GI bleed Hematuria: UA, US if kidney Abdomen/Bladder Ultrasound 1. Continued severe hydronephrosis of the left kidney unchanged since the previous study. 2. 2 small cysts in the right kidney without evidence of hydronephrosis consult urology, appreciate recommendations Acute encephalopathy toxic / metabolic. Patient improved and back at his baseline Hypokalemia K 3.3 Mag 1.9 -po repletion ordered -repeat BMP in am Sacral wound worsening. 01/21 SACRAL WOUND ARE GETTING WORSE, Dr. Ansari DISCUSSED WITH MARYANA FROM WOUND CARE, SPECIALTY BED ORDERED , WOUND CARE REGIMEN CHANGED TO SANTYL Code Status: Full Discussed Condition With: patient, nursing staff, Dr. Peoples, Dr. Choudhary
[2018-01-25] MEDS: Insulin NovoLIN Regular Correctional Sugar Inj SQ SCH ×5 (03:00→21:49)
[2018-01-25 07:28] LABS: Calcium 8.1 mg/dL (8.5-10.1); Carbon Dioxide 37.5 meq/L (21.0-32.0); Potassium 3.7 meq/L (3.5-5.1)
[2018-01-25] MEDS: Pantoprazole Inj 40 MG Vial IV.PUSH SCH (09:43)
[2018-01-25] MEDS: Metoprolol Tartrate 25 MG Tablet PO SCH ×2 (09:43→20:59)
[2018-01-25] MEDS: Furosemide 20 MG Tablet PO SCH ×2 (09:44→17:44)
[2018-01-25] MEDS: Sodium Chloride 0.9% 2 ML Flush BID IV.FLUSH SCH ×2 (09:44→21:50)
[2018-01-25] MEDS: Multivitamin/Minerals Therapeutic Tablet PO SCH (09:44)
[2018-01-25] MEDS: metOLazone 5 MG Tablet PO SCH (09:44)
[2018-01-25] MEDS: Senna/Docusate Sodium 8.6/50 MG Tablet PO SCH ×2 (09:45→20:59)
[2018-01-25] MEDS: Collagenase Oint 30 GM Tube TOPICAL SCH (09:53)
--- NOTE | 2018-01-25 15:42 | P.PNIM ---
Subjective Interval history: No complaints. This is a difficult placement situation. Patient is otherwise stable and awaiting placement into rehab. Physical Exam Vital signs: Vital Signs 01/24/18 16:00 01/24/18 19:40 01/24/18 20:00 Temperature 97.8 F 98.2 F Pulse Rate 79 85 85 Respiratory Rate 18 16 Blood Pressure 103/51 L 108/44 L Pulse Oximetry 92 L 91 L 01/24/18 23:45 01/25/18 00:00 01/25/18 04:00 Temperature 97.6 F 98.1 F Pulse Rate 79 85 82 Respiratory Rate 16 20 Blood Pressure 121/63 109/54 L Pulse Oximetry 92 L 95 01/25/18 08:00 01/25/18 12:00 01/25/18 12:30 Temperature 97.5 F L 97.4 F L Pulse Rate 75 82 80 Respiratory Rate 20 20 Blood Pressure 106/48 L 101/45 L Pulse Oximetry 100 Intake & Output 01/24/18 01/25/18 01/25/18 18:59 06:59 18:59 Intake Total 240 / 240 Output Total 725 / 725 750 / 750 Balance -485 / -485 -750 / -750 Weight 71 kg Intake: Oral 240 / 240 Output: Urine 725 / 725 750 / 750 Other: Date of Last Bowel Movement 01/24/18 # Bowel Movements 2 1 Narrative: GENERAL: NAD, A&Ox3 HEAD: Normocephalic. NECK: Supple, trachea midline. No lymphadenopathy. EYES: No scleral icterus. No injection or drainage. CARDIOVASCULAR: Regular rate and rhythm without murmurs, gallops, or rubs. RESPIRATORY: Breath sounds equal bilaterally. No accessory muscle use. GASTROINTESTINAL: Abdomen soft, non-tender, nondistended. MUSCULOSKELETAL: No cyanosis, or edema. SKIN: Warm and dry. NEURO: No focal neurological deficits. - Urinary Catheter Management Indwelling Urethral Catheter Cath placed during this visit: yes, but has since been removed by the nurse Reason for continuing: Hourly intake/output Insertion date: 01/19/18 Insertion time: 21:00 Removal date: 01/12/18 Removal time: 11:35 Straight Cath placed during this visit: no Reason for continuing: Other continuation reason Condom Cath placed during this visit: no Results - Labs CBC & Chem 7: 01/24/18 05:39 01/25/18 05:00 Laboratory Results - last 24 hr 01/24/18 01/24/18 01/25/18 19:53 23:04 02:57 Sodium Potassium Chloride Carbon Dioxide Anion Gap BUN Creatinine Estimated GFR POC Glucose 127 H 105 108 Random Glucose Calcium 01/25/18 01/25/18 05:00 07:33 Sodium 139 Potassium 3.7 Chloride 94 L Carbon Dioxide 37.5 H Anion Gap 8 BUN 55 H Creatinine 1.59 H Estimated GFR 43 L POC Glucose 91 Random Glucose 87 Calcium 8.1 L Assessment and Plan - Plan 77-year-old male admitted secondary to weakness and frequent falls, weakness persists status post mechanical ventilation for respiratory failure for pneumonia. Pleural effusions Status post chest tube placements Continue Lasix Continues Zaroxolyn Pulmonology following Generalized weakness Physical therapy Possible diastolic CHF Continue metoprolol Continue Lasix Acute Anemia poss due to acute GI bleed Follow H&H for stability Chronic hepatic insufficiency Follow clinically RICHARD Chronic Kidney Disease Continue diuretic Follow renal function NSVT Maintain potassium levels Continue metoprolol Thrombocytopenia Resolved Hematuria Renal cysts Resolved Follows an outpatient Hypokalemia Monitor and replace as needed Sacral wound Wound care following Continue wound care Acute encephalopathy Resolved
--- NOTE | 2018-01-25 18:08 | P.PN ---
Subjective Interval history: He is stable on O2 2 L. Has no SOB and able to take a diet. Had colonoscopy done. Physical Exam Vital signs: Vital Signs 01/24/18 19:40 01/24/18 20:00 01/24/18 23:45 Temperature 98.2 F Pulse Rate 85 85 79 Respiratory Rate 16 Blood Pressure 108/44 L Pulse Oximetry 91 L 01/25/18 00:00 01/25/18 04:00 01/25/18 08:00 Temperature 97.6 F 98.1 F 97.5 F L Pulse Rate 85 82 75 Respiratory Rate 16 20 20 Blood Pressure 121/63 109/54 L 106/48 L Pulse Oximetry 92 L 95 100 01/25/18 12:00 01/25/18 12:30 01/25/18 15:04 Temperature 97.4 F L Pulse Rate 82 80 75 Respiratory Rate 20 Blood Pressure 101/45 L Pulse Oximetry Intake & Output 01/24/18 01/25/18 01/25/18 18:59 06:59 18:59 Intake Total 240 / 240 Output Total 725 / 725 750 / 750 Balance -485 / -485 -750 / -750 Weight 71 kg Intake: Oral 240 / 240 Output: Urine 725 / 725 750 / 750 Other: Date of Last Bowel Movement 01/24/18 01/25/18 # Bowel Movements 2 1 Narrative: GENERAL:Elderly Confused W/M NAD. HEAD: Normocephalic. NECK: Supple, trachea midline. No lymphadenopathy. EYES: No scleral icterus. No injection or drainage. CARDIOVASCULAR: Regular rate and rhythm without murmurs, gallops, or rubs. RESPIRATORY: Breath sounds equal bilaterally. Occ Basal crackles.No accessory muscle use. GASTROINTESTINAL: Abdomen soft, non-tender, nondistended. MUSCULOSKELETAL: No cyanosis, or edema. SKIN: Warm and dry. NEURO: No focal neurological deficits. - Urinary Catheter Management Indwelling Urethral Catheter Cath placed during this visit: yes, but has since been removed by the nurse Reason for continuing: Hourly intake/output Insertion date: 01/19/18 Insertion time: 21:00 Removal date: 01/12/18 Removal time: 11:35 Straight Cath placed during this visit: no Reason for continuing: Other continuation reason Condom Cath placed during this visit: no Results - Labs CBC & Chem 7: 01/24/18 05:39 01/25/18 05:00 Laboratory Results - last 24 hr 01/24/18 01/24/18 01/25/18 19:53 23:04 02:57 Sodium Potassium Chloride Carbon Dioxide Anion Gap BUN Creatinine Estimated GFR POC Glucose 127 H 105 108 Random Glucose Calcium 01/25/18 01/25/18 01/25/18 05:00 07:33 17:42 Sodium 139 Potassium 3.7 Chloride 94 L Carbon Dioxide 37.5 H Anion Gap 8 BUN 55 H Creatinine 1.59 H Estimated GFR 43 L POC Glucose 91 108 Random Glucose 87 Calcium 8.1 L Assessment and Plan - Assessment (1) Encephalopathy Code(s): G93.40 - Encephalopathy, unspecified Status: Acute (2) Acute GI bleeding Code(s): K92.2 - Gastrointestinal hemorrhage, unspecified Status: Acute (3) Sepsis Code(s): A41.9 - Sepsis, unspecified organism Status: Acute (4) Symptomatic anemia Code(s): D64.9 - Anemia, unspecified Status: Acute (5) Pleural effusion Code(s): J90 - Pleural effusion, not elsewhere classified Status: Acute (6) Acute exacerbation of congestive heart failure Code(s): I50.9 - Heart failure, unspecified Status: Acute (7) RICHARD (acute kidney injury) Code(s): N17.9 - Acute kidney failure, unspecified Status: Acute (8) Conjunctivitis Code(s): H10.9 - Unspecified conjunctivitis Status: Acute (9) CKD (chronic kidney disease) stage 4, GFR 15-29 ml/min Code(s): N18.4 - Chronic kidney disease, stage 4 (severe) Status: Acute - Plan 1. Cont O2 2 L N/C PRN 2. Chest X ray today 3 Duoneb nebs TID 4. Diet as tolerated. 5. IS q2h bedside. 6. PT evaluation. 7. Continue Lasix and Aldactone. 8. CBC,BMP in am (3) Sepsis Qualifiers: Sepsis type: sepsis due to unspecified organism Qualified Code(s): A41.9 - Sepsis, unspecified organism (6) Acute exacerbation of congestive heart failure Qualifiers: Heart failure type: unspecified Qualified Code(s): I50.9 - Heart failure, unspecified (8) Conjunctivitis Qualifiers: Conjunctivitis type: acute Acute conjunctivitis type: bacterial Laterality: bilateral Qualified Code(s): H10.33 - Unspecified acute conjunctivitis, bilateral
--- NOTE | 2018-01-25 19:14 | XR ---
EXAM DATE: 01/25/2018 12:00 AM EDT AGE/SEX: 77 years / Male INDICATIONS: . Evaluate for infiltrate and shortness of breath. CLINICAL DATA: This is the patient's subsequent encounter. Patient reports that signs and symptoms h ave been present for 2 weeks and indicates a pain score of 0/10. MEDICAL/SURGICAL HISTORY: . Congestive heart failure. Renal disease. None. COMPARISON: [facility] [place], CHEST 1V SINGLE AP, 01/21/2018. . FINDINGS: AP and lateral views of the chest demonstrate small left pleural effusion. A left lower lobe intra-al veolar opacity is noted which is less pronounced from the prior study. Right lung is clear. Heart is normal in size. A degenerative and mildly scoliotic spine. Degenerative changes involving the shoulde rs particularly on the right. CONCLUSION: Small left pleural effusion with improving left lower lobe infiltrate. Electronically signed by: Sherman Kamara MD 01/25/2018 7:13 PM EDT
[2018-01-26] MEDS: Insulin NovoLIN Regular Correctional Sugar Inj SQ SCH ×6 (00:40→20:09)
[2018-01-26 09:39] LABS: Baso # (Auto) 0.1 th/mm3 (0.0-0.2); Baso % (Auto) 1.6 % (0.0-2.0); Eos # (Auto) 0.3 th/mm3 (0.0-0.4); Eos % (Auto) 5.2 % (0.0-4.0); Hematocrit 28.5 % (39.0-51.0); Hemoglobin 8.9 gm/dL (13.0-17.0); Lymph # (Auto) 1.2 th/mm3 (1.0-4.8); Lymph % (Auto) 22.1 % (9.0-44.0); Mean Corpuscular HGB Conc 31.3 % (32.0-36.0); Mean Corpuscular Hemoglobin 25.4 pg (27.0-34.0); Mean Corpuscular Volume 81.1 fL (80.0-100.0); Mean Platelet Volume 7.5 fL (7.0-11.0); Mono # (Auto) 0.5 th/mm3 (0.0-0.9); Mono % (Auto) 8.8 % (0.0-8.0); Neut # (Auto) 3.3 th/mm3 (1.8-7.7); Neut % (Auto) 62.3 % (16.0-70.0); Platelet Count 225 th/mm3 (150-450); Red Blood Count 3.52 mil/mm3 (4.50-5.90); Red Cell Distribution Width 23.3 % (11.6-17.2); White Blood Count 5.2 th/mm3 (4.0-11.0)
[2018-01-26 10:01] LABS: Albumin 2.1 g/dL (3.4-5.0); Anion Gap 7 meq/L (5-15); Aspartate Aminotransferase 21 U/L (15-37); Blood Urea Nitrogen 56 mg/dL (7-18); Calcium 8.7 mg/dL (8.5-10.1); Carbon Dioxide 37.8 meq/L (21.0-32.0); Chloride 92 meq/L (98-107); Glomerular Filtration Rate 41 mL/min (>89); Glucose,Random 87 mg/dL (74-106); Potassium 3.4 meq/L (3.5-5.1); Sodium 137 meq/L (136-145)
[2018-01-26 10:03] LABS: Alanine Aminotransferase 10 U/L (12-78)
[2018-01-26 10:05] LABS: Alkaline Phosphatase 87 U/L (45-117); Total Protein 7.5 g/dL (6.4-8.2)
[2018-01-26] MEDS: Senna/Docusate Sodium 8.6/50 MG Tablet PO SCH ×2 (10:56→20:23)
[2018-01-26] MEDS: metOLazone 5 MG Tablet PO SCH (10:56)
[2018-01-26] MEDS: Metoprolol Tartrate 25 MG Tablet PO SCH ×2 (10:56→20:23)
[2018-01-26] MEDS: Collagenase Oint 30 GM Tube TOPICAL SCH (10:56)
[2018-01-26] MEDS: Furosemide 20 MG Tablet PO SCH ×2 (10:56→18:28)
[2018-01-26] MEDS: Multivitamin/Minerals Therapeutic Tablet PO SCH (10:56)
[2018-01-26] MEDS: Pantoprazole Inj 40 MG Vial IV.PUSH SCH (10:57)
[2018-01-26] MEDS: Sodium Chloride 0.9% 2 ML Flush BID IV.FLUSH SCH ×2 (11:01→20:24)
--- NOTE | 2018-01-26 11:40 | P.DS ---
Date of admission: 01/04/18 21:41 Primary care physician: UNKNOWN Brief History from admission: [facility] Narrative: Patient is a 77-year-old male that presents for the evaluation of progressive leg weakness over the past 2 months. The patient states that over the past 2 months his left leg feels like it gets weak after standing and walking. The patient reports that he wakes up in the morning and can walk as usual but as the day progresses his left leg in particular begins to feel weak and he can no longer walk. The patient denies any past medical history at this time. He denies any pain. He denies fever, chill, chest pain, nausea, or vomiting. He does report shortness of breath that he states is normal for him. Upon further evaluation the patient also states that for the past couple days his left eye has had purulent discharge that has caused his eyelid to swell and causes it to stay shut. DS: Medications - Discharge Medications Prescriptions: furosemide 60 mg PO BID@0900,1800 #60 tab metolazone 5 mg PO DAILY #30 tab metoprolol tartrate 25 mg PO BID #60 tab tamsulosin 0.4 mg PO DAILY #30 cap DS: Summary Hospital Course: Mr. Murguia is a 77-year-old male. He was admitted secondary to GI bleed with symptomatic anemia. He also had CHF exacerbation. During this hospital stay metoprolol has been added to his treatment regime as well as Lasix and metolazone. He has been provided Flomax for some urinary obstructive symptoms. Urinary obstructive symptoms are related to BPH. At this point he continues to remain weak. He is not stable for discharge home at this point. However he is medically clear and stable for discharge to [facility] facility. Placement may be an issue in this regard due to patient's lack of insurance. Insurance pending. Placement pending. - Time Spent with Patient Total time spent providing and/or coordinating discharge services: Less than 30 minutes - Quality: VTE Deep Vein Thrombosis/Pulmonary Embolism Present on Admission: Yes Exam Vital signs: Vital Signs 01/25/18 12:00 01/25/18 12:30 01/25/18 15:04 Temperature 97.4 F L Pulse Rate 82 80 75 Respiratory Rate 20 Blood Pressure 101/45 L Pulse Oximetry 01/25/18 16:00 01/25/18 20:00 10/24/18 00:00 Temperature 97.8 F 97.5 F L 98.1 F Pulse Rate 80 87 75 Respiratory Rate 20 18 17 Blood Pressure 123/58 L 110/53 L 110/56 L Pulse Oximetry 96 100 97 01/26/18 04:00 01/26/18 08:00 Temperature 97.5 F L 97.5 F L Pulse Rate 75 82 Respiratory Rate 18 18 Blood Pressure 112/55 L 119/58 L Pulse Oximetry 100 96 Intake & Output 01/25/18 01/26/18 01/26/18 18:59 06:59 18:59 Intake Total 0 / 0 Output Total 550 / 550 550 / 550 Balance -550 / -550 -550 / -550 Weight 63.2 kg Intake: Oral 0 / 0 Output: Urine 550 / 550 550 / 550 Urine/Stool Mix 0 / 0 Other: Date of Last Bowel Movement 01/25/18 01/25/18 # Bowel Movements 1 Results Procedures completed during hospitalization: none Completed studies during hospitalization: Pending at discharge 01/19/18 13:10 Surgical [PTH] Routine Pending studies at discharge: Pending at discharge 01/24/18 07:42 Surgical [PTH] Routine Labs on day of discharge: Labs from last 24 hours 01/26/18 01/26/18 01/26/18 09:19 09:19 08:33 WBC 5.2 RBC 3.52 L Hgb 8.9 L Hct 28.5 L MCV 81.1 MCH 25.4 L MCHC 31.3 L RDW 23.3 H Plt Count 225 MPV 7.5 Neut % (Auto) 62.3 Lymph % (Auto) 22.1 [place] % (Auto) 8.8 H Eos % (Auto) 5.2 H Baso % (Auto) 1.6 Neut # (Auto) 3.3 Lymph # (Auto) 1.2 [place] # (Auto) 0.5 Eos # (Auto) 0.3 Baso # (Auto) 0.1 WBC Differential . Differential Comment Auto diff final Sodium 137 Potassium 3.4 L Chloride 92 L Carbon Dioxide 37.8 H Anion Gap 7 BUN 56 H Creatinine 1.63 H Estimated GFR 41 L POC Glucose 97 Random Glucose 87 Calcium 8.7 Total Bilirubin 0.8 AST 21 ALT 10 L Alkaline Phosphatase 87 Total Protein 7.5 Albumin 2.1 L 01/26/18 01/25/18 03:40 17:42 WBC RBC Hgb Hct MCV MCH MCHC RDW Plt Count MPV Neut % (Auto) Lymph % (Auto) [place] % (Auto) Eos % (Auto) Baso % (Auto) Neut # (Auto) Lymph # (Auto) [place] # (Auto) Eos # (Auto) Baso # (Auto) WBC Differential Differential Comment Sodium Potassium Chloride Carbon Dioxide Anion Gap BUN Creatinine Estimated GFR POC Glucose 109 108 Random Glucose Calcium Total Bilirubin AST ALT Alkaline Phosphatase Total Protein Albumin Preliminary micro results at discharge 01/05/18 08:00 Mycobacterial Culture - Preliminary Other No growth in 2 weeks - Impressions ITS Impressions Head CT 01/04/18 18:15 CONCLUSION: Motion degraded study without evidence of bleed or other acute intracranial abnormality. . Lumbar Spine CT 01/04/18 18:18 CONCLUSION: 1. No subluxation or acute fracture of the lumbar spine. 2. There is an old, mild compression deformity of L3. 3. Multilevel degenerative changes and diffuse idiopathic skeletal hyperostosis. 4. Pleural effusions and parenchymal consolidation partly seen of the visualized lung bases. 5. Atrophy and apparent hydronephrosis of the left knee. Face CT 01/04/18 20:14 CONCLUSION: 1. Focal minimally displaced fracture of the tip of the nasion. 2. Preseptal soft tissue contusion of the left orbit. 3. Acute on chronic appearing left maxillary sinusitis. Abdomen/Pelvis CT 01/05/18 00:00 CONCLUSION: 1. Bilateral moderate to large pleural effusions, left greater than right with associated lower lobe airspace disease. 2. Abnormal appearance of the left kidney with numerous cortical cysts. Apparent prominence of the renal collecting system does not have a corresponding finding on today's ultrasound exam. However, it remains concerning for mild to moderate hydronephrosis. 3. 7 mm calyceal calculus in the inferior pole of the left kidney. 4. Diffuse anasarca with small amount ascites. 5. Mild sigmoid diverticulosis. 6. Normal appendix. Venous Doppler Study 01/12/18 00:00 CONCLUSION: 1. Occlusive thrombus in the right cephalic vein. 2. No thrombus in the left upper extremity. Abdomen/Bladder Ultrasound 01/19/18 00:00 CONCLUSION: 1. Continued severe hydronephrosis of the left kidney unchanged since the previous study. 2. 2 small cysts in the right kidney without evidence of hydronephrosis Chest X-Ray 01/25/18 00:00 CONCLUSION: Small left pleural effusion with improving left lower lobe infiltrate. Discharge Plan - Discharge Disposition Patient Disposition: Discharge to SNF - Discharge Condition Condition: Stable - Discharge Order Discharge Orders: Discharge Order (Routine); Ordered 01/26/18 Ordered By: Sameer Connor - Discharge Details Anticipated Discharge Date: 01/26/18 Discharge Comment: May discharge to SNF rehab, when placement avaliable - Physicians Team Primary Care Provider: UNKNOWN, Attending Provider: Sameer Connor Other Providers: Fantasma Ball DO ; Feliciano Gabriel MD ; Wiley Phipps MD ; Edgar Weaver MD ; Eugene Akins MD
--- NOTE | 2018-01-26 18:40 | P.PN ---
Subjective Interval history: he is doing better. Off o2 sat 96. CXR shows min effusion on the left . taking his diet well. Physical Exam Vital signs: Vital Signs 01/25/18 20:00 01/26/18 00:00 01/26/18 04:00 Temperature 97.5 F L 98.1 F 97.5 F L Pulse Rate 87 75 75 Respiratory Rate 18 17 18 Blood Pressure 110/53 L 110/56 L 112/55 L Pulse Oximetry 100 97 100 01/26/18 08:00 Temperature 97.5 F L Pulse Rate 82 Respiratory Rate 18 Blood Pressure 119/58 L Pulse Oximetry 96 Intake & Output 01/25/18 01/26/18 01/26/18 18:59 06:59 18:59 Intake Total 0 / 0 Output Total 550 / 550 550 / 550 Balance -550 / -550 -550 / -550 Weight 63.2 kg Intake: Oral 0 / 0 Output: Urine 550 / 550 550 / 550 Urine/Stool Mix 0 / 0 Other: Date of Last Bowel Movement 01/25/18 01/25/18 # Bowel Movements 1 Narrative: GENERAL:Elderly W/M NAD. HEAD: Normocephalic. NECK: Supple, trachea midline. No lymphadenopathy. EYES: No scleral icterus. No injection or drainage. CARDIOVASCULAR: Regular rate and rhythm without murmurs, gallops, or rubs. RESPIRATORY: Breath sounds equal bilaterally. Few Basal crackles.No accessory muscle use. GASTROINTESTINAL: Abdomen soft, non-tender, nondistended. MUSCULOSKELETAL: No cyanosis, or edema. SKIN: Warm and dry. NEURO: No focal neurological deficits. - Urinary Catheter Management Indwelling Urethral Catheter Cath placed during this visit: yes, but has since been removed by the nurse Reason for continuing: Hourly intake/output Insertion date: 01/19/18 Insertion time: 21:00 Removal date: 01/12/18 Removal time: 11:35 Straight Cath placed during this visit: no Reason for continuing: Other continuation reason Condom Cath placed during this visit: no Results - Labs CBC & Chem 7: 01/26/18 09:19 01/26/18 09:19 Laboratory Results - last 24 hr 01/26/18 01/26/18 01/26/18 03:40 08:33 09:19 WBC 5.2 RBC 3.52 L Hgb 8.9 L Hct 28.5 L MCV 81.1 MCH 25.4 L MCHC 31.3 L RDW 23.3 H Plt Count 225 MPV 7.5 Neut % (Auto) 62.3 Lymph % (Auto) 22.1 [place] % (Auto) 8.8 H Eos % (Auto) 5.2 H Baso % (Auto) 1.6 Neut # (Auto) 3.3 Lymph # (Auto) 1.2 [place] # (Auto) 0.5 Eos # (Auto) 0.3 Baso # (Auto) 0.1 WBC Differential . Differential Comment Auto diff final Sodium Potassium Chloride Carbon Dioxide Anion Gap BUN Creatinine Estimated GFR POC Glucose 109 97 Random Glucose Calcium Total Bilirubin AST ALT Alkaline Phosphatase Total Protein Albumin 01/26/18 01/26/18 01/26/18 09:19 11:52 17:01 WBC RBC Hgb Hct MCV MCH MCHC RDW Plt Count MPV Neut % (Auto) Lymph % (Auto) [place] % (Auto) Eos % (Auto) Baso % (Auto) Neut # (Auto) Lymph # (Auto) [place] # (Auto) Eos # (Auto) Baso # (Auto) WBC Differential Differential Comment Sodium 137 Potassium 3.4 L Chloride 92 L Carbon Dioxide 37.8 H Anion Gap 7 BUN 56 H Creatinine 1.63 H Estimated GFR 41 L POC Glucose 94 123 H Random Glucose 87 Calcium 8.7 Total Bilirubin 0.8 AST 21 ALT 10 L Alkaline Phosphatase 87 Total Protein 7.5 Albumin 2.1 L Microbiology 01/05/18 08:00 Other Acid Fast Bacilli Smear - Final No acid fast bacilli seen 01/05/18 08:00 Other Mycobacterial Culture - Preliminary No growth in 3 weeks - Imaging Impressions Chest X-Ray 01/25/18 00:00 CONCLUSION: Small left pleural effusion with improving left lower lobe infiltrate. - Procedures none Assessment and Plan - Assessment (1) Encephalopathy Code(s): G93.40 - Encephalopathy, unspecified Status: Acute (2) Acute GI bleeding Code(s): K92.2 - Gastrointestinal hemorrhage, unspecified Status: Acute (3) Sepsis Code(s): A41.9 - Sepsis, unspecified organism Status: Acute (4) Symptomatic anemia Code(s): D64.9 - Anemia, unspecified Status: Acute (5) Pleural effusion Code(s): J90 - Pleural effusion, not elsewhere classified Status: Acute (6) Acute exacerbation of congestive heart failure Code(s): I50.9 - Heart failure, unspecified Status: Acute (7) RICHARD (acute kidney injury) Code(s): N17.9 - Acute kidney failure, unspecified Status: Acute (8) Conjunctivitis Code(s): H10.9 - Unspecified conjunctivitis Status: Acute (9) CKD (chronic kidney disease) stage 4, GFR 15-29 ml/min Code(s): N18.4 - Chronic kidney disease, stage 4 (severe) Status: Acute - Plan 1. D/C O2 2. Albuterol Inhaler , 2puffs TID PRN 3 D/C Duoneb nebs 4. Diet as tolerated. 5. IS q2h bedside. 6. PT evaluation. 7. Continue Lasix and Aldactone. 8. Home per Dr Connor (3) Sepsis Qualifiers: Sepsis type: sepsis due to unspecified organism Qualified Code(s): A41.9 - Sepsis, unspecified organism (6) Acute exacerbation of congestive heart failure Qualifiers: Heart failure type: unspecified Qualified Code(s): I50.9 - Heart failure, unspecified (8) Conjunctivitis Qualifiers: Conjunctivitis type: acute Acute conjunctivitis type: bacterial Laterality: bilateral Qualified Code(s): H10.33 - Unspecified acute conjunctivitis, bilateral
[2018-01-27] MEDS: Insulin NovoLIN Regular Correctional Sugar Inj SQ SCH ×6 (00:55→19:27)
[2018-01-27] MEDS: Senna/Docusate Sodium 8.6/50 MG Tablet PO SCH ×2 (09:46→20:56)
[2018-01-27] MEDS: Pantoprazole Inj 40 MG Vial IV.PUSH SCH (09:46)
[2018-01-27] MEDS: Furosemide 20 MG Tablet PO SCH ×2 (09:46→18:27)
[2018-01-27] MEDS: metOLazone 5 MG Tablet PO SCH (09:46)
[2018-01-27] MEDS: Metoprolol Tartrate 25 MG Tablet PO SCH ×2 (09:46→20:57)
[2018-01-27] MEDS: Multivitamin/Minerals Therapeutic Tablet PO SCH (09:46)
[2018-01-27] MEDS: Sodium Chloride 0.9% 2 ML Flush BID IV.FLUSH SCH ×2 (09:47→20:56)
[2018-01-27] MEDS: Collagenase Oint 30 GM Tube TOPICAL SCH (09:47)
--- NOTE | 2018-01-27 11:37 | P.PNIM ---
Subjective Interval history: Void trial in process today. Accu-Cheks discontinued. Patient's medically stable and cleared for discharge to correction facility once this becomes available, but placement has been a difficult issue for this patient. Physical Exam Vital signs: Vital Signs 01/26/18 12:00 01/26/18 16:00 01/26/18 20:00 Temperature 97.4 F L 97.5 F L 98.1 F Pulse Rate 71 78 75 Respiratory Rate 18 18 17 Blood Pressure 109/53 L 122/57 L 103/51 L Pulse Oximetry 96 100 100 01/26/18 20:01 01/27/18 00:00 01/27/18 04:00 Temperature 98 F 97.8 F Pulse Rate 75 68 Respiratory Rate 17 18 Blood Pressure 110/52 L 108/60 Pulse Oximetry 95 100 100 01/27/18 08:13 Temperature 97.7 F Pulse Rate 83 Respiratory Rate 18 Blood Pressure 103/56 L Pulse Oximetry 94 L Intake & Output 01/26/18 01/27/18 01/27/18 18:59 06:59 18:59 Intake Total 600 / 600 240 / 240 Output Total 1000 / 1000 Balance 600 / 600 -760 / -760 Weight 63 kg Intake: Oral 600 / 600 240 / 240 Output: Urine 1000 / 1000 Other: Date of Last Bowel Movement 01/26/18 # Bowel Movements 0 Narrative: GENERAL: NAD, A&Ox3 HEAD: Normocephalic. NECK: Supple, trachea midline. No lymphadenopathy. EYES: No scleral icterus. No injection or drainage. CARDIOVASCULAR: Regular rate and rhythm without murmurs, gallops, or rubs. RESPIRATORY: Breath sounds equal bilaterally. No accessory muscle use. GASTROINTESTINAL: Abdomen soft, non-tender, nondistended. MUSCULOSKELETAL: No cyanosis, or edema. SKIN: Warm and dry. NEURO: No focal neurological deficits. - Urinary Catheter Management Indwelling Urethral Catheter Cath placed during this visit: yes, but has since been removed by the nurse Reason for continuing: Acute urinary retention Insertion date: 01/19/18 Insertion time: 21:00 Removal date: 01/26/18 Removal time: 16:00 Straight Cath placed during this visit: no Reason for continuing: Other continuation reason Condom Cath placed during this visit: no Results - Labs CBC & Chem 7: 01/26/18 09:19 01/26/18 09:19 Laboratory Results - last 24 hr 01/26/18 01/26/18 01/27/18 11:52 17:01 03:30 POC Glucose 94 123 H 112 H 01/27/18 08:03 POC Glucose 102 Microbiology 01/05/18 08:00 Other Acid Fast Bacilli Smear - Final No acid fast bacilli seen 01/05/18 08:00 Other Mycobacterial Culture - Preliminary No growth in 3 weeks - Procedures none Assessment and Plan - Plan 77-year-old male admitted secondary to weakness and frequent falls, weakness persists status post mechanical ventilation for respiratory failure for pneumonia. Void trial ongoing today. Monitor for any urinary obstruction. Plan to replace catheter if urinary obstruction is present or permanently discontinue catheter if patient able to urinate. Continue Flomax. Discharge to correction facility when available. Pleural effusions Status post chest tube placements Continue Lasix Continues Zaroxolyn Pulmonology following Generalized weakness Physical therapy Possible diastolic CHF Continue metoprolol Continue Lasix Acute Anemia poss due to acute GI bleed Follow H&H for stability Chronic hepatic insufficiency Follow clinically RICHARD Chronic Kidney Disease Continue diuretic Follow renal function NSVT Maintain potassium levels Continue metoprolol Thrombocytopenia Resolved Hematuria Renal cysts Resolved Follows an outpatient Hypokalemia Monitor and replace as needed Sacral wound Wound care following Continue wound care Acute encephalopathy Resolved DVT prophylaxis SCDs Discharge planning Patient medically cleared for discharge to correction facility when placement available.
--- NOTE | 2018-01-27 17:31 | P.PN ---
Subjective Interval history: On O2 2 L. Able to take his diet well. No cough or wheezing. Physical Exam Vital signs: Vital Signs 01/26/18 20:00 01/26/18 20:01 01/27/18 00:00 Temperature 98.1 F 98 F Pulse Rate 75 75 Respiratory Rate 17 17 Blood Pressure 103/51 L 110/52 L Pulse Oximetry 100 95 100 01/27/18 04:00 01/27/18 08:13 01/27/18 11:47 Temperature 97.8 F 97.7 F 97.8 F Pulse Rate 68 83 77 Respiratory Rate 18 18 18 Blood Pressure 108/60 103/56 L 124/62 Pulse Oximetry 100 94 L 100 01/27/18 12:00 01/27/18 16:04 Temperature 97.8 F Pulse Rate 77 Respiratory Rate 18 Blood Pressure 124/62 Pulse Oximetry 100 97 Intake & Output 01/26/18 01/27/18 01/27/18 18:59 06:59 18:59 Intake Total 600 / 600 240 / 240 Output Total 1000 / 1000 Balance 600 / 600 -760 / -760 Weight 63 kg Intake: Oral 600 / 600 240 / 240 Output: Urine 1000 / 1000 Other: Date of Last Bowel Movement 01/26/18 # Bowel Movements 0 Narrative: GENERAL: NAD, A&Ox3 HEAD: Normocephalic. NECK: Supple, trachea midline. No lymphadenopathy. EYES: No scleral icterus. No injection or drainage. CARDIOVASCULAR: Regular rate and rhythm without murmurs, gallops, or rubs. RESPIRATORY: Breath sounds equal bilaterally.Few basal crackles. No accessory muscle use. GASTROINTESTINAL: Abdomen soft, non-tender, nondistended. MUSCULOSKELETAL: No cyanosis, or edema. SKIN: Warm and dry. NEURO: No focal neurological deficits. - Urinary Catheter Management Indwelling Urethral Catheter Cath placed during this visit: yes, but has since been removed by the nurse Reason for continuing: Acute urinary retention Insertion date: 01/19/18 Insertion time: 21:00 Removal date: 01/26/18 Removal time: 16:00 Straight Cath placed during this visit: no Reason for continuing: Other continuation reason Condom Cath placed during this visit: no Results - Labs CBC & Chem 7: 01/26/18 09:19 01/26/18 09:19 Laboratory Results - last 24 hr 01/27/18 01/27/1801/27/18 03:30 08:03 11:40 POC Glucose 112 H 102 109 Microbiology 01/05/18 08:00 Other Acid Fast Bacilli Smear - Final No acid fast bacilli seen 01/05/18 08:00 Other Mycobacterial Culture - Preliminary No growth in 3 weeks - Procedures none Assessment and Plan - Assessment (1) Encephalopathy Code(s): G93.40 - Encephalopathy, unspecified Status: Acute (2) Acute GI bleeding Code(s): K92.2 - Gastrointestinal hemorrhage, unspecified Status: Acute (3) Sepsis Code(s): A41.9 - Sepsis, unspecified organism Status: Acute (4) Symptomatic anemia Code(s): D64.9 - Anemia, unspecified Status: Acute (5) Pleural effusion Code(s): J90 - Pleural effusion, not elsewhere classified Status: Acute (6) Acute exacerbation of congestive heart failure Code(s): I50.9 - Heart failure, unspecified Status: Acute (7) RICHARD (acute kidney injury) Code(s): N17.9 - Acute kidney failure, unspecified Status: Acute (8) Conjunctivitis Code(s): H10.9 - Unspecified conjunctivitis Status: Acute (9) CKD (chronic kidney disease) stage 4, GFR 15-29 ml/min Code(s): N18.4 - Chronic kidney disease, stage 4 (severe) Status: Acute - Plan 1. 2L O2 PRN 2. Albuterol Inhaler , 2puffs TID PRN 3 Rehab placement 4. Diet as tolerated. 5. IS q2h bedside. 6. PT evaluation. 7. Continue Lasix and Metolazone. (3) Sepsis Qualifiers: Sepsis type: sepsis due to unspecified organism Qualified Code(s): A41.9 - Sepsis, unspecified organism (6) Acute exacerbation of congestive heart failure Qualifiers: Heart failure type: unspecified Qualified Code(s): I50.9 - Heart failure, unspecified (8) Conjunctivitis Qualifiers: Conjunctivitis type: acute Acute conjunctivitis type: bacterial Laterality: bilateral Qualified Code(s): H10.33 - Unspecified acute conjunctivitis, bilateral
[2018-01-28] MEDS: Insulin NovoLIN Regular Correctional Sugar Inj SQ SCH ×4 (01:07→18:59)
[2018-01-28 07:51] LABS: Baso # (Auto) 0.1 th/mm3 (0.0-0.2); Baso % (Auto) 1.2 % (0.0-2.0); Eos # (Auto) 0.3 th/mm3 (0.0-0.4); Eos % (Auto) 5.1 % (0.0-4.0); Hematocrit 26.1 % (39.0-51.0); Hemoglobin 8.4 gm/dL (13.0-17.0); Lymph # (Auto) 1.5 th/mm3 (1.0-4.8); Lymph % (Auto) 26.1 % (9.0-44.0); Mean Corpuscular HGB Conc 32.2 % (32.0-36.0); Mean Corpuscular Hemoglobin 25.7 pg (27.0-34.0); Mean Corpuscular Volume 79.8 fL (80.0-100.0); Mean Platelet Volume 7.7 fL (7.0-11.0); Mono # (Auto) 0.5 th/mm3 (0.0-0.9); Mono % (Auto) 8.6 % (0.0-8.0); Neut # (Auto) 3.4 th/mm3 (1.8-7.7); Platelet Count 197 th/mm3 (150-450); Red Blood Count 3.27 mil/mm3 (4.50-5.90); White Blood Count 5.8 th/mm3 (4.0-11.0)
[2018-01-28 08:15] LABS: Albumin 2.2 g/dL (3.4-5.0); Anion Gap 8 meq/L (5-15); Aspartate Aminotransferase 21 U/L (15-37); Blood Urea Nitrogen 62 mg/dL (7-18); Calcium 8.7 mg/dL (8.5-10.1); Chloride 91 meq/L (98-107); Glomerular Filtration Rate 41 mL/min (>89); Glucose,Random 85 mg/dL (74-106); Potassium 3.5 meq/L (3.5-5.1); Sodium 137 meq/L (136-145)
[2018-01-28 08:20] LABS: Alanine Aminotransferase 11 U/L (12-78); Alkaline Phosphatase 91 U/L (45-117); Total Protein 7.1 g/dL (6.4-8.2)
[2018-01-28] MEDS: metOLazone 5 MG Tablet PO SCH (08:57)
[2018-01-28] MEDS: Senna/Docusate Sodium 8.6/50 MG Tablet PO SCH ×2 (08:57→21:16)
[2018-01-28] MEDS: Multivitamin/Minerals Therapeutic Tablet PO SCH (08:57)
[2018-01-28] MEDS: Sodium Chloride 0.9% 2 ML Flush BID IV.FLUSH SCH ×2 (08:58→21:16)
[2018-01-28] MEDS: Pantoprazole Inj 40 MG Vial IV.PUSH SCH (08:58)
[2018-01-28] MEDS: Metoprolol Tartrate 25 MG Tablet PO SCH ×2 (08:58→21:15)
[2018-01-28] MEDS: Collagenase Oint 30 GM Tube TOPICAL SCH (09:05)
[2018-01-28] MEDS: Furosemide 20 MG Tablet PO SCH ×2 (09:05→17:21)
--- NOTE | 2018-01-28 10:36 | P.PNIM ---
Subjective Interval history: Patient continues to urinate without any obstruction. He is passed his void trial. Medically clear and stable for discharge to home, discharged 01/26/2018. Physical Exam Vital signs: Vital Signs 01/27/18 11:47 01/27/18 12:00 01/27/18 16:00 Temperature 97.8 F 97.8 F 98.1 F Pulse Rate 77 80 80 Respiratory Rate 18 18 18 Blood Pressure 124/62 124/62 122/57 L Pulse Oximetry 100 100 84 L 01/27/18 16:04 01/27/18 20:00 01/28/18 00:00 Temperature 97.9 F 98.0 F Pulse Rate 90 84 Respiratory Rate 18 Blood Pressure 129/60 120/58 L Pulse Oximetry 97 97 96 01/28/18 04:00 01/28/18 08:00 Temperature 98.4 F Pulse Rate 79 88 Respiratory Rate 16 Blood Pressure 118/62 Pulse Oximetry Intake & Output 01/27/18 01/28/18 01/28/18 18:59 06:59 18:59 Intake Total 472 / 472 240 / 240 Output Total 450 / 450 700 / 700 Balance -460 / -460 Weight 62.6 kg Intake: Oral 472 / 472 240 / 240 Output: Urine 450 / 450 700 / 700 Other: Date of Last Bowel Movement 01/27/18 01/27/18 # Bowel Movements 0 Narrative: GENERAL: NAD, A&Ox3 HEAD: Normocephalic. NECK: Supple, trachea midline. No lymphadenopathy. EYES: No scleral icterus. No injection or drainage. CARDIOVASCULAR: Regular rate and rhythm without murmurs, gallops, or rubs. RESPIRATORY: Breath sounds equal bilaterally. No accessory muscle use. GASTROINTESTINAL: Abdomen soft, non-tender, nondistended. MUSCULOSKELETAL: No cyanosis, or edema. SKIN: Warm and dry. NEURO: No focal neurological deficits. Generalized weakness. - Urinary Catheter Management Indwelling Urethral Catheter Cath placed during this visit: yes, but has since been removed by the nurse Reason for continuing: Acute urinary retention Insertion date: 01/19/18 Insertion time: 21:00 Removal date: 01/26/18 Removal time: 16:00 Straight Cath placed during this visit: no Reason for continuing: Other continuation reason Condom Cath placed during this visit: no Results - Labs CBC & Chem 7: 01/28/18 07:22 01/28/18 07:22 Laboratory Results - last 24 hr 01/27/18 01/28/18 01/28/18 11:40 07:22 07:22 WBC 5.8 RBC 3.27 L Hgb 8.4 L Hct 26.1 L MCV 79.8 L MCH 25.7 L MCHC 32.2 RDW 23.0 H Plt Count 197 MPV 7.7 Prelim Diff (Auto) Slide review pending Neut % (Auto) 59.0 Lymph % (Auto) 26.1 [place] % (Auto) 8.6 H Eos % (Auto) 5.1 H Baso % (Auto) 1.2 Neut # (Auto) 3.4 Lymph # (Auto) 1.5 [place] # (Auto) 0.5 Eos # (Auto) 0.3 Baso # (Auto) 0.1 WBC Differential . Diff Scan Auto diff confirmed Differential Comment . Sodium 137 Potassium 3.5 Chloride 91 L Carbon Dioxide 38.0 H Anion Gap 8 BUN 62 H Creatinine 1.64 H Estimated GFR 41 L POC Glucose 109 Random Glucose 85 Calcium 8.7 Total Bilirubin 0.6 AST 21 ALT 11 L Alkaline Phosphatase 91 Total Protein 7.1 Albumin 2.2 L 01/28/18 07:33 WBC RBC Hgb Hct MCV MCH MCHC RDW Plt Count MPV Prelim Diff (Auto) Neut % (Auto) Lymph % (Auto) [place] % (Auto) Eos % (Auto) Baso % (Auto) Neut # (Auto) Lymph # (Auto) [place] # (Auto) Eos # (Auto) Baso # (Auto) WBC Differential Diff Scan Differential Comment Sodium Potassium Chloride Carbon Dioxide Anion Gap BUN Creatinine Estimated GFR POC Glucose 95 Random Glucose Calcium Total Bilirubin AST ALT Alkaline Phosphatase Total Protein Albumin - Procedures none Assessment and Plan - Plan 77-year-old male admitted secondary to weakness and frequent falls, weakness persists status post mechanical ventilation for respiratory failure for pneumonia. Patient has passes void trial, no further signs of obstruction. Discharge to residential facility when arrangements are possible otherwise anticipate discharge home with walker once patient able to ambulate further distances and demonstrate functionality without significant fall risk. Pleural effusions Status post chest tube placements Continue Lasix Continues Zaroxolyn Pulmonology following Generalized weakness Physical therapy Possible diastolic CHF Continue metoprolol Continue Lasix Acute Anemia poss due to acute GI bleed Follow H&H for stability Chronic hepatic insufficiency Follow clinically RICHARD Chronic Kidney Disease Continue diuretic Follow renal function NSVT Maintain potassium levels Continue metoprolol Thrombocytopenia Resolved Hematuria Renal cysts Resolved Follows an outpatient Hypokalemia Monitor and replace as needed Sacral wound Wound care following Continue wound care Acute encephalopathy Resolved DVT prophylaxis SCDs Discharge planning Patient medically cleared for discharge to residential facility when placement available.
--- NOTE | 2018-01-28 12:33 | P.PN ---
Subjective Interval history: he is feeling well.No cough. Cannot void on his own Off O2 now. Physical Exam Vital signs: Vital Signs 01/27/18 16:00 01/27/18 16:04 01/27/18 20:00 Temperature 98.1 F 97.9 F Pulse Rate 80 90 Respiratory Rate 18 18 Blood Pressure 122/57 L 129/60 Pulse Oximetry 84 L 97 97 01/28/18 00:00 01/28/18 04:00 01/28/18 08:00 Temperature 98.0 F 98.4 F Pulse Rate 84 79 86 Respiratory Rate 18 16 Blood Pressure 120/58 L 118/62 Pulse Oximetry 96 Intake & Output 01/27/18 01/28/18 01/28/18 18:59 06:59 18:59 Intake Total 472 / 472 240 / 240 Output Total 450 / 450 700 / 700 Balance -460 / -460 Weight 62.6 kg Intake: Oral 472 / 472 240 / 240 Output: Urine 450 / 450 700 / 700 Other: Date of Last Bowel Movement 01/27/18 01/27/18 # Bowel Movements 0 Narrative: GENERAL: NAD, alert. HEAD: Normocephalic. NECK: Supple, trachea midline. No lymphadenopathy. EYES: No scleral icterus. No injection or drainage. CARDIOVASCULAR: Regular rate and rhythm without murmurs, gallops, or rubs. RESPIRATORY: Breath sounds equal bilaterally. Occ Wheeze heard. No accessory muscle use. GASTROINTESTINAL: Abdomen soft, non-tender, nondistended. MUSCULOSKELETAL: No cyanosis, or edema. SKIN: Warm and dry. NEURO: No focal neurological deficits. Generalized weakness. - Urinary Catheter Management Indwelling Urethral Catheter Cath placed during this visit: yes, but has since been removed by the nurse Reason for continuing: Acute urinary retention Insertion date: 01/19/18 Insertion time: 21:00 Removal date: 01/26/18 Removal time: 16:00 Straight Cath placed during this visit: no Reason for continuing: Other continuation reason Condom Cath placed during this visit: no Results - Labs CBC & Chem 7: 01/28/18 07:22 01/28/18 07:22 Laboratory Results - last 24 hr 01/28/18 01/28/18 01/28/18 07:22 07:22 07:33 WBC 5.8 RBC 3.27 L Hgb 8.4 L Hct 26.1 L MCV 79.8 L MCH 25.7 L MCHC 32.2 RDW 23.0 H Plt Count 197 MPV 7.7 Prelim Diff (Auto) Slide review pending Neut % (Auto) 59.0 Lymph % (Auto) 26.1 [place] % (Auto) 8.6 H Eos % (Auto) 5.1 H Baso % (Auto) 1.2 Neut # (Auto) 3.4 Lymph # (Auto) 1.5 [place] # (Auto) 0.5 Eos # (Auto) 0.3 Baso # (Auto) 0.1 WBC Differential . Diff Scan Auto diff confirmed Differential Comment . Sodium 137 Potassium 3.5 Chloride 91 L Carbon Dioxide 38.0 H Anion Gap 8 BUN 62 H Creatinine 1.64 H Estimated GFR 41 L POC Glucose 95 Random Glucose 85 Calcium 8.7 Total Bilirubin 0.6 AST 21 ALT 11 L Alkaline Phosphatase 91 Total Protein 7.1 Albumin 2.2 L - Procedures none Assessment and Plan - Assessment (1) Encephalopathy Code(s): G93.40 - Encephalopathy, unspecified Status: Acute (2) Acute GI bleeding Code(s): K92.2 - Gastrointestinal hemorrhage, unspecified Status: Acute (3) Sepsis Code(s): A41.9 - Sepsis, unspecified organism Status: Acute (4) Symptomatic anemia Code(s): D64.9 - Anemia, unspecified Status: Acute (5) Pleural effusion Code(s): J90 - Pleural effusion, not elsewhere classified Status: Acute (6) Acute exacerbation of congestive heart failure Code(s): I50.9 - Heart failure, unspecified Status: Acute (7) RICHARD (acute kidney injury) Code(s): N17.9 - Acute kidney failure, unspecified Status: Acute (8) Conjunctivitis Code(s): H10.9 - Unspecified conjunctivitis Status: Acute (9) CKD (chronic kidney disease) stage 4, GFR 15-29 ml/min Code(s): N18.4 - Chronic kidney disease, stage 4 (severe) Status: Acute - Plan 1. D/C O2 2. Albuterol Inhaler , 2 puffs TID PRN 3 Rehab placement 4. Diet as tolerated. 5. Labs on Wednesday 6. PT evaluation. 7. Continue Lasix and Metolazone. (3) Sepsis Qualifiers: Sepsis type: sepsis due to unspecified organism Qualified Code(s): A41.9 - Sepsis, unspecified organism (6) Acute exacerbation of congestive heart failure Qualifiers: Heart failure type: unspecified Qualified Code(s): I50.9 - Heart failure, unspecified (8) Conjunctivitis Qualifiers: Conjunctivitis type: acute Acute conjunctivitis type: bacterial Laterality: bilateral Qualified Code(s): H10.33 - Unspecified acute conjunctivitis, bilateral
[2018-01-29] MEDS: metOLazone 5 MG Tablet PO SCH (09:43)
[2018-01-29] MEDS: Pantoprazole Inj 40 MG Vial IV.PUSH SCH (09:43)
[2018-01-29] MEDS: Multivitamin/Minerals Therapeutic Tablet PO SCH (09:43)
[2018-01-29] MEDS: Metoprolol Tartrate 25 MG Tablet PO SCH ×2 (09:43→20:07)
[2018-01-29] MEDS: Senna/Docusate Sodium 8.6/50 MG Tablet PO SCH ×2 (09:43→20:07)
[2018-01-29] MEDS: Furosemide 20 MG Tablet PO SCH ×2 (09:43→18:08)
[2018-01-29] MEDS: Collagenase Oint 30 GM Tube TOPICAL SCH (09:43)
[2018-01-29] MEDS: Sodium Chloride 0.9% 2 ML Flush BID IV.FLUSH SCH ×2 (09:44→20:07)
--- NOTE | 2018-01-29 14:21 | P.PNIM ---
Subjective Interval history: No new complaints today. Balance and ambulation is not stable enough for return to home. No fevers. Physical Exam Vital signs: Vital Signs 01/28/18 16:00 01/28/18 20:00 01/29/18 00:00 Temperature 98.1 F 98 F 98 F Pulse Rate 81 84 89 Respiratory Rate 18 20 20 Blood Pressure 91/47 L 93/43 L 106/51 L Pulse Oximetry 92 L 92 L 94 L 01/29/18 04:00 01/29/18 08:00 01/29/18 09:53 Temperature 97.3 F L 97.1 F L Pulse Rate 87 86 Respiratory Rate 18 20 Blood Pressure 110/59 L 110/60 Pulse Oximetry 93 L 94 L 94 L 01/29/18 10:27 01/29/18 12:00 Temperature 98.6 F Pulse Rate 88 80 Respiratory Rate 18 20 Blood Pressure 100/52 L Pulse Oximetry 95 Intake & Output 01/28/18 01/29/18 01/29/18 18:59 06:59 18:59 Intake Total 120 / 120 Output Total 350 / 350 Balance -230 / -230 Weight 62.4 kg Intake: Oral 120 / 120 Output: Urine 350 / 350 Other: Date of Last Bowel Movement 01/27/18 01/28/18 Narrative: GENERAL: NAD, A&Ox3 HEAD: Normocephalic. NECK: Supple, trachea midline. No lymphadenopathy. EYES: No scleral icterus. No injection or drainage. CARDIOVASCULAR: Regular rate and rhythm without murmurs, gallops, or rubs. RESPIRATORY: Breath sounds equal bilaterally. No accessory muscle use. GASTROINTESTINAL: Abdomen soft, non-tender, nondistended. MUSCULOSKELETAL: No cyanosis, or edema. SKIN: Warm and dry. NEURO: No focal neurological deficits. - Urinary Catheter Management Indwelling Urethral Catheter Cath placed during this visit: yes, but has since been removed by the nurse Reason for continuing: Acute urinary retention Insertion date: 01/19/18 Insertion time: 21:00 Removal date: 01/26/18 Removal time: 16:00 Straight Cath placed during this visit: no Reason for continuing: Other continuation reason Condom Cath placed during this visit: no Results - Labs CBC & Chem 7: 01/28/18 07:22 01/28/18 07:22 - Procedures none Assessment and Plan - Plan 77-year-old male admitted secondary to weakness and frequent falls, weakness persists status post mechanical ventilation for respiratory failure for pneumonia. No acute changes. Discharge to care home facility when arrangements are possible otherwise anticipate discharge home with walker once patient able to ambulate further distances and demonstrate functionality without significant fall risk. Pleural effusions Status post chest tube placements Continue Lasix Continues Zaroxolyn Pulmonology following Generalized weakness Physical therapy Possible diastolic CHF Continue metoprolol Continue Lasix Acute Anemia poss due to acute GI bleed Follow H&H for stability Chronic hepatic insufficiency Follow clinically RICHARD Chronic Kidney Disease Continue diuretic Follow renal function NSVT Maintain potassium levels Continue metoprolol Thrombocytopenia Resolved Hematuria Renal cysts Resolved Follows an outpatient Hypokalemia Monitor and replace as needed Sacral wound Wound care following Continue wound care Acute encephalopathy Resolved DVT prophylaxis SCDs Discharge planning Patient medically cleared for discharge to care home facility when placement available.
[2018-01-30] MEDS: Pantoprazole Inj 40 MG Vial IV.PUSH SCH (09:59)
[2018-01-30] MEDS: Metoprolol Tartrate 25 MG Tablet PO SCH ×2 (10:00→20:13)
[2018-01-30] MEDS: Collagenase Oint 30 GM Tube TOPICAL SCH (10:00)
[2018-01-30] MEDS: Multivitamin/Minerals Therapeutic Tablet PO SCH (10:00)
[2018-01-30] MEDS: Senna/Docusate Sodium 8.6/50 MG Tablet PO SCH ×2 (10:00→20:14)
[2018-01-30] MEDS: metOLazone 5 MG Tablet PO SCH (10:00)
[2018-01-30] MEDS: Sodium Chloride 0.9% 2 ML Flush BID IV.FLUSH SCH ×2 (10:00→20:13)
[2018-01-30] MEDS: Furosemide 20 MG Tablet PO SCH ×2 (10:00→18:17)
--- NOTE | 2018-01-30 15:07 | P.PNIM ---
Subjective Interval history: Slow improvements with PT. If patient cannot make arrangements to get himself into a snf facility then home discharge will be considered when his functionality improves. No new complaints from the patient today. Physical Exam Vital signs: Vital Signs 01/29/18 16:00 01/29/18 20:00 01/29/18 23:45 Temperature 98.4 F 98 F 97.4 F L Pulse Rate 80 85 82 Respiratory Rate 20 17 16 Blood Pressure 103/53 L 92/52 L 112/51 L Pulse Oximetry 96 98 92 L 01/30/18 04:00 01/30/18 08:00 01/30/18 12:00 Temperature 97.9 F 97.2 F L 97.7 F Pulse Rate 81 77 85 Respiratory Rate 17 19 19 Blood Pressure 106/52 L 99/54 L 108/52 L Pulse Oximetry 98 95 100 Intake & Output 01/29/18 01/30/18 01/30/18 18:59 06:59 18:59 Output Total 300 / 300 900 / 900 Balance -300 / -300 -900 / -900 Weight 62.3 kg Output: Urine 300 / 300 900 / 900 Other: Date of Last Bowel Movement 01/28/18 Narrative: GENERAL: NAD, A&Ox3 HEAD: Normocephalic. NECK: Supple, trachea midline. No lymphadenopathy. EYES: No scleral icterus. No injection or drainage. CARDIOVASCULAR: Regular rate and rhythm without murmurs, gallops, or rubs. RESPIRATORY: Breath sounds equal bilaterally. No accessory muscle use. GASTROINTESTINAL: Abdomen soft, non-tender, nondistended. MUSCULOSKELETAL: No cyanosis, or edema. SKIN: Warm and dry. NEURO: No focal neurological deficits. - Urinary Catheter Management Indwelling Urethral Catheter Cath placed during this visit: yes, but has since been removed by the nurse Reason for continuing: Acute urinary retention Insertion date: 01/19/18 Insertion time: 21:00 Removal date: 01/26/18 Removal time: 16:00 Straight Cath placed during this visit: no Reason for continuing: Other continuation reason Condom Cath placed during this visit: no Results - Labs CBC & Chem 7: 01/28/18 07:22 01/28/18 07:22 - Procedures none Assessment and Plan - Plan 77-year-old male admitted secondary to weakness and frequent falls, weakness persists status post mechanical ventilation for respiratory failure for pneumonia. Patient stable overnight. Discharge to snf facility when arrangements are possible otherwise anticipate discharge home with walker once patient able to ambulate further distances and demonstrate functionality without significant fall risk. Pleural effusions Status post chest tube placements Continue Lasix Continues Zaroxolyn Pulmonology following Generalized weakness Physical therapy Possible diastolic CHF Continue metoprolol Continue Lasix Acute Anemia poss due to acute GI bleed Follow H&H for stability Chronic hepatic insufficiency Follow clinically RICHARD Chronic Kidney Disease Continue diuretic Follow renal function NSVT Maintain potassium levels Continue metoprolol Thrombocytopenia Resolved Hematuria Renal cysts Resolved Follows an outpatient Hypokalemia Monitor and replace as needed Sacral wound Wound care following Continue wound care Acute encephalopathy Resolved DVT prophylaxis SCDs Discharge planning Patient medically cleared for discharge to snf facility when placement available.
[2018-01-31] MEDS: Multivitamin/Minerals Therapeutic Tablet PO SCH (08:32)
[2018-01-31] MEDS: Furosemide 20 MG Tablet PO SCH ×2 (08:32→17:48)
[2018-01-31] MEDS: Senna/Docusate Sodium 8.6/50 MG Tablet PO SCH ×2 (08:32→21:07)
[2018-01-31] MEDS: Collagenase Oint 30 GM Tube TOPICAL SCH (08:32)
[2018-01-31] MEDS: metOLazone 5 MG Tablet PO SCH (08:32)
[2018-01-31] MEDS: Metoprolol Tartrate 25 MG Tablet PO SCH ×2 (08:32→20:26)
[2018-01-31] MEDS: Pantoprazole Inj 40 MG Vial IV.PUSH SCH (08:33)
[2018-01-31] MEDS: Sodium Chloride 0.9% 2 ML Flush BID IV.FLUSH SCH ×2 (08:33→21:07)
--- NOTE | 2018-01-31 11:19 | P.PN ---
Subjective Interval history: Patient doing well. Patient is tolerating p.o., voiding/stooling well. Per RN. Patient fell last night upon attempting to ambulate. No further episodes this a.m. Physical Exam Vital signs: Vital Signs 01/30/18 12:00 01/30/18 16:00 01/30/18 19:27 Temperature 97.7 F 97.2 F L Pulse Rate 85 84 Respiratory Rate 19 18 Blood Pressure 108/52 L 100/44 L Pulse Oximetry 100 97 97 01/30/18 20:00 01/30/18 23:14 01/30/18 23:44 Temperature 97.4 F L 97.6 F 98.6 F Pulse Rate 85 86 93 H Respiratory Rate 16 16 16 Blood Pressure 98/52 L 90/52 L 90/52 L Pulse Oximetry 95 96 01/31/18 04:00 01/31/18 08:00 Temperature 97.6 F 97.3 F L Pulse Rate 87 82 Respiratory Rate 17 20 Blood Pressure 107/53 L 108/54 L Pulse Oximetry 95 91 L Intake & Output 01/30/18 01/31/18 01/31/18 18:59 06:59 18:59 Intake Total 480 / 480 Balance 480 / 480 Weight 62.2 kg Intake: Oral 480 / 480 Other: # Voids 3 Date of Last Bowel Movement 01/30/18 Narrative: GENERAL: Well-nourished male, in no acute distress, lying comfortably in bed. SKIN: Warm and dry. HEENT: Normocephalic. No scleral icterus. No injection or drainage. PERRLA, MOM. NECK: Supple, trachea midline. No JVD or lymphadenopathy. CARDIOVASCULAR: Regular rate and rhythm without murmurs, gallops, or rubs. RESPIRATORY: Breath sounds equal bilaterally. No accessory muscle use. GASTROINTESTINAL: Abdomen soft, non-tender, nondistended. MUSCULOSKELETAL: No cyanosis, or edema. BACK: Nontender without obvious deformity. No CVA tenderness. NEURO: AAO x3. No focal deficits. Motor strength 4/5 x 4. Speech clear. - Urinary Catheter Management Indwelling Urethral Catheter Cath placed during this visit: yes, but has since been removed by the nurse Reason for continuing: Acute urinary retention Insertion date: 01/19/18 Insertion time: 21:00 Removal date: 01/26/18 Removal time: 16:00 Straight Cath placed during this visit: no Reason for continuing: Other continuation reason Condom Cath placed during this visit: no Results - Labs CBC & Chem 7: 01/28/18 07:22 01/28/18 07:22 - Procedures none Assessment and Plan - Assessment (1) RICHARD (acute kidney injury) Code(s): N17.9 - Acute kidney failure, unspecified Status: Acute (2) Acute GI bleeding Code(s): K92.2 - Gastrointestinal hemorrhage, unspecified Status: Acute (3) Pleural effusion Code(s): J90 - Pleural effusion, not elsewhere classified Status: Resolved - Plan 77-year-old male admitted secondary to weakness and frequent falls, weakness persists status post mechanical ventilation for respiratory failure for pneumonia. Patient with possible Aute GI bleed s/p EGD on 01/24 with no active bleeding. Once stable will need discharge to care home facility when arrangements are possible otherwise anticipate discharge home with walker once patient able to ambulate further distances and demonstrate functionality without significant fall risk, HD#28 1, Pleural effusions s/p chest tube placements Continue Lasix and Zaroxolyn Pulmonology following 2. Generalized weakness Cont. Physical therapy 3. Possible diastolic CHF/Hx of SVT Continue Metoprolol and Lasix 4. Anemia, Iron Deficiency EGD Neg for bleed on 01/24, sx biopsy and snare polypectomy Hgb 8.4 today from 8.9 Has SHADI, needs FeSulfate, Rx today Cont. PPI PO Appreciate GI assistance with management 5. Acute on Chronic Kidney Disease Unknown baseline Cr 1.64 from 1.63 Continue diuretic Follow renal function 6. Hx of Hematuria/Renal cysts Resolved Follow up as an outpatient 7. Orthostatic hypotension Will give 500ml normal saline bolus Will continue to monitor 8. Sacral wound Wound care following Continue wound care 9. Acute encephalopathy Resolved 10. DVT prophylaxis: SCD's 11. Disposition: will need discharge to care home facility when placement available vs. home with HH once strength improved. Code Status: full Discussed Condition With: patient, RN
[2018-01-31] MEDS ORDERED: Sodium Chlor 0.9% Inj 500 ML IV.SIG SCH (12:00)
[2018-01-31] MEDS: Ferrous Sulfate 325 MG Tablet PO SCH ×2 (12:40→21:07)
--- NOTE | 2018-01-31 14:48 | P.DCO ---
- Case Management Consult Yes - Certification I have seen patient Luis Murguia on 01/31/18. My clinical findings support the need for the requested home health care services because: Limited mobility due to disease progression, Deconditioned with increased weakness I certify that my clinical findings support that this patient is homebound because: Unsteady gait/balance
--- NOTE | 2018-01-31 15:41 | P.DIET ---
Nutritional Evaluation Type of nutrition evaluation: follow-up Nutrition consult regarding: Diet Evaluation Nutrition screening: Pressure Injury (DTI Sacral area, unstageable), MDC Subjective Subjective Comments: Pt reports a good appetite, eating 100% of his meals. Objective - Diagnosis Weakness. PMH see H&P - Objective % IBW: 121 Body Weight Used for Calculations: IBW (Pt. with Anasarca) Energy Needs - Lower Range (kCal/kg): 28 Energy Needs - Upper Range (kCal/kg): 32 Lower Limit kCal/kg (kCals): 1,960 Upper Limit kCal/kg (kCals): 2,240 Lower Limit Protein Factor (Grams per Kg): 0.8 Upper Limit Protein Factor (Grams per Kg): 1.2 Lower Protein Needs (Protein): 56 Upper Protein Needs (Protein): 84 Dietitian Reviewed in Medical Record: Current diet, Curent medications, Intake & Output, Labs, Medical history [facility] Care Note: 01/21 unstageable pressure injury of the sacrum -see note Assessment Assessment: Pt remains at nutritional risk related to current clinical status, weight loss since admission with a BMI of 20.8 and a pressure injury. Noted pt now with an unstageable pressure injury to the sacral area, reviewed WOC note. PO intake is good, however he has had significant weight loss since admission (some fluid). MVI/min has been ordered and he is receiving Ensure Enlive tid which provides 350 kcals and 20 gms protein per 8 oz serving. Recommendations: Liberalize diet to regular. Cardiac diet not needed. Ensure Enlive tid Dietitian to Monitor: Lab values, Supplement acceptance, Intake & Output, Diet tolerance, Weight change, PO Intake, Wound/skin status, Medical course
[2018-02-01 09:09] LABS: Baso # (Auto) 0.1 th/mm3 (0.0-0.2); Baso % (Auto) 1.4 % (0.0-2.0); Eos # (Auto) 0.4 th/mm3 (0.0-0.4); Eos % (Auto) 6.9 % (0.0-4.0); Hematocrit 28.5 % (39.0-51.0); Hemoglobin 9.1 gm/dL (13.0-17.0); Lymph # (Auto) 1.3 th/mm3 (1.0-4.8); Lymph % (Auto) 24.2 % (9.0-44.0); Mean Corpuscular HGB Conc 31.8 % (32.0-36.0); Mean Corpuscular Hemoglobin 26.3 pg (27.0-34.0); Mean Corpuscular Volume 82.5 fL (80.0-100.0); Mono # (Auto) 0.5 th/mm3 (0.0-0.9); Mono % (Auto) 8.1 % (0.0-8.0); Neut # (Auto) 3.3 th/mm3 (1.8-7.7); Neut % (Auto) 59.4 % (16.0-70.0); Platelet Count 210 th/mm3 (150-450); Red Blood Count 3.45 mil/mm3 (4.50-5.90); Red Cell Distribution Width 22.5 % (11.6-17.2); White Blood Count 5.6 th/mm3 (4.0-11.0)
[2018-02-01 09:15] LABS: Albumin 2.4 g/dL (3.4-5.0); Anion Gap 8 meq/L (5-15); Blood Urea Nitrogen 79 mg/dL (7-18); Calcium 8.5 mg/dL (8.5-10.1); Carbon Dioxide 37.3 meq/L (21.0-32.0); Chloride 91 meq/L (98-107); Glucose,Random 88 mg/dL (74-106); Potassium 3.5 meq/L (3.5-5.1); Sodium 136 meq/L (136-145)
[2018-02-01 09:16] LABS: Aspartate Aminotransferase 25 U/L (15-37); Glomerular Filtration Rate 31 mL/min (>89)
[2018-02-01 09:19] LABS: Alanine Aminotransferase 17 U/L (12-78); Alkaline Phosphatase 102 U/L (45-117); Total Protein 7.8 g/dL (6.4-8.2)
[2018-02-01] MEDS: Metoprolol Tartrate 25 MG Tablet PO SCH ×2 (09:53→22:48)
[2018-02-01] MEDS: metOLazone 5 MG Tablet PO SCH (09:56)
[2018-02-01] MEDS: Senna/Docusate Sodium 8.6/50 MG Tablet PO SCH ×2 (09:56→22:44)
[2018-02-01] MEDS: Ferrous Sulfate 325 MG Tablet PO SCH ×2 (09:56→22:44)
[2018-02-01] MEDS: Multivitamin/Minerals Therapeutic Tablet PO SCH (09:56)
[2018-02-01] MEDS: Furosemide 20 MG Tablet PO SCH (09:57)
[2018-02-01] MEDS: Sodium Chloride 0.9% 2 ML Flush BID IV.FLUSH SCH ×2 (09:57→22:45)
[2018-02-01] MEDS: Collagenase Oint 30 GM Tube TOPICAL SCH (09:58)
[2018-02-01] MEDS ORDERED: Sodium Chlor 0.9% Inj 500 ML IV.SIG ONE (11:00)
[2018-02-01] MEDS ORDERED: Sodium Chlor 0.9% Inj 500 ML IV.SIG SCH (12:00)
--- NOTE | 2018-02-01 14:27 | P.PN ---
Subjective Interval history: Patient doing well, tolerating PO, voiding/stooling well. No overnight concerns per RN. Physical Exam Vital signs: Vital Signs 01/31/18 16:00 01/31/18 20:00 01/31/18 23:53 Temperature 98.2 F 98.6 F 98.4 F Pulse Rate 82 80 86 Respiratory Rate 20 18 18 Blood Pressure 98/52 L 95/51 L 109/55 L Pulse Oximetry 92 L 96 94 L 02/01/18 04:00 02/01/18 08:00 02/01/18 09:52 Temperature 98.3 F 97.8 F Pulse Rate 89 82 Respiratory Rate 18 18 Blood Pressure 121/56 L 113/59 L 86/48 L Pulse Oximetry 92 L 93 L 02/01/18 12:00 02/01/18 12:31 Temperature 97.8 F Pulse Rate 81 Respiratory Rate 18 Blood Pressure 109/59 L Pulse Oximetry 98 96 Intake & Output 01/31/18 02/01/18 02/01/18 18:59 06:59 18:59 Intake Total 360 / 360 700 / 700 500 / 500 Output Total 975 / 975 Balance 360 / 360 -275 / -275 500 / 500 Weight 64.7 kg Intake: IV 500 / 500 NS Inj 500 ML @ Wide Open IV. 500 / 500 SIG BOLUS ONE Rx#:[id number] Oral 360 / 360 700 / 700 Output: Urine 975 / 975 Other: # Voids 1 # Bowel Movements 1 Narrative: GENERAL: Well-nourished male, in no acute distress, lying comfortably in bed. SKIN: Warm and dry. HEENT: Normocephalic. No scleral icterus. No injection or drainage. PERRLA, MOM. NECK: Supple, trachea midline. No JVD or lymphadenopathy. CARDIOVASCULAR: Regular rate and rhythm without murmurs, gallops, or rubs. RESPIRATORY: Breath sounds equal bilaterally. No accessory muscle use. GASTROINTESTINAL: Abdomen soft, non-tender, nondistended. MUSCULOSKELETAL: No cyanosis, or edema. BACK: Nontender without obvious deformity. No CVA tenderness. NEURO: AAO x3. No focal deficits. Motor strength 4/5 x 4. Speech clear. - Urinary Catheter Management Indwelling Urethral Catheter Cath placed during this visit: yes, but has since been removed by the nurse Reason for continuing: Acute urinary retention Insertion date: 01/19/18 Insertion time: 21:00 Removal date: 01/26/18 Removal time: 16:00 Straight Cath placed during this visit: no Reason for continuing: Other continuation reason Condom Cath placed during this visit: no Results - Labs CBC & Chem 7: 02/01/18 08:23 02/01/18 08:23 Laboratory Results - last 24 hr 02/01/18 02/01/18 08:23 08:23 WBC 5.6 RBC 3.45 L Hgb 9.1 L Hct 28.5 L MCV 82.5 MCH 26.3 L MCHC 31.8 L RDW 22.5 H Plt Count 210 MPV 8.0 Neut % (Auto) 59.4 Lymph % (Auto) 24.2 [place] % (Auto) 8.1 H Eos % (Auto) 6.9 H Baso % (Auto) 1.4 Neut # (Auto) 3.3 Lymph # (Auto) 1.3 [place] # (Auto) 0.5 Eos # (Auto) 0.4 Baso # (Auto) 0.1 WBC Differential . Differential Comment Auto diff final Sodium 136 Potassium 3.5 Chloride 91 L Carbon Dioxide 37.3 H Anion Gap 8 BUN 79 H Creatinine 2.09 H Estimated GFR 31 L Random Glucose 88 Calcium 8.5 Total Bilirubin 0.6 AST 25 ALT 17 Alkaline Phosphatase 102 Total Protein 7.8 D Albumin 2.4 L - Procedures none Assessment and Plan - Assessment (1) RICHARD (acute kidney injury) Code(s): N17.9 - Acute kidney failure, unspecified Status: Acute (2) Acute GI bleeding Code(s): K92.2 - Gastrointestinal hemorrhage, unspecified Status: Acute (3) Pleural effusion Code(s): J90 - Pleural effusion, not elsewhere classified Status: Resolved - Plan 77-year-old male admitted secondary to weakness and frequent falls, weakness persists status post mechanical ventilation for respiratory failure for pneumonia. Patient with possible Aute GI bleed s/p EGD on 01/24 with no active bleeding. Once stable will need discharge to [facility] facility when arrangements are possible otherwise anticipate discharge home with walker once patient able to ambulate further distances and demonstrate functionality without significant fall risk, HD#29 1, Pleural effusions s/p chest tube placements Continue Lasix and Zaroxolyn Managed by Pulmonology 2. Generalized weakness Cont. Physical therapy 3. Possible diastolic CHF/Hx of SVT Continue Metoprolol and Lasix 4. Anemia, Iron Deficiency EGD Neg for bleed on 01/24, sx biopsy and snare polypectomy Hgb 9.1 today from 8.4 Has SHADI, cont. FeSulfate Cont. PPI PO for hx of GIB Appreciate GI assistance with management 5. Acute on Chronic Kidney Disease Unknown baseline Cr 2.09 from 1.64 Continue diuretic Follow renal function 6. Hx of Hematuria/Renal cysts Resolved Follow up as an outpatient 7. Orthostatic hypotension/Hx of HTN Given 500ml normal saline bolus today Will hold Lasix, no signs of fluid overload, resume if needed Echo on 01/10 with ef 50-55% Decreased Metoprolol to 12.5mg BID Will continue to monitor 8. Sacral wound Wound care following Continue wound care 9. Acute encephalopathy Resolved 10. DVT prophylaxis: SCD's 11. Disposition: Monitor BP, will need discharge to [facility] facility when placement available vs. home with HH once strength improved. Code Status: full Discussed Condition With: patient, RN
[2018-02-02 03:10] VITALS: PULSE 82
[2018-02-02] MEDS: metOLazone 5 MG Tablet PO SCH (09:05)
[2018-02-02] MEDS: Senna/Docusate Sodium 8.6/50 MG Tablet PO SCH (09:05)
[2018-02-02] MEDS: Multivitamin/Minerals Therapeutic Tablet PO SCH (09:05)
[2018-02-02] MEDS: Metoprolol Tartrate 25 MG Tablet PO SCH (09:05)
[2018-02-02] MEDS: Sodium Chloride 0.9% 2 ML Flush BID IV.FLUSH SCH (09:05)
[2018-02-02] MEDS: Ferrous Sulfate 325 MG Tablet PO SCH (09:05)
[2018-02-02] MEDS: Collagenase Oint 30 GM Tube TOPICAL SCH (09:06)
[2018-02-02 10:22] LABS: Baso # (Auto) 0.1 th/mm3 (0.0-0.2); Baso % (Auto) 1.2 % (0.0-2.0); Eos # (Auto) 0.5 th/mm3 (0.0-0.4); Eos % (Auto) 7.8 % (0.0-4.0); Hematocrit 29.3 % (39.0-51.0); Hemoglobin 9.4 gm/dL (13.0-17.0); Lymph # (Auto) 1.5 th/mm3 (1.0-4.8); Lymph % (Auto) 25.8 % (9.0-44.0); Mean Corpuscular HGB Conc 32.1 % (32.0-36.0); Mean Corpuscular Hemoglobin 26.5 pg (27.0-34.0); Mean Corpuscular Volume 82.4 fL (80.0-100.0); Mean Platelet Volume 7.9 fL (7.0-11.0); Mono # (Auto) 0.4 th/mm3 (0.0-0.9); Mono % (Auto) 7.7 % (0.0-8.0); Neut # (Auto) 3.3 th/mm3 (1.8-7.7); Neut % (Auto) 57.5 % (16.0-70.0); Platelet Count 225 th/mm3 (150-450); Red Blood Count 3.55 mil/mm3 (4.50-5.90); Red Cell Distribution Width 22.6 % (11.6-17.2); White Blood Count 5.8 th/mm3 (4.0-11.0)
[2018-02-02 10:53] LABS: Alanine Aminotransferase 19 U/L (12-78); Albumin 2.5 g/dL (3.4-5.0); Anion Gap 6 meq/L (5-15); Aspartate Aminotransferase 28 U/L (15-37); Blood Urea Nitrogen 77 mg/dL (7-18); Calcium 8.5 mg/dL (8.5-10.1); Chloride 92 meq/L (98-107); Glomerular Filtration Rate 36 mL/min (>89); Glucose,Random 74 mg/dL (74-106); Potassium 3.7 meq/L (3.5-5.1); Sodium 136 meq/L (136-145)
[2018-02-02 10:56] LABS: Alkaline Phosphatase 101 U/L (45-117)
--- NOTE | 2018-02-02 13:16 | P.DS ---
Date of admission: 01/04/18 21:41 Primary care physician: UNKNOWN Brief History from admission: [facility] Narrative: Patient is a 77-year-old male that presents for the evaluation of progressive leg weakness over the past 2 months. The patient states that over the past 2 months his left leg feels like it gets weak after standing and walking. The patient reports that he wakes up in the morning and can walk as usual but as the day progresses his left leg in particular begins to feel weak and he can no longer walk. The patient denies any past medical history at this time. He denies any pain. He denies fever, chill, chest pain, nausea, or vomiting. He does report shortness of breath that he states is normal for him. Upon further evaluation the patient also states that for the past couple days his left eye has had purulent discharge that has caused his eyelid to swell and causes it to stay shut. DS: Diagnosis - Discharge Diagnosis (1) RICHARD (acute kidney injury) Status: Acute (2) Acute GI bleeding Status: Acute (3) Pleural effusion Status: Resolved DS: Medications - Discharge Medications Prescriptions: furosemide 60 mg PO BID@0900,1800 #60 tab metolazone 5 mg PO DAILY #30 tab metoprolol tartrate 25 mg PO BID #60 tab tamsulosin 0.4 mg PO DAILY #30 cap DS: Summary - Time Spent with Patient Total time spent providing and/or coordinating discharge services: - Quality: VTE Deep Vein Thrombosis/Pulmonary Embolism Present on Admission: Yes Exam Vital signs: Vital Signs 02/01/18 16:00 02/01/18 20:00 02/02/18 00:00 Temperature 97.7 F 97.6 F 97.9 F Pulse Rate 86 84 85 Respiratory Rate 18 20 17 Blood Pressure 100/54 L 103/55 L 112/58 L Pulse Oximetry 94 L 95 93 L 02/02/18 03:07 02/02/18 10:01 Temperature 98.2 F Pulse Rate 82 Respiratory Rate 16 Blood Pressure 105/56 L Pulse Oximetry 95 94 L Intake & Output 02/01/18 02/02/18 02/02/18 18:59 06:59 18:59 Intake Total 500 / 500 Output Total 1300 / 1300 450 / 450 Balance -800 / -800 -450 / -450 Weight 71 kg Intake: IV 500 / 500 NS Inj 500 ML @ Wide Open IV. 500 / 500 SIG BOLUS ONE Rx#:[id number] Output: Urine 1300 / 1300 450 / 450 Other: Date of Last Bowel Movement 02/01/18 02/01/18 # Bowel Movements 1 Results Procedures completed during hospitalization: none Completed studies during hospitalization: Pending at discharge 01/19/18 13:10 Surgical [PTH] Routine 01/24/18 07:42 Surgical [PTH] Routine Labs on day of discharge: Labs from last 24 hours 02/02/18 02/02/18 07:45 07:45 WBC 5.8 RBC 3.55 L Hgb 9.4 L Hct 29.3 L MCV 82.4 MCH 26.5 L MCHC 32.1 RDW 22.6 H Plt Count 225 MPV 7.9 Neut % (Auto) 57.5 Lymph % (Auto) 25.8 Gregory % (Auto) 7.7 Eos % (Auto) 7.8 H Baso % (Auto) 1.2 Neut # (Auto) 3.3 Lymph # (Auto) 1.5 Gregory # (Auto) 0.4 Eos # (Auto) 0.5 H Baso # (Auto) 0.1 WBC Differential . Differential Comment Auto diff final Sodium 136 Potassium 3.7 Chloride 92 L Carbon Dioxide 38.0 H Anion Gap 6 BUN 77 H Creatinine 1.82 H Estimated GFR 36 L Random Glucose 74 Calcium 8.5 Total Bilirubin 0.5 AST 28 ALT 19 Alkaline Phosphatase 101 Total Protein 8.0 Albumin 2.5 L Preliminary micro results at discharge 01/05/18 08:00 Mycobacterial Culture - Preliminary Other No growth in 3 weeks - Impressions ITS Impressions Head CT 01/04/18 18:15 CONCLUSION: Motion degraded study without evidence of bleed or other acute intracranial abnormality. . Lumbar Spine CT 01/04/18 18:18 CONCLUSION: 1. No subluxation or acute fracture of the lumbar spine. 2. There is an old, mild compression deformity of L3. 3. Multilevel degenerative changes and diffuse idiopathic skeletal hyperostosis. 4. Pleural effusions and parenchymal consolidation partly seen of the visualized lung bases. 5. Atrophy and apparent hydronephrosis of the left knee. Face CT 01/04/18 20:14 CONCLUSION: 1. Focal minimally displaced fracture of the tip of the nasion. 2. Preseptal soft tissue contusion of the left orbit. 3. Acute on chronic appearing left maxillary sinusitis. Abdomen/Pelvis CT 01/05/18 00:00 CONCLUSION: 1. Bilateral moderate to large pleural effusions, left greater than right with associated lower lobe airspace disease. 2. Abnormal appearance of the left kidney with numerous cortical cysts. Apparent prominence of the renal collecting system does not have a corresponding finding on today's ultrasound exam. However, it remains concerning for mild to moderate hydronephrosis. 3. 7 mm calyceal calculus in the inferior pole of the left kidney. 4. Diffuse anasarca with small amount ascites. 5. Mild sigmoid diverticulosis. 6. Normal appendix. Venous Doppler Study 01/12/18 00:00 CONCLUSION: 1. Occlusive thrombus in the right cephalic vein. 2. No thrombus in the left upper extremity. Abdomen/Bladder Ultrasound 01/19/18 00:00 CONCLUSION: 1. Continued severe hydronephrosis of the left kidney unchanged since the previous study. 2. 2 small cysts in the right kidney without evidence of hydronephrosis Chest X-Ray 01/25/18 00:00 CONCLUSION: Small left pleural effusion with improving left lower lobe infiltrate. Discharge Plan - Discharge Disposition Patient Disposition: Discharge to SNF - Discharge Condition Condition: Stable - Discharge Order Discharge Orders: Discharge Order (Routine); Ordered 01/26/18 Ordered By: Sameer Connor - Discharge Details Anticipated Discharge Date: 01/26/18 Discharge Comment: May discharge to SNF rehab, when placement avaliable - Physicians Team Primary Care Provider: UNKNOWN, Attending Provider: Mare Terrell Other Providers: Fantasma Ball DO ; Feliciano Gabriel MD ; Wiley Phipps MD ; Edgar Weaver MD ; Eugene Akins MD ; David Grant [facility]
[2018-02-02 13:20] VITALS: BP 120/67; RESP 18; TEMP 97.5; O2SAT 96
== END 2018-02-02 15:34 | disposition home health service (06) ==
LOC: NEPC 17:25 → NEDA 21:41 → HIMC 01-05 00:03 → N04 01-16 17:57
PROVIDERS: ADMIT Family Medicine; ATTEND Family Medicine
PROC: PANENDO (2018-01-19 09:45)
PROC: COLONOS (2018-01-24 11:47)